=== PATIENT | male | born 1945 | race Caucasian/White ===

== ENCOUNTER 2018-01-29 13:42 | Emergency (ER) | payer MEDICARE, BC ==
--- NOTE | 2018-01-29 14:37 | UC ---
Shortness of Breath HPI - HPI Summary HPI Summary: 72 year old male with Alzheimer's presents with spouse reporting 4 days of progressively worsening shortness of breath. Associated with mild nasal congestion and non-productive cough. Denies fever, chills, ear pain, sore throat , chest pain, palpitations, edema, abdominal pain, nausea, vomiting, diarrhea, blood in stool, or melena. Patient has significant history of COPD, spontaneous pneumothorax x 3 (most recent May 23, 2017), cardiomyopathy, paroxysmal A- fib, V-tach, ICD, and AAA repair. - History of Current Complaint Chief Complaint: UCRespiratory Stated Complaint: SOB/SINUS COMPLAINT x3 DAYS Time Seen by Provider: 01/29/18 14:15 Hx Obtained From: Patient, Family/Family Medicine Resident Onset/Duration: Gradual Onset, Lasting Days - 4 Current Severity: Moderate Dyspnea At: Rest Alleviating Factors: Nothing Associated Signs & Symptoms: Positive: Cough (Nonproductive), Nasal Congestion. Negative: Cough (Bloody Sputum), Wheezing, Chest Pain w/Cough, Chest Pain Unrelated to Cough, Fever, Chills, Diaphoresis, Dizzy, Calf Pain/Swelling, Edema - Allergy/Home Medications Allergies/Adverse Reactions: Allergies Allergy/AdvReac Type Severity Reaction Status Date / Time amiodarone Allergy See Comment Verified 01/29/18 14:27 amoxapine Allergy See Comment Verified 01/29/18 14:27 diphenhydramine Allergy See Comment Verified 01/29/18 14:27 [From Benadryl] fluticasone Allergy See Comment Verified 01/29/18 14:27 [From Advair Diskus] olmesartan [From Benicar] Allergy See Comment Verified 01/29/18 14:27 Quinolones Allergy See Comment Verified 01/29/18 14:27 salmeterol Allergy See Comment Verified 01/29/18 14:27 [From Advair Diskus] statins. Allergy See Comment Uncoded 01/29/18 14:27 Home Medications: Home Medications Aspirin TAB* [Aspirin 325 MG TAB*] 325 mg PO DAILY 01/29/18 [History Confirmed 01/29/18] Cetirizine* [ZyrTEC 10 MG TAB*] 10 mg PO DAILY 01/29/18 [History Confirmed 01/29] Cholecalciferol (Vitamin D3) [Vitamin D3] 1,000 unit PO DAILY 01/29/18 [History Confirmed 01/29/18] Donepezil TAB* [Aricept 5 MG TAB*] 10 mg PO DAILY 01/29/18 [History Confirmed ] Furosemide TAB* [Lasix TAB*] 20 mg PO DAILY 01/29/18 [History Confirmed 01/29/18 ] Levalbuterol HFA INHALER* [Xopenex Hfa Inhaler*] 1 puff INH Q4H PRN 01/29/18 [ History Confirmed 01/29/18] Melatonin [Meladox] 3 mg PO BEDTIME 01/29/18 [History Confirmed 01/29/18] Metoprolol Tartrate [Lopressor] 150 mg PO BID 01/29/18 [History Confirmed ] Multivitamin [Multivitamins] 1 cap PO DAILY 01/29/18 [History Confirmed 01/29/18 ] [place]-3 Fatty Acids/Fish Oil [Fish Oil 1,000 mg Capsule] 1 each PO DAILY [History Confirmed 01/29/18] Potassium Chloride 10 meq PO DAILY 01/29/18 [History Confirmed 01/29/18] Sotalol TAB* [Betapace 80 MG TAB*] 120 mg PO BID 01/29/18 [History Confirmed 12/09] Tadalafil (Nf) [Cialis (NF)] 5 mg PO DAILY 01/29/18 [History Confirmed 01/29/18] Tamsulosin CAP* [Flomax CAP*] 0.4 mg PO BEDTIME 01/29/18 [History Confirmed 12/09] Vitamin E 400 unit PO DAILY 01/29/18 [History Confirmed 01/29/18] PMH/Surg Hx/FS Hx/Imm Hx - Additional Past Medical History Additional PMH: Environmental allergies Cardiovascular History: Cardiac Disease, Pacemaker/ICD - ICD, Atrial Fibrillation, Other Other Cardiovascular History: Ventricular tachycardia, cardiomyopathy Respiratory History: COPD, Other Other Respiratory History: Spontaneous pneumothorax x 3 Other GI/ History: BPH Neurological History: Dementia - Surgical History Surgical History: Yes - Family History Known Family History: Positive: Cardiac Disease, Hypertension - Social History Occupation: Retired Lives: With Family Alcohol Use: None Substance Use Type: None Smoking Status (MU): Former Smoker When Did the Patient Quit Smoking/Using Tobacco: 1988 Review of Systems Constitutional: Negative Skin: Negative Eyes: Negative ENT: Negative Respiratory: Shortness Of Breath, Cough Cardiovascular: Negative Gastrointestinal: Negative Genitourinary: Negative Is Patient Immunocompromised?: No All Other Systems Reviewed And Are Negative: Yes Physical Exam Triage Information Reviewed: Yes Appearance: No Pain Distress, Well-Nourished, Ill-Appearing - chronically Vital Signs: Initial Vital Signs Temp 98.1 F 01/29/18 14:08 Pulse 84 01/29/18 14:08 Resp 22 01/29/18 14:08 BP 139/55 01/29/18 14:08 Pulse Ox 96 01/29/18 14:08 Vital Signs Reviewed: Yes Eyes: Positive: Conjunctiva Clear. Negative: Discharge ENT: Positive: TMs normal, Uvula midline. Negative: Pharyngeal erythema, Nasal congestion, Nasal drainage, Tonsillar swelling, Tonsillar exudate, Sinus tenderness Neck: Positive: Supple, Nontender, No Lymphadenopathy Respiratory: Positive: Chest non-tender, Respiratory distress - Mild tachypnea, Crackles - Bibasilar fine crackles. Negative: Wheezing Cardiovascular: Positive: No Murmur, Pulses Normal, Brisk Capillary Refill, Other: - Irregularly irregular rhythm, no edema Abdomen Description: Positive: Nontender, No Organomegaly, Soft Neurological: Positive: Alert Skin Exam: Normal Diagnostics - EKG Cardiac Rate: NL - 91 Cardiac Rhythm: AFib: Normal - Few ventricular paced complexes Ectopy: None ST Segment: Non-Specific EKG Comparison: Other - No old EKG Shortness of Breath Dx - Course Course Of Treatment: 72 year old male with Alzheimer's presents with spouse reporting 4 days of progressively worsening SOB. He has significant history including COPD with 3 episodes of spontaneous pneumothorax, cardiomyopathy, paroxsysmal A-fib, V-Tach, ICD, and AAA repair. His exam revealed patient to be alert, mildly tachypnic, in no acute distress. He had some bibasilar crackles. Heart rhythm irregularly irregular. EKG showed A-fib with occasional paced ventricular beats. His pulse ox was 96% at rest however dropped to low 90's ambulating approximately 20 feet. Recommend patient be evaluated in ED. Transferred to [facility] via ambulance. - Differential Dx/Diagnosis Differential Diagnosis/HQI/PQRI: COPD Exacerbation, NM, Pneumothorax, Pulmonary Embolism Provider Diagnoses: Shortness of breath - Physician Notification/Consults Discussed Patient Care With: Shavonne Rodriguez - [facility] ED Time Discussed With Above Provider: 14:50 Instructed by Provider To: MD Will See In ED Discharge - Sign-Out/Discharge Documenting (check all that apply): Patient Departure All imaging exams completed and their final reports reviewed: No Studies - Discharge Plan Condition: Guarded Disposition: TRANS HIGHER LVL OF CARE FAC Patient Education Materials: Dyspnea (ED) Referrals: Prakash Moran MD [Primary Care Provider] - Additional Instructions: Go strait to [facility] via ambulance for further evaluation. - Billing Disposition and Condition Condition: GUARDED Disposition: Trans Higher Lvl of Care Fac
[2018-01-29 14:56] VITALS: BP 127/84
== END 2018-01-29 14:57 | disposition short-term general hospital (02) ==
LOC: UCCORT 13:42
DX: R06.02 Shortness of breath (principal); G30.9 Alzheimer's disease, unspecified; F02.80 Dementia in other diseases classified elsewhere, unspecified severity, without behavioral disturbance, psychotic disturbance, mood disturbance, and anxiety; Z88.8 Allergy status to other drugs, medicaments and biological substances; I48.91 Unspecified atrial fibrillation; Z95.0 Presence of cardiac pacemaker; I47.2 Ventricular tachycardia; I42.9 Cardiomyopathy, unspecified; J44.9 Chronic obstructive pulmonary disease, unspecified; N40.0 Benign prostatic hyperplasia without lower urinary tract symptoms; Z87.891 Personal history of nicotine dependence
CPT/HCPCS: 93005; 99203; G0463

== ENCOUNTER 2018-04-29 17:24 | Inpatient (IN) | payer MEDICARE, BC ==
--- NOTE | 2018-04-29 17:44 | ED ---
Altered Mental Status - HPI Summary HPI Summary: Patient is a 72 y/o M present to ED via ambulance with complaints of AMS, hypoxia, and vtach per EMS. Provider in room at 1722. 911 was called when patient became violent with his today, which has never happened before. Upon EMS arrival, patient was noted to be hypoxic. They also report vtach was observed with ST depression in V1, V2 and pt was administered amiodarone, despite allergy. FSBG was 143 per EMS. Hx of dementia. AICD present, did not fire. Family reported that patient has not been drinking fluids today, decreased appetite. Patient was given 150 mg amiodarone by EMS two minutes LEGAL TRANSCRIBER, despite allergy. BP was 90/40 per EMS. Patient is on Eliquis. In room, pulse was 100s-120s. He was placed on Bipap at 1732 which improved o2 to ~90%. Fever of 101.2 noted in room. Patient is a level 5 caveat, AMS. PMH: Cardiac ablation 07/2013, pacemaker on right 02/2013, Hx of cardiac arrest , Hx of thyroid toxicity 01/14/13, Hx of AAA repair 09/14/10, Hx of colorectal cancer 07/2010. PMHx of UTI, syncope, pneumothorax. He is on sotalol 120 mg BID, brovana 15 mcg/2mL, Donepezil 10 mg hs, Flomax 0.4 mg qd hs, Eliquis 5 mg BID, Xopenex inhaler [id number], digoxin 125 mg, ASA 325 mg qd 8AM, robitussin syrup/tab prn rare, centrum silver 1 qd, melatonin hs 3 mg, lasix 40 po qd prn 2lb/24hrwt+, cetirizine 10 mg qd, tylenol 325 2po prn pain. Allergies to amoxapine, all statins, amiodarone, quinalones including levaquin, cipro, benicar, bendryl, valium, advair diskus, spiriva inhaler. Home medications and allergies are noted. - History Of Current Complaint Chief Complaint: EDDysrhythmPalp Stated Complaint: CHEST PAIN Hx Obtained From: Family/Plasterer Tender, EMS Hx From Patient Unobtainable Due To: Altered Mental Status Onset/Duration: Still Present Timing: Constant Severity Initially: Severe Severity Currently: Severe Character: Agitation Aggravating Factor(s): Nothing Alleviating Factor(s): Nothing Associated Signs And Symptoms: Positive: Fever Related History: Other: - dementia - Allergies/Home Medications Allergies/Adverse Reactions: Allergies Allergy/AdvReac Type Severity Reaction Status Date / Time amiodarone Allergy See Comment Verified 04/29/18 18:08 amoxapine Allergy See Comment Verified 04/29/18 18:08 diazepam [From Valium] Allergy Altered Verified 04/29/18 18:08 Mental Status diphenhydramine Allergy See Comment Verified 04/29/18 18:08 [From Benadryl] fluticasone Allergy See Comment Verified 04/29/18 18:08 [From Advair Diskus] olmesartan [From Benicar] Allergy See Comment Verified 04/29/18 18:08 Quinolones Allergy See Comment Verified 04/29/18 18:08 salmeterol Allergy See Comment Verified 04/29/18 18:08 [From Advair Diskus] Rlnpaic-Osd-Mrz Reductase Allergy Muscle Ache Verified 04/29/18 18:26 Inhibitor Home Medications: Home Medications Brovana(NF) 15 mcg PO DAILY 04/29/18 [History Confirmed 04/29/18] Budesonide 0.5 mg PO DAILY 04/29/18 [History Confirmed 04/29/18] Digoxin 125 mcg PO DAILY 04/29/18 [History Confirmed 04/29/18] Divalproex Sodium 250 mg PO BID 04/29/18 [History Confirmed 04/29/18] Eliquis 5 mg PO BID 04/29/18 [History Confirmed 04/29/18] Robitussin* 5 ml PO DAILY PRN 04/29/18 [History Confirmed 04/29/18] Tylenol 650 mg PO DAILY PRN 04/29/18 [History Confirmed 04/29/18] PMH/Surg Hx/FS Hx/Imm Hx Previously Healthy: No Endocrine/Hematology History: Reports: Hx Thyroid Disease Cardiovascular History: Reports: Hx Aneurysm - AAA repaired , Hx Auto Implanted Cardiovert Defib, Hx Cardiac Arrest, Hx Congestive Heart Failure, Hx Pacemaker/ ICD Respiratory History: Reports: Hx Chronic Obstructive Pulmonary Disease (COPD), Other Respiratory Problems/Disorders - pneumothorax History: Reports: Other Problems/Disorders - UTI Neurological History: Reports: Hx Dementia - Cancer History Cancer Type, Location and Year: colon - Surgical History Surgery Procedure, Year, and Place: Cardiac ablation 07/2013, pacemaker on right 02/2013, AAA repair 09/14/10 Infectious Disease History: No Infectious Disease History: Denies: Traveled Outside the [place] in Last 30 Days - Family History Known Family History: Positive: Cardiac Disease, Hypertension - Social History Alcohol Use: None Substance Use Type: Reports: None Smoking Status (MU): Former Smoker Review of Systems - ROS Summary Review of Systems Summary: Patient is a level 5 caveat, AMS. Positive: Fever Positive: Other - POSITIVE - VTACH per EMS, probable Sinus tach upon review Positive: Other - POSITIVE - HYPOXIA Positive: Other - POSITIVE - decreased appetite Positive: no symptoms reported Skin: Negative Neurological: Other - POSITIVE - AMS, combative earlier Positive: Depressed - upon presentation, was combative earlier All Other Systems Reviewed And Are Negative: No - Comments Additional Review of Systems Comments: Patient is a level 5 caveat, AMS. Physical Exam - Summary Physical Exam Summary: Appearance: ill-appearing, well-nourished, moving all extremities on stretcher, agitated Skin: Warm, color reflects adequate perfusion, dry Head: Normal Head/Face inspection, atraumatic Eyes: Conjunctiva clear ENT: Normal inspection Neck: Supple, no nodes, no JVD Respiratory: moderate respiratory distress, decreased breath sounds throughout Cardio: irregularly irregulary, tachy, No murmur, pulses normal, brisk capillary refill Abdomen: Soft, nontender, nondistended Bowel sounds: Present Musculoskeletal: Strength Intact/ROM intact, no edema. Psychological: Normal Neuro: Opens eyes to stimuli, moves all extremities, facial symmetry is present , GCS 9 Triage Information Reviewed: Yes Vital Signs On Initial Exam: Initial Vitals Temp Pulse Resp BP Pulse Ox 101.2 F 113 22 149/118 77 04/29/18 17:29 04/29/18 17:29 04/29/18 17:29 04/29/18 17:29 04/29/18 17:29 Vital Signs Reviewed: Yes - Erin Coma Scale Best Eye Response: 2 - To Pain Best Motor Response: 5 - Purposeful Movement Best Verbal Response: 2 - Incomprehensible Words Coma Scale Total: 9 Diagnostics - Vital Signs Vital Signs Temp Pulse Resp BP Pulse Ox 04/29/18 17:29 101.2 F 113 22 149/118 77 - Laboratory Result Diagrams: 05/06/18 05:46 05/06/18 15:42 Diagnostic Studies Comment: Labs in this report are from 05/06/18, not time of pt 's presentation to ED Lab Statement: Any lab studies that have been ordered have been reviewed, and results considered in the medical decision making process. - Radiology CXR Radiology Interpretation Completed By: ED Physician Summary of Radiographic Findings: no acute disease, pending official report - EKG 1730 Cardiac Rate: Other Rate - AFIB WITH RATE OF 116 BPM EKG Rhythm: Atrial Fibrillation EKG Comparison: Other - ST sgement changes in inferolateral leads noted on comparsion to EKG from 01/29/18 Summary of EKG Findings: EKG showed afib with rate of 116 BPM, nl IVCT, nl QTc, downsloping STs and inverted Ts in inferolateral leads, ST sgement changes in inferolateral leads noted on comparsion to EKG from 01/29/18 Re-Evaluation - Re-Evaluation First Eval Re-Evaluation Time: 17:49 Change: Improved Comment: pulse 108, tolerating bipap, BP 149/118, o2 91 Second Eval Re-Evaluation Time: 18:09 Change: Unchanged Comment: Family have arrived and are present in the room. No Hx of AR reported per . Hx of V-tach. He has had multiple shocks but does not remember then as he syncopes before the shock. Hx of ablation, only atrial part. Patient has five wires in heart. ACID is on right not left. Dr. Humera Egan is current stage builder. Most recent hospitalization was [place]. Patient was in [place] for "questionable" PNA and CHF. Aftewards, he was in rehab 03/29 - 04/12/18 [facility] and been home since then. In the room, patient's eyes are closed. Per , patient has been leaning to the right and has hands contracted, last official well known was [place], 04/23/18. FMHx of cardiac disease denied , CA reported. He is on digoxin and depakote two capsules twice daily. Patient is a full code. Fifth Eval Re-Evaluation Time: 19:07 Change: Unchanged Comment: 1907 aware of BNP of 1254, will DC sepsis fluids. Third Eval Re-Evaluation Time: 19:00 Change: Unchanged Comment: [place] from lab states that patient is difficult to access due to agitation, blood cultures were not sent, antibiotics given before cultures. Fourth Eval Re-Evaluation Time: 19:02 Change: Worse Comment: Nurses additionally note increased agitation of patient, additional pain medications requested. Altered Mental Statu Course/Dx - Course Course Of Treatment: Patient is a 72 y/o M present to ED via ambulance with complaints of AMS, hypoxia, and vtach per EMS. Provider in room at 1722. 911 was called when patient became violent with his today, which has never happened before. Upon EMS arrival, patient was noted to be hypoxic. They also report vtach was observed with ST depression in V1, V2. FSBG was 143 per EMS. Hx of dementia. AICD present, did not fire. Family reported that patient has not been drinking fluids today, decreased appetite. Patient was given 150 mg amiodarone by EMS two minutes LEGAL TRANSCRIBER for Vtach, despite allergy. BP was 90/40 per EMS. Patient is on Eliquis. In room, pulse was 100s-120s. He was placed on Bipap at 1732 which improved o2 to ~90%. Fever of 101.2 noted in room. Patient is a level 5 caveat, AMS. On physical exam, patient is ill-appering, moving all extremities on stretcher, appears agitated. Respiratory: moderate respiratory distress, decreased breath sounds throughout. Neuro: Opens eyes to stimuli, moves all extremities, facial symmetry is present, GCS 9. Family had arrived and are present in the room. No Hx of AR reported per . Hx of V- tach. He has had multiple shocks but does not remember then as he syncopes before the shock. Hx of ablation, only atrial part. Patient has five wires in heart. ACID is on right not left. Dr. Humera Egan is current stage builder. Most recent hospitalization was [place]. Patient was in [place] for "questionable" PNA and CHF. Aftewards, he was in rehab 03/29 - 04/12/18 [facility] and been home since then. In the room, patient's eyes are closed. Per , patient has been leaning to the right and has hands contracted, last official well known was [place]. FMHx of cardiac disease denied, CA reported. He is on digoxin and depakote two capsules twice daily. Patient is a full code. EKG showed afib with rate of 116 BPM, nl IVCT, nl QTc, downsloping STs and inverted Ts in inferolateral leads, ST sgement changes in inferolateral leads noted on comparsion to EKG from 01/29/18. Labs showed WBC 12.1, Hgb 13.2, Hct 40, RDW 16, plt count 108, absolute neuts 11.2, absolute lymphs 0.3, INR 1.16, lactic acid 1.3, Na 145, total bilirubin 1.5, trop 0.06, CRP 26.73, BNP 1254, digoxin 1, valrpoic acid 44. UA showed trace ketones, ascorbic acid present. Influenza A, B was negative. During ED course, patient received vancomycin Hcl 1000 mg in sodium chloride 250 mls @ 166.667 mls/hr IVPD ED ONCE ONE, fluids, Poperacillin Sod/Tazobactam Sod 3.375 gm in Sodium Chloride 100 mls @ 200 mls/hr IVPB ED ONCE ONE, for presumed sepsis, respiratory source. Morphine 4 mg IV ED ONCE ONE given for pain and agitation, Lasix 40 mg IV ONCE ONE given after BNP elevated, and sepsis fluids initiated, Tylenol 650 mg [place] ED ONCE ONE for fever. 1907 aware of BNP of 1254, will DC sepsis fluids. CXR showed no acute disease. Due to movement of patient, Brain CT could not be done. Patient's case was discussed with Dr. Kwok at 1918, Dr. Kwok accepts the patient for admission. - Diagnoses Differential Diagnosis/HQI/PQRI: CVA, Hyperthermia, Hypoxia, Intracranial Bleed , Medication Reaction, Meningitis, Metabolic Disorder, Sepsis Provider Diagnoses: Altered mental status, Fever, CHF (congestive heart failure), V-tach, Acute hypoxemic respiratory failure, Atrial fibrillation with rapid ventricular response, Alzheimer disease - Provider Notifications Discussed Care Of Patient With: Waldo Kwok Time Discussed With Above Provider: 19:19 Instructed by Provider To: Other - Patient's case was discussed with Dr. Kwok at 1918, Dr. Kwok accepts the patient for admission. - Critical Care Time Critical Care Time: 30-74 min - 40 minutes Discharge - Sign-Out/Discharge Documenting (check all that apply): Patient Departure - admit All imaging exams completed and their final reports reviewed: Yes - Discharge Plan Condition: Good Disposition: ADMITTED TO [facility] - Billing Disposition and Condition Condition: GOOD Disposition: Admitted to [facility] - Attestation Statements Document Initiated by Sharon: Yes Documenting Scribe: PATRICK COOPER Provider For Whom Sharon is Documenting (Include Credential): NOBLE FARRELL MD Scribe Attestation: PATRICK Briceño , scribed for NOBLE FARRELL MD on 05/06/18 at 2237. Scribe Documentation Reviewed: Yes Provider Attestation: The documentation as recorded by the bobbyibPATRICK gates accurately reflects the service I personally performed and the decisions made by me, NOBLE FARRELL MD Status of Scribe Document: Viewed
--- OUTSIDE RECORDS SUMMARY | 2018-04-29 17:47 | XMS REPORT ---
:1945 External Reference #:[id number] [facility] Address [address], [address] [place] [address] Phone [phone] Care Team Providers Name Role Phone Vasyl Pacheco MD Care Team Information Engineering Librarian Unavailable Vasyl Pacheco MD Primary Care Physician Unavailable Payers Type Date Identification Numbers Payment Provider Subscriber Medicare Primary Effective: Policy Number: Medicare Baltazar Hinkle 2008 [id number] PayID: [id number] [address] [place] [address] [facility] Effective: 2010 Policy Number: Excellus Baltazar Hinkle [id number] PayID: [id number] [address] [address] [place] [address] Problems Date Description Provider Status Onset: 02/05/2018 Chronic congestive heart failure Vivienne Wagner MD, PHD Active Onset: 02/05/2018 H/O: pulmonary embolus Vivienne Wagner MD, PHD Active Onset: 02/05/2018 Chronic obstructive lung disease Vivienne Wagner MD, PHD Active Onset: 02/05/2018 Alzheimer's disease Vivienne Wagner MD, PHD Active Onset: 02/05/2018 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, PHD Active abdominal aorta Onset: 02/05/2018 Sick sinus syndrome Vivienne Wagner MD, PHD Active Onset: 02/05/2018 Implantation of internal cardiac Vivienne Wagner MD, PHD Active defibrillator Onset: 02/05/2018 Chronic atrial fibrillation Vivienne Wagner MD, PHD Active Onset: 02/05/2018 History of malignant neoplasm of Vivienne Wagner MD, PHD Active colon Onset: 02/05/2018 Benign prostatic hyperplasia Vivienne Wagner MD, PHD Active Family History Date Family Member(s) Problem(s) Comments First Brother Chronic Obstructive Pulmonary Disease (COPD) Social History Type Date Description Comments Marital Status Lives With Family Diet Patient is on a cardiac diet 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 [employer] ADL's/IADL's Independent with all ADL's Cigarette Use Former Cigarette Smoker 1 1/2 Packs Daily x33 ETOH Use Denies alcohol use Recreational Drug Use Denies Drug Use Smoking Patient is a former smoker Daily Caffeine Consumes on average 1 cup of regular coffee per day Exercise Type/Frequency Does not exercise Allergies, Adverse Reactions, Alerts Date Description Reaction Status Severity Comments 02/23/2018 Diazepam restless and combative active 02/23/2018 Amoxapine active 02/23/2018 Ciprofloxacin nausea, vomiting, active hypothermia 02/23/2018 Benadryl combative active 02/23/2018 Fluticasone active 02/23/2018 Levofloxacin VERY SICK active 02/23/2018 Olmesartan increases blood active pressure 02/23/2018 Salmeterol active 02/23/2018 Tiotropium active 02/23/2018 Quinoline Yellow active 02/23/2018 Statins myalgia active 02/23/2018 Amiodarone active hyperthyroid, cardiac arrest 02/23/2018 Valium active restless,combative Medications Medication Date Status Form Strength Qnty SIG Indications Ordering Provider Budesonide 03/19 Active Suspension 0.5mg/2ML 180ml take 1 vial J44.9 twice daily. MD Kenton rinse mouth after use. Brovana 03/19 Active Nebulizer 15mcg/2ML 360ml use 1 J44.9 nebulization MD Kenton twice daily. Eliquis Active Tablets 5mg 180ta 1 tab by Egan, bs mouth twice a MD Katie day Aspirin Active Tablets 325mg 1 by mouth Unknown every day Cetirizine HCL Active Tablets 10mg 90tab 1 by mouth Egan, s every day MD Katie Vitamin D-3 Active Capsules 1000Unit 1 by mouth Unknown every day Aricept Active Tablets 10mg 90tab 1 by mouth Jignesh, / s every day MD Katie Furosemide Active Tablets 20mg 2 by mouth Unknown every day prn for weight gain >3 lbs in 24-48 hours Xopenex HFA Active Aerosol 45mcg/Act inhale two Unknown puffs by mouth every 4 to 6 hours as needed for trouble breathing Melatonin Active Capsules 3mg one by mouth Unknown an hour prior to bedtime - if not effective in 1 week go to 2 capsules Metoprolol Active Tablets 100mg 1.5 tablets Unknown Tartrate take one tablet by mouth twice a day Sotalol HCL Active Tablets 120mg 60tab 1 tab by Jignesh (AF) / s mouth twice a MD Katie day Tamsulosin HCL Active Capsules 0.4mg 1 by mouth Unknown every day at bedtime Oxygen Active 2L/Mi at night and prn Digitek Active Tablets 125mcg 1 po daily Unknown Depakote Active Tablets DR 125mg 1 by mouth Unknown twice a day Tylenol Extra Active Tablets 500mg 2 tabs by Unknown Strength / mouth every 4 hours as needed for back pain Levalbuterol Active Aerosol 45mcg/Act 2 puffs every Unknown Tartrate 6 hours as needed for shortness of breath or coughing Potassium Active Tablets ER 10Meq 1 by mouth Unknown Chloride Rosa every day prn ER Symbicort 03/14 Hx Aerosol 160-4.5mc 10.20 inhale two J44.9 g/Act 0gm puffs by MD Kenton - mouth twice a Brovana Hx Nebulizer 15mcg/2ML use 1 nebulization - twice daily. 03/14 Budesonide Hx Suspension 0.5mg/2ML 180ml take 1 vial Kh twice daily. MD Kenton - rinse mouth 03/14 after use. Cefpodoxime Hx Tablets 200mg 1 by mouth Unknown Proxetil twice a day Centrum Silver Hx Tablets 1 by mouth Unknown /0000 every day Entresto Hx Tablets 24-26mg 180ta take one Egan bs tablet by MD Katie mouth twice a day Tadalafil Hx Tablets 5mg 1 by mouth at Unknown /0000 bedtime Vitamin E Hx Capsules 400Unit 1 by mouth Unknown every day Pulmicort Hx Suspension 0.5mg/2ML nebulizer two Unknown times daily Vital Signs Date Vital Result Comment 04/11/2018 BP Systolic Sitting Left Arm 110 mmHg BP Diastolic Sitting Left Arm 76 mmHg Heart Rate 81 /min Respiratory Rate 16 /min Height 66 inches 5'6" Weight 155.00 lb BMI (Body Mass Index) 25.0 kg/m2 BSA (Body Surface Area) 1.79 m2 [place] body weight in kilograms 64 O2 Saturation Level with Exercise 99 % 03/14/2018 BP Systolic Sitting Left Arm 104 mmHg BP Diastolic Sitting Left Arm 60 mmHg Heart Rate 69 /min Respiratory Rate 20 /min Height 66 inches 5'6" Weight 174.00 lb BMI (Body Mass Index) 28.1 kg/m2 BSA (Body Surface Area) 1.88 m2 [place] body weight in kilograms 64 O2 % BldC Oximetry 98 % Room air 02/23/2018 BP Systolic Sitting Left Arm 98 mmHg BP Diastolic Sitting Left Arm 60 mmHg Heart Rate 87 /min Respiratory Rate 18 /min Weight 171.00 lb O2 % BldC Oximetry 94 % Ora Results Test Date Test Result H/L Range Note Serum sodium 03/29/2018 Serum sodium 142 136-145 measurement measurement Serum or plasma urea 03/29/2018 Serum or plasma urea 16.0 nitrogen/creatinine nitrogen/creatinine mass rati mass ratio Serum or plasma urea 03/29/2018 Serum or plasma urea 16 7-18 nitrogen measurement nitrogen measurement (mass/vo (mass/volume) Serum or plasma 03/29/2018 Serum or plasma 2.0 1.8-2.4 magnesium measurement magnesium measurement (mass/volume (mass/volume) Serum or plasma 03/29/2018 Serum or plasma 85 74-106 glucose measurement glucose measurement (mass/volume) (mass/volume) Serum or plasma 03/29/2018 Serum or plasma 1.4 0.8-1.9 digoxin measurement digoxin measurement (mass/volume) (mass/volume) Serum or plasma 03/29/2018 Serum or plasma 1.0 0.6-1.3 creatinine creatinine measurement measurement (mass/volum (mass/volume) Serum or plasma 03/29/2018 Serum or plasma 8.7 8.5-10.1 calcium measurement calcium measurement (mass/volume) (mass/volume) Serum carbon dioxide 03/29/2018 Serum carbon dioxide 28 21-32 measurement measurement Potassium SerPl-sCnc 03/29/2018 Potassium SerPl-sCnc 3.7 3.5-5.1 Chloride SerPl-sCnc 03/29/2018 Chloride SerPl-sCnc 107 98-107 Anion Gap SerPl-sCnc 03/29/2018 Anion Gap SerPl-sCnc 7 Low 8-16 Unloinc 03/29/2018 Unloinc Sitting Up In Bed Determination of 03/29/2018 Determination of 21 21-100 inhaled oxygen inhaled oxygen concentration (vol concentration (volume fraction) Unloinc 03/29/2018 Unloinc 2 Unloinc N/C Unloinc Ambulating Heart rate by 03/29/2018 Heart rate by 80 oximetry oximetry Arterial blood 03/29/2018 Arterial blood 91 Low 93-98 oxygen saturation oxygen saturation measurement by pu measurement by pulse oximetry Blood monocytes 03/28/2018 Blood monocytes 0.55 0.0-0.8 automated count automated count (number/volume) (number/volume) Eosinophil/leuk NFr 03/28/2018 Eosinophil/leuk NFr 2.1 0.0-6.6 Bld Auto Bld Auto Globulin Ser 03/28/2018 Globulin Ser 4.1 1.9-4.3 Calc-mCnc Calc-mCnc Lymphocytes/leuk NFr 03/28/2018 Lymphocytes/leuk NFr 8.6 Low 20.0-42.0 Bld Auto Bld Auto Monocytes/leuk NFr 03/28/2018 Monocytes/leuk NFr 7.3 0.0-10.0 Bld Auto Bld Auto Neutrophils # Bld 03/28/2018 Neutrophils # Bld 6.14 1.8-7.0 Auto Auto Neutrophils/leuk NFr 03/28/2018 Neutrophils/leuk NFr 81.3 High 33.0-73.0 Bld Auto Bld Auto RDW RBC Auto 03/28/2018 RDW RBC Auto 47.6 36-51 RDW RBC Auto-Rto 03/28/2018 RDW RBC Auto-Rto 14.9 11.6-15.8 Serum or plasma C 03/28/2018 Serum or plasma C 57.6 High <3.0 reactive protein reactive protein measurement (ma measurement (mass/volume) Serum or plasma 03/28/2018 Serum or plasma 3.2 Low 3.4-5.0 albumin measurement albumin measurement (mass/volume) (mass/volume) Serum or plasma 03/28/2018 Serum or plasma 133 High 45-117 alkaline phosphatase alkaline phosphatase measurement ( measurement (enzymatic activity/volume) Serum or plasma 03/28/2018 Serum or plasma 23 15-37 aspartate aspartate aminotransferase aminotransferase measure measurement (enzymatic activity/volume) Serum or plasma 03/28/2018 Serum or plasma 7.3 6.4-8.2 protein measurement protein measurement (mass/volume) (mass/volume) Serum or plasma 03/28/2018 Serum or plasma 1.4 High 0.2-1.0 total bilirubin total bilirubin measurement (mass/ measurement (mass/volume) * Miscellaneous 03/28/2018 * Miscellaneous Test(s) added studies (set) studies (set) Alt SerPl-cCnc 03/28/2018 Alt SerPl-cCnc 14 12-78 Albumin/Glob SerPl 03/28/2018 Albumin/Glob SerPl 0.8 Automated blood 03/28/2018 Automated blood 0.05 0.0-0.1 basophil count basophil count (count/volume) (count/volume) Automated blood 03/28/2018 Automated blood 0.16 0.0-0.5 eosinophil count eosinophil count Automated blood 03/28/2018 Automated blood 46.2 38.0-48.0 hematocrit (volume hematocrit (volume fraction) fraction) Automated blood 03/28/2018 Automated blood 0.65 Low 1.0-4.0 lymphocyte count lymphocyte count (number/volume) (number/volume) Automated blood 03/28/2018 Automated blood 192 155-360 platelet count platelet count Automated blood 03/28/2018 Automated blood 11.4 High 6.6-10.6 platelet mean volume platelet mean volume measurement measurement Automated 03/28/2018 Automated 29.3 27.0-33.0 erythrocyte mean erythrocyte mean corpuscular corpuscular hemoglobin hemoglobin (mass per erythrocyte) Automated 03/28/2018 Automated 33.1 31.7-36.0 erythrocyte mean erythrocyte mean corpuscular corpuscular hemoglobin hemoglobin concentration measurement (mass/volume) Automated 03/28/2018 Automated 88.5 80.0-96.0 erythrocyte mean erythrocyte mean corpuscular volume corpuscular volume Basophils/leuk NFr 03/28/2018 Basophils/leuk NFr 0.7 0.0-1.1 Bld Auto Bld Auto Blood erythrocytes 03/28/2018 Blood erythrocytes 5.22 4.20-5.80 automated count automated count (number/volume) (number/volume) Blood hemoglobin 03/28/2018 Blood hemoglobin 15.3 12.8-17.0 measurement measurement (mass/volume) (mass/volume) Blood leukocytes 03/28/2018 Blood leukocytes 7.6 3.4-10.5 automated count automated count (number/volume) (number/volume) Laboratory test 03/27/2018 Troponin-I 0.030 ng/mL 1, 2 finding Serum or plasma 03/26/2018 Serum or plasma 1.8 0.4-1.9 lactate measurement lactate measurement (moles/volume) (moles/volume) Anaerobic blood 03/26/2018 Anaerobic blood No Growth culture culture Aerobic blood 03/26/2018 Aerobic blood No Growth culture culture pH Ur Strip.auto 03/26/2018 pH Ur Strip.auto 6.5 6.5-7.5 Urobilinogen Ur 03/26/2018 Urobilinogen Ur 1.0 0.2-1.0 Strip-aCnc Strip-aCnc Urine total 03/26/2018 Urine total Small High Negative bilirubin detection bilirubin detection by automated test by automated test strip Urine hemoglobin 03/26/2018 Urine hemoglobin Trace Negative detection by detection by automated test strip automated test strip Urine glucose 03/26/2018 Urine glucose Negative Negative measurement by measurement by automated test strip automated test strip (mass/volume) Urine appearance 03/26/2018 Urine appearance Clear Clear determination determination Specific gravity of 03/26/2018 Specific gravity of 1.010 1.010-1.030 Urine by Automated Urine by Automated test strip test strip Prot Ur 03/26/2018 Prot Ur Trace Negative Strip.auto-mCnc Strip.auto-mCnc Nitrite Ur Ql 03/26/2018 Nitrite Ur Ql Negative Negative Strip.auto Strip.auto Leukocyte esterase 03/26/2018 Leukocyte esterase Negative Negative Ur Ql Strip.auto Ur Ql Strip.auto Ketones Ur 03/26/2018 Ketones Ur Trace High Negative Strip.auto-mCnc Strip.auto-mCnc Color Ur 03/26/2018 Color Ur Yellow Yellow Activated partial 03/01/2018 Activated partial 39.2 High 23.4-35.0 thromboplastin time thromboplastin time (aPTT) in pl (aPTT) in platelet poor plasma by coagulation assay Platelet poor plasma 03/01/2018 Platelet poor plasma 1.3 High 0.9-1.1 international international normalized rati normalized ratio (Inr) by coagulation assay (relative time) Prothrombin time 03/01/2018 Prothrombin time 16.4 High 12.0-14.4 (PT) in platelet (PT) in platelet poor plasma poor plasma Serum or plasma 03/01/2018 Serum or plasma 5232.0 High <125 natriuretic peptide natriuretic peptide B prohormone N B prohormone N-terminal measurement (mass/volume) Anion Gap SerPl-sCnc 02/02/2018 Anion Gap SerPl-sCnc 8 8-16 Automated blood 02/02/2018 Automated blood 0.02 0.0-0.1 basophil count basophil count (count/volume) (count/volume) Serum sodium 02/02/2018 Serum sodium 145 136-145 measurement measurement Serum or plasma urea 02/02/2018 Serum or plasma urea 11.0 nitrogen/creatinine nitrogen/creatinine mass rati mass ratio Serum or plasma urea 02/02/2018 Serum or plasma urea 11 7-18 nitrogen measurement nitrogen measurement (mass/vo (mass/volume) Serum or plasma 02/02/2018 Serum or plasma 173 High 74-106 glucose measurement glucose measurement (mass/volume) (mass/volume) Serum or plasma 02/02/2018 Serum or plasma 1.0 0.6-1.3 creatinine creatinine measurement measurement (mass/volum (mass/volume) Serum or plasma 02/02/2018 Serum or plasma 8.9 8.5-10.1 calcium measurement calcium measurement (mass/volume) (mass/volume) Serum carbon dioxide 02/02/2018 Serum carbon dioxide 26 21-32 measurement measurement RDW RBC Auto-Rto 02/02/2018 RDW RBC Auto-Rto 14.2 11.6-15.8 RDW RBC Auto 02/02/2018 RDW RBC Auto 45.3 36-51 Potassium SerPl-sCnc 02/02/2018 Potassium SerPl-sCnc 3.9 3.5-5.1 Neutrophils/leuk NFr 02/02/2018 Neutrophils/leuk NFr 86.0 High 33.0-73.0 Bld Auto Bld Auto Neutrophils # Bld 02/02/2018 Neutrophils # Bld 8.67 High 1.8-7.0 Auto Auto Monocytes/leuk NFr 02/02/2018 Monocytes/leuk NFr 6.2 0.0-10.0 Bld Auto Bld Auto Automated blood 02/02/2018 Automated blood 0.09 0.0-0.5 eosinophil count eosinophil count Automated blood 02/02/2018 Automated blood 46.2 38.0-48.0 hematocrit (volume hematocrit (volume fraction) fraction) Automated blood 02/02/2018 Automated blood 0.68 Low 1.0-4.0 lymphocyte count lymphocyte count (number/volume) (number/volume) Automated blood 02/02/2018 Automated blood 241 155-360 platelet count platelet count Automated blood 02/02/2018 Automated blood 11.1 High 6.6-10.6 platelet mean volume platelet mean volume measurement measurement Automated 02/02/2018 Automated 29.7 27.0-33.0 erythrocyte mean erythrocyte mean corpuscular corpuscular hemoglobin hemoglobin (mass per erythrocyte) Automated 02/02/2018 Automated 33.1 31.7-36.0 erythrocyte mean erythrocyte mean corpuscular corpuscular hemoglobin hemoglobin concentration measurement (mass/volume) Automated 02/02/2018 Automated 89.5 80.0-96.0 erythrocyte mean erythrocyte mean corpuscular volume corpuscular volume Lymphocytes/leuk NFr 02/02/2018 Lymphocytes/leuk NFr 6.7 Low 20.0-42.0 Bld Auto Bld Auto Eosinophil/leuk NFr 02/02/2018 Eosinophil/leuk NFr 0.9 0.0-6.6 Bld Auto Bld Auto Chloride SerPl-sCnc 02/02/2018 Chloride SerPl-sCnc 111 High 98-107 Blood monocytes 02/02/2018 Blood monocytes 0.62 0.0-0.8 automated count automated count (number/volume) (number/volume) Basophils/leuk NFr 02/02/2018 Basophils/leuk NFr 0.2 0.0-1.1 Bld Auto Bld Auto Blood erythrocytes 02/02/2018 Blood erythrocytes 5.16 4.20-5.80 automated count automated count (number/volume) (number/volume) Blood hemoglobin 02/02/2018 Blood hemoglobin 15.3 12.8-17.0 measurement measurement (mass/volume) (mass/volume) Blood leukocytes 02/02/2018 Blood leukocytes 10.1 3.4-10.5 automated count automated count (number/volume) (number/volume) Arterial blood 02/01/2018 Arterial blood 91 Low 93-98 oxygen saturation oxygen saturation measurement by pu measurement by pulse oximetry Heart rate by 02/01/2018 Heart rate by 85 oximetry oximetry Serum or plasma 02/01/2018 Serum or plasma 2.1 1.8-2.4 magnesium magnesium measurement measurement (mass/volume (mass/volume) Unloinc 02/01/2018 Unloin Ambulating Unloin N/C Unloinc 2 Determination of 02/01/2018 Determination of 21 21-100 inhaled oxygen inhaled oxygen concentration (vol concentration (volume fraction) Unloin 02/01/2018 Unloin Sitting Up In Bed Activated partial 02/01/2018 Activated partial 34.2 23.4-35.0 thromboplastin time thromboplastin time (aPTT) in pl (aPTT) in platelet poor plasma by coagulation assay [facility]30[facility] Serum or plasma 01/30/2018 Serum or plasma 0.065 troponin i.cardiac troponin i.cardiac measurement (ma measurement (mass/volume) Platelet poor plasma 01/29/2018 Platelet poor plasma 1.0 0.9-1.1 international international normalized rati normalized ratio (Inr) by coagulation assay (relative time) Prothrombin time (PT) 01/29/2018 Prothrombin time (PT) 13.4 12.0-14.4 in platelet poor in platelet poor plasma plasma Serum or plasma C 01/29/2018 Serum or plasma C 47.8 High <3.0 reactive protein reactive protein measurement (ma measurement (mass/volume) Serum or plasma 01/29/2018 Serum or plasma 3.2 Low 3.4-5.0 albumin measurement albumin measurement (mass/volume) (mass/volume) Serum or plasma 01/29/2018 Serum or plasma 109 45-117 alkaline phosphatase alkaline phosphatase measurement ( measurement (enzymatic activity/volume) Serum or plasma 01/29/2018 Serum or plasma 20 15-37 aspartate aspartate aminotransferase aminotransferase measure measurement (enzymatic activity/volume) Serum or plasma 01/29/2018 Serum or plasma 0.8 0.4-1.9 lactate measurement lactate measurement (moles/volume) (moles/volume) Serum or plasma 01/29/2018 Serum or plasma 9553.0 High <125 natriuretic peptide B natriuretic peptide B prohormone N prohormone N-terminal measurement (mass/volume) Serum or plasma 01/29/2018 Serum or plasma 6.8 6.4-8.2 protein measurement protein measurement (mass/volume) (mass/volume) Serum or plasma total 01/29/2018 Serum or plasma total 1.3 High 0.2-1.0 bilirubin measurement bilirubin measurement (mass/ (mass/volume) TSH SerPl-aCnc 01/29/2018 TSH SerPl-aCnc 2.22 0.30-4.20 * Miscellaneous 01/29/2018 * Miscellaneous Test(s) added studies (set) studies (set) Legionella pneumophila 01/29/2018 Legionella pneumophila Negative Negative 1 Ag [Presence] in 1 Ag [Presence] in Urine by Urine by Immunoassay Color Ur 01/29/2018 Color Ur Yellow Yellow Ketones Ur 01/29/2018 Ketones Ur Negative Negative Strip.auto-mCnc Strip.auto-mCnc Leukocyte esterase Ur 01/29/2018 Leukocyte esterase Ur Negative Negative Ql Strip.auto Ql Strip.auto Nitrite Ur Ql 01/29/2018 Nitrite Ur Ql Negative Negative Strip.auto Strip.auto Prot Ur 01/29/2018 Prot Ur Negative Negative Strip.auto-mCnc Strip.auto-mCnc Urine appearance 01/29/2018 Urine appearance Clear Clear determination determination Urine glucose 01/29/2018 Urine glucose Negative Negative measurement by measurement by automated test strip automated test strip (mass/volume) Urine hemoglobin 01/29/2018 Urine hemoglobin Negative Negative detection by automated detection by automated test strip test strip Urine total bilirubin 01/29/2018 Urine total bilirubin Negative Negative detection by automated detection by automated test test strip Urobilinogen Ur 01/29/2018 Urobilinogen Ur 4.0 High 0.2-1.0 Strip-aCnc Strip-aCnc pH Ur Strip.auto 01/29/2018 pH Ur Strip.auto 6.0 Low 6.5-7.5 Aerobic blood culture 01/29/2018 Aerobic blood culture No Growth Anaerobic blood 01/29/2018 Anaerobic blood No Growth culture culture Alt SerPl-cCnc 01/29/2018 Alt SerPl-cCnc 12 12-78 Albumin/Glob SerPl 01/29/2018 Albumin/Glob SerPl 0.9 Globulin Ser Calc-mCnc 01/29/2018 Globulin Ser Calc-mCnc 3.6 1.9-4.3 1 CHF AFIB RVR RESPIRATORY FAILURE 2 0.0 - 0.045 ng/mL: Normal 0.046 - 0.5 ng/mL: Suggestive 0.6 - 1.5 ng/mL: Consistent Procedures Date CPT Code Description Status 04/11/2018 25551 EKG-Tracing And Report Completed 03/27/2018 48991 EKG Interpretation And Report Only Completed 03/26/2018 52599 Cardioversion/Defibrillation Dual Pacemaker Completed 02/23/2018 75866 EKG-Tracing And Report Completed 01/31/2018 79991 EKG Interpretation And Report Only Completed 01/30/2018 91138 Cardioversion/Defibrillation Dual Pacemaker Completed 01/30/2018 68451 Echocardiogram Complete Completed Encounters Type Date Location Provider CPT E/M Dx Office Visit 04/11/2018 10:15a [place] [address] I48.2 I47.2 Z95.810 I25.10 I25.5 I50.42 Office Visit 03/26/2018 3:10p [facility] [place] [address] R94.31 [place] I25.5 I48.2 I48.2 J44.9 Z95.810 I50.9 I47.2 Office Visit 03/14/2018 3:30p [place] [address] J44.9 J69.0 R09.02 I26.99 Office Visit 02/23/2018 1:20p [place] [address] I25.10 I25.5 I50.42 I48.2 Z95.810 I47.2 J44.9 Plan of Care Future Appointment(s):07/23/2018 9:15 am - Katie Egan MD at Cardiology Ybveyf3505/02/2018 9:00 am - Vasyl Pacheco MD at [facility]2018 2:30 pm - Kenton Patterson MD at [facility]/08/2019 11:25 am - Saúl Singh PA at Cardiology Wedcea0704/11/2018 - Katie Egan MDI48.2 Chronic atrial fibrillationComments:Rate controlled, on Eliquis for OAC. Will obtain last set o labs from I47.2 Ventricular tachycardiaComments:On Sotalol and Metoprolol. No recent ventricular dysrhythmias seenZ95.810 Presence of automatic (implantable) cardiac defibrillatorComments:Routine device checks per protocol.I25.10 [place] heart disease of [place] coronary artery w/o ang pctrsComments:Chronic stable CAD. No signs or symptoms of ischemia. On medical therapy.I25.5 Ischemic cardiomyopathyComments:EF 25%. Intolerant to Entresto/ ACEI and ARB. On BB/Digoxin/Lasix. S/p ICD for secondary prevention with h/o VF lossrhB31.42 Chronic combined systolic and diastolic hrt failComments:Stable. Well compensated. Now on steady dose of Lasix. Will obtain a copy of recent labsAllFollow up:3 months with ICD check
--- OUTSIDE RECORDS SUMMARY | 2018-04-29 17:48 | XMS REPORT ---
:1945 External Reference #:[id number] Author Organization [facility] Address [address], [address] [place] [address] Phone [phone] Care Team Providers Name Role Phone Vivienne Wagner MD, PHD Care Team Information Success Coach Unavailable Vivienne Wagner MD, PHD Primary Care Physician Unavailable Payers Type Date Identification Numbers Payment Provider Subscriber Medicare Primary Effective: Policy Number: Medicare Baltazar Hinkle 2008 [id number] PayID: [id number] [address] [place] [address] Medigap Part B Effective: 2010 Policy Number: Excell Baltazar Hinkle [id number] PayID: [id number] [address] [address] [place] [address] Problems Date Description Provider Status Onset: 02/05/2018 [...] Onset: 02/05/2018 Implantation of internal cardiac Vivienne Wagnre MD, PHD Active defibrillator Onset: 02/05/2018 Chronic [...] a cardiac diet 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 MD Kenton rinse mouth after use. Brovana 03/19/ Active Nebulizer 15mcg/2ML 360ml use 1 J44.9 2017 nebulization MD Kenton twice daily. Eliquis / Active Tablets 5mg 180ta 1 tab by Ale Egan bs mouth twice a MD Katie day Aspirin // Active Tablets 325mg 1 by mouth Unknown 0000 every day Cefpodoxime / Active Tablets 200mg 1 by mouth Unknown Proxetil 0000 twice a day Cetirizine / Active Tablets 10mg 90tab 1 by mouth Egan, HCL 0000 s every day MD Katie Vitamin D-3 / Active Capsules 1000Unit 1 by mouth Unknown 0000 every day Aricept / Active Tablets 10mg 90tab 1 by mouth Jignesh, 0000 s every day MD Katie Furosemide / Active Tablets 20mg 2 by mouth Unknown 0000 every day prn for weight gain >3 lbs in 24-48 hours Xopenex HFA / Active Aerosol 45mcg/Act inhale two Unknown 0000 puffs by mouth every 4 to 6 hours as needed for trouble breathing Melatonin / Active Capsules 3mg one by mouth Unknown 0000 an hour prior to bedtime - if not effective in 1 week go to 2 capsules Metoprolol / Active Tablets 100mg 1.5 tablets Unknown Tartrate 0000 take one tablet by mouth twice a day Centrum / Active Tablets 1 by mouth Unknown Silver 0000 every day Entresto / Active Tablets 24-26mg 180ta take one Jignesh 0000 bs tablet by MD Katie mouth twice a day Sotalol HCL / Active Tablets 120mg 60tab 1 tab by Jignesh, (AF) 0000 s mouth twice a MD Katie day Tadalafil / Active Tablets 5mg 1 by mouth at Unknown 0000 bedtime Tamsulosin / Active Capsules 0.4mg 1 by mouth Unknown HCL 0000 every day at bedtime Vitamin E / Active Capsules 400Unit 1 by mouth Unknown 0000 every day Oxygen / Active 2L/Mi at Unknown 0000 night and prn Symbicort 03/14/ Hx Aerosol 160-4.5mc 10.20 inhale two J44.9 2017 - g/Act 0gm puffs by MD Kenton 03/19/ mouth twice a 2018 day Brovana / Hx Nebulizer 15mcg/2ML use 1 Unknown 0000 - nebulization 03/14/ twice daily. 2018 Budesonide / Hx Suspension 0.5mg/2ML 180ml take 1 vial - twice daily. MD Kenton 03/14/ rinse mouth 2018 after use. Pulmicort / Hx Suspension 0.5mg/2ML nebulizer two Unknown 0000 times daily Vital Signs Date Vital Result Comment 03/14/2018 BP Systolic Sitting Left Arm 104 mmHg BP Diastolic Sitting Left Arm 60 mmHg Heart Rate 69 /min Respiratory Rate 20 /min Height 66 inches 5'6" Weight 174.00 lb BMI (Body Mass Index) 28.1 kg/m2 BSA (Body Surface Area) 1.88 m2 [place] body weight in kilograms 64 O2 % [...] magnesium measurement measurement (mass/volume (mass/volume) Unloinc 02/01/2018 Unloinc Ambulating Unloinc N/C Unloinc 2 Determination of 02/01/2018 Determination of 21 21-100 inhaled oxygen inhaled oxygen concentration (vol concentration (volume fraction) Unloinc 02/01/2018 Unloinc Sitting Up In Bed Activated partial 02/01/2018 Activated partial 34.2 23.4-35.0 thromboplastin time thromboplastin time (aPTT) in pl (aPTT) in platelet poor plasma by coagulation assay Unloinc 01/30/2018 Unloinc . Serum or plasma 01/30/2018 Serum or [...] Consistent Procedures Date CPT Code Description Status 03/27/2018 86554 EKG Interpretation And Report Only Completed 03/26/2018 03628 Cardioversion/Defibrillation Dual Pacemaker Completed 02/23/2018 96887 EKG-Tracing And Report Completed 01/31/2018 19355 EKG Interpretation And Report Only Completed 01/30/2018 19743 Cardioversion/Defibrillation Dual Pacemaker Completed 01/30/2018 02012 Echocardiogram Complete Completed Encounters Type Date Location Provider CPT E/M Dx Office Visit 03/26/2018 3:10p [facility] [place] [address] R94.31 [facility] I25.5 I48.2 I48.2 J44.9 Z95.810 I50.9 I47.2 Office Visit 03/14/2018 3:30p [place] [address] J44.9 J69.0 R09.02 I26.99 Office Visit 02/23/2018 1:20p [place] [address] I25.10 I25.5 I50.42 I48.2 Z95.810 I47.2 J44.9 Plan of Care Future Appointment(s):05/15/2018 2:30 pm - Kenton Patterson MD at Xuiqksbstef03/15 /2019 11:45 am - Katie Egan MD at Cardiology Oztvsn5705/01/2018 11:25 am - Saúl Singh PA at Cardiology Lrerqr8303/14/2018 - Kenton Patterson MDJ44.9 Chronic obstructive pulmonary disease, unspecifiedNew Medication:Symbicort 160- 4.5 mcg/ActNew Orders:PFT Without BronchodilatorFollow up:2 lmfonjW06.0 Pneumonitis due to inhalation of food and vomitReferral:[facility], PT/OT/CEMENTER/[place] Raysa,R09.02 HypoxemiaNew Orders:Overnight EbetofhzF33.99 Other pulmonary embolism without acute cor pulmonale
--- OUTSIDE RECORDS SUMMARY | 2018-04-29 17:48 | XMS REPORT ---
:1945 External Reference #:[id number] Author Organization [facility] Address [address], [address] [place] [address] Phone [phone] Care Team Providers Name Role Phone Vivienne Wagner MD, PHD Care Team Information Banking Paralegal Unavailable Vivienne Wagner MD, PHD Primary Care Physician Unavailable Payers Type Date Identification Numbers Payment Provider Subscriber Medicare Primary Effective: Policy Number: Medicare Baltazar Hinkle 2008 [id number] PayID: [id number] [address] [place] [address] Medigap Part B Effective: 2010 Policy Number: Excell Baltazar Hinkle [id number] PayID: [id number] [address] [address] [place] [address] Problems Date Description Provider Status Onset: 02/05/2018 [...] a cardiac diet 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 Independent with all ADL's Cigarette Use [...] kg/m2 BSA (Body Surface Area) 1.88 m2 [place] body weight in kilograms 64 O2 % [...] Procedures Date CPT Code Description Status 03/27/2018 27225 EKG Interpretation And Report Only Completed 03/26/2018 85789 Cardioversion/Defibrillation Dual Pacemaker Completed 02/23/2018 30335 EKG-Tracing And Report Completed 01/31/2018 64788 EKG Interpretation And Report Only Completed 01/30/2018 63204 Cardioversion/Defibrillation Dual Pacemaker Completed 01/30/2018 76795 Echocardiogram Complete Completed Encounters Type Date Location Provider CPT E/M Dx Office Visit 03/26/2018 3:10p [facility] [address] R94.31 [facility] I25.5 I48.2 I48.2 J44.9 Z95.810 I50.9 I47.2 Office Visit 03/14/2018 3:30p [place] [address] J44.9 J69.0 R09.02 I26.99 Office Visit 02/23/2018 1:20p [place] [address] I25.10 I25.5 I50.42 I48.2 Z95.810 I47.2 J44.9 Plan of Care Future Appointment(s):05/15/2018 2:30 pm - Kenton Patterson MD at Nphzlnobcfs35/15 /2019 11:45 am - Katie Egan MD at Cardiology Lvnfmz5705/01/2018 11:25 am - Saúl Singh PA at Cardiology Goepba7803/14/2018 - Kenton Patterson MDJ44.9 Chronic obstructive pulmonary disease, unspecifiedNew Medication:Symbicort 160- 4.5 mcg/ActNew Orders:PFT Without BronchodilatorFollow up:2 qgusloY21.0 Pneumonitis due to inhalation of food and vomitReferral:[facility], PT/OT/RESEARCH METHODOLOGIST/[place] Raysa,R09.02 HypoxemiaNew Orders:Overnight ZiaurqpiI77.99 Other pulmonary embolism without acute cor pulmonale
--- OUTSIDE RECORDS SUMMARY | 2018-04-29 17:48 | XMS REPORT ---
:1945 External Reference #:[id number] Author Organization [facility] Address [address] [place] [address] Phone [phone] Care Team Providers Name Role Phone Vivienne Wagner MD, PHD Care Team Information Quality Assurance Test Program Manager Unavailable Vivienne Wagner MD, PHD Primary Care Physician Unavailable Payers Type Date Identification Numbers Payment Provider Subscriber Medicare Primary Effective: Policy Number: Medicare Baltazar Hinkle 2008 [id number] PayID: [id number] [address] [place] [address] Medigap Part B Effective: 2010 Policy Number: Excell Baltazar Hinkle [id number] PayID: [id number] [address] [address] [place] [address] Problems Date Description Provider Status Onset: 02/05/2018 [...] a cardiac diet 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 Independent with all ADL's Cigarette Use [...] kg/m2 BSA (Body Surface Area) 1.88 m2 [place] body weight in kilograms 64 O2 % [...] Procedures Date CPT Code Description Status 03/27/2018 75026 EKG Interpretation And Report Only Completed 03/26/2018 78062 Cardioversion/Defibrillation Dual Pacemaker Completed 02/23/2018 06139 EKG-Tracing And Report Completed 01/31/2018 48940 EKG Interpretation And Report Only Completed 01/30/2018 98915 Cardioversion/Defibrillation Dual Pacemaker Completed 01/30/2018 02657 Echocardiogram Complete Completed Encounters Type Date Location Provider CPT E/M Dx Office Visit 03/26/2018 3:10p [facility] [place] [address] R94.31 [facility] I25.5 I48.2 I48.2 J44.9 Z95.810 I50.9 I47.2 Office Visit 03/14/2018 3:30p [place] [address] J44.9 J69.0 R09.02 I26.99 Office Visit 02/23/2018 1:20p [place] [address] I25.10 I25.5 I50.42 I48.2 Z95.810 I47.2 J44.9 Plan of Care Future Appointment(s):04/11/2018 10:15 am - Katie Egan MD at Cardiology Pqathc0905/15/2018 2:30 pm - Kenton Patterson MD at Efzyjhdfsqa56/15/2019 11:45 am - Katie Egan MD at Cardiology Ymsqdp8705/01/2018 11:25 am - Saúl Singh PA at Cardiology Rzrgck6203/14/2018 - Kenton Patterson MDJ44.9 Chronic obstructive pulmonary disease, unspecifiedNew Medication:Symbicort 160-4.5 mcg/ActNew Orders :PFT Without BronchodilatorFollow up:2 ivzgeoM09.0 Pneumonitis due to inhalation of food and vomitReferral:[facility], PT/OT/INVESTIGATOR VICE/[place] Raysa,R09.02 HypoxemiaNew Orders:Overnight DxqsihusD81.99 Other pulmonary embolism without acute cor pulmonale
--- OUTSIDE RECORDS SUMMARY | 2018-04-29 17:48 | XMS REPORT ---
:1945 External Reference #:[id number] Author Organization [facility] Address [address], [address] [place] [address] Phone [phone] Care Team Providers Name Role Phone Vivienne Wagner MD, PHD Care Team Information Automated Cutting Machine Operator Unavailable Vivienne Wagner MD, PHD Primary Care Physician Unavailable Payers Type Date Identification Numbers Payment Provider Subscriber Medicare Primary Effective: Policy Number: Medicare Baltazar Hinkle 2008 [id number] PayID: [id number] [address] [place] [address] Medigap Part B Effective: 2010 Policy Number: Excell Baltazar Hinkle [id number] PayID: [id number] [address] [address] [place] [address] Problems Date Description Provider Status Onset: 02/05/2018 [...] a cardiac diet 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 with all ADL's Cigarette Use [...] kg/m2 BSA (Body Surface Area) 1.88 m2 [place] body weight in kilograms 64 O2 % [...] Procedures Date CPT Code Description Status 03/27/2018 52098 EKG Interpretation And Report Only Completed 03/26/2018 88389 Cardioversion/Defibrillation Dual Pacemaker Completed 02/23/2018 88524 EKG-Tracing And Report Completed 01/31/2018 88451 EKG Interpretation And Report Only Completed 01/30/2018 90059 Cardioversion/Defibrillation Dual Pacemaker Completed 01/30/2018 83279 Echocardiogram Complete Completed Encounters Type Date Location Provider CPT E/M Dx Office Visit 03/26/2018 3:10p [facility] [place] [address] R94.31 [facility] I25.5 I48.2 I48.2 J44.9 Z95.810 I50.9 I47.2 Office Visit 03/14/2018 3:30p [place] [address] J44.9 J69.0 R09.02 I26.99 Office Visit 02/23/2018 1:20p [place] [address] I25.10 I25.5 I50.42 I48.2 Z95.810 I47.2 J44.9 Plan of Care Future Appointment(s):05/15/2018 2:30 pm - Kenton Patterson MD at Ramvydynxmv85/15 /2019 11:45 am - Katie Egan MD at Cardiology Ftceor4705/01/2018 11:25 am - Saúl Singh PA at Cardiology Lfedel6403/14/2018 - Kenton Patterson MDJ44.9 Chronic obstructive pulmonary disease, unspecifiedNew Medication:Symbicort 160- 4.5 mcg/ActNew Orders:PFT Without BronchodilatorFollow up:2 lsgskuB94.0 Pneumonitis due to inhalation of food and vomitReferral:[facility], PT/OT/POWDER NIPPER/[place] Raysa,R09.02 HypoxemiaNew Orders:Overnight EufmfqwlH32.99 Other pulmonary embolism without acute cor pulmonale
[2018-04-29] MEDS ORDERED: Piperacillin/Tazobac ADVAN(*) 3.375 GM in NS 0.9% 100 ML* 100 ML IVPB ONE (18:06)
[2018-04-29] MEDS ORDERED: NS 0.9% 1000 ML** 1,000 ML IV.FLUID IV ONE (18:06)
[2018-04-29 18:10] LABS: INR 1.16 (0.77-1.02)
[2018-04-29 18:11] LABS: Activated Partial Thrombo Time 28.5 seconds (26.0-36.3)
[2018-04-29 18:19] LABS: Albumin 4.3 g/dL (3.2-5.2); Albumin/Globulin Ratio 1.7 (1-3); BUN/Creatinine Ratio 12.6 (8-20); C Reactive Protein 26.73 mg/L (<8.01); Calcium 9.2 mg/dL (8.6-10.3); EGFR African American 85.4 (>60); EGFR Non-African American 70.6 (>60); Globulin 2.5 g/dL (2-4); Potassium 4.7 mmol/L (3.5-5.0); Total Bilirubin 1.5 mg/dL (0.2-1.0); Total Protein 6.8 g/dL (6.4-8.9)
[2018-04-29 18:32] LABS: ABS Basophils 0 10^3/ul (0-0.2); ABS Eosinophils 0 10^3/ul (0-0.6); ABS Lymphocytes 0.3 10^3/ul (1.0-4.8); ABS Monocytes 0.5 10^3/ul (0-0.8); ABS Neutrophils 11.2 10^3/ul (1.5-7.7); ABS Nucleated RBC 0 10^3/ul; Eosinophil % 0.1 %; Hematocrit 40 % (42-52); Hemoglobin 13.2 g/dl (14.0-18.0); Lymphocyte % 2.3 %; Mean Corpuscular HGB Conc 33 g/dl (31-36); Mean Corpuscular Hemoglobin 29 pg (27-31); Mean Corpuscular Volume 89 fL (80-94); Mean Platelet Volume 8.7 fL (7.4-10.4); Nucleated Red Blood Cells % 0; Platelet Count 108 10^3/ul (150-450); Red Blood Count 4.54 10^6/ul (4.00-5.40); Red Cell Distribution Width 16 % (10.5-15); White Blood Count 12.1 10^3/ul (3.5-10.8)
[2018-04-29 18:38] LABS: Troponin I 0.06 ng/mL (<0.04)
[2018-04-29] MEDS ORDERED: Vancomycin(*) 1,000 MG - ED ONCE IVPB ONE ×2 (19:00)
[2018-04-29] MEDS ORDERED: Vancomycin(*) 1,000 MG VIAL IVPB SCH (19:00)
[2018-04-29] MEDS ORDERED: Morphine VIAL* 4 MG/ML VIAL (1 ml vial) IV ONE (19:01)
[2018-04-29] MEDS ORDERED: Morphine VIAL* 4 MG/ML VIAL (1 ml vial) ONE ×2 (19:02→23:34)
[2018-04-29] MEDS ORDERED: Acetaminophen SUPP* 650 MG SUPP ONE (19:03)
[2018-04-29] MEDS ORDERED: Acetaminophen SUPP* 650 MG SUPP PR ONE (19:04)
[2018-04-29 19:41] LABS: Urine Appearance Cloudy; Urine Bilirubin Negative (Negative); Urine Blood Negative (Negative); Urine Color Amber; Urine Glucose Negative (Negative); Urine Ketones Trace (Negative); Urine Nitrite Negative (Negative); Urine Protein Negative (Negative); Urine Specific Gravity 1.025 (1.010-1.030); Urine Urobilinogen Negative (Negative)
[2018-04-29 19:59] LABS: Influenza A Molecular NEGATIVE (Negative); Influenza B Molecular NEGATIVE (Negative)
[2018-04-29] MEDS ORDERED: Furosemide IV* 10 MG/ML VIAL (40 MG) ONE (20:14)
[2018-04-29] MEDS ORDERED: Furosemide IV* 10 MG/ML VIAL (40 MG) IV ONE (20:19)
[2018-04-29] MEDS: Haloperidol INJ IV/IM* 5 MG/ML AMP IV SLOW PU PRN (22:05)
[2018-04-29] MEDS: Morphine VIAL* 4 MG/ML VIAL (1 ml vial) IV PRN (23:35)
--- NOTE | 2018-04-29 23:38 | ADMNOTE ---
Subjective Date of Service: 04/29/18 Interval History: HISTORY & PHYSICAL CC: confusion HPI: Mr Mcgrath is a 74 year old man w/ alzheimers disease who has become progressively agitated today while at home with his . He admitted to pain but could not localize the pain. In the past he has become combative when he has UTI, or pneumonia or CHF. He is behaving the same way today. Was in [facility] yesterday. Overnight 24h before admission was up and down all night , said he needed to urinate, then would go back to bed w/o urinating. Today at home he also appeared to be having increased dyspnea. is main historian, he cannot give history. EMS reported episode of VT while being transported to ED. He was treated w/ amiodarone (despite allergy.) Strips available from EMT show tachycardia with mildly widened QRS but no VT. Over the past few weeks he has become sensitive to even the lightest touch or stimulation. Patient has extensive cardiac history. Denies CAD, had negative cath in about 2014. Lived in [place] from 2006 to 2014, was in [place] [address], recently moved back to [place]. Sees Dr. Moran for PCP, Dr. Patterson for pulmonary, Dr. Humera Egan for cardiology in [place]. In ER patient treated w/ BiPAP and IV morphine, and his respiratory status became more stable, agitation resolved. Patient received 2250 ml saline infusion in ER for sepsis. After BNP noted to be elevated, received 40 mg IV lasix. 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 answered based on observations Constitutional Symptoms: Positive: Fever Negative: Weight Loss Pulmonary: Positive: Respiratory Distress, Shortness of Breath, COPD, Home Oxygen Cardiology: Negative: Chest Pain, Palpitations, Edema Gastroenterology: Negative: Vomiting, Difficulty Swallowing Genital - Urinary: Positive: Nocturia Negative: Dysuria Genitourinary - Male: Positive: Prostatism Endocrinology: Positive: Normal Hematologic/Lymphatic: Negative: Easy Brusing Neurology: Positive: Change in Memory Objective Active Medications: Acetaminophen (Tylenol Supp*) 650 mg MI Q4H PRN PRN Reason: FEVER/HEADACHE Apixaban (Eliquis*) 5 mg PO BID RODRIGO Aspirin (Aspirin Tab*) 325 mg PO DAILY RODRIGO Digoxin (Lanoxin Tab*) 0.125 mg PO DAILY RODRIGO Donepezil HCl (Aricept Tab*) 10 mg PO DAILY RODRIGO Haloperidol Lactate (Haldol Inj Iv/Im*) 2 mg IV SLOW PU Q6H PRN PRN Reason: AGITATION Last Admin: 04/29/18 22:05 Dose: 2 mg Vancomycin HCl 1,000 mg/ (Sodium Chloride) 250 mls @ 166.667 mls/hr IVPB Q12H RODRIGO; Protocol Piperacillin Sod/Tazobactam (Sod 3.375 gm/ Sodium Chloride) 100 mls @ 25 mls/ hr IVPB Q8H RODRIGO Sodium Chloride (Ns 0.9% 1000 Ml*) 1,000 mls @ 150 mls/hr IV PER RATE [facility] Metoprolol Tartrate (Lopressor Tab*) 150 mg PO BID RODRIGO Morphine Sulfate (Morphine Vial*) 3 mg IV Q3H PRN PRN Reason: PAIN - MODERATE Pharmacy Profile Note (Vancomycin Trough Check) 1 note FOLLOW UP ONCE ONE Stop: 05/01/18 05:31 Potassium Chloride (Klor Con Er Tab*) 10 meq PO DAILY RODRIGO Sotalol HCl (Betapace Tab*) 120 mg PO BID RODRIGO Tamsulosin HCl (Flomax Cap*) 0.4 mg PO BEDTIME [facility] Vital Signs - 8 hr 04/29/18 04/29/18 04/29/18 17:29 17:34 17:39 Temperature 38.4 C Pulse Rate 113 112 125 Respiratory 22 22 28 Rate Blood Pressure 149/118 149/118 (mmHg) O2 Sat by Pulse 77 82 81 Oximetry 04/29/18 04/29/18 04/29/18 17:54 18:00 18:03 Temperature Pulse Rate 104 89 86 Respiratory 35 27 24 Rate Blood Pressure 134/78 (mmHg) O2 Sat by Pulse 78 92 95 Oximetry 04/29/18 04/29/18 04/29/18 21:17 21:28 21:35 Temperature 38.6 C 38.6 C 38.6 C Pulse Rate 79 95 Respiratory 15 29 Rate Blood Pressure 132/72 154/100 (mmHg) O2 Sat by Pulse 100 97 Oximetry Oxygen Devices in Use Now: Simple Face Mask Appearance: on CPAP, not responding to voice or touch Eyes: - - eyes squeezed shut Ears/Nose/Mouth/Throat: Clear Oropharnyx Neck: Trachea Midline Respiratory: Symmetrical Chest Expansion and Respiratory Effort, Clear to Auscultation Cardiovascular: - - irregular Abdominal: NL Sounds; No Tenderness; No Distention, No Hepatosplenomegaly Lymphatic: No Cervical Adenopathy Neurological: - - responds to noxious stimuli, no lateralizing weakness or movement disorder Lines/Tubes/Other Access: Clean, Dry and Intact Peripheral IV Nutrition: Taking PO's Result Diagrams: 04/29/18 18:21 04/29/18 17:50 Additional Lab and Data: Laboratory Tests 04/29/18 04/29/18 04/29/18 17:42 17:50 17:50 ESR INR (Anticoag Therapy) 1.16 H APTT 28.5 ABG pH 7.47 H ABG pCO2 30 L ABG pO2 391 H ABG HCO3 24.2 Lactic Acid Calcium 9.2 Total Bilirubin 1.50 H Troponin I 0.06 H* C-Reactive Protein 26.73 H B-Natriuretic Peptide Total Protein 6.8 Urine Ketones Digoxin 1.0 Valproic Acid 44.0 L Influenza A (Rapid) Influenza B (Rapid) 04/29/18 04/29/18 04/29/18 18:21 19:18 19:31 ESR INR (Anticoag Therapy) APTT ABG pH ABG pCO2 ABG pO2 ABG HCO3 Lactic Acid 1.3 Calcium Total Bilirubin Troponin I C-Reactive Protein B-Natriuretic Peptide 1254 H Total Protein Urine Ketones Trace A Digoxin Valproic Acid Influenza A (Rapid) Influenza B (Rapid) 04/29/18 04/29/18 19:46 20:11 ESR 17 INR (Anticoag Therapy) APTT ABG pH ABG pCO2 ABG pO2 ABG HCO3 Lactic Acid Calcium Total Bilirubin Troponin I C-Reactive Protein B-Natriuretic Peptide Total Protein Urine Ketones Digoxin Valproic Acid Influenza A (Rapid) Negative Influenza B (Rapid) Negative Microbiology and Other Data: Microbiology 04/29/18 21:55 Nasal Screen MRSA (PCR) - Final Nasal Mrsa Not Detected 04/29/18 19:18 Influenza Types A,B Antigen - Final Nasal Specimen received for Influenza A/B Molecular testing Diagnostic Imaging: CXR: perihilar increase density, no infiltrates, no pneumothorax EKG Data: atrial fibrillation, rapid ventricular response, diffuse T-wave inversions, and <1mm diffuse ST depressons Assess/Plan/Problems-Billing Assessment: 72 year old man w/ dementia presenting with fever, hypoxic respiratory failure, combativeness. - Patient Problems (1) Sepsis Current Visit: Yes Status: Acute Priority: High Comment: Sepsis may be cause of agitation, tachycardia, pain. Will admit to ICU, monitor fluid status closely after initial 30 ml/kg infusion. Treated empirically with vanco and Zosyn. Will follow blood and urine cultures. (2) CHF (congestive heart failure) Current Visit: Yes Status: Acute Priority: Medium Code(s): I50.9 - HEART FAILURE, UNSPECIFIED SNOMED Code(s): 15095175 Comment: Patient has h/o CHF per history. I am not convinced that elevated BNP in his case is related to decompensation of CHF Will obtain echo in AM, monitor fluid status closely. Acute hypoxia may have been from flash pulm edema, but he is not in CHF at the time of evaluation (3) Acute hypoxemic respiratory failure Current Visit: Yes Status: Acute Priority: High Code(s): J96.01 - ACUTE RESPIRATORY FAILURE WITH HYPOXIA SNOMED Code(s): 270670346 Comment: Differential diagnosis includes CHF, PE, increased repiratory demand due to sepsis. Has responded well to BiPAP, will attempt to wean to O2 by face mask PE is possible, though already anticoagulated. If hypoxia returns, will have CTA chest. (4) Ventricular tachycardia (paroxysmal) Current Visit: Yes Status: Acute Priority: High Code(s): I47.2 - VENTRICULAR TACHYCARDIA SNOMED Code(s): 53577870 Comment: Unclear whether patient truly had VT in ambulance Will monitor on telemetry (5) Atrial fibrillation with rapid ventricular response Current Visit: Yes Status: Acute Priority: Medium Code(s): I48.91 - UNSPECIFIED ATRIAL FIBRILLATION SNOMED Code(s): 386920404800344 Comment: Will continue Eliquis for anticoagulation Will have rate control with continued oral metoprolol and sotalol May need diltiazem drip if HR >110. (6) DVT prophylaxis Current Visit: Yes Status: Acute Priority: Low Code(s): IRW5670 - SNOMED Code(s): 503774242 Comment: on eliquis Status and Disposition: ICU monitoring due to high risk of arrhythmia and decompensation of CHF, patient is full code per /HCP.
[2018-04-30] MEDS ORDERED: Diltiazem IV* 5 MG/ML 5 ML VIAL (for loading dose/IV Push) (25 MG) ONE (00:02)
[2018-04-30] MEDS: Piperacillin/Tazobac ADVAN(*) 3.375 GM in NS 0.9% 100 ML* 100 ML IVPB SCH ×3 (00:15→16:16)
[2018-04-30] MEDS: Acetaminophen SUPP* 650 MG SUPP PR PRN (01:04)
[2018-04-30] MEDS: Morphine VIAL* 4 MG/ML VIAL (1 ml vial) IV PRN ×2 (02:36→06:02)
[2018-04-30] MEDS ORDERED: LORazepam INJ* 2 MG/ML 1 ML VIAL ONE (02:58)
[2018-04-30] MEDS: LORazepam INJ* 2 MG/ML 1 ML VIAL IV PUSH PRN (03:22)
[2018-04-30] MEDS: NS 0.9% 1000 ML** 1,000 ML IV SCH ×2 (04:26→11:09)
[2018-04-30 04:30] LABS: Hematocrit 33 % (42-52); Hemoglobin 11.3 g/dl (14.0-18.0); Mean Corpuscular HGB Conc 34 g/dl (31-36); Mean Corpuscular Hemoglobin 30 pg (27-31); Mean Corpuscular Volume 88 fL (80-94); Red Cell Distribution Width 16 % (10.5-15); White Blood Count 10.8 10^3/ul (3.5-10.8)
[2018-04-30 04:50] LABS: ABS Basophils 0 10^3/ul (0-0.2); ABS Eosinophils 0 10^3/ul (0-0.6); ABS Lymphocytes 0.4 10^3/ul (1.0-4.8); ABS Monocytes 0.5 10^3/ul (0-0.8); ABS Neutrophils 9.9 10^3/ul (1.5-7.7); ABS Nucleated RBC 0 10^3/ul; Eosinophil % 0 %; Lymphocyte % 3.4 %; Mean Platelet Volume 8.6 fL (7.4-10.4); Nucleated Red Blood Cells % 0; Platelet Count 92 10^3/ul (150-450)
[2018-04-30 04:55] LABS: BUN/Creatinine Ratio 13.3 (8-20); CRP High Sensitivity 66.39 mg/L (<2.00); Calcium 7.7 mg/dL (8.6-10.3); EGFR African American 83.5 (>60); Potassium 3.5 mmol/L (3.5-5.0)
[2018-04-30 04:59] LABS: Troponin I 0.16 ng/mL (<0.04)
[2018-04-30] MEDS ORDERED: Vancomycin(*) 1,000 MG in NS 0.9% 250 ML* 250 ML IVPB SCH ×2 (06:00→18:00)
[2018-04-30] MEDS: Dexmedetomidine* 400 MCG in NS 0.9% 100 ML* 96 ML IVPB SCH ×6 (06:51→22:56)
[2018-04-30] MEDS ORDERED: Apixaban* 5 MG TAB PO SCH (09:00)
[2018-04-30] MEDS ORDERED: Sotalol TAB* 80 MG PO SCH (09:00)
[2018-04-30] MEDS ORDERED: Aspirin TAB* 325 MG PO SCH (09:00)
[2018-04-30] MEDS ORDERED: Potassium Chlor TAB* 10 MEQ TAB.ER PO SCH (09:00)
[2018-04-30] MEDS ORDERED: Donepezil TAB* 5 MG PO SCH (09:00)
[2018-04-30] MEDS ORDERED: Metoprolol Tartrate TAB* 100 MG TAB PO SCH (09:00)
[2018-04-30 09:19] LABS: Troponin I 0.14 ng/mL (<0.04)
[2018-04-30] MEDS: Digoxin TAB* 0.125 MG PO SCH (09:22)
--- NOTE | 2018-04-30 11:59 | PN ---
Date of Service: 04/30/18 - HD 2 Critical Care Services: 74 yo M with Alzheimers brought to ED on 04/29 for increasing agitation. Complaining of dyspnea and dysuria. On EMS evaluation there was a question of VT thus he was given a dose of Amiodarone. Re-review of strips in ED felt more likely to be sinus tachycardia. On evaluation in ED found to be febrile, tachycardic and tachypneic. Bolused 2L IVF for presumptive sepsis. Physical exam demostrated altered mental status , irregular heart rate. WBC mildly elevated at 12.1, CRP high at 26.73. Lactic acid within normal limits at 1.3. He was started on Vancomycin and Zosyn for broad spectrum coverage and admitted to the ICU for further care 04/30: Agitated in early AM, pulling at lines. Started on Precedex gtt and PRN Haldol. Blood cultures with gram positive x 2. Vital Signs: Temp Pulse Resp BP SpO2 FiO2 97.9 F 80 27 162/93 97 100 04/30/18 07:28 04/30/18 10:30 04/30/18 10:30 04/30/18 10:30 04/30/18 10:30 04/30 07:39 Physical Exam: Seen on rounds @ 0700AM Gen:restless, pulling at lines HEENT: face mask in place Lungs: nonlabored breathing Cardiac: RRR Abdomen: soft, nondistended Extremities: warm, dry, no edema, moving equally Neuro: confused, restless, not following commands. no localizing signs Fluid Balance (Past 24 Hours): I= O= Net Intake & Output 04/28/18 04/29/18 04/30/18 05/01/18 06:59 06:59 06:59 06:59 Intake Total 3523 Output Total 1375 50 Balance 2148 -50 Weight 160 lb 4.8 oz Intake: IV Fluids 3415 normal saline 825 Medicated IV 108 Zosyn 108 Output: Cristina 1375 50 ADLs: Meal Record Start: 04/29/18 21: 19 Freq: 09,13,18 Status: Active Protocol: Created 04/29/18 21:19 System (Rec: 04/29/18 21:19 System [id number]) Document 04/30/18 09:00 [id number] (Rec: 04/30/18 09:33 [id number] ICU-C16) Intake and Output Start: 04/29/18 17: 37 Freq: Status: Active Protocol: Created 04/29/18 17:37 System (Rec: 04/29/18 17:37 System [id number]) Document 04/29/18 21:17 [id number] (Rec: 04/29/18 21:18 [id number]) Intake and Output Start: 04/29/18 21: 19 Freq: Q1HR Status: Active Protocol: Created 04/29/18 21:19 System (Rec: 04/29/18 21:19 System [id number]) Document 04/30/18 01:00 [id number] (Rec: 04/30/18 01:14 [id number] ICU-C16) Document 04/30/18 02:00 [id number] (Rec: 04/30/18 02:02 [id number] ICU-C16) Document 04/30/18 03:00 [id number] (Rec: 04/30/18 03:17 [id number] ICU-C16) Document 04/30/18 04:00 [id number] (Rec: 04/30/18 04:30 [id number] ICU-C16) Document 04/30/18 05:00 [id number] (Rec: 04/30/18 05:42 [id number] ICU-C16) Document 04/30/18 07:39 [id number] (Rec: 04/30/18 07:45 [id number] ) Document 04/30/18 09:00 [id number] (Rec: 04/30/18 09:32 [id number] ICU-C16) Document 04/30/18 10:00 [id number] (Rec: 04/30/18 10:44 [id number] ICU-C16) Labs: Laboratory Results - last 24 hr 04/29/18 04/29/18 04/29/18 17:42 17:50 17:50 WBC RBC Hgb Hct MCV MCH MCHC RDW Plt Count MPV Neut % (Auto) Lymph % (Auto) Kimble % (Auto) Eos % (Auto) Baso % (Auto) Absolute Neuts (auto) Absolute Lymphs (auto) Absolute Monos (auto) Absolute Eos (auto) Absolute Basos (auto) Absolute Nucleated RBC Nucleated RBC % ESR INR (Anticoag Therapy) 1.16 H APTT 28.5 ABG pH 7.47 H ABG pCO2 30 L ABG pO2 391 H ABG HCO3 24.2 ABG O2 Saturation 100.0 H ABG Base Excess -0.9 Sodium 143 Potassium 4.7 Chloride 109 Carbon Dioxide 24 Anion Gap 10 BUN 13 Creatinine 1.03 Est GFR ( Amer) 85.4 Est GFR (Non-Af Amer) 70.6 BUN/Creatinine Ratio 12.6 Glucose 94 Lactic Acid Calcium 9.2 Total Bilirubin 1.50 H AST 26 ALT 10 Alkaline Phosphatase 84 Total Creatine Kinase 65 Troponin I 0.06 H* C-Reactive Protein 26.73 H C-React Prot High Sens B-Natriuretic Peptide Total Protein 6.8 Albumin 4.3 Globulin 2.5 Albumin/Globulin Ratio 1.7 Urine Color Urine Appearance Urine pH Ur Specific [place] Urine Protein Urine Ketones Urine Blood Urine Nitrate Urine Bilirubin Urine Urobilinogen Ur Leukocyte Esterase Urine Glucose Urine Ascorbic Acid Digoxin 1.0 Valproic Acid 44.0 L Influenza A (Rapid) Influenza B (Rapid) 04/29/18 04/29/18 04/29/18 18:21 18:21 19:18 WBC 12.1 H RBC 4.54 Hgb 13.2 L Hct 40 L MCV 89 MCH 29 MCHC 33 RDW 16 H Plt Count 108 L MPV 8.7 Neut % (Auto) 92.9 Lymph % (Auto) 2.3 Kimble % (Auto) 4.3 Eos % (Auto) 0.1 Baso % (Auto) 0.4 Absolute Neuts (auto) 11.2 H Absolute Lymphs (auto) 0.3 L Absolute Monos (auto) 0.5 Absolute Eos (auto) 0 Absolute Basos (auto) 0 Absolute Nucleated RBC 0 Nucleated RBC % 0 ESR Cancelled INR (Anticoag Therapy) APTT ABG pH ABG pCO2 ABG pO2 ABG HCO3 ABG O2 Saturation ABG Base Excess Sodium Potassium Chloride Carbon Dioxide Anion Gap BUN Creatinine Est GFR ( Amer) Est GFR (Non-Af Amer) BUN/Creatinine Ratio Glucose Lactic Acid 1.3 Calcium Total Bilirubin AST ALT Alkaline Phosphatase Total Creatine Kinase Troponin I C-Reactive Protein C-React Prot High Sens B-Natriuretic Peptide 1254 H Total Protein Albumin Globulin Albumin/Globulin Ratio Urine Color Urine Appearance Urine pH Ur Specific [place] Urine Protein Urine Ketones Urine Blood Urine Nitrate Urine Bilirubin Urine Urobilinogen Ur Leukocyte Esterase Urine Glucose Urine Ascorbic Acid Digoxin Valproic Acid Influenza A (Rapid) Influenza B (Rapid) 04/29/18 04/29/18 04/29/18 19:31 19:46 20:11 WBC RBC Hgb Hct MCV MCH MCHC RDW Plt Count MPV Neut % (Auto) Lymph % (Auto) Kimble % (Auto) Eos % (Auto) Baso % (Auto) Absolute Neuts (auto) Absolute Lymphs (auto) Absolute Monos (auto) Absolute Eos (auto) Absolute Basos (auto) Absolute Nucleated RBC Nucleated RBC % ESR INR (Anticoag Therapy) APTT ABG pH ABG pCO2 ABG pO2 ABG HCO3 ABG O2 Saturation ABG Base Excess Sodium Potassium Chloride Carbon Dioxide Anion Gap BUN Creatinine Est GFR ( Amer) Est GFR (Non-Af Amer) BUN/Creatinine Ratio Glucose Lactic Acid Calcium Total Bilirubin AST ALT Alkaline Phosphatase Total Creatine Kinase Troponin I 0.10 H* C-Reactive Protein C-React Prot High Sens B-Natriuretic Peptide Total Protein Albumin Globulin Albumin/Globulin Ratio Urine Color [place] Urine Appearance Cloudy Urine pH 5.0 Ur Specific [place] 1.025 Urine Protein Negative Urine Ketones Trace A Urine Blood Negative Urine Nitrate Negative Urine Bilirubin Negative Urine Urobilinogen Negative Ur Leukocyte Esterase Negative Urine Glucose Negative Urine Ascorbic Acid * A Digoxin Valproic Acid Influenza A (Rapid) Negative Influenza B (Rapid) Negative 04/29/18 04/29/18 04/29/18 20:11 22:00 22:00 WBC RBC Hgb Hct MCV MCH MCHC RDW Plt Count MPV Neut % (Auto) Lymph % (Auto) Kimble % (Auto) Eos % (Auto) Baso % (Auto) Absolute Neuts (auto) Absolute Lymphs (auto) Absolute Monos (auto) Absolute Eos (auto) Absolute Basos (auto) Absolute Nucleated RBC Nucleated RBC % ESR 17 INR (Anticoag Therapy) APTT ABG pH ABG pCO2 ABG pO2 ABG HCO3 ABG O2 Saturation ABG Base Excess Sodium Potassium Chloride Carbon Dioxide Anion Gap BUN Creatinine Est GFR ( Amer) Est GFR (Non-Af Amer) BUN/Creatinine Ratio Glucose Lactic Acid 1.4 Calcium Total Bilirubin AST ALT Alkaline Phosphatase Total Creatine Kinase Troponin I 0.10 H* C-Reactive Protein C-React Prot High Sens B-Natriuretic Peptide Total Protein Albumin Globulin Albumin/Globulin Ratio Urine Color Urine Appearance Urine pH Ur Specific [place] Urine Protein Urine Ketones Urine Blood Urine Nitrate Urine Bilirubin Urine Urobilinogen Ur Leukocyte Esterase Urine Glucose Urine Ascorbic Acid Digoxin Valproic Acid Influenza A (Rapid) Influenza B (Rapid) 04/30/18 04/30/18 04/30/18 01:13 04:18 04:18 WBC 10.8 RBC 3.80 L Hgb 11.3 L Hct 33 L MCV 88 MCH 30 MCHC 34 RDW 16 H Plt Count 92 L MPV 8.6 Neut % (Auto) 91.7 Lymph % (Auto) 3.4 Kimble % (Auto) 4.8 Eos % (Auto) 0 Baso % (Auto) 0.1 Absolute Neuts (auto) 9.9 H Absolute Lymphs (auto) 0.4 L Absolute Monos (auto) 0.5 Absolute Eos (auto) 0 Absolute Basos (auto) 0 Absolute Nucleated RBC 0 Nucleated RBC % 0 ESR INR (Anticoag Therapy) APTT ABG pH ABG pCO2 ABG pO2 ABG HCO3 ABG O2 Saturation ABG Base Excess Sodium 144 Potassium 3.5 Chloride 112 H Carbon Dioxide 26 Anion Gap 6 BUN 14 Creatinine 1.05 Est GFR ( Amer) 83.5 Est GFR (Non-Af Amer) 69.0 BUN/Creatinine Ratio 13.3 Glucose 101 H Lactic Acid Calcium 7.7 L Total Bilirubin AST ALT Alkaline Phosphatase Total Creatine Kinase Troponin I 0.11 H* 0.16 H* C-Reactive Protein C-React Prot High Sens 66.39 H B-Natriuretic Peptide Total Protein Albumin Globulin Albumin/Globulin Ratio Urine Color Urine Appearance Urine pH Ur Specific [place] Urine Protein Urine Ketones Urine Blood Urine Nitrate Urine Bilirubin Urine Urobilinogen Ur Leukocyte Esterase Urine Glucose Urine Ascorbic Acid Digoxin Valproic Acid Influenza A (Rapid) Influenza B (Rapid) 04/30/18 08:45 WBC RBC Hgb Hct MCV MCH MCHC RDW Plt Count MPV Neut % (Auto) Lymph % (Auto) Kimble % (Auto) Eos % (Auto) Baso % (Auto) Absolute Neuts (auto) Absolute Lymphs (auto) Absolute Monos (auto) Absolute Eos (auto) Absolute Basos (auto) Absolute Nucleated RBC Nucleated RBC % ESR INR (Anticoag Therapy) APTT ABG pH ABG pCO2 ABG pO2 ABG HCO3 ABG O2 Saturation ABG Base Excess Sodium Potassium Chloride Carbon Dioxide Anion Gap BUN Creatinine Est GFR ( Amer) Est GFR (Non-Af Amer) BUN/Creatinine Ratio Glucose Lactic Acid Calcium Total Bilirubin AST ALT Alkaline Phosphatase Total Creatine Kinase Troponin I 0.14 H* C-Reactive Protein C-React Prot High Sens B-Natriuretic Peptide Total Protein Albumin Globulin Albumin/Globulin Ratio Urine Color Urine Appearance Urine pH Ur Specific [place] Urine Protein Urine Ketones Urine Blood Urine Nitrate Urine Bilirubin Urine Urobilinogen Ur Leukocyte Esterase Urine Glucose Urine Ascorbic Acid Digoxin Valproic Acid Influenza A (Rapid) Influenza B (Rapid) Studies: CXR 04/29: NAD Nutrition: NPO until mental status clears enough to protect airway Impression: 72 yo M with Alzheimers dementia, thyroid disease, HCF, pacemaker and AICD, COPD admitted 04/29 with altered mental status and sepsis Plan: Cardiovascular: (1) Sinus tachycardia, resolving; (2) HTN; (3) Chronic CHF; (4 ) Afib with RVR; (5) NSTEMI, type 2; (6) AICD/pacer in situ; (7) hx of ablation 2013; (8) hx AAA repiar 2010 -- HR 77-125 (<100 since 2AM) -- SBP 111-190 -- Telemetry -- TTE ordered -- Cardiac markers Troponin 0.14 from 0.16 from 0.11, demand mediated. BNP 1254 -- PRN Hydralazine for goal SBP < 160 -- SQ Lovenox for recent history of PE -- ASA changed to GA -- Digoxin -- Lasix, home dose -- Metoprolol changed to IVP Home meds: Lasix, ASA, Metoprolol, sotalol, Eliquis, Digoxin Pulmonary: (1) COPD; (2) Acute hypoxemic respiratory failure, improving -- RR 17-38 -- Sats 87-100 on 4L NC -- CXR: NAD -- Duonebs as needed Home meds: Cetirizine, Levalbuterol, Robitussin Gastrointestinal: (1) Hyperbilirubinemia -- LFTs, on admission Tbili 1.50, follow trend ALK 84 AST 26 ALT 10 -- diet: NPO until mental status improved -- bowel regimen: None -- ulcer prophylaxis: Not indicated at this time Home meds: Budenisone Endocrine: (1) Chronic thyroid disease -- monitor BGs Home meds: None Renal: (1) Hypocalcemia -- UOP: 115 ml/hr -- I/O:[id number] in / 1375 out -- Cr 1.05 from 1.03 -- Lytes Na 144 K 3.5 Ca 7.7, follow trend Mag ordered for AM Phos ordered for AM -- IVF: NS @ 150 ml/hr -- Lasix, home dose Home meds: tamsulosin, Lasix, potassium chloride Infectious disease: (1) Sepsis; (2) Gram postitive bacteremia -- Tmax 102.8F -- WBC 10.8 from 12.1 -- CRP 66.39 -- Micro 04/30 MRSA screen negative Urine strep negative 04/29 Flu screen negative blood diplococci in 2/2 vials -- ABX Zosyn Home meds: None Neurologic: (1) Alzheimers disease; (2) Acute encephalopathy secondary to sepsis -- Tylenol as needed -- Precedex gtt for agitation -- PRN Haldol for agitation -- PRN Morphine for pain control -- Aricept, dc until enteral access available Home meds: Aricept, Melatonin, Tylenol, Divalproex Hematological: (1) Anemia; (2) Mild thrombocytopenia; (3) Recent history of PE -- Hgb 11.3 from 13.2, dilutional, follow trend -- Plt 92 from 108, follow trend -- Coags PT 28.5 INR 1.16 -- DVT prophylaxis: Eliquis; change to SQ Lovenox -- ASA Home meds: ASA Metabolic: No acute issues Home meds: None Other: Home meds: Vitamin E, MVI, Vitamin D3 Deep vein thrombosis prophylaxis: SQ Lovenox Dietary: not indicated at this time Condition: serious Prognosis: guarded Code status: full Disposition: continue ICU Care Cumulative time spent in the care of this patient (excluding any procedure time) : at least 40 minutes. Patient care included clinical interview (with patient and/or family), bedside exam of the patient, review of labs, x-rays, and other ancillary data, coordination of (respiratory, nursing care, review of patient's records, discussion regarding patients management with involved consultants, primary physician, pharmacists, and other healthcare personnel (dietary, case management , physical/occupational therapy etc.) Critical Care Time:
--- NOTE | 2018-04-30 12:19 | ECHO ---
Patient: CHRISTIANO PRITCHETT Rec#: [id number] : 1945 Date: 04/30/2018 Age: 72y Height: 177.8 cm / 70.0 in Weight: 74.39 kg / 164.0 lbs Sex: M BSA: 1.92 Room#: ICU2 Admit Date#: 04/29/2018 Type: Inpatient Referring: Waldo Kwok MD Reading: Donato Garcias MD Weatherization Technician: Nithya Rodriguez BRUCE CC: Prakash Moran MD Transthoracic Echocardiogram Indication: Cardiomyopathy BP: 98/87 HR: 80 Rhythm: Paced Findings History: Alzeheimer's.cardiac history,former smoker,s/p AICD insert,COPD,a-fib. Technical Comments: The study is technically limited due to the patient's history of COPD. Completed at 0926. The study was technically limited due to the patient's inability to lay in the left lateral decubitus position. Left Ventricle: The left ventricular chamber size is normal. Mild concentric left ventricular hypertrophy is observed. Mild global hypokinesis of the left ventricle is observed. The estimated ejection fraction is 40-45%. There is abnormal ventricular septal wall motion consistent with right ventricular pacemaker. The assessment of diastolic function is non-diagnostic. Left Atrium: The left atrium is moderately dilated. Right Ventricle: The right ventricular cavity size is normal. The septum has abnormal paradoxical motion consistent with RV pacemaker. A pacemaker wire is visualized in the right ventricle. Right Atrium: The right atrium is mildly dilated. A pacemaker wire is visualized in the right atrium. Aortic Valve: The aortic valve is trileaflet. There is no evidence of aortic regurgitation. There is no evidence of aortic stenosis. Mitral Valve: The mitral valve leaflets appear normal. There is moderate mitral regurgitation. There is no evidence of mitral stenosis. Tricuspid Valve: The tricuspid valve leaflets are normal. There is moderate tricuspid regurgitation. There is evidence of mild pulmonary hypertension. There is no tricuspid stenosis. Pulmonic Valve: The pulmonic valve appears normal. There is no evidence of pulmonic regurgitation. There is no pulmonic stenosis. Pericardium: The pericardium appears normal. A left pleural effusion is present. There is a moderate pleural effusion. Aorta: There is no dilatation of the ascending aorta. There is no dilatation of the aortic arch. There is mild dilatation of the aortic root. Pulmonary Artery: The main pulmonary artery appears normal. Venous: The venous system is not well visualized. Summary: There was not any prior study for comparison. Conclusions Mild concentric left ventricular hypertrophy is observed. Mild global hypokinesis of the left ventricle is observed. The estimated ejection fraction is 40-45%. There is abnormal ventricular septal wall motion consistent with right ventricular pacemaker. A pacemaker wire is visualized in the right ventricle. There is no evidence of aortic stenosis. There is moderate mitral regurgitation. There is moderate tricuspid regurgitation. There is evidence of mild pulmonary hypertension. The pericardium appears normal. A left pleural effusion is present. There is a moderate pleural effusion. Measurements Name Value Normal Range RVIDd (AP) 2D 2.6 cm (0.9 - 2.6) RVDdMajor (2D) 3.7 cm (2.2 - 4.4) RAd ISD 4CH 5.2 cm (3.4 - 4.9) RA (A4C)W 4.9 cm (2.9 - 4.6) IVSd (2D) 1.3 cm (0.6 - 1) LVPWd (2D) 1.1 cm (0.6 - 1) LVIDd (2D) 5.1 cm (3.6 - 5.4) LVIDs (2D) 4.1 cm - LV FS (2D) 18 % (25 - 45) Aortic Annulus 2.4 cm (1.4 - 2.6) Ao root diameter (2D) 3.6 cm (2.1 - 3.5) Ascending Ao 3.3 cm (2.1 - 3.4) Aortic arch 3.2 cm (1.8 - 3.4) Descending Ao 0.4 cm - LA dimension (AP) 2D 4.7 cm (2.3 - 3.8) LAd ISD 4CH 6.6 cm (2.9 - 5.3) LA ISD 4CH W 5.6 cm (2.5 - 4.5) Name Value Normal Range LA ESV SP 4CH (A/L) 159 ml - LA ESV SP 2CH (A/L) 95 ml - LA ESV BP (A/L) 123 ml - LA ESV BP (A/L) index 64.28 ml/m2 - LA ESV SP 4CH (MOD) 146 ml - LA ESV SP 2CH (MOD) 91 ml - Name Value Normal Range MV E-wave Vmax 0.7 m/sec - MV deceleration time 175 msec - LV septal e' Vmax 0.05 m/sec - LV lateral e' Vmax 0.08 m/sec - LV E:e' septal ratio 14 ratio - LV E:e' lateral ratio 8.75 ratio - Name Value Normal Range AV Vmax 1.2 m/sec - AV VTI 17.6 cm - AV peak gradient 5.26 mmHg - AV mean gradient 2.74 mmHg - LVOT Vmax 0.7 m/sec - LVOT VTI 10.1 cm - LVOT peak gradient 1.91 mmHg - LVOT mean gradient 0.82 mmHg - Name Value Normal Range MR Vmax 4.5 m/sec - MR VTI 127 cm - Name Value Normal Range TR Vmax 2.9 m/sec - TR peak gradient 33 mmHg - RAP 8 mmHg - RVSP 41 mmHg - Name Value Normal Range PV Vmax 0.6 m/sec - PV peak gradient 1.57 mmHg -
[2018-04-30] MEDS: hydrALAZINE IV* 20 MG/ML VIAL IV SLOW PU PRN ×2 (12:38→20:20)
[2018-04-30] MEDS ORDERED: Furosemide IV* 10 MG/ML 2 ML VIAL (20 MG) IV ONE (12:40)
[2018-04-30] MEDS ORDERED: Albuterol/Ipratropium NEB.SOL* Albuterol 2.5 MG/Ipratropium 0.5 MG 3 ML INH PRN (12:41)
[2018-04-30] MEDS: Metoprolol Tartrate IV* 1 MG/ML 5 ML VIAL IV SCH ×2 (13:07→19:07)
[2018-04-30] MEDS: Enoxaparin(*) 80 MG/0.8 ML SYR SUBCUT SCH (13:08)
[2018-04-30] MEDS ORDERED: Vancomycin per Pharmacy* NOTE FOLLOW UP PRN (14:19)
--- NOTE | 2018-04-30 17:49 | PN ---
Progress Note - Progress Note Date of Service: 04/30/18 - interval update Note: Discussed the case with Cardiology - given the minimal elevation in troponin and the findings on TTE, they do not feel it likely that there is an underlying cardiac event, and that more likely this is demand medated. Continue current care.
[2018-04-30] MEDS: cloNIDine 0.3 MG PATCH* 0.3 MG/24 HR 7 DAY PATCH TRANSDERM SCH (18:05)
[2018-04-30] MEDS ORDERED: NS 0.9% 1000 ML** 1,000 ML IV SCH (19:35)
[2018-04-30] MEDS ORDERED: Tamsulosin CAP* 0.4 MG PO SCH (21:00)
[2018-04-30] MEDS: Haloperidol INJ IV/IM* 5 MG/ML AMP IV SLOW PU PRN (22:23)
[2018-05-01] MEDS: Piperacillin/Tazobac ADVAN(*) 3.375 GM in NS 0.9% 100 ML* 100 ML IVPB SCH ×2 (00:05→07:38)
[2018-05-01] MEDS ORDERED: Furosemide IV* 10 MG/ML 2 ML VIAL (20 MG) IV ONE (00:20)
[2018-05-01] MEDS: Metoprolol Tartrate IV* 1 MG/ML 5 ML VIAL IV SCH ×4 (00:35→20:25)
[2018-05-01] MEDS: Enoxaparin(*) 80 MG/0.8 ML SYR SUBCUT SCH ×2 (00:37→14:38)
[2018-05-01] MEDS: Dexmedetomidine* 400 MCG in NS 0.9% 100 ML* 96 ML IVPB SCH ×7 (02:40→22:52)
[2018-05-01] MEDS: Morphine VIAL* 4 MG/ML VIAL (1 ml vial) IV PRN ×3 (03:30→16:05)
[2018-05-01] MEDS: hydrALAZINE IV* 20 MG/ML VIAL IV SLOW PU PRN ×2 (03:31→15:08)
[2018-05-01] MEDS: Haloperidol INJ IV/IM* 5 MG/ML AMP IV SLOW PU PRN (05:18)
[2018-05-01] MEDS ORDERED: Vancomycin Trough Check NOTE FOLLOW UP ONE ×2 (05:30)
[2018-05-01 06:35] LABS: Magnesium 1.7 mg/dL (1.9-2.7)
[2018-05-01] MEDS: LORazepam INJ* 2 MG/ML 1 ML VIAL IV PUSH PRN ×2 (06:41→19:43)
--- NOTE | 2018-05-01 08:48 | PN ---
Date of Service: 05/01/18 - HD 3 Critical Care Services: 74 yo M with Alzheimers brought to ED on 04/29 for increasing agitation. Complaining of dyspnea and dysuria. On EMS evaluation there was a question of VT thus he was given a dose of Amiodarone. Re-review of strips in ED felt more likely to be sinus tachycardia. On evaluation in ED found to be febrile, tachycardic and tachypneic. Bolused 2L IVF for presumptive sepsis. Physical exam demostrated altered mental status , irregular heart rate. WBC mildly elevated at 12.1, CRP high at 26.73. Lactic acid within normal limits at 1.3. He was started on Vancomycin and Zosyn for broad spectrum coverage and admitted to the ICU for further care 04/30: Agitated in early AM, pulling at lines. Started on Precedex gtt and PRN Haldol. Blood cultures with Enterococcus faecalis 05/01: Poor sleep overnight. Remains delirious. BPs remain elevated despite clonidine, labetalol and hydrazine; worsened during periods of agitation. Vital Signs: Temp Pulse Resp BP SpO2 FiO2 98.6 F 83 29 162/89 94 100 05/01/18 07:36 05/01/18 07:01 05/01/18 07:01 05/01/18 07:00 05/01/18 07:01 04/30 15:50 Physical Exam: Gen: sleeping soundly HEENT: Ventimask in place Lungs: CTAB Cardiac: RRR Abdomen: Soft, NTND Extremities: warm, dry, no edema Neuro: somnolent, but sedated on Precedex for agitation Fluid Balance (Past 24 Hours): I= O= Net Intake & Output 04/29/18 04/30/18 05/01/18 05/02/18 06:59 06:59 06:59 06:59 Intake Total 3523 3530 0 Output Total 1375 3770 55 Balance 2148 -240 -55 Weight 160 lb 4.8 oz 161 lb 12.8 oz Intake: IV Fluids 3415 2866 normal saline 825 2866 Medicated IV 108 664 Zosyn 108 213 precedex 451 Oral 0 0 Output: Urine 55 Cristina 1375 3770 Other: # Bowel Movements 0 ADLs: Meal Record Start: 04/29/18 21: 19 Freq: 09,13,18 Status: Active Protocol: Created 04/29/18 21:19 System (Rec: 04/29/18 21:19 System ICU-C25) Document 04/30/18 09:00 [id number] (Rec: 04/30/18 09:33 [id number] ICU-C16) Document 04/30/18 13:00 [id number] (Rec: 04/30/18 13:27 [id number] ICU-C16) Document 04/30/18 18:00 [id number] (Rec: 04/30/18 18:10 [id number] ICU-C16) Intake and Output Start: 04/29/18 17: 37 Freq: Status: Active Protocol: Created 04/29/18 17:37 System (Rec: 04/29/18 17:37 System EDRM-C14) Document 04/29/18 21:17 [id number] (Rec: 04/29/18 21:18 [id number] ED-C18) Intake and Output Start: 04/29/18 21: 19 Freq: Q1HR Status: Active Protocol: Created 04/29/18 21:19 System (Rec: 04/29/18 21:19 System ICU-C25) Document 04/30/18 01:00 [id number] (Rec: 04/30/18 01:14 [id number] ICU-C16) Document 04/30/18 02:00 [id number] (Rec: 04/30/18 02:02 SPZ1312 ICU-C16) Document 04/30/18 03:00 [id number] (Rec: 04/30/18 03:17 [id number] ICU-C16) Document 04/30/18 04:00 [id number] (Rec: 04/30/18 04:30 OBK9613 ICU-C16) Document 04/30/18 05:00 SPP5573 (Rec: 04/30/18 05:42 SZE3306 ICU-C16) Document 04/30/18 07:39 QOJ0541 (Rec: 04/30/18 07:45 ANB7405 ISDEMO-M03 ) Document 04/30/18 09:00 RQC1715 (Rec: 04/30/18 09:32 [id number] ICU-C16) Document 04/30/18 10:00 KUF5322 (Rec: 04/30/18 10:44 [id number] ICU-C16) Document 04/30/18 12:00 CXH9800 (Rec: 04/30/18 12:24 ANR8531 ICU-C16) Document 04/30/18 12:41 HME0994 (Rec: 04/30/18 12:41 JRI2914 ISDEMO-M03 ) Document 04/30/18 14:00 TZU8795 (Rec: 04/30/18 14:22 ULE7485 ICU-C16) Document 04/30/18 15:00 GVB4548 (Rec: 04/30/18 15:44 [id number] ICU-C16) Document 04/30/18 15:50 ZNA7299 (Rec: 04/30/18 15:59 LJQ7110 ICU-C16) Document 04/30/18 17:00 LBV3408 (Rec: 04/30/18 17:15 BCB5925 ICU-C16) Document 04/30/18 18:00 UMC0022 (Rec: 04/30/18 18:08 [id number] ICU-C16) Document 04/30/18 19:00 DML1618 (Rec: 04/30/18 19:32 [id number] ICU-C16) Document 04/30/18 20:00 JVX1374 (Rec: 04/30/18 20:34 SDQ6216 ICU-C16) Document 04/30/18 21:00 TPI0813 (Rec: 04/30/18 21:14 [id number] ICU-C16) Document 04/30/18 22:00 GRX9207 (Rec: 04/30/18 22:11 MSH1626 ICU-C16) Document 04/30/18 23:00 VJD2357 (Rec: 04/30/18 23:03 CLM5638 ICU-C16) Document 05/01/18 00:00 HDU9438 (Rec: 05/01/18 00:27 [id number] ICU-C16) Document 05/01/18 01:00 ZVQ6955 (Rec: 05/01/18 01:03 BKC1759 ICU-C16) Document 05/01/18 02:00 IHC6756 (Rec: 05/01/18 02:06 ZTR7391 ICU-C16) Document 05/01/18 03:00 TIC6188 (Rec: 05/01/18 03:02 LMU5715 ICU-C16) Document 05/01/18 04:00 BJV9527 (Rec: 05/01/18 04:37 TVW0268 ICU-C16) Document 05/01/18 05:00 HJL9855 (Rec: 05/01/18 05:08 MST0011 ICU-C16) Document 05/01/18 06:00 MLB5084 (Rec: 05/01/18 06:06 [id number] ICU-C16) Document 05/01/18 07:00 [id number] (Rec: 05/01/18 07:15 BZM1213 ICU-C16) Document 05/01/18 07:00 [id number] (Rec: 05/01/18 07:53 [id number] ICU-C16) Labs: Laboratory Results - last 24 hr 04/30/18 04/30/18 04:18 08:45 Hem Pathologist Commnt Magnesium 1.7 L Troponin I 0.14 H* Studies: CXR 04/29: NAD Nutrition: NPO until mental status improved enough to protect airway Impression: 72 yo M with Alzheimers dementia, thyroid disease, HCF, pacemaker and AICD, COPD admitted 04/29 with altered mental status and sepsis secondary to enterococcus bacteremia Plan: Cardiovascular: (1) Sinus tachycardia, resolving; (2) HTN; (3) Chronic CHF; (4 ) Afib with RVR; (5) NSTEMI, type 2; (6) AICD/pacer in situ; (7) hx of ablation 2013; (8) hx AAA repiar 2010 -- HR 69-123 -- SBP 116-191 -- Telemetry -- TTE ordered -- BNP 1254, repeat pending -- PRN Hydralazine for goal SBP < 160 -- SQ Lovenox for recent history of PE -- ASA -- Clonidine patch, Metoprolol, add enalapril -- Digoxin -- Lasix, home dose Home meds: Lasix, ASA, Metoprolol, sotalol, Eliquis, Digoxin Pulmonary: (1) COPD; (2) Acute hypoxemic respiratory failure, improving -- RR 7-37 -- Sats 94-98 on ventimask -- Duonebs as needed Home meds: Cetirizine, Levalbuterol, Robitussin Gastrointestinal: (1) Hyperbilirubinemia -- LFTs, repeat pending -- diet: NPO until mental status improved -- bowel regimen: None -- ulcer prophylaxis: Not indicated at this time Home meds: Budenisone Endocrine: (1) Chronic thyroid disease; (2) hyperglycemia -- monitor BGs -- start SSI if > 180 -- check TSH Home meds: None Renal: (1) Hypocalcemia -- UOP: 157 ml/hr -- I/O:3530/3770 -- BMP pending -- IVF: NS @ 40 ml/hr -- Lasix, home dose Home meds: tamsulosin, Lasix, potassium chloride Infectious disease: (1) Sepsis; (2) Enterococcus bacteremia -- Tmax 99.2F -- WBC pending -- Micro 05/01 Blood ordered 04/30 MRSA screen negative Urine strep negative 04/29 Flu screen negative blood Enterococcus faecalis Urinanalysis negative -- ABX Zosyn, narrow based on sensitivities Home meds: None Neurologic: (1) Alzheimers disease; (2) Acute encephalopathy secondary to sepsis -- Tylenol as needed -- Precedex gtt for agitation -- PRN Haldol and Ativan for agitation -- PRN Morphine for pain control -- Aricept, dc until enteral access available -- Nightly Geodon dose ordered for insomnia and delirium Home meds: Aricept, Melatonin, Tylenol, Divalproex Hematological: (1) Anemia; (2) Mild thrombocytopenia; (3) Recent history of PE -- CBC pending -- DVT prophylaxis: SQ Lovenox -- ASA Home meds: ASA, eliquis Metabolic: No acute issues Home meds: None Other: Home meds: Vitamin E, MVI, Vitamin D3 Deep vein thrombosis prophylaxis: SQ Lovenox Dietary: not indicated at this time Condition: serious Prognosis: guarded Code status: full Disposition: continue ICU Care Cumulative time spent in the care of this patient (excluding any procedure time) : at least 40 minutes. Patient care included clinical interview (with patient and/or family), bedside exam of the patient, review of labs, x-rays, and other ancillary data, coordination of (respiratory, nursing care, review of patient's records, discussion regarding patients management with involved consultants, primary physician, pharmacists, and other healthcare personnel (dietary, case management , physical/occupational therapy etc.) Critical Care Time: 40
[2018-05-01] MEDS ORDERED: NS 0.9% 1000 ML** 1,000 ML IV SCH (09:01)
[2018-05-01 10:01] LABS: Hematocrit 36 % (42-52); Hemoglobin 12.1 g/dl (14.0-18.0); Mean Corpuscular HGB Conc 34 g/dl (31-36); Mean Corpuscular Hemoglobin 30 pg (27-31); Mean Corpuscular Volume 88 fL (80-94); Mean Platelet Volume 8.6 fL (7.4-10.4); Platelet Count 86 10^3/ul (150-450); Red Blood Count 4.08 10^6/ul (4.00-5.40); Red Cell Distribution Width 16 % (10.5-15); White Blood Count 8.5 10^3/ul (3.5-10.8)
[2018-05-01 10:16] LABS: Albumin 3.1 g/dL (3.2-5.2); Albumin/Globulin Ratio 1.2 (1-3); BUN/Creatinine Ratio 17.4 (8-20); Calcium 7.7 mg/dL (8.6-10.3); EGFR African American 105.2 (>60); EGFR Non-African American 86.9 (>60); Globulin 2.5 g/dL (2-4); Indirect Bilirubin 1.8 mg/dL (0.3-1.0); Magnesium 1.7 mg/dL (1.9-2.7); Phosphorus 2.9 mg/dL (2.5-5.0); Potassium 3.4 mmol/L (3.5-5.0); Total Bilirubin 2.1 mg/dL (0.2-1.0); Total Protein 5.6 g/dL (6.4-8.9)
[2018-05-01] MEDS ORDERED: Haloperidol INJ IV/IM* 5 MG/ML AMP ONE (10:16)
[2018-05-01] MEDS: Enalaprilat IV* 1.25 MG/ML 1 ML VIAL (1.25 MG) IV SCH ×3 (10:17→22:29)
[2018-05-01] MEDS: Digoxin IV* 0.5 MG/2 ML AMP (0.25 MG/ML) IV SLOW PU SCH (10:17)
[2018-05-01] MEDS ORDERED: Magnesium Sulfate 1 GM IV* 1 GM/100 ML BAG IV ONE (10:44)
[2018-05-01] MEDS ORDERED: LORazepam INJ* 2 MG/ML 1 ML VIAL ONE (10:50)
[2018-05-01] MEDS ORDERED: LORazepam INJ* 2 MG/ML 1 ML VIAL IV PUSH ONE (10:50)
[2018-05-01] MEDS: Aspirin SUPP* 300 MG PR SCH (11:13)
[2018-05-01] MEDS ORDERED: Haloperidol INJ IV/IM* 5 MG/ML AMP IV SLOW PU ONE (11:16)
[2018-05-01] MEDS: Digoxin TAB* 0.125 MG PO SCH (12:37)
[2018-05-01] MEDS: KCL 20 MEQ/100 ML IVPREMIX* 20 MEQ/100 ML BAG IV SCH ×2 (13:29→16:39)
[2018-05-01] MEDS ORDERED: Furosemide IV* 10 MG/ML VIAL (40 MG) IV ONE ×2 (14:56→20:41)
[2018-05-01] MEDS ORDERED: Furosemide IV* 10 MG/ML VIAL (40 MG) ONE (15:03)
[2018-05-01] MEDS: Ampicillin ADVAN(*) 2 GM in NS 0.9% 100 ML* 100 ML IVPB SCH ×3 (15:37→22:29)
[2018-05-01] MEDS: KCL 10 MEQ/50 ML IVPREMIX* 10 MEQ/50 ML BAG IV SCH (16:44)
[2018-05-01] MEDS: Ziprasidone IM INJ* 20 MG/ML VIAL IM SCH (21:24)
[2018-05-02] MEDS: Morphine VIAL* 4 MG/ML VIAL (1 ml vial) IV PRN ×5 (00:01→23:19)
[2018-05-02] MEDS: Metoprolol Tartrate IV* 1 MG/ML 5 ML VIAL IV SCH ×5 (00:29→22:22)
[2018-05-02] MEDS: Enoxaparin(*) 80 MG/0.8 ML SYR SUBCUT SCH ×2 (00:29→13:26)
[2018-05-02] MEDS: Dexmedetomidine* 400 MCG in NS 0.9% 100 ML* 96 ML IVPB SCH ×6 (01:30→19:59)
[2018-05-02] MEDS: Ampicillin ADVAN(*) 2 GM in NS 0.9% 100 ML* 100 ML IVPB SCH ×6 (01:41→22:22)
[2018-05-02] MEDS: Enalaprilat IV* 1.25 MG/ML 1 ML VIAL (1.25 MG) IV SCH ×3 (03:38→16:36)
[2018-05-02 05:13] LABS: Hematocrit 38 % (42-52); Hemoglobin 12.7 g/dl (14.0-18.0); Mean Corpuscular HGB Conc 34 g/dl (31-36); Mean Corpuscular Hemoglobin 29 pg (27-31); Mean Corpuscular Volume 88 fL (80-94); Mean Platelet Volume 8.6 fL (7.4-10.4); Platelet Count 105 10^3/ul (150-450); Red Blood Count 4.33 10^6/ul (4.00-5.40); Red Cell Distribution Width 16 % (10.5-15); White Blood Count 7.7 10^3/ul (3.5-10.8)
[2018-05-02 05:30] LABS: BUN/Creatinine Ratio 16.2 (8-20); Calcium 7.9 mg/dL (8.6-10.3); EGFR African American 125.1 (>60); EGFR Non-African American 103.4 (>60); Globulin 2.9 g/dL (2-4); Indirect Bilirubin 1.4 mg/dL (0.3-1.0); Magnesium 1.8 mg/dL (1.9-2.7); Phosphorus 2.3 mg/dL (2.5-5.0); Potassium 3.2 mmol/L (3.5-5.0); Total Bilirubin 1.6 mg/dL (0.2-1.0); Total Protein 5.9 g/dL (6.4-8.9)
[2018-05-02] MEDS: hydrALAZINE IV* 20 MG/ML VIAL IV SLOW PU PRN (07:56)
--- NOTE | 2018-05-02 08:59 | PN ---
Date of Service: 05/02/18 - HD 4 Critical Care Services: 74 yo M with Alzheimers brought to ED on 04/29 for increasing agitation. Complaining of dyspnea and dysuria. On EMS evaluation there was a question of VT thus he was given a dose of Amiodarone. Re-review of strips in ED felt more likely to be sinus tachycardia. On evaluation in ED found to be febrile, tachycardic and tachypneic. Bolused 2L IVF for presumptive sepsis. Physical exam demostrated altered mental status , irregular heart rate. WBC mildly elevated at 12.1, CRP high at 26.73. Lactic acid within normal limits at 1.3. He was started on Vancomycin and Zosyn for broad spectrum coverage and admitted to the ICU for further care 04/30: Agitated in early AM, pulling at lines. Started on Precedex gtt and PRN Haldol. Blood cultures with Enterococcus faecalis 05/01: Poor sleep overnight. Remains delirious. BPs remain elevated despite clonidine, labetalol and hydrazine; worsened during periods of agitation. ID consulted for bacteremia. 05/02: Slept better overnight after Geodon. Vital Signs: Temp Pulse Resp BP SpO2 FiO2 98.8 F 73 29 177/91 94 100 05/02/18 07:55 05/02/18 07:31 05/02/18 07:56 05/02/18 07:31 05/02/18 07:31 04/30 15:50 Physical Exam: Gen: confused, agitated, restless in bed and trying to pull off mitts, pull out fine HEENT: ventimask in place Lungs: CTAB Cardiac: RRR Abdomen: soft NTND Extremities: moving equally, no edema Neuro: confused, agitated. not responding to verbal stimuli, purposeful and moving all four extremities Fluid Balance (Past 24 Hours): I= O= Net Intake & Output 04/30/18 05/01/18 05/02/18 05/03/18 06:59 06:59 06:59 06:59 Intake Total 3523 3530 1946 Output Total 1375 3770 3861 155 Balance 2148 -240 -1915 -155 Weight 160 lb 4.8 oz 161 lb 12.8 oz 157 lb 8 oz Intake: IV Fluids 3415 2866 652 normal saline 825 2866 652 IVPB 848 Ampicillin 528 Magnesium 100 Potassium 110 Zosyn 110 Medicated IV 108 664 446 Zosyn 108 213 precedex 451 446 Oral 0 0 Output: Urine 55 Fine 1375 3770 3806 155 Other: # Bowel Movements 0 ADLs: Meal Record Start: 04/29/18 21: 19 Freq: 09,13,18 Status: Active Protocol: Created 04/29/18 21:19 System (Rec: 04/29/18 21:19 System ICU-C25) Document 04/30/18 09:00 [id number] (Rec: 04/30/18 09:33 [id number] ICU-C16) Document 04/30/18 13:00 KFG0923 (Rec: 04/30/18 13:27 MUB3425 ICU-C16) Document 04/30/18 18:00 FQI5737 (Rec: 04/30/18 18:10 GCY2608 ICU-C16) Document 05/01/18 11:00 GBX0942 (Rec: 05/01/18 13:00 BUY8832 ICU-C16) Document 05/01/18 13:00 MBL3442 (Rec: 05/01/18 16:58 QWM2695 ICU-C16) Document 05/01/18 18:00 LKS6341 (Rec: 05/01/18 18:48 EZV2383 ICU-C16) Intake and Output Start: 04/29/18 17: 37 Freq: Status: Active Protocol: Created 04/29/18 17:37 System (Rec: 04/29/18 17:37 System EDRM-C14) Document 04/29/18 21:17 KLV8881 (Rec: 04/29/18 21:18 VSX5135 ED-C18) Intake and Output Start: 04/29/18 21: 19 Freq: Q1HR Status: Active Protocol: Created 04/29/18 21:19 System (Rec: 04/29/18 21:19 System ICU-C25) Document 04/30/18 01:00 YOE5441 (Rec: 04/30/18 01:14 XNH3920 ICU-C16) Document 04/30/18 02:00 PMJ2806 (Rec: 04/30/18 02:02 [id number] ICU-C16) Document 04/30/18 03:00 JCO0641 (Rec: 04/30/18 03:17 EGY8228 ICU-C16) Document 04/30/18 04:00 ISG4946 (Rec: 04/30/18 04:30 VJH7500 ICU-C16) Document 04/30/18 05:00 WKW6017 (Rec: 04/30/18 05:42 HVS0917 ICU-C16) Document 04/30/18 07:39 SVL5932 (Rec: 04/30/18 07:45 QIQ6838 ISDEMO-M03 ) Document 04/30/18 09:00 WPK2323 (Rec: 04/30/18 09:32 JAP0673 ICU-C16) Document 04/30/18 10:00 SQD8895 (Rec: 04/30/18 10:44 GMH3089 ICU-C16) Document 04/30/18 12:00 NMY3689 (Rec: 04/30/18 12:24 PTH1055 ICU-C16) Document 04/30/18 12:41 HAY6867 (Rec: 04/30/18 12:41 [id number] ISDEMO-M03 ) Document 04/30/18 14:00 CLY6370 (Rec: 04/30/18 14:22 OHM5062 ICU-C16) Document 04/30/18 15:00 QFT7435 (Rec: 04/30/18 15:44 KDS6561 ICU-C16) Document 04/30/18 15:50 BDU2580 (Rec: 04/30/18 15:59 KWH2939 ICU-C16) Document 04/30/18 17:00 DIY0686 (Rec: 04/30/18 17:15 MUP6292 ICU-C16) Document 04/30/18 18:00 SUB6820 (Rec: 04/30/18 18:08 HJK3847 ICU-C16) Document 04/30/18 19:00 VZB0111 (Rec: 04/30/18 19:32 NEM5704 ICU-C16) Document 04/30/18 20:00 KFL2141 (Rec: 04/30/18 20:34 ITV8264 ICU-C16) Document 04/30/18 21:00 IAB4387 (Rec: 04/30/18 21:14 CGJ2570 ICU-C16) Document 04/30/18 22:00 TAH1439 (Rec: 04/30/18 22:11 XSI4832 ICU-C16) Document 04/30/18 23:00 UYU1305 (Rec: 04/30/18 23:03 AHI8936 ICU-C16) Document 05/01/18 00:00 QRV3723 (Rec: 05/01/18 00:27 PFG1962 ICU-C16) Document 05/01/18 01:00 ERL3541 (Rec: 05/01/18 01:03 EMG4918 ICU-C16) Document 05/01/18 02:00 VHL1129 (Rec: 05/01/18 02:06 CGO0631 ICU-C16) Document 05/01/18 03:00 RIG9885 (Rec: 05/01/18 03:02 COM9376 ICU-C16) Document 05/01/18 04:00 JXE0129 (Rec: 05/01/18 04:37 AFA8556 ICU-C16) Document 05/01/18 05:00 ITZ6711 (Rec: 05/01/18 05:08 DCY0692 ICU-C16) Document 05/01/18 06:00 UBB0572 (Rec: 05/01/18 06:06 KRP4380 ICU-C16) Document 05/01/18 07:00 TYX9009 (Rec: 05/01/18 07:15 BPI1109 ICU-C16) Document 05/01/18 07:00 EFF8849 (Rec: 05/01/18 07:53 ZDA0066 ICU-C16) Document 05/01/18 10:21 ULS1572 (Rec: 05/01/18 10:21 GJL3525 ISDEMO-M03 ) Document 05/01/18 12:12 RYQ4430 (Rec: 05/01/18 12:12 UID0204 ISDEMO-M03 ) Document 05/01/18 14:29 BRO3128 (Rec: 05/01/18 14:29 DWZ5603 ICU-C16) Document 05/01/18 16:06 ODQ4301 (Rec: 05/01/18 16:06 AHL2061 ISDEMO-M03 ) Document 05/01/18 16:41 GZG2791 (Rec: 05/01/18 16:41 QDH6814 ISDEMO-M03 ) Document 05/01/18 17:21 GMY5688 (Rec: 05/01/18 17:21 KHM6450 ICU-C16) Document 05/01/18 18:36 PSM0710 (Rec: 05/01/18 18:36 ZCC9485 ISDEMO-M03 ) Document 05/01/18 19:00 OAC7415 (Rec: 05/01/18 19:02 VJK0370 ICU-C10) Document 05/01/18 20:00 UCD4865 (Rec: 05/01/18 20:09 WGJ9496 ICU-C16) Document 05/01/18 21:00 CTG1253 (Rec: 05/01/18 21:12 SCG6025 ICU-C16) Document 05/01/18 22:00 GAR4816 (Rec: 05/01/18 22:17 JCK0501 ICU-C16) Document 05/01/18 23:00 NOS6351 (Rec: 05/01/18 23:07 SXT4776 ICU-C16) Document 05/02/18 00:00 ZYU3956 (Rec: 05/02/18 00:07 HDB2653 ISDEMO-M03 ) Document 05/02/18 01:00 UJD7186 (Rec: 05/02/18 01:40 FWT7050 ICU-C16) Document 05/02/18 01:54 WUH1148 (Rec: 05/02/18 01:54 KBI0500 ICU-C16) Document 05/02/18 03:00 KMI7611 (Rec: 05/02/18 03:54 LYD3305 ICU-C16) Document 05/02/18 04:00 KYD1778 (Rec: 05/02/18 04:00 IVO3413 ICU-C16) Document 05/02/18 05:00 NPV1816 (Rec: 05/02/18 05:41 [id number] ICU-C16) Document 05/02/18 06:00 TPX9433 (Rec: 05/02/18 06:15 SVG1558 ICU-C16) Document 05/02/18 07:00 CQW8535 (Rec: 05/02/18 08:04 INO6519 ISDEMO-M03 ) Document 05/02/18 08:00 DZU2134 (Rec: 05/02/18 08:04 LFZ4276 ISDEMO-M03 ) Labs: Laboratory Results - last 24 hr 05/01/18 05/01/18 05/01/18 09:51 09:51 09:51 WBC 8.5 RBC 4.08 Hgb 12.1 L Hct 36 L MCV 88 MCH 30 MCHC 34 RDW 16 H Plt Count 86 L MPV 8.6 Sodium 143 Potassium 3.4 L Chloride 111 Carbon Dioxide 22 Anion Gap 10 BUN 15 Creatinine 0.86 Est GFR ( Amer) 105.2 Est GFR (Non-Af Amer) 86.9 BUN/Creatinine Ratio 17.4 Glucose 109 H Calcium 7.7 L Phosphorus 2.9 Magnesium 1.7 L Total Bilirubin 2.10 H Direct Bilirubin 0.30 H Indirect Bilirubin 1.8 H AST 24 ALT 9 Alkaline Phosphatase 65 B-Natriuretic Peptide > 1300 H Total Protein 5.6 L Albumin 3.1 L Globulin 2.5 Albumin/Globulin Ratio 1.2 TSH 05/01/18 05/02/18 05/02/18 09:51 05:00 05:00 WBC RBC Hgb Hct MCV MCH MCHC RDW Plt Count MPV Sodium 145 Potassium 3.2 L Chloride 108 Carbon Dioxide 26 Anion Gap 11 BUN 12 Creatinine 0.74 Est GFR ( Amer) 125.1 Est GFR (Non-Af Amer) 103.4 BUN/Creatinine Ratio 16.2 Glucose 96 Calcium 7.9 L Phosphorus 2.3 L Magnesium 1.8 L Total Bilirubin 1.60 H Direct Bilirubin 0.20 H Indirect Bilirubin 1.4 H AST 23 ALT 9 Alkaline Phosphatase 67 B-Natriuretic Peptide 1014 H Total Protein 5.9 L Albumin 3.0 L Globulin 2.9 Albumin/Globulin Ratio 1.0 TSH 3.74 05/02/18 05:00 WBC 7.7 RBC 4.33 Hgb 12.7 L Hct 38 L MCV 88 MCH 29 MCHC 34 RDW 16 H Plt Count 105 L MPV 8.6 Sodium Potassium Chloride Carbon Dioxide Anion Gap BUN Creatinine Est GFR ( Amer) Est GFR (Non-Af Amer) BUN/Creatinine Ratio Glucose Calcium Phosphorus Magnesium Total Bilirubin Direct Bilirubin Indirect Bilirubin AST ALT Alkaline Phosphatase B-Natriuretic Peptide Total Protein Albumin Globulin Albumin/Globulin Ratio TSH Studies: CXR 04/29: NAD Nutrition: NPO until mental status improved enough to protect airway Impression: 72 yo M with Alzheimers dementia, thyroid disease, HCF, pacemaker and AICD, COPD admitted 04/29 with altered mental status and sepsis secondary to enterococcus bacteremia Plan: Cardiovascular: (1) Sinus tachycardia, resolving; (2) HTN; (3) Acute on chronic systolic CHF; (4) Afib with RVR; (5) NSTEMI, type 2; (6) AICD/pacer in situ; (7) hx of ablation 2013; (8) hx AAA repiar 2010 -- HR 71-89 -- SBP 124-194, additional antiHTN agent added -- Telemetry -- TTE, 04/29: LVEF 40-45% unable to assess diastolic function -- BNP 1014 from > 1300 -- Lasix, increase dose for diuresis -- SQ Lovenox for recent history of PE -- ASA -- Clonidine patch, Metoprolol, enalapril, scheduled Hydralazine added -- PRN Hydralazine for goal SBP < 160 -- Digoxin Home meds: Lasix, ASA, Metoprolol, sotalol, Eliquis, Digoxin Pulmonary: (1) COPD; (2) Acute hypoxemic respiratory failure, improving; (3) Pulmonary edema, cardiac cause -- RR 19-35 -- Sats 90-95 on 5L NC -- Duonebs as needed -- CXR, 05/02: CHF -- Lasix for diuresis Home meds: Cetirizine, Levalbuterol, Robitussin Gastrointestinal: (1) Hyperbilirubinemia, improving -- LFTs Tbili 1.60 from 2.10 ALK 67 from 65 AST 23 ALT 9 -- US GB, 05/01: no acute pathology -- diet: NPO until mental status improved -- bowel regimen: None -- ulcer prophylaxis: Not indicated at this time Home meds: Budenisone Endocrine: (1) Chronic thyroid disease; (2) hyperglycemia -- monitor BGs -- start SSI if > 180 -- TSH within normal limits Home meds: None Renal: (1) Hypocalcemia; (2) Hypokalemia; (3) Hypomagnesemia; (4) Hypophosphatemia -- UOP: 161 ml/hr -- I/O:1946/3861 -- Cr 0.74 from 0.86 -- Lytes Na 145 from 143 K 3.2, replacement ordered Ca 7.9, replacement held as on Digoxin Mag 1.8, replacement ordered Phos 2.3, replacement ordered -- IVF: NS @ 40 ml/hr -- Lasix, dose increased for diuresis Home meds: tamsulosin, Lasix, potassium chloride Infectious disease: (1) Sepsis; (2) Enterococcus bacteremia -- Tmax 100.4F -- WBC 7.7 from 8.5 -- Micro 05/01 Blood ordered 04/30 MRSA screen negative Urine strep negative 04/29 Flu screen negative blood Enterococcus faecalis Urinanalysis negative -- ABX Ampicillin -- ID consulted, question of RANJAN raised. Pt currently unable to cooperate with exam, would require anesthesia vs intubation. I worry about being able to get him extubated. Will discuss further if this is truly needed at this point or if we can wait until delirium passes, as biggest implication would be duration of antibiotics Home meds: None Neurologic: (1) Alzheimers disease; (2) Acute encephalopathy secondary to sepsis -- Tylenol as needed -- Precedex gtt for agitation -- PRN Haldol and Ativan for agitation -- PRN Morphine for pain control -- Aricept, dc until enteral access available -- Nightly Geodon dose ordered for insomnia and delirium -- Responded well to Geodon last night; will schedule a smaller AM dose and see if we can wean off the Precedex, Haldol and Ativan Home meds: Aricept, Melatonin, Tylenol, Divalproex Hematological: (1) Anemia; (2) Mild thrombocytopenia; (3) Recent history of PE -- Hgb 12.7 from 12.7 -- Plt 105 from 86 -- DVT prophylaxis: SQ Lovenox -- ASA Home meds: ASA, eliquis Metabolic: No acute issues Home meds: None Other: Home meds: Vitamin E, MVI, Vitamin D3 Deep vein thrombosis prophylaxis: SQ Lovenox Dietary: not indicated at this time Condition: serious Prognosis: guarded Code status: full Disposition: continue ICU Care Cumulative time spent in the care of this patient (excluding any procedure time) : at least 40 minutes. Patient care included clinical interview (with patient and/or family), bedside exam of the patient, review of labs, x-rays, and other ancillary data, coordination of (respiratory, nursing care, review of patient's records, discussion regarding patients management with involved consultants, primary physician, pharmacists, and other healthcare personnel (dietary, case management , physical/occupational therapy etc.) Critical Care Time: 40
[2018-05-02] MEDS: LORazepam INJ* 2 MG/ML 1 ML VIAL IV PUSH PRN (09:02)
[2018-05-02] MEDS: Aspirin SUPP* 300 MG PR SCH (09:02)
[2018-05-02] MEDS: Digoxin IV* 0.5 MG/2 ML AMP (0.25 MG/ML) IV SLOW PU SCH (09:03)
[2018-05-02] MEDS: hydrALAZINE IV* 20 MG/ML VIAL IV SLOW PU SCH ×3 (09:29→21:20)
[2018-05-02] MEDS ORDERED: Magnesium Sulfate 1 GM IV* 1 GM/100 ML BAG IV ONE (09:30)
[2018-05-02] MEDS ORDERED: Sodium Phosphate INJ* 30 MMOLE in NS 0.9% 250 ML* 250 ML IVPB ONE (09:30)
[2018-05-02] MEDS: Furosemide IV* 10 MG/ML VIAL (40 MG) IV SCH (09:38)
[2018-05-02] MEDS: Ziprasidone IM INJ* 20 MG/ML VIAL IM SCH ×2 (09:42→21:28)
[2018-05-02] MEDS: KCL 20 MEQ/100 ML IVPREMIX* 20 MEQ/100 ML BAG IV SCH ×3 (10:59→16:39)
[2018-05-02] MEDS ORDERED: Furosemide IV* 10 MG/ML VIAL (40 MG) IV ONE (14:00)
--- NOTE | 2018-05-02 14:40 | PN ---
Progress Note - Progress Note Date of Service: 05/02/18 - Family communication Note: I spoke with the patient's via phone, updated her on events to date and patient's current status. We discussed the Enteroccocus bacteremia and that ID feels he will need 6 weeks of antibiotics given the concern for possible endocarditis. We discussed that he currently will not tolerate RANJAN without intubation and that I am hesitant given the likely difficulty of getting him off the vent after. She is comfortable proceeding with the antibiotics as empiric coverage at this time. She is looking to come up and visit him, but wants to wait another day or so to allow his mental status to hopefully improve.
--- NOTE | 2018-05-02 14:44 | CONS ---
CONSULTATION REPORT: DATE OF CONSULT: 05/02/18 REQUESTING PHYSICIAN: Dr. Goodwin. CONSULTING SERVICE: Infectious Disease. REASON FOR CONSULTATION: Enterococcal bacteremia. IMPRESSION: 1. Enterococcus faecalis in 4 out of 4 blood culture bottles drawn in the setting of fever and septic encephalopathy. He does have a pacemaker with differential diagnosis includes infective endocarditis and/or cardiac device infection. He has had gallbladder imaging, which was unremarkable. His urinalysis on admission showed no blood, leukocyte esterase or nitrites, so urinary source or active urinary tract infection seems a little bit less likely. Initial source could have been urinary tract including prostate and seeding of a valve or pacemaker lead. 2. Alzheimer disease. 3. Atrial fibrillation. 4. Ventricular tachycardia with ICD placement. 5. Chronic obstructive pulmonary disease, on supplemental home oxygen. 6. Aortic abdominal aneurysm repair. RECOMMENDATIONS: Continue ampicillin 2 g every 4 hours. The enterococcus isolate has aminoglycoside high-level synergy resistance, so ceftriaxone twice daily will be the second agent. If possible, he should have a transesophageal echocardiogram. His respiratory and mental status may not permit that without intubation. Usual treatment for device infection includes removal of the device , which I do not think he will be a candidate for given his baseline dementia and respiratory issues. An alternative course would be antibiotic management alone, 6 weeks of IV antibiotics followed by a few months of an oral attempt at suppression. Seemingly take that route, it may be reasonable to the avoid the RANJAN altogether if he cannot tolerate it without intubation. HISTORY OF PRESENT ILLNESS: This 72-year-old male with ICD pacemaker, admitted with change in mental status. He cannot provide the history, which was obtained instead from review of the medical record and discussion with Dr. Goodwin. He was brought in by his with whom he lives, had been in his usual state of health and then became anxious about needing to urinate, was unable to do so, and then had change in mental status, became more aggressive and agitated. When he got to the hospital, his white count was 12,000. He was febrile at 39 degrees Celsius. He was tachypneic and hypoxemic. He was started on vancomycin and Zosyn. Blood cultures were sent, came back 4 out of 4 Enterococcus faecalis. Influenza PCR was negative. A chest x-ray showed no acute findings. CT abdomen and pelvis was fairly unremarkable. Gallbladder ultrasound was normal. He was changed to ampicillin yesterday after Enterococcus susceptibility data came back. Followup blood cultures sent today are negative after 24 hours. PAST MEDICAL HISTORY: 1. Alzheimer disease. 2. Ventricular tachycardia status post ICD placement. 3. COPD, on supplemental oxygen at home. 4. History of colon cancer. 5. Pneumothorax x3. 6. Aortic abdominal aneurysm repair. MEDICATIONS: 1. Tylenol. 2. Ampicillin 2 g every 4 hours. 3. Aspirin suppository. 4. Clonidine. 5. Dexmedetomidine infusion. 6. Lasix. 7. Haldol. 8. Hydralazine. 9. Ativan. 10. Metoprolol. 11. Morphine as needed. 12. Ziprasidone. ALLERGIES: AMIODARONE, AMOXAPINE, DIAZEPAM, BENADRYL. FAMILY HISTORY: No recurrent infections. Father had diabetes, mother had coronary disease, both . SOCIAL HISTORY: He lives with his in [place]. No sick contacts. REVIEW OF SYSTEMS: Unobtainable given his mental status. PHYSICAL EXAM: Vital Signs: Temperature 37, heart rate 90, respiratory rate 28 , blood pressure 185/93, oxygen saturation 94% on 5 L by face mask. In general , he is sedated, withdraws to painful stimuli. HEENT: There is no conjunctival hemorrhage. Oropharynx: Without lesions. Neck: Supple without mass. Heart: Regular rate and rhythm without murmurs, rubs, or gallops. Lungs have coarse breath sounds bilaterally without wheeze or rales. Abdomen: Soft, nontender, nondistended. Bowel sounds present. Skin: There is no rash or splinter hemorrhages. Musculoskeletal: There is no spine tenderness to palpation or joint synovitis. LABORATORY DATA: White blood cell count 7, hemoglobin 12, MCV 88, platelets 105 up from 86. Creatinine is 0.7, bilirubin 1.6, ALT is 9. BNP 1000. Troponin 0.14. CRP 26. Influenza PCR negative. Please see impression and recommendations outlined above, which I have discussed with Dr. Goodwin. Thank you for asking me to see Mr. Hinkle in consultation. [id number]/[facility] #: [id number] JACIEL
[2018-05-02 19:56] LABS: BUN/Creatinine Ratio 17.3 (8-20); Calcium 8.1 mg/dL (8.6-10.3); EGFR African American 79.2 (>60); EGFR Non-African American 65.4 (>60); Potassium 3.9 mmol/L (3.5-5.0)
[2018-05-03] MEDS: Enalaprilat IV* 1.25 MG/ML 1 ML VIAL (1.25 MG) IV SCH ×5 (01:17→23:20)
[2018-05-03] MEDS: hydrALAZINE IV* 20 MG/ML VIAL IV SLOW PU SCH ×4 (01:44→21:26)
[2018-05-03] MEDS: Enoxaparin(*) 80 MG/0.8 ML SYR SUBCUT SCH ×2 (01:45→11:48)
[2018-05-03] MEDS: Dexmedetomidine* 400 MCG in NS 0.9% 100 ML* 96 ML IVPB SCH ×4 (01:45→19:46)
[2018-05-03] MEDS: hydrALAZINE IV* 20 MG/ML VIAL IV SLOW PU PRN (01:47)
[2018-05-03] MEDS: Ampicillin ADVAN(*) 2 GM in NS 0.9% 100 ML* 100 ML IVPB SCH ×6 (02:21→21:28)
[2018-05-03] MEDS: Morphine VIAL* 4 MG/ML VIAL (1 ml vial) IV PRN ×5 (02:26→21:25)
[2018-05-03] MEDS: Metoprolol Tartrate IV* 1 MG/ML 5 ML VIAL IV SCH ×4 (04:03→21:31)
[2018-05-03 05:32] LABS: Hematocrit 29 % (42-52); Hemoglobin 9.6 g/dl (14.0-18.0); Mean Corpuscular HGB Conc 33 g/dl (31-36); Mean Corpuscular Hemoglobin 29 pg (27-31); Mean Corpuscular Volume 89 fL (80-94); Mean Platelet Volume 8.9 fL (7.4-10.4); Platelet Count 90 10^3/ul (150-450); Red Cell Distribution Width 17 % (10.5-15)
[2018-05-03 05:46] LABS: Albumin/Globulin Ratio 1.3 (1-3); BUN/Creatinine Ratio 20.8 (8-20); Calcium 7.9 mg/dL (8.6-10.3); EGFR African American 92.6 (>60); EGFR Non-African American 76.6 (>60); Globulin 2.3 g/dL (2-4); Magnesium 1.8 mg/dL (1.9-2.7); Phosphorus 3.2 mg/dL (2.5-5.0); Potassium 3.2 mmol/L (3.5-5.0); Total Bilirubin 1.1 mg/dL (0.2-1.0); Total Protein 5.3 g/dL (6.4-8.9)
--- NOTE | 2018-05-03 07:59 | PN ---
Date of Service: 05/03/18 - HD 5 Critical Care Services: 74 yo M with Alzheimers brought to ED on 04/29 for increasing agitation. Complaining of dyspnea and dysuria. On EMS evaluation there was a question of VT thus he was given a dose of Amiodarone. Re-review of strips in ED felt more likely to be sinus tachycardia. On evaluation in ED found to be febrile, tachycardic and tachypneic. Bolused 2L IVF for presumptive sepsis. Physical exam demostrated altered mental status , irregular heart rate. WBC mildly elevated at 12.1, CRP high at 26.73. Lactic acid within normal limits at 1.3. He was started on Vancomycin and Zosyn for broad spectrum coverage and admitted to the ICU for further care 04/30: Agitated in early AM, pulling at lines. Started on Precedex gtt and PRN Haldol. Blood cultures with Enterococcus faecalis 05/01: Poor sleep overnight. Remains delirious. BPs remain elevated despite clonidine, labetalol and hydrazine; worsened during periods of agitation. ID consulted for bacteremia. 05/02: Slept better overnight after Geodon. Restless and agitated during the day but improvement over prior somnolence. 05/03: No overnight events Vital Signs: Temp Pulse Resp BP SpO2 FiO2 98.3 F 89 23 184/99 96 100 05/03/18 07:51 05/03/18 07:30 05/03/18 07:30 05/03/18 07:30 05/03/18 07:30 05/02 16:00 Physical Exam: Gen: resting comfortably at this time HEENT: ventimask in place Lungs: CTAB Cardiac: RRR Abdomen: soft, NTND Extremities: warm, dry, no edema Neuro: Eyes closed, purposeful but not following commands Fluid Balance (Past 24 Hours): I= O= Net Intake & Output 05/01/18 05/02/18 05/03/18 05/04/18 06:59 06:59 06:59 06:59 Intake Total 3530 1946 2021.3 Output Total 3770 3861 1391 Balance -240 -1915 630.3 Weight 161 lb 12.8 oz 157 lb 8 oz 159 lb 4.8 oz Intake: IV Fluids 2866 652 856.3 Ampicillin 611 Potassium 116 normal saline 2866 652 129.3 IVPB 848 725 Ampicillin 528 215 Magnesium 100 100 Potassium 110 186 Zosyn 110 sodium Phosphate 224 Medicated IV 664 446 440 Zosyn 213 precedex 451 446 440 Oral 0 0 Output: Urine 55 Cristina 3770 3806 1391 Other: Date of Last Bowel 05/02/2018 Movement # Bowel Movements 0 1 Estimated Stool Amount Medium ADLs: Meal Record Start: 04/29/18 21: 19 Freq: 09,13,18 Status: Active Protocol: Created 04/29/18 21:19 System (Rec: 04/29/18 21:19 System ICU-C25) Document 04/30/18 09:00 [id number] (Rec: 04/30/18 09:33 ILA8423 ICU-C16) Document 04/30/18 13:00 XCU7445 (Rec: 04/30/18 13:27 [id number] ICU-C16) Document 04/30/18 18:00 FIQ5727 (Rec: 04/30/18 18:10 VHU9401 ICU-C16) Document 05/01/18 11:00 KLY4126 (Rec: 05/01/18 13:00 ILP7690 ICU-C16) Document 05/01/18 13:00 XHN0737 (Rec: 05/01/18 16:58 SCK1913 ICU-C16) Document 05/01/18 18:00 FMG9066 (Rec: 05/01/18 18:48 TDV3307 ICU-C16) Document 05/02/18 13:00 MWQ1908 (Rec: 05/02/18 13:15 TGP3087 ICU-C16) Document 05/02/18 18:00 JYI6862 (Rec: 05/02/18 18:31 KSB9053 ICU-C16) Intake and Output Start: 04/29/18 17: 37 Freq: Status: Active Protocol: Created 04/29/18 17:37 System (Rec: 04/29/18 17:37 System EDRM-C14) Document 04/29/18 21:17 LMT8970 (Rec: 04/29/18 21:18 [id number] ED-C18) Intake and Output Start: 04/29/18 21: 19 Freq: Q1HR Status: Active Protocol: Created 04/29/18 21:19 System (Rec: 04/29/18 21:19 System ICU-C25) Document 04/30/18 01:00 UPI4834 (Rec: 04/30/18 01:14 YPU7057 ICU-C16) Document 04/30/18 02:00 DRP5805 (Rec: 04/30/18 02:02 NIB8916 ICU-C16) Document 04/30/18 03:00 XPD9088 (Rec: 04/30/18 03:17 RNT6666 ICU-C16) Document 04/30/18 04:00 DGX0424 (Rec: 04/30/18 04:30 RWC4998 ICU-C16) Document 04/30/18 05:00 GOJ1153 (Rec: 04/30/18 05:42 UZE9397 ICU-C16) Document 04/30/18 07:39 FUH3742 (Rec: 04/30/18 07:45 TLO9835 ISDEMO-M03 ) Document 04/30/18 09:00 OSR1886 (Rec: 04/30/18 09:32 NPP0530 ICU-C16) Document 04/30/18 10:00 SAS8718 (Rec: 04/30/18 10:44 MIP6929 ICU-C16) Document 04/30/18 12:00 KCM9848 (Rec: 04/30/18 12:24 LAL3886 ICU-C16) Document 04/30/18 12:41 ZJO1158 (Rec: 04/30/18 12:41 DRD8181 ISDEMO-M03 ) Document 04/30/18 14:00 JGC2807 (Rec: 04/30/18 14:22 DTG3225 ICU-C16) Document 04/30/18 15:00 FAM2215 (Rec: 04/30/18 15:44 PSN9587 ICU-C16) Document 04/30/18 15:50 EKE8668 (Rec: 04/30/18 15:59 ABG6706 ICU-C16) Document 04/30/18 17:00 UZX1203 (Rec: 04/30/18 17:15 ILI5108 ICU-C16) Document 04/30/18 18:00 WQY3355 (Rec: 04/30/18 18:08 RCQ4803 ICU-C16) Document 04/30/18 19:00 TYM7885 (Rec: 04/30/18 19:32 NRE2196 ICU-C16) Document 04/30/18 20:00 LQH7279 (Rec: 04/30/18 20:34 BYS7255 ICU-C16) Document 04/30/18 21:00 XZG2373 (Rec: 04/30/18 21:14 HLW7646 ICU-C16) Document 04/30/18 22:00 BQZ4754 (Rec: 04/30/18 22:11 CWQ5506 ICU-C16) Document 04/30/18 23:00 YAG6275 (Rec: 04/30/18 23:03 SLX1209 ICU-C16) Document 05/01/18 00:00 UTQ9838 (Rec: 05/01/18 00:27 PWD6541 ICU-C16) Document 05/01/18 01:00 GPT7642 (Rec: 05/01/18 01:03 BYO3479 ICU-C16) Document 05/01/18 02:00 FFU0946 (Rec: 05/01/18 02:06 CPA7183 ICU-C16) Document 05/01/18 03:00 NVK0001 (Rec: 05/01/18 03:02 LVC2876 ICU-C16) Document 05/01/18 04:00 MJS0332 (Rec: 05/01/18 04:37 GCV8655 ICU-C16) Document 05/01/18 05:00 JWZ5566 (Rec: 05/01/18 05:08 RJD3382 ICU-C16) Document 05/01/18 06:00 UXH2058 (Rec: 05/01/18 06:06 LBK7448 ICU-C16) Document 05/01/18 07:00 MYZ0011 (Rec: 05/01/18 07:15 BQC3793 ICU-C16) Document 05/01/18 07:00 CSC9192 (Rec: 05/01/18 07:53 IGZ0648 ICU-C16) Document 05/01/18 10:21 APK5154 (Rec: 05/01/18 10:21 SEJ0391 ISDEMO-M03 ) Document 05/01/18 12:12 OHL7413 (Rec: 05/01/18 12:12 CSD5846 ISDEMO-M03 ) Document 05/01/18 14:29 JPD1392 (Rec: 05/01/18 14:29 VNK6035 ICU-C16) Document 05/01/18 16:06 JUB7690 (Rec: 05/01/18 16:06 XJA6821 ISDEMO-M03 ) Document 05/01/18 16:41 PAV5986 (Rec: 05/01/18 16:41 ICV3988 ISDEMO-M03 ) Document 05/01/18 17:21 LLS6179 (Rec: 05/01/18 17:21 SGY3336 ICU-C16) Document 05/01/18 18:36 AWB6480 (Rec: 05/01/18 18:36 TLX9025 ISDEMO-M03 ) Document 05/01/18 19:00 QGH1012 (Rec: 05/01/18 19:02 ELC0096 ICU-C10) Document 05/01/18 20:00 CSL5093 (Rec: 05/01/18 20:09 ATR7147 ICU-C16) Document 05/01/18 21:00 DLM4926 (Rec: 05/01/18 21:12 UPM5766 ICU-C16) Document 05/01/18 22:00 XHD4980 (Rec: 05/01/18 22:17 DFJ7710 ICU-C16) Document 05/01/18 23:00 TWZ8781 (Rec: 05/01/18 23:07 OJC7874 ICU-C16) Document 05/02/18 00:00 VHB3642 (Rec: 05/02/18 00:07 RCW9722 ISDEMO-M03 ) Document 05/02/18 01:00 HCX4182 (Rec: 05/02/18 01:40 YQE1210 ICU-C16) Document 05/02/18 01:54 ALC7672 (Rec: 05/02/18 01:54 RNW8594 ICU-C16) Document 05/02/18 03:00 OSS7945 (Rec: 05/02/18 03:54 VGR5169 ICU-C16) Document 05/02/18 04:00 EIH0153 (Rec: 05/02/18 04:00 LZG4362 ICU-C16) Document 05/02/18 05:00 JRM3783 (Rec: 05/02/18 05:41 OOU1672 ICU-C16) Document 05/02/18 06:00 DZL1870 (Rec: 05/02/18 06:15 KUY3297 ICU-C16) Document 05/02/18 07:00 FXT2645 (Rec: 05/02/18 08:04 IPY0237 ISDEMO-M03 ) Document 05/02/18 08:00 VSV7702 (Rec: 05/02/18 08:04 NQP2194 ISDEMO-M03 ) Document 05/02/18 09:00 KFA5838 (Rec: 05/02/18 09:40 XES8570 ISDEMO-M03 ) Document 05/02/18 10:00 TXO9390 (Rec: 05/02/18 11:34 KAE7638 ISDEMO-M03 ) Document 05/02/18 10:00 QCU4619 (Rec: 05/02/18 13:11 XRZ1896 ICU-C16) Document 05/02/18 11:00 GZB1986 (Rec: 05/02/18 11:34 RAD4071 ISDEMO-M03 ) Document 05/02/18 12:00 ORP3453 (Rec: 05/02/18 13:15 MYH7149 ICU-C16) Document 05/02/18 13:00 ARD2571 (Rec: 05/02/18 13:14 BPH6253 ICU-C16) Document 05/02/18 14:00 KCK0350 (Rec: 05/02/18 15:24 VSJ6127 ISDEMO-M03 ) Document 05/02/18 15:00 ION5507 (Rec: 05/02/18 15:24 QOA8057 ISDEMO-M03 ) Document 05/02/18 17:00 IQT2622 (Rec: 05/02/18 17:01 WXJ5946 ISDEMO-M03 ) Document 05/02/18 18:00 PLQ2620 (Rec: 05/02/18 18:30 IXS9415 ICU-C16) Document 05/02/18 19:13 CJH9164 (Rec: 05/02/18 19:14 YYR4686 ISDEMO-M03 ) Document 05/02/18 19:23 LPX7023 (Rec: 05/02/18 19:58 RVO5008 ISDEMO-M03 ) Document 05/02/18 19:58 SBT8545 (Rec: 05/02/18 19:59 UVF0496 ISDEMO-M03 ) Document 05/02/18 22:00 ZGM3541 (Rec: 05/02/18 22:18 XSZ3613 ICU-C15) Document 05/02/18 23:00 WMV5822 (Rec: 05/03/18 01:22 AKZ3638 ICU-C15) Document 05/03/18 01:00 FQH2485 (Rec: 05/03/18 01:22 UAP6190 ICU-C15) Document 05/03/18 02:00 ONF2626 (Rec: 05/03/18 02:55 HXL0748 ICU-C15) Document 05/03/18 03:00 ROV5003 (Rec: 05/03/18 04:15 QYR1502 ICU-C15) Document 05/03/18 04:00 FOI8594 (Rec: 05/03/18 04:15 LQE4855 ICU-C15) Document 05/03/18 05:54 XWF9158 (Rec: 05/03/18 05:54 JLG5098 ISDEMO-M03 ) Labs: Laboratory Results - last 24 hr 05/02/18 05/03/18 05/03/18 19:19 05:17 05:17 WBC 5.0 RBC 3.30 L Hgb 9.6 L Hct 29 L MCV 89 MCH 29 MCHC 33 RDW 17 H Plt Count 90 L MPV 8.9 Sodium 148 H 149 H Potassium 3.9 3.2 L Chloride 112 H 114 H Carbon Dioxide 22 23 Anion Gap 14 H 12 H BUN 19 20 Creatinine 1.10 0.96 Est GFR ( Amer) 79.2 92.6 Est GFR (Non-Af Amer) 65.4 76.6 BUN/Creatinine Ratio 17.3 20.8 H Glucose 113 H 122 H Calcium 8.1 L 7.9 L Phosphorus 3.2 Magnesium 1.8 L Total Bilirubin 1.10 H AST 21 ALT 7 Alkaline Phosphatase 56 B-Natriuretic Peptide Total Protein 5.3 L Albumin 3.0 L Globulin 2.3 Albumin/Globulin Ratio 1.3 05/03/18 05:17 WBC RBC Hgb Hct MCV MCH MCHC RDW Plt Count MPV Sodium Potassium Chloride Carbon Dioxide Anion Gap BUN Creatinine Est GFR ( Amer) Est GFR (Non-Af Amer) BUN/Creatinine Ratio Glucose Calcium Phosphorus Magnesium Total Bilirubin AST ALT Alkaline Phosphatase B-Natriuretic Peptide 733 H Total Protein Albumin Globulin Albumin/Globulin Ratio Studies: 05/03 CXR: mild CHF, improved compared to prior 05/02 CXR: CHF 05/01 CXR: CHF 05/01 US GB: negative 05/01 CT abd/pelvis: small bilateral pleural effusions and atelectasis no intraabdominal acute pathology 04/29 TTE: LVEF 40-45%, mild global hypokinesis of LV. LVH. unable to assess diastolic funciton. 04/29 CXR: NAD Nutrition: NPO until mental status improved enough to protect airway. Attempted to place NG yesterday but not successful Impression: 72 yo M with Alzheimers dementia, thyroid disease, HCF, pacemaker and AICD, COPD admitted 04/29 with altered mental status and sepsis secondary to enterococcus bacteremia. Diuresing for CHF and pulmonary edema. Plan: Cardiovascular: (1) Sinus tachycardia, resolving; (2) HTN; (3) Acute on chronic systolic CHF; (4) Afib with RVR; (5) NSTEMI, type 2; (6) AICD/pacer in situ; (7) hx of ablation 2013; (8) hx AAA repiar 2010 -- HR 66-89 since midnight. -- SBP 86-184, BP spikes with episodes of agitation -- Telemetry -- TTE, 04/29: LVEF 40-45% unable to assess diastolic function -- BNP 733 from 1014 from > 1300 -- Lasix, increased dose for diuresis -- SQ Lovenox for recent history of PE -- ASA -- Clonidine patch, Metoprolol, enalapril, scheduled Hydralazine -- PRN Hydralazine for goal SBP < 160 -- Digoxin Home meds: Lasix, ASA, Metoprolol, sotalol, Eliquis, Digoxin Pulmonary: (1) COPD; (2) Acute hypoxemic respiratory failure, improving; (3) Pulmonary edema, cardiac cause -- RR 20-34 -- Sats 90-97 on 5L NC -- Duonebs as needed -- CXR, 05/03: improvement in pulmonary edema -- Lasix for diuresis Home meds: Cetirizine, Levalbuterol, Robitussin Gastrointestinal: (1) Hyperbilirubinemia, improving -- LFTs Tbili 1.10 from 1.60 ALK 56 AST 21 ALT 7 -- US GB, 05/01: no acute pathology -- diet: NPO until mental status improved -- bowel regimen: None -- ulcer prophylaxis: Not indicated at this time Home meds: Budenisone Endocrine: (1) Chronic thyroid disease; (2) hyperglycemia -- monitor BGs -- start SSI if > 180 -- TSH within normal limits Home meds: None Renal: (1) Hypocalcemia; (2) Hypokalemia; (3) Hypomagnesemia; (4) Hypophosphatemia, resolved -- UOP: 58 ml/hr -- I/O:2020/1390 -- Cr 0.96 from 1.10 -- Lytes Na 149 from 148 K 3.2, replacement ordered Ca 7.9, on digoxin, hold replacement Mag 1.8, replacement ordered Phos 3.2 -- IVF: NS @ 40 ml/hr -- Lasix, dose increased for diuresis Home meds: tamsulosin, Lasix, potassium chloride Infectious disease: (1) Sepsis; (2) Enterococcus bacteremia -- Tmax 98.6F -- WBC 5.0 form 7.7 -- Micro 05/02 Sputum In process 05/01 Blood No growth to date 04/30 MRSA screen negative Urine strep negative 04/29 Flu screen negative blood Enterococcus faecalis Urinanalysis negative -- ABX Ampicillin -- ID consulted, question of RANJAN raised. Pt currently unable to cooperate with exam, would require anesthesia vs intubation. I worry about being able to get him extubated. Will discuss further if this is truly needed at this point or if we can wait until delirium passes, as biggest implication would be duration of antibiotics Home meds: None Neurologic: (1) Alzheimers disease; (2) Acute encephalopathy secondary to sepsis -- Tylenol as needed -- Precedex gtt for agitation -- Scheduled Geodon for agitation/delirium -- PRN Haldol for agitation -- PRN Morphine for pain control -- Aricept, dc until enteral access available Home meds: Aricept, Melatonin, Tylenol, Divalproex Hematological: (1) Anemia; (2) Mild thrombocytopenia; (3) Recent history of PE -- Hgb 9.6 form 12.7, check repeat at noon. No signs of bleeding at this time -- Plt 90 from 105 -- DVT prophylaxis: SQ Lovenox -- ASA Home meds: ASA, eliquis Metabolic: No acute issues Home meds: None Other: Home meds: Vitamin E, MVI, Vitamin D3 Deep vein thrombosis prophylaxis: SQ Lovenox Dietary: not indicated at this time Condition: serious Prognosis: guarded Code status: full Disposition: continue ICU Care Cumulative time spent in the care of this patient (excluding any procedure time) : at least 30 minutes. Patient care included clinical interview (with patient and/or family), bedside exam of the patient, review of labs, x-rays, and other ancillary data, coordination of (respiratory, nursing care, review of patient's records, discussion regarding patients management with involved consultants, primary physician, pharmacists, and other healthcare personnel (dietary, case management , physical/occupational therapy etc.) Critical Care Time: 30
[2018-05-03] MEDS ORDERED: Magnesium Sulfate 1 GM IV* 1 GM/100 ML BAG IV ONE (08:18)
--- NOTE | 2018-05-03 08:32 | PN ---
Progress Note - Progress Note Date of Service: 05/03/18 - interval events Note: 0.45 NS added for developing hypernatremia
[2018-05-03] MEDS ORDERED: NS 0.45% 1000 ML BAG* 1,000 ML IV SCH (09:00)
[2018-05-03] MEDS: KCL 20 MEQ/100 ML IVPREMIX* 20 MEQ/100 ML BAG IV SCH ×3 (09:32→14:25)
[2018-05-03] MEDS: Furosemide IV* 10 MG/ML VIAL (40 MG) IV SCH (09:35)
[2018-05-03] MEDS: Digoxin IV* 0.5 MG/2 ML AMP (0.25 MG/ML) IV SLOW PU SCH (09:44)
[2018-05-03] MEDS: Ziprasidone IM INJ* 20 MG/ML VIAL IM SCH ×2 (10:04→21:56)
[2018-05-03] MEDS: Aspirin SUPP* 300 MG PR SCH (10:09)
[2018-05-03 12:10] LABS: Hematocrit 38 % (42-52); Hemoglobin 12.7 g/dl (14.0-18.0)
[2018-05-03 12:27] LABS: BUN/Creatinine Ratio 19.4 (8-20); Calcium 8.7 mg/dL (8.6-10.3); EGFR African American 90.5 (>60); EGFR Non-African American 74.8 (>60); Potassium 3.4 mmol/L (3.5-5.0)
[2018-05-03] MEDS ORDERED: Furosemide IV* 10 MG/ML VIAL (40 MG) IV ONE (14:00)
[2018-05-03] MEDS: NS 0.45% 1000 ML BAG* 1,000 ML IV SCH (15:46)
[2018-05-04] MEDS: Dexmedetomidine* 400 MCG in NS 0.9% 100 ML* 96 ML IVPB SCH ×5 (01:16→22:57)
[2018-05-04] MEDS: Enoxaparin(*) 80 MG/0.8 ML SYR SUBCUT SCH ×2 (01:51→12:48)
[2018-05-04] MEDS: Ampicillin ADVAN(*) 2 GM in NS 0.9% 100 ML* 100 ML IVPB SCH ×6 (01:51→21:31)
[2018-05-04] MEDS: hydrALAZINE IV* 20 MG/ML VIAL IV SLOW PU SCH ×4 (04:27→20:48)
[2018-05-04] MEDS: Metoprolol Tartrate IV* 1 MG/ML 5 ML VIAL IV SCH ×4 (04:35→20:44)
[2018-05-04] MEDS: NS 0.45% 1000 ML BAG* 1,000 ML IV SCH (04:41)
[2018-05-04] MEDS: Enalaprilat IV* 1.25 MG/ML 1 ML VIAL (1.25 MG) IV SCH ×4 (04:56→21:32)
[2018-05-04 05:14] LABS: Hematocrit 38 % (42-52); Hemoglobin 12.5 g/dl (14.0-18.0); Mean Corpuscular HGB Conc 33 g/dl (31-36); Mean Corpuscular Hemoglobin 29 pg (27-31); Mean Corpuscular Volume 87 fL (80-94); Mean Platelet Volume 8.3 fL (7.4-10.4); Platelet Count 126 10^3/ul (150-450); Red Blood Count 4.31 10^6/ul (4.00-5.40); Red Cell Distribution Width 16 % (10.5-15); White Blood Count 4.6 10^3/ul (3.5-10.8)
[2018-05-04 05:25] LABS: Albumin 3.1 g/dL (3.2-5.2); BUN/Creatinine Ratio 19.5 (8-20); Calcium 8.8 mg/dL (8.6-10.3); EGFR African American 103.8 (>60); EGFR Non-African American 85.8 (>60); Magnesium 1.9 mg/dL (1.9-2.7); Phosphorus 3.2 mg/dL (2.5-5.0); Potassium 3.4 mmol/L (3.5-5.0); Total Bilirubin 0.9 mg/dL (0.2-1.0); Total Protein 6.1 g/dL (6.4-8.9)
[2018-05-04] MEDS: Aspirin SUPP* 300 MG PR SCH (08:42)
[2018-05-04] MEDS: Digoxin IV* 0.5 MG/2 ML AMP (0.25 MG/ML) IV SLOW PU SCH (08:43)
[2018-05-04] MEDS: Furosemide IV* 10 MG/ML 2 ML VIAL (20 MG) IV SCH (08:44)
[2018-05-04] MEDS: Ziprasidone IM INJ* 20 MG/ML VIAL IM SCH ×2 (09:19→20:45)
--- NOTE | 2018-05-04 12:42 | PN ---
Date of Service: 05/04/18 Critical Care Services: 74 yo M with Alzheimers brought to ED on 04/29 for increasing agitation. Complaining of dyspnea and dysuria. On EMS evaluation there was a question of VT thus he was given a dose of Amiodarone. Re-review of strips in ED felt more likely to be sinus tachycardia. On evaluation in ED found to be febrile, tachycardic and tachypneic. Bolused 2L IVF for presumptive sepsis. Physical exam demostrated altered mental status , irregular heart rate. WBC mildly elevated at 12.1, CRP high at 26.73. Lactic acid within normal limits at 1.3. He was started on Vancomycin and Zosyn for broad spectrum coverage and admitted to the ICU for further care 04/30: Agitated in early AM, pulling at lines. Started on Precedex gtt and PRN Haldol. Blood cultures with Enterococcus faecalis 05/01: Poor sleep overnight. Remains delirious. BPs remain elevated despite clonidine, labetalol and hydrazine; worsened during periods of agitation. ID consulted for bacteremia. 05/02: Slept better overnight after Geodon. Restless and agitated during the day but improvement over prior somnolence. 05/03: Attempts to place NGT unsuccessful (keeps entering the trachea) 05/04: Less agitated but still somnolent on Precedex. Vital Signs: Temp Pulse Resp BP SpO2 FiO2 98.1 F 76 21 130/77 96 100 05/04/18 08:00 05/04/18 11:30 05/04/18 11:45 05/04/18 11:30 05/04/18 11:30 05/04 11:45 Physical Exam: Gen: resting comfortably HEENT: venti mask in place Lungs: CTAB Cardiac: RRR Abdomen: soft, NTND Extremities: warm, dry, minimal edema Neuro: alternating between sedated and agitated. Fluid Balance (Past 24 Hours): I= O= Net Intake & Output 05/02/18 05/03/18 05/04/18 05/05/18 06:59 06:59 06:59 06:59 Intake Total 1946 2021.3 2313 0 Output Total 3861 1391 3969 785 Balance -1915 630.3 -1656 -785 Weight 157 lb 8 oz 159 lb 4.8 oz 150 lb Intake: IV Fluids 652 856.3 1220 Ampicillin 611 Potassium 116 83 normal saline 652 129.3 1137 IVPB 848 725 640 Ampicillin 528 215 100 Magnesium 100 100 Potassium 110 186 Zosyn 110 normal saline 540 sodium Phosphate 224 Medicated IV 446 440 426 precedex 446 440 426 Oral 0 0 Cristina Irrigate Amount 27 0 Output: Urine 55 Cristina 3806 1391 3969 785 Other: Date of Last Bowel 05/02/2018 05/02/2018 Movement # Bowel Movements 1 0 Estimated Stool Amount Medium Medium ADLs: Meal Record Start: 04/29/18 21: 19 Freq: 09,13,18 Status: Active Protocol: Created 04/29/18 21:19 System (Rec: 04/29/18 21:19 System ICU-C25) Document 04/30/18 09:00 IYS2381 (Rec: 04/30/18 09:33 [id number] ICU-C16) Document 04/30/18 13:00 ARL7218 (Rec: 04/30/18 13:27 ZLK2077 ICU-C16) Document 04/30/18 18:00 XKP2697 (Rec: 04/30/18 18:10 NUN2369 ICU-C16) Document 05/01/18 11:00 HGC7402 (Rec: 05/01/18 13:00 FJT7912 ICU-C16) Document 05/01/18 13:00 HML3017 (Rec: 05/01/18 16:58 VMK8847 ICU-C16) Document 05/01/18 18:00 WVB8302 (Rec: 05/01/18 18:48 EZY7936 ICU-C16) Document 05/02/18 13:00 RTV5888 (Rec: 05/02/18 13:15 IWB8380 ICU-C16) Document 05/02/18 18:00 WBO2735 (Rec: 05/02/18 18:31 TLX1560 ICU-C16) Document 05/03/18 09:00 JMI4969 (Rec: 05/03/18 10:26 VRI8375 ICU-L03) Document 05/03/18 12:08 HPJ0963 (Rec: 05/03/18 12:08 IEV0297 [facility] ) Document 05/03/18 17:04 LSR5235 (Rec: 05/03/18 17:04 KFL2004 ICU-C15) Document 05/04/18 09:00 YRV1092 (Rec: 05/04/18 10:19 YDR2340 ICU-C16) Intake and Output Start: 04/29/18 17: 37 Freq: Status: Active Protocol: Created 04/29/18 17:37 System (Rec: 04/29/18 17:37 System EDRM-C14) Document 04/29/18 21:17 VCA0614 (Rec: 04/29/18 21:18 SKT3192 ED-C18) Intake and Output Start: 04/29/18 21: 19 Freq: Q1HR Status: Active Protocol: Created 04/29/18 21:19 System (Rec: 04/29/18 21:19 System ICU-C25) Document 04/30/18 01:00 YWI6521 (Rec: 04/30/18 01:14 QKW7381 ICU-C16) Document 04/30/18 02:00 PLC4789 (Rec: 04/30/18 02:02 UQM9606 ICU-C16) Document 04/30/18 03:00 PJW2162 (Rec: 04/30/18 03:17 MKP8336 ICU-C16) Document 04/30/18 04:00 FYE4488 (Rec: 04/30/18 04:30 DFL2754 ICU-C16) Document 04/30/18 05:00 ODU6840 (Rec: 04/30/18 05:42 IRF8908 ICU-C16) Document 04/30/18 07:39 SSR1568 (Rec: 04/30/18 07:45 UWI6110 ISDEMO-M03 ) Document 04/30/18 09:00 VBG9382 (Rec: 04/30/18 09:32 NOS0501 ICU-C16) Document 04/30/18 10:00 AAJ1193 (Rec: 04/30/18 10:44 PBI2394 ICU-C16) Document 04/30/18 12:00 JOS1599 (Rec: 04/30/18 12:24 NTL4445 ICU-C16) Document 04/30/18 12:41 GUR3838 (Rec: 04/30/18 12:41 KAF0808 ISDEMO-M03 ) Document 04/30/18 14:00 MZJ9729 (Rec: 04/30/18 14:22 HAT8165 ICU-C16) Document 04/30/18 15:00 ATA3570 (Rec: 04/30/18 15:44 LNY5551 ICU-C16) Document 04/30/18 15:50 FZF4706 (Rec: 04/30/18 15:59 AQX3793 ICU-C16) Document 04/30/18 17:00 SMS8976 (Rec: 04/30/18 17:15 RHT4240 ICU-C16) Document 04/30/18 18:00 CVW8439 (Rec: 04/30/18 18:08 QOQ7458 ICU-C16) Document 04/30/18 19:00 LOM4022 (Rec: 04/30/18 19:32 CRD9594 ICU-C16) Document 04/30/18 20:00 MLD4096 (Rec: 04/30/18 20:34 GVP9903 ICU-C16) Document 04/30/18 21:00 SUC8660 (Rec: 04/30/18 21:14 KKU9306 ICU-C16) Document 04/30/18 22:00 WFH7314 (Rec: 04/30/18 22:11 KIM4906 ICU-C16) Document 04/30/18 23:00 PGV9049 (Rec: 04/30/18 23:03 INY8316 ICU-C16) Document 05/01/18 00:00 HRY9559 (Rec: 05/01/18 00:27 CGC5578 ICU-C16) Document 05/01/18 01:00 ATB8872 (Rec: 05/01/18 01:03 SJN2920 ICU-C16) Document 05/01/18 02:00 AGJ1210 (Rec: 05/01/18 02:06 DEL9879 ICU-C16) Document 05/01/18 03:00 APP0119 (Rec: 05/01/18 03:02 UPS1017 ICU-C16) Document 05/01/18 04:00 TWZ0882 (Rec: 05/01/18 04:37 EZX7693 ICU-C16) Document 05/01/18 05:00 ABJ5256 (Rec: 05/01/18 05:08 IPX0653 ICU-C16) Document 05/01/18 06:00 WZQ8021 (Rec: 05/01/18 06:06 BAQ9587 ICU-C16) Document 05/01/18 07:00 CWM7596 (Rec: 05/01/18 07:15 CBT5062 ICU-C16) Document 05/01/18 07:00 EGK3794 (Rec: 05/01/18 07:53 APS7319 ICU-C16) Document 05/01/18 10:21 FOH6122 (Rec: 05/01/18 10:21 DLX5229 ISDEMO-M03 ) Document 05/01/18 12:12 KWC4114 (Rec: 05/01/18 12:12 EEK5423 ISDEMO-M03 ) Document 05/01/18 14:29 JTF9459 (Rec: 05/01/18 14:29 WJV1301 ICU-C16) Document 05/01/18 16:06 YGG5967 (Rec: 05/01/18 16:06 CFB8879 ISDEMO-M03 ) Document 05/01/18 16:41 AJL8466 (Rec: 05/01/18 16:41 TOP0378 ISDEMO-M03 ) Document 05/01/18 17:21 ZUI0492 (Rec: 05/01/18 17:21 VDO4590 ICU-C16) Document 05/01/18 18:36 YNM5317 (Rec: 05/01/18 18:36 BQK9935 ISDEMO-M03 ) Document 05/01/18 19:00 NPE4027 (Rec: 05/01/18 19:02 TUC3099 ICU-C10) Document 05/01/18 20:00 IRA0167 (Rec: 05/01/18 20:09 YUE2994 ICU-C16) Document 05/01/18 21:00 MBB6397 (Rec: 05/01/18 21:12 DUN3936 ICU-C16) Document 05/01/18 22:00 AXF4822 (Rec: 05/01/18 22:17 FHP3688 ICU-C16) Document 05/01/18 23:00 XIM2775 (Rec: 05/01/18 23:07 ZQN7307 ICU-C16) Document 05/02/18 00:00 QRI6044 (Rec: 05/02/18 00:07 TIP2610 ISDEMO-M03 ) Document 05/02/18 01:00 DZQ5475 (Rec: 05/02/18 01:40 QDG3955 ICU-C16) Document 05/02/18 01:54 PCM0112 (Rec: 05/02/18 01:54 TYU5791 ICU-C16) Document 05/02/18 03:00 JFJ6924 (Rec: 05/02/18 03:54 NKS3892 ICU-C16) Document 05/02/18 04:00 ENH3439 (Rec: 05/02/18 04:00 EHR2819 ICU-C16) Document 05/02/18 05:00 TBI3887 (Rec: 05/02/18 05:41 NOU2261 ICU-C16) Document 05/02/18 06:00 XZX9418 (Rec: 05/02/18 06:15 ZBJ6187 ICU-C16) Document 05/02/18 07:00 CVT7401 (Rec: 05/02/18 08:04 KWM4787 ISDEMO-M03 ) Document 05/02/18 08:00 OZA2336 (Rec: 05/02/18 08:04 DCE7332 ISDEMO-M03 ) Document 05/02/18 09:00 JEI4954 (Rec: 05/02/18 09:40 BXF6284 ISDEMO-M03 ) Document 05/02/18 10:00 UGO0595 (Rec: 05/02/18 11:34 HIH1811 ISDEMO-M03 ) Document 05/02/18 10:00 XQM5070 (Rec: 05/02/18 13:11 VBW8081 ICU-C16) Document 05/02/18 11:00 LIT4950 (Rec: 05/02/18 11:34 LSM8703 ISDEMO-M03 ) Document 05/02/18 12:00 LII7732 (Rec: 05/02/18 13:15 GGR6531 ICU-C16) Document 05/02/18 13:00 JPK8077 (Rec: 05/02/18 13:14 JXB4978 ICU-C16) Document 05/02/18 14:00 ZBO1516 (Rec: 05/02/18 15:24 OJX6749 ISDEMO-M03 ) Document 05/02/18 15:00 LUY6837 (Rec: 05/02/18 15:24 QBX4018 ISDEMO-M03 ) Document 05/02/18 17:00 NRI9836 (Rec: 05/02/18 17:01 JEV3784 ISDEMO-M03 ) Document 05/02/18 18:00 CQM8161 (Rec: 05/02/18 18:30 XIR7355 ICU-C16) Document 05/02/18 19:13 PFE9012 (Rec: 05/02/18 19:14 SOU1096 ISDEMO-M03 ) Document 05/02/18 19:23 UIH7466 (Rec: 05/02/18 19:58 JMW6269 ISDEMO-M03 ) Document 05/02/18 19:58 RLH8376 (Rec: 05/02/18 19:59 PVG4078 ISDEMO-M03 ) Document 05/02/18 22:00 BWC6989 (Rec: 05/02/18 22:18 CEP2735 ICU-C15) Document 05/02/18 23:00 HNJ9712 (Rec: 05/03/18 01:22 GJO3546 ICU-C15) Document 05/03/18 01:00 KWT3338 (Rec: 05/03/18 01:22 ZQF1104 ICU-C15) Document 05/03/18 02:00 ZWH6196 (Rec: 05/03/18 02:55 FJY6663 ICU-C15) Document 05/03/18 03:00 IWJ8650 (Rec: 05/03/18 04:15 QHQ4934 ICU-C15) Document 05/03/18 04:00 ZSN7529 (Rec: 05/03/18 04:15 EWK0818 ICU-C15) Document 05/03/18 05:54 VEL9775 (Rec: 05/03/18 05:54 MQP2211 ISDEMO-M03 ) Document 05/03/18 07:00 ZVW1781 (Rec: 05/03/18 09:07 IKV1884 ICU-C15) Document 05/03/18 08:00 JIR7369 (Rec: 05/03/18 09:07 OZB9171 ICU-C15) Document 05/03/18 09:00 MCR8126 (Rec: 05/03/18 09:07 LXR2999 ICU-C15) Document 05/03/18 09:58 RVJ8624 (Rec: 05/03/18 09:58 PAF1569 ISDEMO-M03 ) Document 05/03/18 10:22 MCX0573 (Rec: 05/03/18 10:22 AJX8909 ICU-C15) Document 05/03/18 11:35 RPJ3464 (Rec: 05/03/18 11:35 MPD3432 ICU-L03) Document 05/03/18 12:00 VOH4854 (Rec: 05/03/18 12:03 CHF6135 ISDEMO-M03 ) Document 05/03/18 13:00 BDE1185 (Rec: 05/03/18 13:01 ZPG4292 ISDEMO-M03 ) Document 05/03/18 14:38 WLL6026 (Rec: 05/03/18 14:38 IAQ8840 ISDEMO-M03 ) Document 05/03/18 15:00 HBJ0620 (Rec: 05/03/18 15:20 NHI0581 ISDEMO-M03 ) Document 05/03/18 16:40 EWY9500 (Rec: 05/03/18 16:40 IFO4257 ISDEMO-M03 ) Document 05/03/18 17:05 GPW8691 (Rec: 05/03/18 17:05 CJW3004 ICU-C15) Document 05/03/18 18:00 AQQ7945 (Rec: 05/03/18 18:19 PLT1466 ISDEMO-M03 ) Document 05/03/18 19:00 PED3511 (Rec: 05/03/18 21:05 ERH5411 ICU-C10) Document 05/03/18 20:00 CWS4950 (Rec: 05/03/18 21:05 MSL9867 ICU-C10) Document 05/03/18 21:00 EYS9466 (Rec: 05/03/18 21:06 QOO2681 ICU-C10) Document 05/03/18 22:00 DFS7183 (Rec: 05/03/18 23:20 CEQ0427 ISDEMO-M03 ) Document 05/03/18 23:00 ROW9889 (Rec: 05/03/18 23:20 WXK7184 ISDEMO-M03 ) Document 05/04/18 00:00 POX4152 (Rec: 05/04/18 01:17 JZQ6654 ISDEMO-M03 ) Document 05/04/18 01:00 PHC5677 (Rec: 05/04/18 01:17 CSV3849 ISDEMO-M03 ) Document 05/04/18 02:00 PNM0732 (Rec: 05/04/18 04:43 HKQ8515 ISDEMO-M03 ) Document 05/04/18 03:00 YNS3440 (Rec: 05/04/18 04:44 BCV3750 ISDEMO-M03 ) Document 05/04/18 04:00 ZUD4170 (Rec: 05/04/18 05:45 ZSS6387 ICU-C10) Document 05/04/18 05:00 ZKF6420 (Rec: 05/04/18 05:45 FPJ7944 ICU-C10) Document 05/04/18 06:00 BVJ4390 (Rec: 05/04/18 06:28 ORQ9318 ICU-C10) Document 05/04/18 07:35 KNK5330 (Rec: 05/04/18 07:44 KTA9360 ICU-C16) Document 05/04/18 09:00 UHX2473 (Rec: 05/04/18 10:19 WZX2433 ICU-C16) Document 05/04/18 10:00 XFK4476 (Rec: 05/04/18 10:27 UZP5109 ICU-C16) Document 05/04/18 11:00 QHR4722 (Rec: 05/04/18 11:28 PKI0290 ICU-C16) Document 05/04/18 11:45 NVK8152 (Rec: 05/04/18 11:50 CIE6271 ICU-C16) Labs: Laboratory Results - last 24 hr 05/03/18 05/04/18 05/04/18 11:59 04:53 04:53 WBC 4.6 RBC 4.31 Hgb 12.5 L Hct 38 L MCV 87 MCH 29 MCHC 33 RDW 16 H Plt Count 126 L MPV 8.3 Sodium 150 H 150 H Potassium 3.4 L 3.4 L Chloride 112 H 110 Carbon Dioxide 27 29 Anion Gap 11 11 BUN 19 17 Creatinine 0.98 0.87 Est GFR ( Amer) 90.5 103.8 Est GFR (Non-Af Amer) 74.8 85.8 BUN/Creatinine Ratio 19.4 19.5 Glucose 153 H 125 H Calcium 8.7 8.8 Phosphorus 3.2 Magnesium 1.9 Total Bilirubin 0.90 AST 24 ALT 8 Alkaline Phosphatase 66 B-Natriuretic Peptide Total Protein 6.1 L Albumin 3.1 L Globulin 3.0 Albumin/Globulin Ratio 1.0 05/04/18 05:02 WBC RBC Hgb Hct MCV MCH MCHC RDW Plt Count MPV Sodium Potassium Chloride Carbon Dioxide Anion Gap BUN Creatinine Est GFR ( Amer) Est GFR (Non-Af Amer) BUN/Creatinine Ratio Glucose Calcium Phosphorus Magnesium Total Bilirubin AST ALT Alkaline Phosphatase B-Natriuretic Peptide > 1300 H Total Protein Albumin Globulin Albumin/Globulin Ratio Studies: 05/03 CXR: mild CHF, improved compared to prior 05/02 CXR: CHF 05/01 CXR: CHF 05/01 US GB: negative 05/01 CT abd/pelvis: small bilateral pleural effusions and atelectasis no intraabdominal acute pathology 04/29 TTE: LVEF 40-45%, mild global hypokinesis of LV. LVH. unable to assess diastolic funciton. 04/29 CXR: NAD Nutrition: Unable to place NGT for TF If mental status not improved by tomorrow will start TPN Impression: 72 yo M with Alzheimers dementia, thyroid disease, HCF, pacemaker and AICD, COPD admitted 04/29 with altered mental status and sepsis secondary to enterococcus bacteremia. Diuresing for CHF and pulmonary edema. Remains delirious and agitated, requiring Precedex and geodon Plan: Cardiovascular: (1) Sinus tachycardia, resolving; (2) HTN; (3) Acute on chronic systolic CHF; (4) Afib with RVR; (5) NSTEMI, type 2; (6) AICD/pacer in situ; (7) hx of ablation 2013; (8) hx AAA repiar 2010 -- HR 77-90 -- SBP 114-153 -- Telemetry -- TTE, 04/29: LVEF 40-45% unable to assess diastolic function -- BNP > 1300 from 733 from 1014 from > 1300. We had had to restart IVF to allow for free water administration to correct rising Na. Despite this his O2 requirement is down to 2L. -- Lasix, dose decreased secondary to rising Na level -- SQ Lovenox for recent history of PE -- ASA -- Clonidine patch, Metoprolol, enalapril, scheduled Hydralazine -- PRN Hydralazine for goal SBP < 160 -- Digoxin Home meds: Lasix, ASA, Metoprolol, sotalol, Eliquis, Digoxin Pulmonary: (1) COPD; (2) Acute hypoxemic respiratory failure, improving; (3) Pulmonary edema, cardiac cause -- RR 12-29 -- Sats 92-95 on 2L NC -- Duonebs as needed -- CXR, 05/03: improvement in pulmonary edema -- Lasix for diuresis Home meds: Cetirizine, Levalbuterol, Robitussin Gastrointestinal: (1) Hyperbilirubinemia, improving -- LFTs Tbili 1.10 from 1.60 ALK 56 AST 21 ALT 7 -- US GB, 05/01: no acute pathology -- diet: NPO until mental status improved -- bowel regimen: None -- ulcer prophylaxis: Not indicated at this time Home meds: Budenisone Endocrine: (1) Chronic thyroid disease; (2) hyperglycemia -- monitor BGs -- start SSI if > 180 -- TSH within normal limits Home meds: None Renal: (1) Hypocalcemia; (2) Hypokalemia, resolved; (3) Hypomagnesemia, resolved; (4) Hypophosphatemia, resolved; (5) Hypernatremia -- UOP: 165 ml/hr -- I/O:2313/3969 -- Cr 0.87 from 0.96 -- Lytes Na 150 from 149, started on 12 NS yesterday, switch to D5W K 3.4, replacement ordered Ca 8.8 Mag 1.9 Phos 3.2 -- IVF: NS @ 40 ml/hr -- Lasix, dose increased for diuresis Home meds: tamsulosin, Lasix, potassium chloride Infectious disease: (1) Sepsis; (2) Enterococcus bacteremia -- Tmax 98.7F -- WBC 4.6 from 5.0 -- Micro 05/02 Sputum Pseudomonas, Klebsiella, Yeast - Klebsiella resistant to Ampicillin, but his clinical course is not convincing for pneumonia. CXR more consistent with CHF 05/01 Blood No growth to date 04/30 MRSA screen negative Urine strep negative 04/29 Flu screen negative blood Enterococcus faecalis Urinanalysis negative -- ABX Ampicillin -- ID consulted Home meds: None Neurologic: (1) Alzheimers disease; (2) Acute encephalopathy secondary to sepsis -- Tylenol as needed -- Precedex gtt for agitation -- Scheduled Geodon for agitation/delirium -- PRN Haldol for agitation -- PRN Morphine for pain control -- Aricept, dc until enteral access available Home meds: Aricept, Melatonin, Tylenol, Divalproex Hematological: (1) Anemia; (2) Mild thrombocytopenia; (3) Recent history of PE -- Hgb 12.5 from 12.7 -- Plt 126 from 105 -- DVT prophylaxis: SQ Lovenox -- ASA Home meds: ASA, eliquis Metabolic: No acute issues Home meds: None Other: Home meds: Vitamin E, MVI, Vitamin D3 Deep vein thrombosis prophylaxis: SQ Lovenox Dietary: not indicated at this time Condition: serious Prognosis: guarded Code status: full Disposition: continue ICU Care Cumulative time spent in the care of this patient (excluding any procedure time) : at least 30 minutes. Patient care included clinical interview (with patient and/or family), bedside exam of the patient, review of labs, x-rays, and other ancillary data, coordination of (respiratory, nursing care, review of patient's records, discussion regarding patients management with involved consultants, primary physician, pharmacists, and other healthcare personnel (dietary, case management , physical/occupational therapy etc.) Critical Care Time: 30
[2018-05-04] MEDS: KCL 20 MEQ/100 ML IVPREMIX* 20 MEQ/100 ML BAG IV SCH ×2 (12:49→15:07)
[2018-05-04] MEDS ORDERED: D5W 20 MEQ KCL 1000 ML BAG* 1,000 ML IV SCH (13:00)
[2018-05-04] MEDS ORDERED: Ziprasidone IM INJ* 20 MG/ML VIAL IM PRN (13:59)
--- NOTE | 2018-05-04 14:51 | PN ---
Progress Note - Progress Note Date of Service: 05/04/18 SOAP: Subjective: CC: bacteremia HPI: 72 year old man with dementia admitted with septic encephalopathy. He cannot provide history or ROS. No fever or diarrhea per RN. Objective: Vital Signs Temp 36.7 C 05/04/18 08:00 Pulse 80 05/04/18 13:30 Resp 18 05/04/18 13:57 BP 136/69 05/04/18 13:30 Pulse Ox 95 05/04/18 13:30 Intake & Output 05/03/18 05/04/18 05/04/18 18:59 06:59 18:59 Intake Total 400 1913 854 Output Total 3159 810 1260 Balance -2759 1103 -406 Weight 150 lb Intake: IV Fluids 143 1077 715 1/2 ns with meds 715 Potassium 83 normal saline 60 1077 IVPB 100 540 Ampicillin 100 normal saline 540 Medicated IV 130 296 139 precedex 130 296 139 Oral 0 Cristina Irrigate Amount 27 0 Output: Cristina 3159 810 1260 Other: Date of Last Bowel 05/02/2018 Movement # Bowel Movements 0 Estimated Stool Amount Medium Gen:awake, sedated, not in distress HEENT: no thrush Heart:RRR no murmur Lungs:scattered rhonchi no wheeze Abd:+BS NTND soft Skin: no rash MSK: no spine tenderness Laboratory Results - last 24 hr 05/04/18 05/04/18 05/04/18 04:53 04:53 05:02 WBC 4.6 RBC 4.31 Hgb 12.5 L Hct 38 L MCV 87 MCH 29 MCHC 33 RDW 16 H Plt Count 126 L MPV 8.3 Sodium 150 H Potassium 3.4 L Chloride 110 Carbon Dioxide 29 Anion Gap 11 BUN 17 Creatinine 0.87 Est GFR ( Amer) 103.8 Est GFR (Non-Af Amer) 85.8 BUN/Creatinine Ratio 19.5 Glucose 125 H Calcium 8.8 Phosphorus 3.2 Magnesium 1.9 Total Bilirubin 0.90 AST 24 ALT 8 Alkaline Phosphatase 66 B-Natriuretic Peptide > 1300 H Total Protein 6.1 L Albumin 3.1 L Globulin 3.0 Albumin/Globulin Ratio 1.0 Microbiology 05/01/18 09:51 Aerobic Blood Culture - Preliminary Blood Venous No Growth Day 3 Anaerobic Blood Culture - Preliminary No Growth Day 3 05/02/18 11:09 Gram Stain - Final Sputum Expectorated Sputum Culture - Final Pseudomonas Aeruginosa Klebsiella Oxytoca YEAST Assessment: 1. sepsis and encephalopathy, present on admission 2. Enterococcal bacteremia and cardiac device infection 3. dementia 4. Pseudomonas and Klebsiella in sputum culture without evidence of pneumonia, agree likely colonization Plan: 1. continue ampicillin 2 gm IV Q4hrs, will add ceftriaxone 1 gm Q12hrs; suspect he will not tolerate RANJAN, can plan on antibiotics without diagnostic testing. Discussed with Dr Goodwin
[2018-05-04] MEDS ORDERED: Haloperidol INJ IV/IM* 5 MG/ML AMP IV SLOW PU ONE (15:38)
[2018-05-04] MEDS: cefTRIAXone(*) 1 GM in NS 0.9% 50 ML* 50 ML IVPB SCH (17:33)
[2018-05-04] MEDS: Morphine VIAL* 4 MG/ML VIAL (1 ml vial) IV PRN (21:31)
[2018-05-05] MEDS: Morphine VIAL* 4 MG/ML VIAL (1 ml vial) IV PRN ×2 (01:04→10:18)
[2018-05-05] MEDS: Dexmedetomidine* 400 MCG in NS 0.9% 100 ML* 96 ML IVPB SCH ×3 (01:51→13:35)
[2018-05-05] MEDS: Ampicillin ADVAN(*) 2 GM in NS 0.9% 100 ML* 100 ML IVPB SCH ×6 (01:54→21:43)
[2018-05-05] MEDS: Enoxaparin(*) 80 MG/0.8 ML SYR SUBCUT SCH ×2 (01:54→13:37)
[2018-05-05] MEDS: hydrALAZINE IV* 20 MG/ML VIAL IV SLOW PU SCH ×4 (01:59→21:44)
[2018-05-05] MEDS: Metoprolol Tartrate IV* 1 MG/ML 5 ML VIAL IV SCH ×4 (04:01→22:15)
[2018-05-05] MEDS: Enalaprilat IV* 1.25 MG/ML 1 ML VIAL (1.25 MG) IV SCH (04:50)
[2018-05-05] MEDS: cefTRIAXone(*) 1 GM in NS 0.9% 50 ML* 50 ML IVPB SCH ×2 (04:50→16:39)
[2018-05-05 05:24] LABS: Hematocrit 36 % (42-52); Hemoglobin 12.1 g/dl (14.0-18.0); Mean Corpuscular HGB Conc 34 g/dl (31-36); Mean Corpuscular Hemoglobin 29 pg (27-31); Mean Corpuscular Volume 87 fL (80-94); Platelet Count 131 10^3/ul (150-450); Red Blood Count 4.14 10^6/ul (4.00-5.40); Red Cell Distribution Width 16 % (10.5-15)
[2018-05-05 05:38] LABS: Albumin 2.9 g/dL (3.2-5.2); BUN/Creatinine Ratio 20.5 (8-20); Calcium 8.7 mg/dL (8.6-10.3); EGFR African American 117.7 (>60); EGFR Non-African American 97.3 (>60); Magnesium 1.8 mg/dL (1.9-2.7); Phosphorus 3.2 mg/dL (2.5-5.0); Potassium 3.5 mmol/L (3.5-5.0); Total Bilirubin 0.7 mg/dL (0.2-1.0); Total Protein 5.9 g/dL (6.4-8.9)
[2018-05-05] MEDS ORDERED: Magnesium Sulfate 1 GM IV* 1 GM/100 ML BAG IV ONE ×2 (07:46→08:30)
[2018-05-05] MEDS ORDERED: KCL 20 MEQ/100 ML IVPREMIX* 20 MEQ/100 ML BAG ONE ×2 (09:12→12:04)
[2018-05-05] MEDS: Ziprasidone IM INJ* 20 MG/ML VIAL IM SCH ×2 (09:20→21:43)
[2018-05-05] MEDS: Digoxin IV* 0.5 MG/2 ML AMP (0.25 MG/ML) IV SLOW PU SCH (09:24)
[2018-05-05] MEDS: Furosemide IV* 10 MG/ML 2 ML VIAL (20 MG) IV SCH (09:41)
[2018-05-05] MEDS: Aspirin SUPP* 300 MG PR SCH (09:51)
--- NOTE | 2018-05-05 12:47 | PN ---
Date of Service: 05/05/18 - 7 Critical Care Services: 74 yo M with Alzheimers brought to ED on 04/29 for increasing agitation. Complaining of dyspnea and dysuria. On EMS evaluation there was a question of VT thus he was given a dose of Amiodarone. Re-review of strips in ED felt more likely to be sinus tachycardia. On evaluation in ED found to be febrile, tachycardic and tachypneic. Bolused 2L IVF for presumptive sepsis. Physical exam demostrated altered mental status , irregular heart rate. WBC mildly elevated at 12.1, CRP high at 26.73. Lactic acid within normal limits at 1.3. He was started on Vancomycin and Zosyn for broad spectrum coverage and admitted to the ICU for further care 04/30: Agitated in early AM, pulling at lines. Started on Precedex gtt and PRN Haldol. Blood cultures with Enterococcus faecalis 05/01: Poor sleep overnight. Remains delirious. BPs remain elevated despite clonidine, labetalol and hydrazine; worsened during periods of agitation. ID consulted for bacteremia. 05/02: Slept better overnight after Geodon. Restless and agitated during the day but improvement over prior somnolence. 05/03: Attempts to place NGT unsuccessful (keeps entering the trachea) 05/04: Less agitated but still somnolent on Precedex. Speaking some words now. PICC placed for attending pathologist antibiotics and anticipation of starting TPN. 05/05:Overnight able to state name Vital Signs: Temp Pulse Resp BP SpO2 FiO2 97.2 F 82 20 107/88 98 100 05/05/18 04:00 05/05/18 07:00 05/05/18 07:00 05/05/18 06:31 05/05/18 07:00 05/04 15:44 Physical Exam: Gen:resting in bed HEENT: venti mask in place Lungs: CTAB Cardiac: RRR Abdomen: soft NTND Extremities: Warm, dry, no edema Neuro: opens eyes to voice. mumbling answers to questions, though mostly just "yes". Able to state name and birthday. Big improvement in mental status as compared to yesterday Fluid Balance (Past 24 Hours): I= O= Net Intake & Output 01/10/19 01/11/19 01/12/19 01/13/19 06:59 06:59 06:59 06:59 Intake Total 2021.3 2313 2366 Output Total 1391 3969 1825 Balance 630.3 -1656 541 Weight 159 lb 4.8 oz 150 lb 153 lb 14.4 oz Intake: IV Fluids 856.3 1220 1807 ABX 580 Ampicillin 611 100 D5 20K 1127 Potassium 116 83 normal saline 129.3 1137 IVPB 725 640 160 ABX 160 Ampicillin 215 100 Magnesium 100 Potassium 186 normal saline 540 sodium Phosphate 224 Medicated IV 440 426 399 precedex 440 426 399 Oral 0 Cristina Irrigate Amount 27 0 Output: Urine 30 Cristina 1391 3969 1795 Other: Date of Last Bowel 05/02/2018 05/02/2018 Movement # Bowel Movements 1 0 Estimated Stool Amount Medium Medium ADLs: Meal Record Start: 04/29/18 21: 19 Freq: 09,13,18 Status: Active Protocol: Created 04/29/18 21:19 System (Rec: 04/29/18 21:19 System ICU-C25) Document 04/30/18 09:00 [id number] (Rec: 04/30/18 09:33 YPQ9465 ICU-C16) Document 04/30/18 13:00 YVM0879 (Rec: 04/30/18 13:27 ZTY3100 ICU-C16) Document 04/30/18 18:00 TEB3740 (Rec: 04/30/18 18:10 BWY0695 ICU-C16) Document 05/01/18 11:00 CCU0625 (Rec: 05/01/18 13:00 HMY2452 ICU-C16) Document 05/01/18 13:00 XJV3423 (Rec: 05/01/18 16:58 ZFL2444 ICU-C16) Document 05/01/18 18:00 GFF2087 (Rec: 05/01/18 18:48 JHQ0780 ICU-C16) Document 05/02/18 13:00 LUC6203 (Rec: 05/02/18 13:15 MJR2918 ICU-C16) Document 05/02/18 18:00 NOX7240 (Rec: 05/02/18 18:31 ARU2980 ICU-C16) Document 05/03/18 09:00 RMH2723 (Rec: 05/03/18 10:26 RFV3682 ICU-L03) Document 05/03/18 12:08 PEX6462 (Rec: 05/03/18 12:08 WNO9201 ISDEMO-M03 ) Document 05/03/18 17:04 QKN1926 (Rec: 05/03/18 17:04 YXV4034 ICU-C15) Document 05/04/18 09:00 XZA7972 (Rec: 05/04/18 10:19 XTG1325 ICU-C16) Document 05/04/18 13:00 DZC4136 (Rec: 05/04/18 13:20 GLQ4060 ICU-C16) Document 05/04/18 17:48 EPB2160 (Rec: 05/04/18 17:49 NRQ3261 ICU-C16) Intake and Output Start: 04/29/18 17: 37 Freq: Status: Active Protocol: Created 04/29/18 17:37 System (Rec: 04/29/18 17:37 System EDRM-C14) Document 04/29/18 21:17 XHT5268 (Rec: 04/29/18 21:18 FBN7876 ED-C18) Intake and Output Start: 04/29/18 21: 19 Freq: Q1HR Status: Active Protocol: Created 04/29/18 21:19 System (Rec: 04/29/18 21:19 System ICU-C25) Document 04/30/18 01:00 CIR0745 (Rec: 04/30/18 01:14 ALF7293 ICU-C16) Document 04/30/18 02:00 YLI0233 (Rec: 04/30/18 02:02 XPW7316 ICU-C16) Document 04/30/18 03:00 XKQ4364 (Rec: 04/30/18 03:17 EOD7861 ICU-C16) Document 04/30/18 04:00 MHA9020 (Rec: 04/30/18 04:30 DVC9312 ICU-C16) Document 04/30/18 05:00 ZBV0701 (Rec: 04/30/18 05:42 BIZ5947 ICU-C16) Document 04/30/18 07:39 KGD4445 (Rec: 04/30/18 07:45 PCI0280 ISDEMO-M03 ) Document 04/30/18 09:00 SJH5976 (Rec: 04/30/18 09:32 HUZ3783 ICU-C16) Document 04/30/18 10:00 JZV3834 (Rec: 04/30/18 10:44 FXA0089 ICU-C16) Document 04/30/18 12:00 DAJ5634 (Rec: 04/30/18 12:24 EEY4587 ICU-C16) Document 04/30/18 12:41 DTT3266 (Rec: 04/30/18 12:41 CPH7734 ISDEMO-M03 ) Document 04/30/18 14:00 DMQ6644 (Rec: 04/30/18 14:22 DMA6144 ICU-C16) Document 04/30/18 15:00 OAK5788 (Rec: 04/30/18 15:44 MTM1485 ICU-C16) Document 04/30/18 15:50 DDI9043 (Rec: 04/30/18 15:59 SRG2398 ICU-C16) Document 04/30/18 17:00 ISW3264 (Rec: 04/30/18 17:15 GME9337 ICU-C16) Document 04/30/18 18:00 LLU1422 (Rec: 04/30/18 18:08 HXC4407 ICU-C16) Document 04/30/18 19:00 WRX4253 (Rec: 04/30/18 19:32 NXL1525 ICU-C16) Document 04/30/18 20:00 YUY3346 (Rec: 04/30/18 20:34 HBO0684 ICU-C16) Document 04/30/18 21:00 LTX6431 (Rec: 04/30/18 21:14 CPO8788 ICU-C16) Document 04/30/18 22:00 VIE3497 (Rec: 04/30/18 22:11 VFN8819 ICU-C16) Document 04/30/18 23:00 ZZM5158 (Rec: 04/30/18 23:03 UOC9972 ICU-C16) Document 05/01/18 00:00 PTI4859 (Rec: 05/01/18 00:27 UPI1055 ICU-C16) Document 05/01/18 01:00 ZKX0158 (Rec: 05/01/18 01:03 LPC5146 ICU-C16) Document 05/01/18 02:00 UAZ9269 (Rec: 05/01/18 02:06 URK0440 ICU-C16) Document 05/01/18 03:00 CZZ9399 (Rec: 05/01/18 03:02 UXN0950 ICU-C16) Document 05/01/18 04:00 TJG7572 (Rec: 05/01/18 04:37 SLO6396 ICU-C16) Document 05/01/18 05:00 YBH3246 (Rec: 05/01/18 05:08 EOJ7637 ICU-C16) Document 05/01/18 06:00 RPQ1615 (Rec: 05/01/18 06:06 YUZ4235 ICU-C16) Document 05/01/18 07:00 XTD4804 (Rec: 05/01/18 07:15 KBA2486 ICU-C16) Document 05/01/18 07:00 UEG5897 (Rec: 05/01/18 07:53 UIP9552 ICU-C16) Document 05/01/18 10:21 QTN6951 (Rec: 05/01/18 10:21 CLN1566 ISDEMO-M03 ) Document 05/01/18 12:12 LDM6365 (Rec: 05/01/18 12:12 OXB2580 ISDEMO-M03 ) Document 05/01/18 14:29 HKD0687 (Rec: 05/01/18 14:29 NRE3326 ICU-C16) Document 05/01/18 16:06 ZSL7594 (Rec: 05/01/18 16:06 BHL2767 ISDEMO-M03 ) Document 05/01/18 16:41 ZYW6595 (Rec: 05/01/18 16:41 BEG2428 ISDEMO-M03 ) Document 05/01/18 17:21 YYD8109 (Rec: 05/01/18 17:21 AXV7353 ICU-C16) Document 05/01/18 18:36 MXD6180 (Rec: 05/01/18 18:36 KAC9587 ISDEMO-M03 ) Document 05/01/18 19:00 LTY2239 (Rec: 05/01/18 19:02 TYU2404 ICU-C10) Document 05/01/18 20:00 LLU6588 (Rec: 05/01/18 20:09 UDK7676 ICU-C16) Document 05/01/18 21:00 QVT6062 (Rec: 05/01/18 21:12 RZE1577 ICU-C16) Document 05/01/18 22:00 LKE8155 (Rec: 05/01/18 22:17 FWU7200 ICU-C16) Document 05/01/18 23:00 TCK9230 (Rec: 05/01/18 23:07 QHH9709 ICU-C16) Document 05/02/18 00:00 DTS2821 (Rec: 05/02/18 00:07 WMD8996 ISDEMO-M03 ) Document 05/02/18 01:00 BNU0748 (Rec: 05/02/18 01:40 XXT0349 ICU-C16) Document 05/02/18 01:54 KBS6603 (Rec: 05/02/18 01:54 KMR9234 ICU-C16) Document 05/02/18 03:00 XAW0078 (Rec: 05/02/18 03:54 AHM4675 ICU-C16) Document 05/02/18 04:00 USG2497 (Rec: 05/02/18 04:00 BZB1933 ICU-C16) Document 05/02/18 05:00 YPH3027 (Rec: 05/02/18 05:41 VKY5716 ICU-C16) Document 05/02/18 06:00 WWD1805 (Rec: 05/02/18 06:15 XRV7640 ICU-C16) Document 05/02/18 07:00 XTX4160 (Rec: 05/02/18 08:04 POK9416 ISDEMO-M03 ) Document 05/02/18 08:00 XSD4676 (Rec: 05/02/18 08:04 GFA0824 ISDEMO-M03 ) Document 05/02/18 09:00 QQV0381 (Rec: 05/02/18 09:40 HSE1234 ISDEMO-M03 ) Document 05/02/18 10:00 PWS6108 (Rec: 05/02/18 11:34 NHX8574 ISDEMO-M03 ) Document 05/02/18 10:00 DSS6709 (Rec: 05/02/18 13:11 HGS5484 ICU-C16) Document 05/02/18 11:00 THM9067 (Rec: 05/02/18 11:34 IVK8640 ISDEMO-M03 ) Document 05/02/18 12:00 KMF4682 (Rec: 05/02/18 13:15 RMC4754 ICU-C16) Document 05/02/18 13:00 UNX2918 (Rec: 05/02/18 13:14 ZCK8128 ICU-C16) Document 05/02/18 14:00 HGS5924 (Rec: 05/02/18 15:24 HOK7050 ISDEMO-M03 ) Document 05/02/18 15:00 XHV6769 (Rec: 05/02/18 15:24 WVP3816 ISDEMO-M03 ) Document 05/02/18 17:00 OUD1791 (Rec: 05/02/18 17:01 XJL7081 ISDEMO-M03 ) Document 05/02/18 18:00 NYF1117 (Rec: 05/02/18 18:30 WML7443 ICU-C16) Document 05/02/18 19:13 HAN1761 (Rec: 05/02/18 19:14 SIE2391 ISDEMO-M03 ) Document 05/02/18 19:23 SSQ2648 (Rec: 05/02/18 19:58 GRE7649 ISDEMO-M03 ) Document 05/02/18 19:58 GFE8015 (Rec: 05/02/18 19:59 CPS5836 ISDEMO-M03 ) Document 05/02/18 22:00 BMI4387 (Rec: 05/02/18 22:18 TQD9927 ICU-C15) Document 05/02/18 23:00 YKO9033 (Rec: 05/03/18 01:22 FTE2801 ICU-C15) Document 05/03/18 01:00 GBO2836 (Rec: 05/03/18 01:22 DCF9502 ICU-C15) Document 05/03/18 02:00 WEF2828 (Rec: 05/03/18 02:55 NEZ0172 ICU-C15) Document 05/03/18 03:00 UGK0547 (Rec: 05/03/18 04:15 DUV3578 ICU-C15) Document 05/03/18 04:00 QUG1262 (Rec: 05/03/18 04:15 SND4727 ICU-C15) Document 05/03/18 05:54 UCV7247 (Rec: 05/03/18 05:54 AZO7486 ISDEMO-M03 ) Document 05/03/18 07:00 VJI2724 (Rec: 05/03/18 09:07 JPM3865 ICU-C15) Document 05/03/18 08:00 MUJ7517 (Rec: 05/03/18 09:07 JNA9798 ICU-C15) Document 05/03/18 09:00 SUQ2599 (Rec: 05/03/18 09:07 XCM6140 ICU-C15) Document 05/03/18 09:58 WGQ7243 (Rec: 05/03/18 09:58 DBP2303 ISDEMO-M03 ) Document 05/03/18 10:22 LXD8491 (Rec: 05/03/18 10:22 CLP2720 ICU-C15) Document 05/03/18 11:35 YFW3789 (Rec: 05/03/18 11:35 CNS2590 ICU-L03) Document 05/03/18 12:00 OIM0573 (Rec: 05/03/18 12:03 VZF4614 ISDEMO-M03 ) Document 05/03/18 13:00 GWT1796 (Rec: 05/03/18 13:01 HCR0059 ISDEMO-M03 ) Document 05/03/18 14:38 ACG5617 (Rec: 05/03/18 14:38 TZN6857 ISDEMO-M03 ) Document 05/03/18 15:00 RXJ9286 (Rec: 05/03/18 15:20 LDN2145 ISDEMO-M03 ) Document 05/03/18 16:40 PVT1353 (Rec: 05/03/18 16:40 BJS8304 ISDEMO-M03 ) Document 05/03/18 17:05 LGF1201 (Rec: 05/03/18 17:05 LOK7433 ICU-C15) Document 05/03/18 18:00 BTY5849 (Rec: 05/03/18 18:19 TGC6573 ISDEMO-M03 ) Document 05/03/18 19:00 ZNH3027 (Rec: 05/03/18 21:05 MWE1396 ICU-C10) Document 05/03/18 20:00 MJF2564 (Rec: 05/03/18 21:05 DDU6229 ICU-C10) Document 05/03/18 21:00 ALJ7282 (Rec: 05/03/18 21:06 MSR8439 ICU-C10) Document 05/03/18 22:00 ZVX5739 (Rec: 05/03/18 23:20 VSE2505 ISDEMO-M03 ) Document 05/03/18 23:00 DBE4574 (Rec: 05/03/18 23:20 UOR2423 ISDEMO-M03 ) Document 05/04/18 00:00 BYI3834 (Rec: 05/04/18 01:17 HSD2783 ISDEMO-M03 ) Document 05/04/18 01:00 ZSX2481 (Rec: 05/04/18 01:17 ZVW0637 ISDEMO-M03 ) Document 05/04/18 02:00 IIU0542 (Rec: 05/04/18 04:43 RGW2719 ISDEMO-M03 ) Document 05/04/18 03:00 HQK2069 (Rec: 05/04/18 04:44 BAF9258 ISDEMO-M03 ) Document 05/04/18 04:00 WWU8568 (Rec: 05/04/18 05:45 TQA2262 ICU-C10) Document 05/04/18 05:00 MWA0705 (Rec: 05/04/18 05:45 TCC0454 ICU-C10) Document 05/04/18 06:00 QHH8451 (Rec: 05/04/18 06:28 LAM8650 ICU-C10) Document 05/04/18 07:35 RVC3326 (Rec: 05/04/18 07:44 YCQ8462 ICU-C16) Document 05/04/18 09:00 EBN0646 (Rec: 05/04/18 10:19 RGA1888 ICU-C16) Document 05/04/18 10:00 JHR4971 (Rec: 05/04/18 10:27 FID1660 ICU-C16) Document 05/04/18 11:00 DTL6761 (Rec: 05/04/18 11:28 LHF0570 ICU-C16) Document 05/04/18 11:45 FPD5310 (Rec: 05/04/18 11:50 KNR7863 ICU-C16) Document 05/04/18 13:00 ZSM2928 (Rec: 05/04/18 13:20 QNU7761 ICU-C16) Document 05/04/18 13:54 EKB5726 (Rec: 05/04/18 13:54 LKX1965 ICU-C16) Document 05/04/18 15:00 BYU6843 (Rec: 05/04/18 15:44 TIL5015 ICU-C16) Document 05/04/18 15:44 BKM6467 (Rec: 05/04/18 15:53 RZY2891 ICU-C16) Document 05/04/18 17:00 ATJ2306 (Rec: 05/04/18 17:48 DML1796 ICU-C16) Document 05/04/18 17:48 CVJ2434 (Rec: 05/04/18 17:49 HTW2827 ICU-C16) Document 05/04/18 19:00 VQO7994 (Rec: 05/04/18 20:22 WZB5939 ICU-L03) Document 05/04/18 20:00 RTD1405 (Rec: 05/04/18 20:22 HIS8796 ICU-L03) Document 05/04/18 23:00 QUX6404 (Rec: 05/04/18 23:06 BFV0266 ISDEMO-M03 ) Document 05/05/18 00:00 VRI1555 (Rec: 05/05/18 00:28 DRS9580 ISDEMO-M03 ) Document 05/05/18 01:00 WJR7658 (Rec: 05/05/18 01:19 YKK5848 ICU-L03) Document 05/05/18 02:00 PPS0608 (Rec: 05/05/18 03:23 HVQ2270 ICU-L03) Document 05/05/18 03:00 FEE4644 (Rec: 05/05/18 03:23 IPR7619 ICU-L03) Document 05/05/18 04:00 TXR9295 (Rec: 05/05/18 04:15 BQT5614 ISDEMO-M03 ) Document 05/05/18 05:00 NXT5193 (Rec: 05/05/18 05:13 XJA1294 ISDEMO-M03 ) Document 05/05/18 06:00 HAG5587 (Rec: 05/05/18 07:00 EDH2607 ICU-L03) Labs: Laboratory Results - last 24 hr 05/05/18 05/05/18 05/05/18 05:00 05:00 05:00 WBC 5.0 RBC 4.14 Hgb 12.1 L Hct 36 L MCV 87 MCH 29 MCHC 34 RDW 16 H Plt Count 131 L MPV 8.0 Sodium 149 H Potassium 3.5 Chloride 112 H Carbon Dioxide 30 Anion Gap 7 BUN 16 Creatinine 0.78 Est GFR ( Amer) 117.7 Est GFR (Non-Af Amer) 97.3 BUN/Creatinine Ratio 20.5 H Glucose 117 H Calcium 8.7 Phosphorus 3.2 Magnesium 1.8 L Total Bilirubin 0.70 AST 21 ALT 8 Alkaline Phosphatase 67 B-Natriuretic Peptide 1227 H Total Protein 5.9 L Albumin 2.9 L Globulin 3.0 Albumin/Globulin Ratio 1.0 Studies: 05/03 CXR: mild CHF, improved compared to prior 05/02 CXR: CHF 05/01 CXR: CHF 05/01 US GB: negative 05/01 CT abd/pelvis: small bilateral pleural effusions and atelectasis no intraabdominal acute pathology 04/29 TTE: LVEF 40-45%, mild global hypokinesis of LV. LVH. unable to assess diastolic funciton. 04/29 CXR: NAD Nutrition: starting TPN today. Mental status still not clear enough to permit oral intake. Impression: 72 yo M with Alzheimers dementia, thyroid disease, HCF, pacemaker and AICD, COPD admitted 04/29 with altered mental status and sepsis secondary to enterococcus bacteremia. Diuresing for CHF and pulmonary edema. Slowly improving mental status. Attempting to wean Precedex. Plan: Cardiovascular: (1) Sinus tachycardia, resolved (2) HTN; (3) Acute on chronic systolic CHF, resolving; (4) Afib with RVR, resolved; (5) NSTEMI, type 2; (6) AICD/pacer in situ; (7) hx of ablation 2013; (8) hx AAA repiar 2010 -- HR 75-96 -- SBP 107-143 -- Telemetry -- TTE, 04/29: LVEF 40-45% unable to assess diastolic function -- BNP 1227 from > 1300, follow trend. Pulmonary edema seems mostly resolved, so will not omar these values -- Lasix, dose decreased to home dose -- SQ Lovenox for recent history of PE -- ASA -- Clonidine patch, Metoprolol, enalapril, scheduled Hydralazine -- PRN Hydralazine for goal SBP < 160 -- Digoxin Home meds: Lasix, ASA, Metoprolol, sotalol, Eliquis, Digoxin Pulmonary: (1) COPD; (2) Acute hypoxemic respiratory failure, improving; (3) Pulmonary edema, cardiac cause, improving -- RR 14-23 -- Sats 92-99 on 2L NC -- Duonebs as needed -- CXR, 05/04: NAD -- Lasix for diuresis Home meds: Cetirizine, Levalbuterol, Robitussin Gastrointestinal: (1) Hyperbilirubinemia, resolved -- LFTs within normal limits -- US GB, 05/01: no acute pathology -- diet: NPO until mental status improved. start TPN as now NPO day 7 -- bowel regimen: None -- ulcer prophylaxis: Not indicated at this time Home meds: Budenisone Endocrine: (1) Chronic thyroid disease; (2) hyperglycemia, improving -- monitor BGs -- start SSI if > 180 -- TSH within normal limits Home meds: None Renal: (1) Hypocalcemia, resolved; (2) Hypokalemia (3) Hypomagnesemia (4) Hypophosphatemia, resolved; (5) Hypernatremia -- UOP: 76 ml/hr -- I/O:2366/1825 -- Cr 0.87 from 0.96 -- Lytes Na 149 from 150, continue D5W K 3.5, replacement ordered Ca 8.7 Mag 1.8, replacement ordered Phos 3.2 -- IVF: D5W @ 50 ml/hr -- Lasix, home dose Home meds: tamsulosin, Lasix, potassium chloride Infectious disease: (1) Sepsis, resolving; (2) Enterococcus bacteremia -- Tmax 99.3F -- WBC 5.0 from 4.6 -- Micro 05/02 Sputum Pseudomonas, Klebsiella, Yeast - colonization 05/01 Blood No growth to date 04/30 MRSA screen negative Urine strep negative 04/29 Flu screen negative blood Enterococcus faecalis Urinanalysis negative -- ABX, anticipate 6 weeks IV course Ampicillin Rocephin -- ID following Home meds: None Neurologic: (1) Alzheimers disease; (2) Acute encephalopathy secondary to sepsis, improving -- Tylenol as needed -- Precedex gtt for agitation, attempting to wean off -- Scheduled Geodon for agitation/delirium -- PRN Haldol for agitation -- PRN Morphine for pain control Home meds: Aricept, Melatonin, Tylenol, Divalproex Hematological: (1) Anemia; (2) Mild thrombocytopenia, resolved; (3) Recent history of PE -- Hgb 12.1 from 12. -- Plt 131 from 126 -- DVT prophylaxis: SQ Lovenox (therapeutic dose) -- ASA Home meds: ASA, eliquis Metabolic: No acute issues Home meds: None Other: Home meds: Vitamin E, MVI, Vitamin D3 Deep vein thrombosis prophylaxis: SQ Lovenox Dietary: not indicated at this time Condition: serious Prognosis: guarded Code status: full Disposition: continue ICU Care Cumulative time spent in the care of this patient (excluding any procedure time) : at least 30 minutes. Patient care included clinical interview (with patient and/or family), bedside exam of the patient, review of labs, x-rays, and other ancillary data, coordination of (respiratory, nursing care, review of patient's records, discussion regarding patients management with involved consultants, primary physician, pharmacists, and other healthcare personnel (dietary, case management , physical/occupational therapy etc.) Critical Care Time: 30
[2018-05-05] MEDS: Enalaprilat IV* 1.25 MG/ML 2 ML VIAL (2.5 MG) IV SCH ×2 (13:42→21:44)
[2018-05-05] MEDS: KCL 20 MEQ/100 ML IVPREMIX* 20 MEQ/100 ML BAG IV SCH (15:08)
[2018-05-05] MEDS ORDERED: TPN* 24 HR with Dextrose 50% Water* 500 ML, Amino Acid Infusion 10%* 850 ML, Sterile Wa... CENTR SCH ×16 (17:00)
[2018-05-05] MEDS: TPN* 24 HR with Dextrose 50% Water* 500 ML, Amino Acid Infusion 10%* 850 ML, Sterile Wa... CENTR SCH ×12 (17:27)
[2018-05-05] MEDS: D5W 20 MEQ KCL 1000 ML BAG* 1,000 ML IV SCH (17:37)
[2018-05-06] MEDS: Dexmedetomidine* 400 MCG in NS 0.9% 100 ML* 96 ML IVPB SCH ×4 (01:17→20:03)
[2018-05-06] MEDS: Morphine VIAL* 4 MG/ML VIAL (1 ml vial) IV PRN ×3 (01:25→23:24)
[2018-05-06] MEDS: Enoxaparin(*) 80 MG/0.8 ML SYR SUBCUT SCH ×2 (01:25→14:20)
[2018-05-06] MEDS: Enalaprilat IV* 1.25 MG/ML 2 ML VIAL (2.5 MG) IV SCH ×4 (02:31→19:53)
[2018-05-06] MEDS: Ampicillin ADVAN(*) 2 GM in NS 0.9% 100 ML* 100 ML IVPB SCH ×6 (02:31→21:27)
[2018-05-06] MEDS: Metoprolol Tartrate IV* 1 MG/ML 5 ML VIAL IV SCH ×4 (03:32→21:30)
[2018-05-06] MEDS: hydrALAZINE IV* 20 MG/ML VIAL IV SLOW PU SCH ×4 (04:19→21:36)
[2018-05-06] MEDS: cefTRIAXone(*) 1 GM in NS 0.9% 50 ML* 50 ML IVPB SCH ×2 (05:33→17:32)
[2018-05-06 05:56] LABS: Hematocrit 36 % (42-52); Mean Corpuscular HGB Conc 34 g/dl (31-36); Mean Corpuscular Hemoglobin 29 pg (27-31); Mean Corpuscular Volume 87 fL (80-94); Platelet Count 146 10^3/ul (150-450); Red Blood Count 4.11 10^6/ul (4.00-5.40); Red Cell Distribution Width 16 % (10.5-15); White Blood Count 5.9 10^3/ul (3.5-10.8)
[2018-05-06 06:16] LABS: Albumin 3.1 g/dL (3.2-5.2); Albumin/Globulin Ratio 1.3 (1-3); Calcium 8.8 mg/dL (8.6-10.3); EGFR African American 123.2 (>60); EGFR Non-African American 101.8 (>60); Globulin 2.4 g/dL (2-4); Magnesium 1.9 mg/dL (1.9-2.7); Phosphorus 2.3 mg/dL (2.5-5.0); Potassium 3.3 mmol/L (3.5-5.0); Total Bilirubin 0.6 mg/dL (0.2-1.0); Total Protein 5.5 g/dL (6.4-8.9)
--- NOTE | 2018-05-06 07:34 | PN ---
Date of Service: 05/06/18 - HD 8 Critical Care Services: 74 yo M with Alzheimers brought to ED on 04/29 for increasing agitation. Complaining of dyspnea and dysuria. On EMS evaluation there was a question of VT thus he was given a dose of Amiodarone. Re-review of strips in ED felt more likely to be sinus tachycardia. On evaluation in ED found to be febrile, tachycardic and tachypneic. Bolused 2L IVF for presumptive sepsis. Physical exam demostrated altered mental status , irregular heart rate. WBC mildly elevated at 12.1, CRP high at 26.73. Lactic acid within normal limits at 1.3. He was started on Vancomycin and Zosyn for broad spectrum coverage and admitted to the ICU for further care 04/30: Agitated in early AM, pulling at lines. Started on Precedex gtt and PRN Haldol. Blood cultures with Enterococcus faecalis 05/01: Poor sleep overnight. Remains delirious. BPs remain elevated despite clonidine, labetalol and hydrazine; worsened during periods of agitation. ID consulted for bacteremia. 05/02: Slept better overnight after Geodon. Restless and agitated during the day but improvement over prior somnolence. 05/03: Attempts to place NGT unsuccessful (keeps entering the trachea) 05/04: Less agitated but still somnolent on Precedex. Speaking some words now. PICC placed for intermediate accountant antibiotics and anticipation of starting TPN. 05/05: Fluctuating mental status throughout day but beginning to speak in sentences. 05/06: No overnight events Vital Signs: Temp Pulse Resp BP SpO2 FiO2 99.1 F 85 21 133/89 96 30 05/06/18 04:00 05/06/18 06:30 05/06/18 06:30 05/06/18 06:30 05/06/18 06:30 05/06 01:01 Physical Exam: Gen: awake. resting comfortably. frequent cough HEENT: ventimask in place Lungs: CTAB Cardiac: RRR Abdomen: soft, NTND Extremities: warm ,dry Neuro: confused, speaking in sentences today. Fluid Balance (Past 24 Hours): I= O= Net Intake & Output 05/04/18 05/05/18 05/06/18 05/07/18 06:59 06:59 06:59 06:59 Intake Total 2313 2366 3168.8 Output Total 3969 5305 4459 Balance -1656 541 789.8 Weight 150 lb 153 lb 14.4 oz 152 lb 5.431 oz Intake: IV Fluids 1220 1807 1994.8 ABX 580 686.8 Ampicillin 100 D5 20K 1127 1087 Magnesium 100 Potassium 83 normal saline 1137 121 IVPB 640 160 282 ABX 160 282 Ampicillin 100 normal saline 540 Medicated IV 426 399 167 precedex 426 399 167 TPN/PPN 725 Oral 0 0 Cristina Irrigate Amount 27 0 0 Output: Urine 30 Cristina 3969 1240 1508 Other: Date of Last Bowel 05/02/2018 05/02/2018 Movement # Bowel Movements 0 Estimated Stool Amount Medium ADLs: Meal Record Start: 04/29/18 21: 19 Freq: 09,13,18 Status: Active Protocol: Created 04/29/18 21:19 System (Rec: 04/29/18 21:19 System ICU-C25) Document 04/30/18 09:00 [id number] (Rec: 04/30/18 09:33 QRU4242 ICU-C16) Document 04/30/18 13:00 UQA4146 (Rec: 04/30/18 13:27 CRV8072 ICU-C16) Document 04/30/18 18:00 KFX4103 (Rec: 04/30/18 18:10 YLH6027 ICU-C16) Document 05/01/18 11:00 QEK3178 (Rec: 05/01/18 13:00 TOK8221 ICU-C16) Document 05/01/18 13:00 TPL2360 (Rec: 05/01/18 16:58 NKH5211 ICU-C16) Document 05/01/18 18:00 NXK5205 (Rec: 05/01/18 18:48 FJM7259 ICU-C16) Document 05/02/18 13:00 FZU7267 (Rec: 05/02/18 13:15 ZLK6177 ICU-C16) Document 05/02/18 18:00 FQT5947 (Rec: 05/02/18 18:31 JXM7243 ICU-C16) Document 05/03/18 09:00 DHZ9140 (Rec: 05/03/18 10:26 YWC7908 ICU-L03) Document 05/03/18 12:08 PXL1082 (Rec: 05/03/18 12:08 IXW6461 ISDEMO-M03 ) Document 05/03/18 17:04 PVP6008 (Rec: 05/03/18 17:04 OXQ3567 ICU-C15) Document 05/04/18 09:00 VLB0920 (Rec: 05/04/18 10:19 UIM8167 ICU-C16) Document 05/04/18 13:00 LJA0127 (Rec: 05/04/18 13:20 RJJ2480 ICU-C16) Document 05/04/18 17:48 WSM4369 (Rec: 05/04/18 17:49 KQU5570 ICU-C16) Document 05/05/18 09:00 EED5035 (Rec: 05/05/18 10:15 BGF9379 ICU-C10) Document 05/05/18 13:00 GVJ2584 (Rec: 05/05/18 13:10 QHJ1238 ICU-C16) Document 05/05/18 18:00 YVJ9644 (Rec: 05/05/18 18:26 KRK3802 ICU-C10) Intake and Output Start: 04/29/18 17: 37 Freq: Status: Active Protocol: Created 04/29/18 17:37 System (Rec: 04/29/18 17:37 System EDRM-C14) Document 04/29/18 21:17 MOT6164 (Rec: 04/29/18 21:18 GFE2496 ED-C18) Intake and Output Start: 04/29/18 21: 19 Freq: Q1HR Status: Active Protocol: Created 04/29/18 21:19 System (Rec: 04/29/18 21:19 System ICU-C25) Document 04/30/18 01:00 XZY9224 (Rec: 04/30/18 01:14 QUK1761 ICU-C16) Document 04/30/18 02:00 KJH3366 (Rec: 04/30/18 02:02 JHT6780 ICU-C16) Document 04/30/18 03:00 VRW9170 (Rec: 04/30/18 03:17 HON7958 ICU-C16) Document 04/30/18 04:00 SYL4669 (Rec: 04/30/18 04:30 EDU4208 ICU-C16) Document 04/30/18 05:00 FWF1092 (Rec: 04/30/18 05:42 UQC3489 ICU-C16) Document 04/30/18 07:39 SHR1922 (Rec: 04/30/18 07:45 TGP6186 ISDEMO-M03 ) Document 04/30/18 09:00 VJZ1465 (Rec: 04/30/18 09:32 XEL3114 ICU-C16) Document 04/30/18 10:00 HQK9848 (Rec: 04/30/18 10:44 GMK7331 ICU-C16) Document 04/30/18 12:00 UJW5111 (Rec: 04/30/18 12:24 JSM1441 ICU-C16) Document 04/30/18 12:41 LTB7164 (Rec: 04/30/18 12:41 IBC6624 ISDEMO-M03 ) Document 04/30/18 14:00 NNM1479 (Rec: 04/30/18 14:22 RAO2611 ICU-C16) Document 04/30/18 15:00 RVE8169 (Rec: 04/30/18 15:44 XCP1561 ICU-C16) Document 04/30/18 15:50 MCO6847 (Rec: 04/30/18 15:59 FMZ6181 ICU-C16) Document 04/30/18 17:00 BAS2227 (Rec: 04/30/18 17:15 IAW1091 ICU-C16) Document 04/30/18 18:00 KNG1686 (Rec: 04/30/18 18:08 BMK8307 ICU-C16) Document 04/30/18 19:00 USL0347 (Rec: 04/30/18 19:32 FNB3237 ICU-C16) Document 04/30/18 20:00 UWF4849 (Rec: 04/30/18 20:34 PWE7412 ICU-C16) Document 04/30/18 21:00 THW4575 (Rec: 04/30/18 21:14 TZG5275 ICU-C16) Document 04/30/18 22:00 SJT1939 (Rec: 04/30/18 22:11 ZHP5503 ICU-C16) Document 04/30/18 23:00 PZM6686 (Rec: 04/30/18 23:03 TQG8676 ICU-C16) Document 05/01/18 00:00 NPS4131 (Rec: 05/01/18 00:27 WMW2328 ICU-C16) Document 05/01/18 01:00 YYL0754 (Rec: 05/01/18 01:03 XYF2142 ICU-C16) Document 05/01/18 02:00 BEG6045 (Rec: 05/01/18 02:06 YAT2072 ICU-C16) Document 05/01/18 03:00 JEL7816 (Rec: 05/01/18 03:02 AUI6601 ICU-C16) Document 05/01/18 04:00 ISP3788 (Rec: 05/01/18 04:37 XQS8061 ICU-C16) Document 05/01/18 05:00 WQA4030 (Rec: 05/01/18 05:08 LMB3541 ICU-C16) Document 05/01/18 06:00 JGJ1028 (Rec: 05/01/18 06:06 ZFK9315 ICU-C16) Document 05/01/18 07:00 PQE0776 (Rec: 05/01/18 07:15 GKG1204 ICU-C16) Document 05/01/18 07:00 ICQ7402 (Rec: 05/01/18 07:53 SJA0030 ICU-C16) Document 05/01/18 10:21 EZT1441 (Rec: 05/01/18 10:21 PAD2800 ISDEMO-M03 ) Document 05/01/18 12:12 YDE7959 (Rec: 05/01/18 12:12 QWN4628 ISDEMO-M03 ) Document 05/01/18 14:29 VJM1352 (Rec: 05/01/18 14:29 ARL4833 ICU-C16) Document 05/01/18 16:06 XQC7371 (Rec: 05/01/18 16:06 AMN9372 ISDEMO-M03 ) Document 05/01/18 16:41 JUX6290 (Rec: 05/01/18 16:41 VHR0126 ISDEMO-M03 ) Document 05/01/18 17:21 FHH1477 (Rec: 05/01/18 17:21 VLM5680 ICU-C16) Document 05/01/18 18:36 PSN3338 (Rec: 05/01/18 18:36 OTV3195 ISDEMO-M03 ) Document 05/01/18 19:00 XJX3517 (Rec: 05/01/18 19:02 XSN4609 ICU-C10) Document 05/01/18 20:00 FBA6557 (Rec: 05/01/18 20:09 VSH5062 ICU-C16) Document 05/01/18 21:00 MZU3000 (Rec: 05/01/18 21:12 PDP8550 ICU-C16) Document 05/01/18 22:00 LFY1180 (Rec: 05/01/18 22:17 KOE2536 ICU-C16) Document 05/01/18 23:00 RGO8068 (Rec: 05/01/18 23:07 WYS3229 ICU-C16) Document 05/02/18 00:00 MRR3345 (Rec: 05/02/18 00:07 ABU6886 ISDEMO-M03 ) Document 05/02/18 01:00 LVH2174 (Rec: 05/02/18 01:40 UBE7218 ICU-C16) Document 05/02/18 01:54 GBM1594 (Rec: 05/02/18 01:54 CUD9565 ICU-C16) Document 05/02/18 03:00 MQR2349 (Rec: 05/02/18 03:54 WDU3741 ICU-C16) Document 05/02/18 04:00 DRJ6771 (Rec: 05/02/18 04:00 NIW1306 ICU-C16) Document 05/02/18 05:00 IUZ4513 (Rec: 05/02/18 05:41 GQB3774 ICU-C16) Document 05/02/18 06:00 LCI8286 (Rec: 05/02/18 06:15 EZO2868 ICU-C16) Document 05/02/18 07:00 YFJ1492 (Rec: 05/02/18 08:04 QVI3100 ISDEMO-M03 ) Document 05/02/18 08:00 RWG4457 (Rec: 05/02/18 08:04 NUU8446 ISDEMO-M03 ) Document 05/02/18 09:00 FUL1052 (Rec: 05/02/18 09:40 GYE6436 ISDEMO-M03 ) Document 05/02/18 10:00 BBW5184 (Rec: 05/02/18 11:34 BFV6844 ISDEMO-M03 ) Document 05/02/18 10:00 MMO9918 (Rec: 05/02/18 13:11 IWG5171 ICU-C16) Document 05/02/18 11:00 PYS6643 (Rec: 05/02/18 11:34 XOA9223 ISDEMO-M03 ) Document 05/02/18 12:00 YXD6045 (Rec: 05/02/18 13:15 DXS3248 ICU-C16) Document 05/02/18 13:00 XWF5980 (Rec: 05/02/18 13:14 QQE2983 ICU-C16) Document 05/02/18 14:00 MGW9135 (Rec: 05/02/18 15:24 EEW2494 ISDEMO-M03 ) Document 05/02/18 15:00 AFH7074 (Rec: 05/02/18 15:24 TCI4746 ISDEMO-M03 ) Document 05/02/18 17:00 FNC6630 (Rec: 05/02/18 17:01 QMJ9030 ISDEMO-M03 ) Document 05/02/18 18:00 ZIA8099 (Rec: 05/02/18 18:30 GQA9905 ICU-C16) Document 05/02/18 19:13 IZO0682 (Rec: 05/02/18 19:14 CBF3864 ISDEMO-M03 ) Document 05/02/18 19:23 INW1287 (Rec: 05/02/18 19:58 YSW8662 ISDEMO-M03 ) Document 05/02/18 19:58 CZT6952 (Rec: 05/02/18 19:59 ZIX9582 ISDEMO-M03 ) Document 05/02/18 22:00 AAI6052 (Rec: 05/02/18 22:18 JZD9285 ICU-C15) Document 05/02/18 23:00 RQO8092 (Rec: 05/03/18 01:22 CVB4075 ICU-C15) Document 05/03/18 01:00 TLF9430 (Rec: 05/03/18 01:22 ARV9062 ICU-C15) Document 05/03/18 02:00 CNX2989 (Rec: 05/03/18 02:55 FDI0907 ICU-C15) Document 05/03/18 03:00 WAD7249 (Rec: 05/03/18 04:15 ONZ0105 ICU-C15) Document 05/03/18 04:00 QXT2123 (Rec: 05/03/18 04:15 BUA5530 ICU-C15) Document 05/03/18 05:54 VND4639 (Rec: 05/03/18 05:54 NGL0741 ISDEMO-M03 ) Document 05/03/18 07:00 XML9534 (Rec: 05/03/18 09:07 BSG3384 ICU-C15) Document 05/03/18 08:00 EJD1792 (Rec: 05/03/18 09:07 ROU8359 ICU-C15) Document 05/03/18 09:00 EXH3238 (Rec: 05/03/18 09:07 PMZ2568 ICU-C15) Document 05/03/18 09:58 DAH3747 (Rec: 05/03/18 09:58 MMN2370 ISDEMO-M03 ) Document 05/03/18 10:22 BVY4995 (Rec: 05/03/18 10:22 WHK2844 ICU-C15) Document 05/03/18 11:35 VFR3453 (Rec: 05/03/18 11:35 ZXK6922 ICU-L03) Document 05/03/18 12:00 BQW4228 (Rec: 05/03/18 12:03 BCG0780 ISDEMO-M03 ) Document 05/03/18 13:00 JQM5946 (Rec: 05/03/18 13:01 STY6496 ISDEMO-M03 ) Document 05/03/18 14:38 NYP0265 (Rec: 05/03/18 14:38 LLX7751 ISDEMO-M03 ) Document 05/03/18 15:00 WHJ7751 (Rec: 05/03/18 15:20 VNQ7972 ISDEMO-M03 ) Document 05/03/18 16:40 JZD7186 (Rec: 05/03/18 16:40 MDG0722 ISDEMO-M03 ) Document 05/03/18 17:05 LZE0522 (Rec: 05/03/18 17:05 CZC7574 ICU-C15) Document 05/03/18 18:00 DSS1694 (Rec: 05/03/18 18:19 FUC5385 ISDEMO-M03 ) Document 05/03/18 19:00 ZQM2332 (Rec: 05/03/18 21:05 ZBB3074 ICU-C10) Document 05/03/18 20:00 XBH2435 (Rec: 05/03/18 21:05 HYW4193 ICU-C10) Document 05/03/18 21:00 CYK8371 (Rec: 05/03/18 21:06 QOY9829 ICU-C10) Document 05/03/18 22:00 OJV4716 (Rec: 05/03/18 23:20 DDO3184 ISDEMO-M03 ) Document 05/03/18 23:00 GKF7593 (Rec: 05/03/18 23:20 JHI7646 ISDEMO-M03 ) Document 05/04/18 00:00 IBW7690 (Rec: 05/04/18 01:17 SLG9539 ISDEMO-M03 ) Document 05/04/18 01:00 SAJ4373 (Rec: 05/04/18 01:17 OPA8204 ISDEMO-M03 ) Document 05/04/18 02:00 VCG8518 (Rec: 05/04/18 04:43 IXN5489 ISDEMO-M03 ) Document 05/04/18 03:00 DJH3379 (Rec: 05/04/18 04:44 OXE4285 ISDEMO-M03 ) Document 05/04/18 04:00 EQT2282 (Rec: 05/04/18 05:45 BGV4474 ICU-C10) Document 05/04/18 05:00 ZQO3941 (Rec: 05/04/18 05:45 JIH6614 ICU-C10) Document 05/04/18 06:00 DZE0070 (Rec: 05/04/18 06:28 WOX0075 ICU-C10) Document 05/04/18 07:35 PQP9675 (Rec: 05/04/18 07:44 RAV4897 ICU-C16) Document 05/04/18 09:00 ZUN1730 (Rec: 05/04/18 10:19 SDX3247 ICU-C16) Document 05/04/18 10:00 NCQ1674 (Rec: 05/04/18 10:27 PGG0648 ICU-C16) Document 05/04/18 11:00 OVF2959 (Rec: 05/04/18 11:28 SEF8877 ICU-C16) Document 05/04/18 11:45 CJI0388 (Rec: 05/04/18 11:50 BUQ1019 ICU-C16) Document 05/04/18 13:00 DOH9986 (Rec: 05/04/18 13:20 EQY4927 ICU-C16) Document 05/04/18 13:54 SGI7811 (Rec: 05/04/18 13:54 UHS8442 ICU-C16) Document 05/04/18 15:00 AVA4776 (Rec: 05/04/18 15:44 JTV9111 ICU-C16) Document 05/04/18 15:44 TAZ0493 (Rec: 05/04/18 15:53 IWX1837 ICU-C16) Document 05/04/18 17:00 RTD2613 (Rec: 05/04/18 17:48 BFE2430 ICU-C16) Document 05/04/18 17:48 QHN8490 (Rec: 05/04/18 17:49 WWD3431 ICU-C16) Document 05/04/18 19:00 HGO6307 (Rec: 05/04/18 20:22 WQC7583 ICU-L03) Document 05/04/18 20:00 XGN9086 (Rec: 05/04/18 20:22 DRB4453 ICU-L03) Document 05/04/18 23:00 NUD9245 (Rec: 05/04/18 23:06 DMX2121 ISDEMO-M03 ) Document 05/05/18 00:00 MOY9800 (Rec: 05/05/18 00:28 GTL9401 ISDEMO-M03 ) Document 05/05/18 01:00 FHZ9799 (Rec: 05/05/18 01:19 BUU2878 ICU-L03) Document 05/05/18 02:00 WZD2434 (Rec: 05/05/18 03:23 FTR4529 ICU-L03) Document 05/05/18 03:00 APW4725 (Rec: 05/05/18 03:23 ABE0912 ICU-L03) Document 05/05/18 04:00 BJY5557 (Rec: 05/05/18 04:15 POT8441 ISDEMO-M03 ) Document 05/05/18 05:00 TOC6293 (Rec: 05/05/18 05:13 ISE1278 ISDEMO-M03 ) Document 05/05/18 06:00 ZRQ7388 (Rec: 05/05/18 07:00 CXB0408 ICU-L03) Document 05/05/18 07:00 LZM8735 (Rec: 05/05/18 07:54 KTV7747 ICU-C10) Document 05/05/18 07:55 NXL0191 (Rec: 05/05/18 07:56 NCL7049 ICU-C10) Document 05/05/18 10:14 LIC5199 (Rec: 05/05/18 10:14 ILK4500 ICU-C10) Document 05/05/18 10:59 IMK4972 (Rec: 05/05/18 10:59 TVM5094 ICU-C10) Document 05/05/18 11:18 WRL7684 (Rec: 05/05/18 11:18 ANV9084 ISDEMO-M03 ) Document 05/05/18 12:00 SCY8358 (Rec: 05/05/18 12:08 CFT8952 ICU-C10) Document 05/05/18 13:00 FLJ9827 (Rec: 05/05/18 13:18 IDG4549 ICU-C10) Document 05/05/18 13:49 PPZ7660 (Rec: 05/05/18 13:49 SPB2314 ISDEMO-M03 ) Document 05/05/18 15:00 XDD4327 (Rec: 05/05/18 15:14 MDE8373 ISDEMO-M03 ) Document 05/05/18 16:00 RND7531 (Rec: 05/05/18 16:04 SVF9530 ICU-C10) Document 05/05/18 16:59 OLJ2363 (Rec: 05/05/18 16:59 MGA4991 ICU-C10) Document 05/05/18 18:00 XNH6937 (Rec: 05/05/18 18:27 FBH3472 ICU-C10) Document 05/05/18 19:00 KPE1557 (Rec: 05/05/18 20:45 SRS4145 ICU-C16) Document 05/05/18 20:00 PPI9729 (Rec: 05/05/18 20:45 EPZ8115 ICU-C16) Document 05/05/18 21:00 IDS6980 (Rec: 05/05/18 22:43 JLZ6138 ICU-C16) Document 05/05/18 22:00 XPZ1595 (Rec: 05/05/18 22:43 YDG4213 ICU-C16) Document 05/05/18 23:00 YNO8477 (Rec: 05/05/18 23:18 DZG1006 ICU-C16) Document 05/06/18 00:00 QHU9154 (Rec: 05/06/18 02:14 RDB9863 ICU-C16) Document 05/06/18 01:00 OXN8329 (Rec: 05/06/18 02:15 KXI7918 ICU-C16) Document 05/06/18 02:00 UVK7603 (Rec: 05/06/18 02:15 LPW2357 ICU-C16) Document 05/06/18 03:00 LJH9067 (Rec: 05/06/18 03:57 WEU7312 ICU-C16) Document 05/06/18 03:57 AVR6205 (Rec: 05/06/18 04:17 EOP7562 ICU-C16) Document 05/06/18 05:00 OEG2618 (Rec: 05/06/18 05:51 RVS9786 ICU-M31) Document 05/06/18 06:00 MOL6896 (Rec: 05/06/18 06:33 MIU9883 ICU-C16) Labs: Laboratory Results - last 24 hr 05/05/18 05/06/18 05/06/18 23:49 05:46 05:46 WBC 5.9 RBC 4.11 Hgb 12.0 L Hct 36 L MCV 87 MCH 29 MCHC 34 RDW 16 H Plt Count 146 L MPV 8.0 Sodium Potassium Chloride Carbon Dioxide Anion Gap BUN Creatinine Est GFR ( Amer) Est GFR (Non-Af Amer) BUN/Creatinine Ratio Glucose POC Glucose (mg/dL) 127 H Calcium Phosphorus Magnesium Total Bilirubin AST ALT Alkaline Phosphatase B-Natriuretic Peptide > 1300 H Total Protein Albumin Globulin Albumin/Globulin Ratio Triglycerides 05/06/18 05:46 WBC RBC Hgb Hct MCV MCH MCHC RDW Plt Count MPV Sodium 146 H Potassium 3.3 L Chloride 113 H Carbon Dioxide 28 Anion Gap 5 BUN 15 Creatinine 0.75 Est GFR ( Amer) 123.2 Est GFR (Non-Af Amer) 101.8 BUN/Creatinine Ratio 20.0 Glucose 142 H POC Glucose (mg/dL) Calcium 8.8 Phosphorus 2.3 L Magnesium 1.9 Total Bilirubin 0.60 AST 21 ALT 8 Alkaline Phosphatase 68 B-Natriuretic Peptide Total Protein 5.5 L Albumin 3.1 L Globulin 2.4 Albumin/Globulin Ratio 1.3 Triglycerides 151 Studies: 05/03 CXR: mild CHF, improved compared to prior 05/02 CXR: CHF 05/01 CXR: CHF 05/01 US GB: negative 05/01 CT abd/pelvis: small bilateral pleural effusions and atelectasis no intraabdominal acute pathology 04/29 TTE: LVEF 40-45%, mild global hypokinesis of LV. LVH. unable to assess diastolic funciton. 04/29 CXR: NAD Nutrition: TPN started on 05/05 NPO secondary to inability to protect airway secondary to delirium Impression: 72 yo M with Alzheimers dementia, thyroid disease, HCF, pacemaker and AICD, COPD admitted 04/29 with altered mental status and sepsis secondary to enterococcus bacteremia. Diuresing for CHF and pulmonary edema. Slowly improving mental status. Attempting to wean Precedex. Plan: Cardiovascular: (1) Sinus tachycardia, resolved (2) HTN; (3) Acute on chronic systolic CHF, resolving; (4) Afib with RVR, resolved; (5) NSTEMI, type 2; (6) AICD/pacer in situ; (7) hx of ablation 2013; (8) hx AAA repiar 2010 -- HR 78-92 -- SBP 108-153 -- Telemetry -- TTE, 04/29: LVEF 40-45% unable to assess diastolic function -- BNP > 1300 from 1227 from > 1300. Pulmonary edema seems mostly resolved, so will not omar these values -- SQ Lovenox for recent history of PE -- ASA -- Clonidine patch, Metoprolol, enalapril, scheduled Hydralazine -- PRN Hydralazine for goal SBP < 160 -- Digoxin -- Lasix, home dose Home meds: Lasix, ASA, Metoprolol, sotalol, Eliquis, Digoxin Pulmonary: (1) COPD; (2) Acute hypoxemic respiratory failure, resolved; (3) Pulmonary edema, cardiac cause, resolved -- RR 7-28 -- Sats 93-100 on 3L NC -- Duonebs as needed -- CXR, 05/04: NAD Home meds: Cetirizine, Levalbuterol, Robitussin Gastrointestinal: (1) Hyperbilirubinemia, resolved -- LFTs within normal limits -- US GB, 05/01: no acute pathology -- diet: TPN started 05/05. swallow eval once mental status permits -- bowel regimen: None -- ulcer prophylaxis: Not indicated at this time Home meds: Budenisone Endocrine: (1) Chronic thyroid disease; (2) hyperglycemia, improving -- monitor BGs -- start SSI if > 180 -- TSH within normal limits Home meds: None Renal: (1) Hypocalcemia, resolved; (2) Hypokalemia (3) Hypomagnesemia, resolved ; (4) Hypophosphatemia; (5) Hypernatremia, improving -- UOP: 100 ml/hr -- I/O:3168/2379 -- Cr 0.87 from 0.96 -- Lytes Na 146 from 149, continue D5W for an additional 24 hrs K 3.3, replacement ordered Ca 8.8 Mag 1.9 Phos 2.3, replacement ordered -- repeat BMP ordered for 1500 -- IVF: D5W @ 50 ml/hr -- Lasix, home dose Home meds: tamsulosin, Lasix, potassium chloride Infectious disease: (1) Sepsis, resolving; (2) Enterococcus bacteremia -- Tmax 99.6F -- WBC 5.9 from 5.0 -- Micro 05/02 Sputum Pseudomonas, Klebsiella, Yeast - colonization 05/01 Blood No growth to date 04/30 MRSA screen negative Urine strep negative 04/29 Flu screen negative blood Enterococcus faecalis Urinanalysis negative -- ABX, anticipate 6 weeks IV course Ampicillin Rocephin -- ID following Home meds: None Neurologic: (1) Alzheimers disease; (2) Acute encephalopathy secondary to sepsis, improving -- Tylenol as needed -- Precedex gtt for agitation, attempting to wean off -- Scheduled Geodon for agitation/delirium -- PRN Haldol for agitation -- PRN Morphine for pain control -- PT when mental status allows Home meds: Aricept, Melatonin, Tylenol, Divalproex Hematological: (1) Anemia; (2) Mild thrombocytopenia, resolved; (3) Recent history of PE -- Hgb 12.0 from 12.1 -- Plt 146 from 131 -- DVT prophylaxis: SQ Lovenox (therapeutic dose) -- ASA Home meds: ASA, eliquis Metabolic: No acute issues Home meds: None Other: Home meds: Vitamin E, MVI, Vitamin D3 Deep vein thrombosis prophylaxis: SQ Lovenox Dietary: not indicated at this time Condition: serious Prognosis: guarded Code status: full Disposition: continue ICU Care Cumulative time spent in the care of this patient (excluding any procedure time) : at least 30 minutes. Patient care included clinical interview (with patient and/or family), bedside exam of the patient, review of labs, x-rays, and other ancillary data, coordination of (respiratory, nursing care, review of patient's records, discussion regarding patients management with involved consultants, primary physician, pharmacists, and other healthcare personnel (dietary, case management , physical/occupational therapy etc.) Critical Care Time: 30
[2018-05-06] MEDS ORDERED: Sodium Phosphate INJ* 30 MMOLE in NS 0.9% 250 ML* 250 ML IVPB ONE (08:00)
[2018-05-06] MEDS: KCL 20 MEQ/100 ML IVPREMIX* 20 MEQ/100 ML BAG IV SCH ×3 (08:07→13:32)
[2018-05-06] MEDS: Furosemide IV* 10 MG/ML 2 ML VIAL (20 MG) IV SCH (08:07)
[2018-05-06] MEDS: Digoxin IV* 0.5 MG/2 ML AMP (0.25 MG/ML) IV SLOW PU SCH (08:08)
[2018-05-06] MEDS: Aspirin SUPP* 300 MG PR SCH (08:09)
[2018-05-06] MEDS: Ziprasidone IM INJ* 20 MG/ML VIAL IM SCH ×2 (08:09→20:25)
[2018-05-06] MEDS ORDERED: Ziprasidone IM INJ* 20 MG/ML VIAL IM ONE (09:00)
[2018-05-06] MEDS: D5W 20 MEQ KCL 1000 ML BAG* 1,000 ML IV SCH (13:31)
[2018-05-06 16:07] LABS: BUN/Creatinine Ratio 21.4 (8-20); Calcium 7.8 mg/dL (8.6-10.3); EGFR African American 133.4 (>60); EGFR Non-African American 110.2 (>60); Potassium 3.5 mmol/L (3.5-5.0)
[2018-05-06 18:00] LABS: Calcium 8.7 mg/dL (8.6-10.3); EGFR African American 125.1 (>60); EGFR Non-African American 103.4 (>60); Potassium 3.7 mmol/L (3.5-5.0)
[2018-05-06] MEDS: TPN* 24 HR with Dextrose 50% Water* 500 ML, Amino Acid Infusion 10%* 850 ML, Sterile Wa... CENTR SCH ×12 (18:07)
[2018-05-06 18:19] LABS: Troponin I 0.05 ng/mL (<0.04)
[2018-05-07] MEDS: Scopolamine 1.5 mg* PATCH TRANSDERM SCH (00:38)
[2018-05-07] MEDS: Ampicillin ADVAN(*) 2 GM in NS 0.9% 100 ML* 100 ML IVPB SCH ×6 (01:27→21:42)
[2018-05-07] MEDS: Enalaprilat IV* 1.25 MG/ML 2 ML VIAL (2.5 MG) IV SCH ×4 (01:27→19:46)
[2018-05-07] MEDS: Dexmedetomidine* 400 MCG in NS 0.9% 100 ML* 96 ML IVPB SCH ×2 (01:34→08:32)
[2018-05-07] MEDS: Enoxaparin(*) 80 MG/0.8 ML SYR SUBCUT SCH ×2 (01:40→12:31)
[2018-05-07 01:48] LABS: BUN/Creatinine Ratio 25.8 (8-20); Calcium 8.7 mg/dL (8.6-10.3); EGFR African American 142.8 (>60); Potassium 3.6 mmol/L (3.5-5.0)
--- NOTE | 2018-05-07 02:30 | PN ---
Hospitalist Progress Note Date of Service: 05/07/18 I was called about secretions and Mr. Mcgrath' inability to clear them. We tried scopalopine patch earlier with no improvement. His RN has been suctioning with little improvement. I came to see Mr. Hinkle and he is awake, in no distress, tachypneic, and responsive to voice. His lungs have referred rattling sounds from the upper airway but no rhonchi or wheezes. He is a poor candidate for bipap, so the next step would be intubation. I called his and spoke with her about this. She would want him to be intubated. I explained that not improving and not being able to come off the vent is a possibility, but she would still want to try. No need for urgent mechanical ventilation at this time. Will check a portable cxr and continue to monitor.
[2018-05-07] MEDS: Metoprolol Tartrate IV* 1 MG/ML 5 ML VIAL IV SCH ×4 (03:09→21:43)
[2018-05-07] MEDS: hydrALAZINE IV* 20 MG/ML VIAL IV SLOW PU SCH ×2 (03:10→08:44)
[2018-05-07] MEDS: Morphine VIAL* 4 MG/ML VIAL (1 ml vial) IV PRN (04:36)
[2018-05-07] MEDS: cefTRIAXone(*) 1 GM in NS 0.9% 50 ML* 50 ML IVPB SCH ×2 (04:37→16:44)
[2018-05-07 04:47] LABS: Hematocrit 36 % (42-52); Hemoglobin 12.2 g/dl (14.0-18.0); Mean Corpuscular HGB Conc 34 g/dl (31-36); Mean Corpuscular Hemoglobin 29 pg (27-31); Mean Corpuscular Volume 87 fL (80-94); Mean Platelet Volume 8.6 fL (7.4-10.4); Platelet Count 170 10^3/ul (150-450); Red Cell Distribution Width 16 % (10.5-15); White Blood Count 7.8 10^3/ul (3.5-10.8)
[2018-05-07 04:57] LABS: BUN/Creatinine Ratio 21.5 (8-20); Calcium 8.9 mg/dL (8.6-10.3); EGFR Non-African American 95.9 (>60); Globulin 2.9 g/dL (2-4); Magnesium 1.8 mg/dL (1.9-2.7); Phosphorus 3.4 mg/dL (2.5-5.0); Potassium 3.6 mmol/L (3.5-5.0); Total Bilirubin 0.6 mg/dL (0.2-1.0); Total Protein 5.9 g/dL (6.4-8.9)
[2018-05-07 05:00] LABS: Troponin I 0.07 ng/mL (<0.04)
[2018-05-07] MEDS: Enalaprilat IV* 1.25 MG/ML 1 ML VIAL (1.25 MG) IV SCH (07:24)
[2018-05-07] MEDS: Digoxin IV* 0.5 MG/2 ML AMP (0.25 MG/ML) IV SLOW PU SCH (08:34)
[2018-05-07] MEDS: Furosemide IV* 10 MG/ML 2 ML VIAL (20 MG) IV SCH (08:37)
[2018-05-07] MEDS: Ziprasidone IM INJ* 20 MG/ML VIAL IM SCH (08:44)
[2018-05-07] MEDS: Aspirin SUPP* 300 MG PR SCH (09:08)
[2018-05-07] MEDS ORDERED: Digoxin IV* 0.5 MG/2 ML AMP (0.25 MG/ML) IV SLOW PU ONE ×2 (09:57→18:00)
--- NOTE | 2018-05-07 10:04 | PN ---
Date of Service: 05/07/18 - Critical Care Services: 74 yo M with Alzheimers brought to ED on 04/29 for increasing agitation. Complaining of dyspnea and dysuria. On EMS evaluation there was a question of VT thus he was given a dose of Amiodarone. Re-review of strips in ED felt more likely to be sinus tachycardia. On evaluation in ED found to be febrile, tachycardic and tachypneic. Bolused 2L IVF for presumptive sepsis. Physical exam demostrated altered mental status , irregular heart rate. WBC mildly elevated at 12.1, CRP high at 26.73. Lactic acid within normal limits at 1.3. He was started on Vancomycin and Zosyn for broad spectrum coverage and admitted to the ICU for further care 04/30: Agitated in early AM, pulling at lines. Started on Precedex gtt and PRN Haldol. Blood cultures with Enterococcus faecalis 05/01: Poor sleep overnight. Remains delirious. BPs remain elevated despite clonidine, labetalol and hydrazine; worsened during periods of agitation. ID consulted for bacteremia. 05/02: Slept better overnight after Geodon. Restless and agitated during the day but improvement over prior somnolence. 05/03: Attempts to place NGT unsuccessful (keeps entering the trachea) 05/04: Less agitated but still somnolent on Precedex. Speaking some words now. PICC placed for long term care pharmacist antibiotics and anticipation of starting TPN. 05/05: Fluctuating mental status throughout day but beginning to speak in sentences. 05/06: Developed self limited runs of junctional tachycardia. Trops negative. 05/07: started on Scopalamine patch overnight for secretions. Vital Signs: Temp Pulse Resp BP SpO2 FiO2 98.7 F 97 22 125/76 99 30 05/07/18 07:47 05/07/18 06:01 05/07/18 06:01 05/07/18 06:00 05/07/18 06:01 05/06 01:01 Physical Exam: Gen: sleeping comfortably HEENT: NC in place Lungs: CTAB Cardiac: RRR Abdomen: soft, NTND Extremities: warm, dry, no edema Neuro: sleeping currently. fluctuating mental status, but beginning to converse Fluid Balance (Past 24 Hours): I= O= Net Intake & Output 05/05/18 05/06/18 05/07/1815/19 06:59 06:59 06:59 06:59 Intake Total 2366 3168.8 4539.1 Output Total 1825 2379 2365 170 Balance 541 789.8 2174.1 -170 Weight 153 lb 14.4 oz 152 lb 5.431 oz 157 lb 4.8 oz Intake: IV Fluids 1807 1994.8 894 Ampicillin 100 D5 20K 1127 1087 756 Magnesium 100 Rocephin 580 686.8 normal saline 121 138 IVPB 199 914 1740 Ampicillin 798 D5 20K 432 Potassium 316 Rocephin 160 282 60 normal saline 109 sodium Phosphate 192 Medicated IV 399 167 47.1 precedex 399 167 47.1 TPN/PPN 725 1691 Oral 0 0 0 Cristina Irrigate Amount 0 0 0 Output: Urine 30 Cristina 1795 2371 2365 170 Other: Date of Last Bowel 05/02/2018 05/02/2018 05/02/2018 Movement # Bowel Movements 0 Estimated Stool Amount Medium ADLs: Meal Record Start: 04/29/18 21: 19 Freq: 09,13,18 Status: Active Protocol: Created 04/29/18 21:19 System (Rec: 04/29/18 21:19 System ICU-C25) Document 04/30/18 09:00 YBQ8989 (Rec: 04/30/18 09:33 VHS4507 ICU-C16) Document 04/30/18 13:00 IXG7663 (Rec: 04/30/18 13:27 VAV4204 ICU-C16) Document 04/30/18 18:00 DUV9336 (Rec: 04/30/18 18:10 JXP4476 ICU-C16) Document 05/01/18 11:00 JJA8122 (Rec: 05/01/18 13:00 EGB8228 ICU-C16) Document 05/01/18 13:00 MLD5510 (Rec: 05/01/18 16:58 GRZ0474 ICU-C16) Document 05/01/18 18:00 KGE0208 (Rec: 05/01/18 18:48 WOV4985 ICU-C16) Document 05/02/18 13:00 QDK2775 (Rec: 05/02/18 13:15 OSA4359 ICU-C16) Document 05/02/18 18:00 YUG3090 (Rec: 05/02/18 18:31 LIN4762 ICU-C16) Document 05/03/18 09:00 BXD7942 (Rec: 05/03/18 10:26 SMZ2171 ICU-L03) Document 05/03/18 12:08 GPY2634 (Rec: 05/03/18 12:08 GUJ5172 ISDEMO-M03 ) Document 05/03/18 17:04 SJG1901 (Rec: 05/03/18 17:04 VTR2073 ICU-C15) Document 05/04/18 09:00 USW4353 (Rec: 05/04/18 10:19 BHE8614 ICU-C16) Document 05/04/18 13:00 TLF2250 (Rec: 05/04/18 13:20 ZYU1358 ICU-C16) Document 05/04/18 17:48 UBA7726 (Rec: 05/04/18 17:49 JUP3431 ICU-C16) Document 05/05/18 09:00 CEO7769 (Rec: 05/05/18 10:15 FTX0084 ICU-C10) Document 05/05/18 13:00 ABP7195 (Rec: 05/05/18 13:10 JKI6733 ICU-C16) Document 05/05/18 18:00 NDM3609 (Rec: 05/05/18 18:26 CVJ8822 ICU-C10) Intake and Output Start: 04/29/18 17: 37 Freq: Status: Active Protocol: Created 04/29/18 17:37 System (Rec: 04/29/18 17:37 System EDRM-C14) Document 04/29/18 21:17 WWH3014 (Rec: 04/29/18 21:18 GJB6223 ED-C18) Intake and Output Start: 04/29/18 21: 19 Freq: Q1HR Status: Active Protocol: Created 04/29/18 21:19 System (Rec: 04/29/18 21:19 System ICU-C25) Document 04/30/18 01:00 BGX9523 (Rec: 04/30/18 01:14 PWX0139 ICU-C16) Document 04/30/18 02:00 FJS1430 (Rec: 04/30/18 02:02 UAT7497 ICU-C16) Document 04/30/18 03:00 YZJ2988 (Rec: 04/30/18 03:17 NZJ5144 ICU-C16) Document 04/30/18 04:00 FIF3642 (Rec: 04/30/18 04:30 FQV7587 ICU-C16) Document 04/30/18 05:00 JCF6437 (Rec: 04/30/18 05:42 HOY5313 ICU-C16) Document 04/30/18 07:39 YKV7792 (Rec: 04/30/18 07:45 RYN2794 ISDEMO-M03 ) Document 04/30/18 09:00 HAL4704 (Rec: 04/30/18 09:32 QUC1319 ICU-C16) Document 04/30/18 10:00 GLL4061 (Rec: 04/30/18 10:44 KWY5049 ICU-C16) Document 04/30/18 12:00 AYJ7881 (Rec: 04/30/18 12:24 HKT7292 ICU-C16) Document 04/30/18 12:41 YQE2761 (Rec: 04/30/18 12:41 XXM5584 ISDEMO-M03 ) Document 04/30/18 14:00 WIY7973 (Rec: 04/30/18 14:22 ZTM4058 ICU-C16) Document 04/30/18 15:00 OJO6640 (Rec: 04/30/18 15:44 DQE8918 ICU-C16) Document 04/30/18 15:50 ZDP0978 (Rec: 04/30/18 15:59 IBX1053 ICU-C16) Document 04/30/18 17:00 MEN3876 (Rec: 04/30/18 17:15 NWX4065 ICU-C16) Document 04/30/18 18:00 JBQ4662 (Rec: 04/30/18 18:08 WJL2477 ICU-C16) Document 04/30/18 19:00 XNF3193 (Rec: 04/30/18 19:32 WCK7237 ICU-C16) Document 04/30/18 20:00 EYA7160 (Rec: 04/30/18 20:34 JLY4083 ICU-C16) Document 04/30/18 21:00 GHM7694 (Rec: 04/30/18 21:14 VWK1709 ICU-C16) Document 04/30/18 22:00 XZL3006 (Rec: 04/30/18 22:11 XGG5289 ICU-C16) Document 04/30/18 23:00 HCT3451 (Rec: 04/30/18 23:03 LYA3722 ICU-C16) Document 05/01/18 00:00 KKZ8270 (Rec: 05/01/18 00:27 ZWI9424 ICU-C16) Document 05/01/18 01:00 NXQ3785 (Rec: 05/01/18 01:03 HIX7630 ICU-C16) Document 05/01/18 02:00 HYU5374 (Rec: 05/01/18 02:06 JDR1175 ICU-C16) Document 05/01/18 03:00 HSO8505 (Rec: 05/01/18 03:02 FLK8801 ICU-C16) Document 05/01/18 04:00 VPC0667 (Rec: 05/01/18 04:37 ZPZ3754 ICU-C16) Document 05/01/18 05:00 BMB6858 (Rec: 05/01/18 05:08 BVG8844 ICU-C16) Document 05/01/18 06:00 OWC2347 (Rec: 05/01/18 06:06 XRO4518 ICU-C16) Document 05/01/18 07:00 JER0905 (Rec: 05/01/18 07:15 DOM5926 ICU-C16) Document 05/01/18 07:00 VOE2519 (Rec: 05/01/18 07:53 WFH4859 ICU-C16) Document 05/01/18 10:21 VGN0352 (Rec: 05/01/18 10:21 RMP3066 ISDEMO-M03 ) Document 05/01/18 12:12 VFA9283 (Rec: 05/01/18 12:12 ESB3747 ISDEMO-M03 ) Document 05/01/18 14:29 JMK0071 (Rec: 05/01/18 14:29 PUR4346 ICU-C16) Document 05/01/18 16:06 GPO3745 (Rec: 05/01/18 16:06 YPT6710 ISDEMO-M03 ) Document 05/01/18 16:41 ALL6013 (Rec: 05/01/18 16:41 DFE5087 ISDEMO-M03 ) Document 05/01/18 17:21 UCY5851 (Rec: 05/01/18 17:21 OJU4413 ICU-C16) Document 05/01/18 18:36 XTF4832 (Rec: 05/01/18 18:36 ZWK8927 ISDEMO-M03 ) Document 05/01/18 19:00 IHV3000 (Rec: 05/01/18 19:02 RRB7546 ICU-C10) Document 05/01/18 20:00 FAI5268 (Rec: 05/01/18 20:09 NXE8272 ICU-C16) Document 05/01/18 21:00 KUK2826 (Rec: 05/01/18 21:12 LDK4117 ICU-C16) Document 05/01/18 22:00 UOI6756 (Rec: 05/01/18 22:17 SSL6514 ICU-C16) Document 05/01/18 23:00 NJV5062 (Rec: 05/01/18 23:07 BZZ3991 ICU-C16) Document 05/02/18 00:00 CUP4688 (Rec: 05/02/18 00:07 KSD7984 ISDEMO-M03 ) Document 05/02/18 01:00 IHJ8460 (Rec: 05/02/18 01:40 YSV5257 ICU-C16) Document 05/02/18 01:54 CFY6167 (Rec: 05/02/18 01:54 VFO6607 ICU-C16) Document 05/02/18 03:00 XPM5859 (Rec: 05/02/18 03:54 FEE4762 ICU-C16) Document 05/02/18 04:00 WTT3310 (Rec: 05/02/18 04:00 VQW0605 ICU-C16) Document 05/02/18 05:00 SBP0201 (Rec: 05/02/18 05:41 MTU7934 ICU-C16) Document 05/02/18 06:00 WOO1392 (Rec: 05/02/18 06:15 FSC1128 ICU-C16) Document 05/02/18 07:00 PRZ7773 (Rec: 05/02/18 08:04 JJT2513 ISDEMO-M03 ) Document 05/02/18 08:00 XFU6330 (Rec: 05/02/18 08:04 PSP8615 ISDEMO-M03 ) Document 05/02/18 09:00 TDR5737 (Rec: 05/02/18 09:40 SAG5157 ISDEMO-M03 ) Document 05/02/18 10:00 SCC5401 (Rec: 05/02/18 11:34 EOF5834 ISDEMO-M03 ) Document 05/02/18 10:00 AJJ4245 (Rec: 05/02/18 13:11 ITT6281 ICU-C16) Document 05/02/18 11:00 NKY5269 (Rec: 05/02/18 11:34 TCE5968 ISDEMO-M03 ) Document 05/02/18 12:00 BRL0101 (Rec: 05/02/18 13:15 GCW7039 ICU-C16) Document 05/02/18 13:00 BCX1976 (Rec: 05/02/18 13:14 KJT6975 ICU-C16) Document 05/02/18 14:00 LCG5623 (Rec: 05/02/18 15:24 DVA1932 ISDEMO-M03 ) Document 05/02/18 15:00 YLE7819 (Rec: 05/02/18 15:24 GXQ2612 ISDEMO-M03 ) Document 05/02/18 17:00 LKR4748 (Rec: 05/02/18 17:01 YYC7445 ISDEMO-M03 ) Document 05/02/18 18:00 JQY5915 (Rec: 05/02/18 18:30 NNN9426 ICU-C16) Document 05/02/18 19:13 IRX3676 (Rec: 05/02/18 19:14 UEX7189 ISDEMO-M03 ) Document 05/02/18 19:23 HOI9678 (Rec: 05/02/18 19:58 IWT9797 ISDEMO-M03 ) Document 05/02/18 19:58 UOA5616 (Rec: 05/02/18 19:59 ZUU6567 ISDEMO-M03 ) Document 05/02/18 22:00 TFJ2544 (Rec: 05/02/18 22:18 PZN9695 ICU-C15) Document 05/02/18 23:00 CHE9822 (Rec: 05/03/18 01:22 TSP1461 ICU-C15) Document 05/03/18 01:00 QNI7660 (Rec: 05/03/18 01:22 MSQ0134 ICU-C15) Document 05/03/18 02:00 PWL2577 (Rec: 05/03/18 02:55 DVW9272 ICU-C15) Document 05/03/18 03:00 QSF3562 (Rec: 05/03/18 04:15 KUO5827 ICU-C15) Document 05/03/18 04:00 QIL5166 (Rec: 05/03/18 04:15 EHE7961 ICU-C15) Document 05/03/18 05:54 KRL8240 (Rec: 05/03/18 05:54 FGI5835 ISDEMO-M03 ) Document 05/03/18 07:00 LQT6063 (Rec: 05/03/18 09:07 PXC1889 ICU-C15) Document 05/03/18 08:00 UVQ6097 (Rec: 05/03/18 09:07 CJL3833 ICU-C15) Document 05/03/18 09:00 LYD6938 (Rec: 05/03/18 09:07 GWO3884 ICU-C15) Document 05/03/18 09:58 BRK6560 (Rec: 05/03/18 09:58 OEG5723 ISDEMO-M03 ) Document 05/03/18 10:22 PZQ2881 (Rec: 05/03/18 10:22 LHD8917 ICU-C15) Document 05/03/18 11:35 PNJ9215 (Rec: 05/03/18 11:35 IRX4691 ICU-L03) Document 05/03/18 12:00 JYN2832 (Rec: 05/03/18 12:03 WYJ9985 ISDEMO-M03 ) Document 05/03/18 13:00 GOS9377 (Rec: 05/03/18 13:01 QJU8766 ISDEMO-M03 ) Document 05/03/18 14:38 VBX9565 (Rec: 05/03/18 14:38 NCA4978 ISDEMO-M03 ) Document 05/03/18 15:00 HKH8156 (Rec: 05/03/18 15:20 FKH6879 ISDEMO-M03 ) Document 05/03/18 16:40 SSX2921 (Rec: 05/03/18 16:40 FYD1556 ISDEMO-M03 ) Document 05/03/18 17:05 TOM8154 (Rec: 05/03/18 17:05 CUH3080 ICU-C15) Document 05/03/18 18:00 FFI4799 (Rec: 05/03/18 18:19 QIW9405 ISDEMO-M03 ) Document 05/03/18 19:00 NRE9669 (Rec: 05/03/18 21:05 BJE0464 ICU-C10) Document 05/03/18 20:00 BFG0851 (Rec: 05/03/18 21:05 EUY4441 ICU-C10) Document 05/03/18 21:00 AWM0231 (Rec: 05/03/18 21:06 XLZ8324 ICU-C10) Document 05/03/18 22:00 ZKK4840 (Rec: 05/03/18 23:20 RSI5946 ISDEMO-M03 ) Document 05/03/18 23:00 DWB0598 (Rec: 05/03/18 23:20 YOL1149 ISDEMO-M03 ) Document 05/04/18 00:00 LOQ0870 (Rec: 05/04/18 01:17 ESV4062 ISDEMO-M03 ) Document 05/04/18 01:00 QRW9258 (Rec: 05/04/18 01:17 MXS6786 ISDEMO-M03 ) Document 05/04/18 02:00 BVI4769 (Rec: 05/04/18 04:43 BHA8359 ISDEMO-M03 ) Document 05/04/18 03:00 NCU6260 (Rec: 05/04/18 04:44 KVH0895 ISDEMO-M03 ) Document 05/04/18 04:00 AYY4359 (Rec: 05/04/18 05:45 VTR5620 ICU-C10) Document 05/04/18 05:00 AWF1680 (Rec: 05/04/18 05:45 CUQ2499 ICU-C10) Document 05/04/18 06:00 QAV2422 (Rec: 05/04/18 06:28 JPN1533 ICU-C10) Document 05/04/18 07:35 DRQ2911 (Rec: 05/04/18 07:44 LKS3100 ICU-C16) Document 05/04/18 09:00 HYO1314 (Rec: 05/04/18 10:19 AUK0092 ICU-C16) Document 05/04/18 10:00 EDN6386 (Rec: 05/04/18 10:27 OHY7224 ICU-C16) Document 05/04/18 11:00 AHH7824 (Rec: 05/04/18 11:28 PDN9752 ICU-C16) Document 05/04/18 11:45 FGD9331 (Rec: 05/04/18 11:50 GYZ3199 ICU-C16) Document 05/04/18 13:00 VPT1385 (Rec: 05/04/18 13:20 SFE0856 ICU-C16) Document 05/04/18 13:54 ZQS5859 (Rec: 05/04/18 13:54 JZG8301 ICU-C16) Document 05/04/18 15:00 FSV5269 (Rec: 05/04/18 15:44 WCT1423 ICU-C16) Document 05/04/18 15:44 BYA3049 (Rec: 05/04/18 15:53 VGS4595 ICU-C16) Document 05/04/18 17:00 PIA1859 (Rec: 05/04/18 17:48 HDV2899 ICU-C16) Document 05/04/18 17:48 BSS0927 (Rec: 05/04/18 17:49 BNU5294 ICU-C16) Document 05/04/18 19:00 YVD5330 (Rec: 05/04/18 20:22 ENZ1159 ICU-L03) Document 05/04/18 20:00 NYL4833 (Rec: 05/04/18 20:22 VZO1115 ICU-L03) Document 05/04/18 23:00 TTN0305 (Rec: 05/04/18 23:06 QCI3760 ISDEMO-M03 ) Document 05/05/18 00:00 XID3601 (Rec: 05/05/18 00:28 NCY2557 ISDEMO-M03 ) Document 05/05/18 01:00 LRN8149 (Rec: 05/05/18 01:19 YEH8859 ICU-L03) Document 05/05/18 02:00 ORA5039 (Rec: 05/05/18 03:23 BML2799 ICU-L03) Document 05/05/18 03:00 DNG2582 (Rec: 05/05/18 03:23 DNO6900 ICU-L03) Document 05/05/18 04:00 CHO2283 (Rec: 05/05/18 04:15 MPZ8773 ISDEMO-M03 ) Document 05/05/18 05:00 BAB1215 (Rec: 05/05/18 05:13 QDJ6712 ISDEMO-M03 ) Document 05/05/18 06:00 RQE4457 (Rec: 05/05/18 07:00 XHF7777 ICU-L03) Document 05/05/18 07:00 XJY1266 (Rec: 05/05/18 07:54 VHP2258 ICU-C10) Document 05/05/18 07:55 ZAV1154 (Rec: 05/05/18 07:56 BQB8543 ICU-C10) Document 05/05/18 10:14 VMI9098 (Rec: 05/05/18 10:14 YUF9346 ICU-C10) Document 05/05/18 10:59 GWO6561 (Rec: 05/05/18 10:59 UJY1046 ICU-C10) Document 05/05/18 11:18 CLA4198 (Rec: 05/05/18 11:18 AFZ1774 ISDEMO-M03 ) Document 05/05/18 12:00 JTS3411 (Rec: 05/05/18 12:08 UPX2695 ICU-C10) Document 05/05/18 13:00 CZU2010 (Rec: 05/05/18 13:18 DLG9285 ICU-C10) Document 05/05/18 13:49 CZS8455 (Rec: 05/05/18 13:49 ENW9131 ISDEMO-M03 ) Document 05/05/18 15:00 AYX1113 (Rec: 05/05/18 15:14 IJX7889 ISDEMO-M03 ) Document 05/05/18 16:00 ZCV2314 (Rec: 05/05/18 16:04 OFC1821 ICU-C10) Document 05/05/18 16:59 HDI1046 (Rec: 05/05/18 16:59 YPG6111 ICU-C10) Document 05/05/18 18:00 IVQ3121 (Rec: 05/05/18 18:27 RTI2421 ICU-C10) Document 05/05/18 19:00 YPT1644 (Rec: 05/05/18 20:45 EZY6871 ICU-C16) Document 05/05/18 20:00 KPC4481 (Rec: 05/05/18 20:45 OBO2920 ICU-C16) Document 05/05/18 21:00 OGR5116 (Rec: 05/05/18 22:43 CAO2732 ICU-C16) Document 05/05/18 22:00 WNT3476 (Rec: 05/05/18 22:43 QKK2890 ICU-C16) Document 05/05/18 23:00 RFK6636 (Rec: 05/05/18 23:18 LHE6879 ICU-C16) Document 05/06/18 00:00 NTK7078 (Rec: 05/06/18 02:14 XPI0316 ICU-C16) Document 05/06/18 01:00 ISI0617 (Rec: 05/06/18 02:15 IHR1042 ICU-C16) Document 05/06/18 02:00 WGV2616 (Rec: 05/06/18 02:15 YQE2062 ICU-C16) Document 05/06/18 03:00 PTI1528 (Rec: 05/06/18 03:57 VQT5033 ICU-C16) Document 05/06/18 03:57 RLT8692 (Rec: 05/06/18 04:17 HEW5412 ICU-C16) Document 05/06/18 05:00 PLP9142 (Rec: 05/06/18 05:51 ZIZ6369 ICU-M31) Document 05/06/18 06:00 JJH1659 (Rec: 05/06/18 06:33 LJV3124 ICU-C16) Document 05/06/18 07:00 FVQ0560 (Rec: 05/06/18 09:07 MCZ7524 ISDEMO-M03 ) Document 05/06/18 08:00 SQP3547 (Rec: 05/06/18 09:07 CSO3618 ISDEMO-M03 ) Document 05/06/18 09:00 ZRA1718 (Rec: 05/06/18 09:07 ELC4388 ISDEMO-M03 ) Document 05/06/18 10:00 EYR4487 (Rec: 05/06/18 10:02 IJV4135 ISDEMO-M03 ) Document 05/06/18 11:00 ZMC8775 (Rec: 05/06/18 11:19 VEC7876 ISDEMO-M03 ) Document 05/06/18 12:00 VGJ6156 (Rec: 05/06/18 12:03 DAH1822 ISDEMO-M03 ) Document 05/06/18 13:00 SCG5495 (Rec: 05/06/18 13:53 RMK4586 ISDEMO-M03 ) Document 05/06/18 14:00 WNC2524 (Rec: 05/06/18 14:33 PTW9034 ISDEMO-M03 ) Document 05/06/18 15:00 KKF4941 (Rec: 05/06/18 15:02 PUH5697 ISDEMO-M03 ) Document 05/06/18 16:00 VME9107 (Rec: 05/06/18 16:11 SYE3141 ISDEMO-M03 ) Document 05/06/18 17:00 OFP9902 (Rec: 05/06/18 18:13 DAE6418 ISDEMO-M03 ) Document 05/06/18 18:00 OJI9754 (Rec: 05/06/18 18:13 PSS0948 ISDEMO-M03 ) Document 05/06/18 19:00 TPJ9419 (Rec: 05/06/18 19:19 EBY2413 ICU-C16) Document 05/06/18 20:00 MUN9559 (Rec: 05/06/18 20:06 OCW2753 ICU-C16) Document 05/06/18 21:00 CFD8484 (Rec: 05/06/18 21:16 JFL7261 ICU-C16) Document 05/06/18 22:00 HON8960 (Rec: 05/06/18 22:11 GQY5018 ICU-C16) Document 05/06/18 23:00 IFJ6203 (Rec: 05/06/18 23:06 ROK3306 ICU-C16) Document 05/07/18 00:00 TPQ6130 (Rec: 05/07/18 01:00 SXB0688 ICU-C16) Document 05/07/18 01:00 VAQ9035 (Rec: 05/07/18 01:05 RDI6711 ICU-C16) Document 05/07/18 02:00 ZYO2560 (Rec: 05/07/18 02:13 LQO5302 ICU-C16) Document 05/07/18 03:00 CSM5917 (Rec: 05/07/18 03:18 RYI2421 ICU-C16) Document 05/07/18 04:00 MFW8395 (Rec: 05/07/18 04:17 BHD3134 ICU-C16) Document 05/07/18 05:00 AYO5888 (Rec: 05/07/18 05:16 GTW4264 ICU-C16) Document 05/07/18 05:58 LJJ3827 (Rec: 05/07/18 05:59 NHT2060 ICU-C16) Document 05/07/18 07:00 LMO0365 (Rec: 05/07/18 09:08 VUZ6854 ISDEMO-M03 ) Document 05/07/18 08:00 NPR1663 (Rec: 05/07/18 09:08 RDS1500 ISDEMO-M03 ) Document 05/07/18 09:00 OEH9447 (Rec: 05/07/18 09:09 IOO2847 ISDEMO-M03 ) Labs: Laboratory Results - last 24 hr 05/06/18 05/06/18 05/06/18 09:43 11:54 15:31 WBC RBC Hgb Hct MCV MCH MCHC RDW Plt Count MPV Sodium 146 H Potassium 3.7 Chloride 113 H Carbon Dioxide 27 Anion Gap 6 BUN 17 Creatinine 0.74 Est GFR ( Amer) 125.1 Est GFR (Non-Af Amer) 103.4 BUN/Creatinine Ratio 23.0 H Glucose 144 H POC Glucose (mg/dL) 169 H 204 H Calcium 8.7 Phosphorus Magnesium Total Bilirubin AST ALT Alkaline Phosphatase Troponin I 0.05 H* Total Protein Albumin Globulin Albumin/Globulin Ratio 05/06/18 05/06/18 05/06/18 15:42 15:58 19:37 WBC RBC Hgb Hct MCV MCH MCHC RDW Plt Count MPV Sodium 161 H* D Potassium 3.5 Chloride 109 Carbon Dioxide 21 L Anion Gap 31 H BUN 15 Creatinine 0.70 Est GFR ( Amer) 133.4 Est GFR (Non-Af Amer) 110.2 BUN/Creatinine Ratio 21.4 H Glucose 180 H POC Glucose (mg/dL) 189 H 167 H Calcium 7.8 L Phosphorus Magnesium Total Bilirubin AST ALT Alkaline Phosphatase Troponin I Total Protein Albumin Globulin Albumin/Globulin Ratio 05/07/18 05/07/18 05/07/18 00:50 00:50 04:28 WBC RBC Hgb Hct MCV MCH MCHC RDW Plt Count MPV Sodium 146 H D Potassium 3.6 Chloride 114 H Carbon Dioxide 26 Anion Gap 6 BUN 17 Creatinine 0.66 L Est GFR ( Amer) 142.8 Est GFR (Non-Af Amer) 118.0 BUN/Creatinine Ratio 25.8 H Glucose 161 H POC Glucose (mg/dL) 155 H 115 H Calcium 8.7 Phosphorus Magnesium Total Bilirubin AST ALT Alkaline Phosphatase Troponin I Total Protein Albumin Globulin Albumin/Globulin Ratio 05/07/18 05/07/18 04:30 04:30 WBC 7.8 RBC 4.20 Hgb 12.2 L Hct 36 L MCV 87 MCH 29 MCHC 34 RDW 16 H Plt Count 170 MPV 8.6 Sodium 145 Potassium 3.6 Chloride 113 H Carbon Dioxide 26 Anion Gap 6 BUN 17 Creatinine 0.79 Est GFR ( Amer) 116.0 Est GFR (Non-Af Amer) 95.9 BUN/Creatinine Ratio 21.5 H Glucose 123 H POC Glucose (mg/dL) Calcium 8.9 Phosphorus 3.4 Magnesium 1.8 L Total Bilirubin 0.60 AST 29 ALT 11 Alkaline Phosphatase 76 Troponin I 0.07 H* Total Protein 5.9 L Albumin 3.0 L Globulin 2.9 Albumin/Globulin Ratio 1.0 Studies: 05/03 CXR: mild CHF, improved compared to prior 05/02 CXR: CHF 05/01 CXR: CHF 05/01 US GB: negative 05/01 CT abd/pelvis: small bilateral pleural effusions and atelectasis no intraabdominal acute pathology 04/29 TTE: LVEF 40-45%, mild global hypokinesis of LV. LVH. unable to assess diastolic funciton. 04/29 CXR: NAD Nutrition: TPN started on 05/05 NPO secondary to inability to protect airway secondary to delirium Impression: 72 yo M with Alzheimers dementia, thyroid disease, HCF, pacemaker and AICD, COPD admitted 04/29 with altered mental status and sepsis secondary to enterococcus bacteremia. Diuresing for CHF and pulmonary edema. Slowly improving mental status. Attempting to wean Precedex. Plan: Cardiovascular: (1) Sinus tachycardia, resolved (2) HTN; (3) Acute on chronic systolic CHF, resolving; (4) Afib with RVR, resolved; (5) NSTEMI, type 2; (6) AICD/pacer in situ; (7) hx of ablation 2013; (8) hx AAA repiar 2010 -- HR 76-130 -- SBP 119-177 -- Telemetry -- TTE, 04/29: LVEF 40-45% unable to assess diastolic function -- Troponin 0.07 from 0.05 -- SQ Lovenox for recent history of PE -- ASA -- Clonidine patch, Metoprolol, enalapril -- PRN Hydralazine for goal SBP < 160 -- Digoxin, reload with Digoxin as having breakthrough junctional tachycardias -- Lasix, home dose Home meds: Lasix, ASA, Metoprolol, sotalol, Eliquis, Digoxin Pulmonary: (1) COPD; (2) Acute hypoxemic respiratory failure, resolved; (3) Pulmonary edema, cardiac cause, resolved -- RR 7-27 -- Sats 91-100 on 2L NC -- Duonebs as needed -- CXR, 05/07: NAD -- Scopolamine patch to assist with secretion management Home meds: Cetirizine, Levalbuterol, Robitussin Gastrointestinal: (1) Hyperbilirubinemia, resolved -- LFTs within normal limits -- US GB, 05/01: no acute pathology -- diet: TPN started 05/05. swallow eval once mental status permits -- bowel regimen: None -- ulcer prophylaxis: Not indicated at this time Home meds: Budenisone Endocrine: (1) Chronic thyroid disease; (2) hyperglycemia, improving -- monitor BGs -- start SSI if > 180 -- TSH within normal limits Home meds: None Renal: (1) Hypocalcemia, resolved; (2) Hypokalemia, resolved (3) Hypomagnesemia ; (4) Hypophosphatemia, resolved; (5) Hypernatremia, improving -- UOP: 100 ml/hr -- I/O:[id number] -- Cr 0.87 from 0.96 -- Lytes Na 145 from 146, follow trend Cl 113 from 114, follow trend K 3.6 Ca 8.8 Mag 1.8 Phos 3.4 -- repeat BMP ordered for 1500 -- IVF: D5W @ 50 ml/hr -- Lasix, home dose Home meds: tamsulosin, Lasix, potassium chloride Infectious disease: (1) Sepsis, resolving; (2) Enterococcus bacteremia -- Tmax 99.7F -- WBC 7.8 from 5.9 -- Micro 05/02 Sputum Pseudomonas, Klebsiella, Yeast - colonization 05/01 Blood No growth to date 04/30 MRSA screen negative Urine strep negative 04/29 Flu screen negative blood Enterococcus faecalis Urinanalysis negative -- ABX, anticipate 6 weeks IV course Ampicillin Rocephin -- ID following Home meds: None Neurologic: (1) Alzheimers disease; (2) Acute encephalopathy secondary to sepsis, improving -- Tylenol as needed -- Precedex gtt for agitation, attempting to wean off -- Scheduled Geodon for agitation/delirium -- PRN Haldol for agitation -- PRN Morphine for pain control -- PT when mental status allows Home meds: Aricept, Melatonin, Tylenol, Divalproex Hematological: (1) Anemia; (2) Mild thrombocytopenia, resolved; (3) Recent history of PE -- US BLE, 05/07: negative for DVT -- Hgb 12.2 from 12.0 -- Plt 170 from 146 -- DVT prophylaxis: SQ Lovenox (therapeutic dose) -- ASA Home meds: ASA, eliquis Metabolic: (1) Hyperchloremic metabolic acidosis, resolving -- continue hydration Home meds: None Other: Home meds: Vitamin E, MVI, Vitamin D3 Deep vein thrombosis prophylaxis: SQ Lovenox Dietary: not indicated at this time Condition: serious Prognosis: guarded Code status: full Disposition: continue ICU Care Cumulative time spent in the care of this patient (excluding any procedure time) : at least 30 minutes. Patient care included clinical interview (with patient and/or family), bedside exam of the patient, review of labs, x-rays, and other ancillary data, coordination of (respiratory, nursing care, review of patient's records, discussion regarding patients management with involved consultants, primary physician, pharmacists, and other healthcare personnel (dietary, case management , physical/occupational therapy etc.) Critical Care Time: 30
[2018-05-07] MEDS ORDERED: Magnesium Sulfate 1 GM IV* 1 GM/100 ML BAG IV ONE ×2 (10:30→18:45)
[2018-05-07] MEDS ORDERED: Diltiazem IV* 5 MG/ML 5 ML VIAL (for loading dose/IV Push) (25 MG) IV SLOW PU ONE (11:29)
[2018-05-07] MEDS: TPN* 24 HR with Dextrose 50% Water* 500 ML, Amino Acid Infusion 10%* 850 ML, Sterile Wa... CENTR SCH ×12 (16:44)
[2018-05-07] MEDS: cloNIDine 0.3 MG PATCH* 0.3 MG/24 HR 7 DAY PATCH TRANSDERM SCH (19:43)
[2018-05-07 19:58] LABS: BUN/Creatinine Ratio 22.5 (8-20); Calcium 8.9 mg/dL (8.6-10.3); EGFR African American 114.3 (>60); EGFR Non-African American 94.5 (>60); Potassium 3.6 mmol/L (3.5-5.0)
[2018-05-07] MEDS ORDERED: IVPREMIX IV ONE (22:00)
[2018-05-07] MEDS ORDERED: KCL IV ONE (22:00)
[2018-05-07] MEDS: KCL 20 MEQ/100 ML IVPREMIX* 20 MEQ/100 ML BAG IV SCH ×2 (22:05→23:47)
[2018-05-08] MEDS ORDERED: Magnesium Sulfate 2 GM IV* 2 GM/50 ML BAG IVPB ONE (00:43)
[2018-05-08] MEDS: Enalaprilat IV* 1.25 MG/ML 2 ML VIAL (2.5 MG) IV SCH ×4 (01:27→20:26)
[2018-05-08] MEDS: Enoxaparin(*) 80 MG/0.8 ML SYR SUBCUT SCH ×2 (01:28→13:36)
[2018-05-08] MEDS: Ampicillin ADVAN(*) 2 GM in NS 0.9% 100 ML* 100 ML IVPB SCH ×6 (01:28→22:00)
[2018-05-08] MEDS: Metoprolol Tartrate IV* 1 MG/ML 5 ML VIAL IV SCH ×5 (03:03→22:00)
[2018-05-08] MEDS: cefTRIAXone(*) 1 GM in NS 0.9% 50 ML* 50 ML IVPB SCH ×2 (04:42→16:47)
[2018-05-08] MEDS: Furosemide IV* 10 MG/ML 2 ML VIAL (20 MG) IV SCH (09:40)
[2018-05-08] MEDS: Aspirin SUPP* 300 MG PR SCH (09:40)
[2018-05-08] MEDS: Digoxin IV* 0.5 MG/2 ML AMP (0.25 MG/ML) IV SLOW PU SCH (09:40)
--- NOTE | 2018-05-08 09:54 | PN ---
Date of Service: 05/08/18 Critical Care Services: 74 yo M with Alzheimer's dementia brought to ED on 04/29 for increasing agitation with complains of dyspnea and dysuria. On EMS evaluation there was a question of VT thus he was given a dose of Amiodarone. Re-review of strips in ED felt more likely to be sinus tachycardia. On evaluation in ED found to be febrile, tachycardic and tachypneic. Bolused 2L IVF for presumptive sepsis. Physical exam demostrated altered mental status , irregular heart rate. WBC mildly elevated at 12.1, CRP high at 26.73. Lactic acid within normal limits at 1.3. He was started on Vancomycin and Zosyn for broad spectrum coverage and admitted to the ICU for further care 04/30: Agitated in early AM, pulling at lines. Started on Precedex gtt and PRN Haldol. Blood cultures with Enterococcus faecalis 05/01: Poor sleep overnight. Remains delirious. BPs remain elevated despite clonidine, labetalol and hydrazine; worsened during periods of agitation. ID consulted for bacteremia. 05/02: Slept better overnight after Geodon. Restless and agitated during the day but improvement over prior somnolence. 05/03: Attempts to place NGT unsuccessful (keeps entering the trachea) 05/04: Less agitated but still somnolent on Precedex. Speaking some words now. 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 05/05: Fluctuating mental status throughout day but beginning to speak in sentences. 05/06: Developed self limited runs of junctional tachycardia. Trops negative. 05/07: started on Scopalamine patch overnight for secretions. 05/08: overnight noted to have torsades de pointes with HR and subsequently the ICD fired. Family meeting held today with (Marilyn), grand-daughter, and great grand son with Dr. Aranda(Palliative) and myself. Patient was made DNR/ DNI Vital Signs: Vital Signs Temp 99.2 F 05/08/18 07:34 Pulse 86 05/08/18 08:01 Resp 24 05/08/18 08:01 BP 156/87 05/08/18 08:01 Pulse Ox 96 05/08/18 08:01 Intake & Output 05/07/18 05/08/18 05/08/18 18:59 06:59 18:59 Intake Total 555 2807 Output Total 2430 615 Balance -1875 2192 Weight 156 lb 3.2 oz Intake: IV Fluids 292 323 D5 20K 221 Magnesium 134 Potassium 189 Rocephin 71 IVPB 263 632 Ampicillin 100 424 Magnesium 108 Rocephin 55 208 TPN/PPN 1852 Oral 0 Output: Cristina 2430 615 Physical Exam: Gen: Not in acute distress. HEENT: NCAT. Nasal orifice patent. Neck midline. No LA Lungs: Air entry bilaterally Cardiac: S1 S2, RRR Abdomen: soft, NTND, + BS Extremities: warm, dry, no edema Neuro: No focal neuro deficits. Does not follow commands Fluid Balance (Past 24 Hours): I= O= Net Intake & Output 05/06/18 05/07/18 05/08/18 05/09/18 06:59 06:59 06:59 06:59 Intake Total 3168.8 4539.1 3362 Output Total 2379 2365 3045 Balance 789.8 2174.1 317 Weight 152 lb 5.431 oz 157 lb 4.8 oz 156 lb 3.2 oz Intake: IV Fluids 1994.8 894 615 D5 20K 1087 756 221 Magnesium 100 134 Potassium 189 Rocephin 686.8 71 normal saline 121 138 IVPB 282 1907 895 Ampicillin 798 524 D5 20K 432 Magnesium 108 Potassium 316 Rocephin 282 60 263 normal saline 109 sodium Phosphate 192 Medicated IV 167 47.1 precedex 167 47.1 TPN/PPN 725 1691 1852 Oral 0 0 0 Cristina Irrigate Amount 0 0 Output: Cristina 2379 2365 3045 Other: Date of Last Bowel 05/02/2018 05/02/2018 Movement ADLs: Meal Record Start: 04/29/18 21: 19 Freq: ,,18 Status: Active Protocol: Created 04/29/18 21:19 System (Rec: 04/29/18 21:19 System ICU-C25) Document 04/30/18 09:00 DGB0640 (Rec: 04/30/18 09:33 GZP2967 ICU-C16) Document 04/30/18 13:00 BKW0004 (Rec: 04/30/18 13:27 BPZ6140 ICU-C16) Document 04/30/18 18:00 GNI7256 (Rec: 04/30/18 18:10 AJC4185 ICU-C16) Document 05/01/18 11:00 WUU5135 (Rec: 05/01/18 13:00 DPW4862 ICU-C16) Document 05/01/18 13:00 OMH4871 (Rec: 05/01/18 16:58 BTF2346 ICU-C16) Document 05/01/18 18:00 OJM5100 (Rec: 05/01/18 18:48 SRX4150 ICU-C16) Document 05/02/18 13:00 XAB5029 (Rec: 05/02/18 13:15 SNW5520 ICU-C16) Document 05/02/18 18:00 HEH2405 (Rec: 05/02/18 18:31 JQF6886 ICU-C16) Document 05/03/18 09:00 GEP4722 (Rec: 05/03/18 10:26 ACN7855 ICU-L03) Document 05/03/18 12:08 XZQ0800 (Rec: 05/03/18 12:08 UKP4605 ISDEMO-M03 ) Document 05/03/18 17:04 DSJ9064 (Rec: 05/03/18 17:04 KVK9438 ICU-C15) Document 05/04/18 09:00 BZK3354 (Rec: 05/04/18 10:19 DYO3453 ICU-C16) Document 05/04/18 13:00 KEY0177 (Rec: 05/04/18 13:20 TSF5496 ICU-C16) Document 05/04/18 17:48 HXL3984 (Rec: 05/04/18 17:49 MLN2417 ICU-C16) Document 05/05/18 09:00 EZZ6006 (Rec: 05/05/18 10:15 MHF4369 ICU-C10) Document 05/05/18 13:00 LAF1636 (Rec: 05/05/18 13:10 HPY4658 ICU-C16) Document 05/05/18 18:00 DWH4023 (Rec: 05/05/18 18:26 PVN9494 ICU-C10) Document 05/07/18 09:00 RVB2548 (Rec: 05/07/18 10:44 EHT4834 ICU-C16) Document 05/07/18 13:00 FCE0574 (Rec: 05/07/18 15:46 WCK3210 ICU-C16) Intake and Output Start: 04/29/18 17: 37 Freq: Status: Active Protocol: Created 04/29/18 17:37 System (Rec: 04/29/18 17:37 System EDRM-C14) Document 04/29/18 21:17 HRE0325 (Rec: 04/29/18 21:18 ZQT0596 ED-C18) Intake and Output Start: 04/29/18 21: 19 Freq: Q1HR Status: Active Protocol: Created 04/29/18 21:19 System (Rec: 04/29/18 21:19 System ICU-C25) Document 04/30/18 01:00 PPU0169 (Rec: 04/30/18 01:14 MCU4717 ICU-C16) Document 04/30/18 02:00 MOD7203 (Rec: 04/30/18 02:02 BEY3471 ICU-C16) Document 04/30/18 03:00 ICB9255 (Rec: 04/30/18 03:17 XCL6656 ICU-C16) Document 04/30/18 04:00 YCC2150 (Rec: 04/30/18 04:30 BHS6795 ICU-C16) Document 04/30/18 05:00 CNT4212 (Rec: 04/30/18 05:42 YVB9743 ICU-C16) Document 04/30/18 07:39 QTI9490 (Rec: 04/30/18 07:45 RQU9868 ISDEMO-M03 ) Document 04/30/18 09:00 SMP5246 (Rec: 04/30/18 09:32 BVO1319 ICU-C16) Document 04/30/18 10:00 ZPS6542 (Rec: 04/30/18 10:44 APN9973 ICU-C16) Document 04/30/18 12:00 LZM1306 (Rec: 04/30/18 12:24 RCB1895 ICU-C16) Document 04/30/18 12:41 MVS0921 (Rec: 04/30/18 12:41 HKY1418 ISDEMO-M03 ) Document 04/30/18 14:00 OCB7024 (Rec: 04/30/18 14:22 URW9543 ICU-C16) Document 04/30/18 15:00 OYZ7868 (Rec: 04/30/18 15:44 CVF0250 ICU-C16) Document 04/30/18 15:50 HVJ7080 (Rec: 04/30/18 15:59 DMK1566 ICU-C16) Document 04/30/18 17:00 PVP7471 (Rec: 04/30/18 17:15 RGW0147 ICU-C16) Document 04/30/18 18:00 WCP4186 (Rec: 04/30/18 18:08 NMI8345 ICU-C16) Document 04/30/18 19:00 XVW1318 (Rec: 04/30/18 19:32 LAV6897 ICU-C16) Document 04/30/18 20:00 DBB8644 (Rec: 04/30/18 20:34 IKJ0292 ICU-C16) Document 04/30/18 21:00 FOS0578 (Rec: 04/30/18 21:14 OPD5453 ICU-C16) Document 04/30/18 22:00 FCF8273 (Rec: 04/30/18 22:11 JBK0374 ICU-C16) Document 04/30/18 23:00 SQN2236 (Rec: 04/30/18 23:03 MXN6540 ICU-C16) Document 05/01/18 00:00 TZW7783 (Rec: 05/01/18 00:27 TOV2017 ICU-C16) Document 05/01/18 01:00 ZPP2219 (Rec: 05/01/18 01:03 OWC2292 ICU-C16) Document 05/01/18 02:00 CNS1615 (Rec: 05/01/18 02:06 URU1456 ICU-C16) Document 05/01/18 03:00 UUJ9547 (Rec: 05/01/18 03:02 XGO0792 ICU-C16) Document 05/01/18 04:00 QKS1480 (Rec: 05/01/18 04:37 ZMF9011 ICU-C16) Document 05/01/18 05:00 PFG0924 (Rec: 05/01/18 05:08 BPZ2970 ICU-C16) Document 05/01/18 06:00 LUM6163 (Rec: 05/01/18 06:06 TVT0760 ICU-C16) Document 05/01/18 07:00 MBW8291 (Rec: 05/01/18 07:15 WTE7041 ICU-C16) Document 05/01/18 07:00 TSZ9562 (Rec: 05/01/18 07:53 DFG5549 ICU-C16) Document 05/01/18 10:21 DRD4751 (Rec: 05/01/18 10:21 QVQ0694 ISDEMO-M03 ) Document 05/01/18 12:12 XDA7443 (Rec: 05/01/18 12:12 BAA5823 ISDEMO-M03 ) Document 05/01/18 14:29 PRK9661 (Rec: 05/01/18 14:29 XPZ7082 ICU-C16) Document 05/01/18 16:06 MUD6468 (Rec: 05/01/18 16:06 JID9204 ISDEMO-M03 ) Document 05/01/18 16:41 IEV9790 (Rec: 05/01/18 16:41 EOT3427 ISDEMO-M03 ) Document 05/01/18 17:21 SBX0822 (Rec: 05/01/18 17:21 UXT5079 ICU-C16) Document 05/01/18 18:36 FLV9169 (Rec: 05/01/18 18:36 QDF5888 ISDEMO-M03 ) Document 05/01/18 19:00 EPJ5313 (Rec: 05/01/18 19:02 KOJ3369 ICU-C10) Document 05/01/18 20:00 TSO9788 (Rec: 05/01/18 20:09 ZZV1429 ICU-C16) Document 05/01/18 21:00 YDW4928 (Rec: 05/01/18 21:12 CEA6630 ICU-C16) Document 05/01/18 22:00 VNQ2760 (Rec: 05/01/18 22:17 KVQ1406 ICU-C16) Document 05/01/18 23:00 LCN1262 (Rec: 05/01/18 23:07 UKE3927 ICU-C16) Document 05/02/18 00:00 JPZ1747 (Rec: 05/02/18 00:07 QHE4891 ISDEMO-M03 ) Document 05/02/18 01:00 EEL7280 (Rec: 05/02/18 01:40 QOG1379 ICU-C16) Document 05/02/18 01:54 QCP1137 (Rec: 05/02/18 01:54 WDT2367 ICU-C16) Document 05/02/18 03:00 NUL9106 (Rec: 05/02/18 03:54 OGP6160 ICU-C16) Document 05/02/18 04:00 LVY6381 (Rec: 05/02/18 04:00 CZJ1174 ICU-C16) Document 05/02/18 05:00 QGX5336 (Rec: 05/02/18 05:41 GDO1995 ICU-C16) Document 05/02/18 06:00 MFZ0314 (Rec: 05/02/18 06:15 TXT5465 ICU-C16) Document 05/02/18 07:00 ICF0258 (Rec: 05/02/18 08:04 CQX5451 ISDEMO-M03 ) Document 05/02/18 08:00 BXS6943 (Rec: 05/02/18 08:04 HXQ2607 ISDEMO-M03 ) Document 05/02/18 09:00 JUC5956 (Rec: 05/02/18 09:40 UEX7198 ISDEMO-M03 ) Document 05/02/18 10:00 TIW1800 (Rec: 05/02/18 11:34 DBN5040 ISDEMO-M03 ) Document 05/02/18 10:00 FID2495 (Rec: 05/02/18 13:11 WWH6027 ICU-C16) Document 05/02/18 11:00 NBN5331 (Rec: 05/02/18 11:34 OEB0348 ISDEMO-M03 ) Document 05/02/18 12:00 FZP0142 (Rec: 05/02/18 13:15 UHX1071 ICU-C16) Document 05/02/18 13:00 DKQ4016 (Rec: 05/02/18 13:14 VQB9422 ICU-C16) Document 05/02/18 14:00 DHV3111 (Rec: 05/02/18 15:24 KHU9747 ISDEMO-M03 ) Document 05/02/18 15:00 MVA2067 (Rec: 05/02/18 15:24 FUB3992 ISDEMO-M03 ) Document 05/02/18 17:00 HZL9127 (Rec: 05/02/18 17:01 RQG0352 ISDEMO-M03 ) Document 05/02/18 18:00 EEZ2852 (Rec: 05/02/18 18:30 AXB4195 ICU-C16) Document 05/02/18 19:13 MGT1565 (Rec: 05/02/18 19:14 DAI3086 ISDEMO-M03 ) Document 05/02/18 19:23 IEQ8508 (Rec: 05/02/18 19:58 OZI3240 ISDEMO-M03 ) Document 05/02/18 19:58 HSU5286 (Rec: 05/02/18 19:59 LIQ9339 ISDEMO-M03 ) Document 05/02/18 22:00 FSM7972 (Rec: 05/02/18 22:18 RQO3755 ICU-C15) Document 05/02/18 23:00 HHN9674 (Rec: 05/03/18 01:22 IPE4490 ICU-C15) Document 05/03/18 01:00 YDL7250 (Rec: 05/03/18 01:22 GSU8705 ICU-C15) Document 05/03/18 02:00 XWI2398 (Rec: 05/03/18 02:55 QEA5895 ICU-C15) Document 05/03/18 03:00 RRJ1105 (Rec: 05/03/18 04:15 FVH7500 ICU-C15) Document 05/03/18 04:00 SZB7657 (Rec: 05/03/18 04:15 EMD5965 ICU-C15) Document 05/03/18 05:54 CMO8036 (Rec: 05/03/18 05:54 KHV0849 ISDEMO-M03 ) Document 05/03/18 07:00 QLB9172 (Rec: 05/03/18 09:07 YLX6961 ICU-C15) Document 05/03/18 08:00 RNS2246 (Rec: 05/03/18 09:07 LFW8309 ICU-C15) Document 05/03/18 09:00 YYA4384 (Rec: 05/03/18 09:07 TGF8484 ICU-C15) Document 05/03/18 09:58 YBD0272 (Rec: 05/03/18 09:58 XVM4277 ISDEMO-M03 ) Document 05/03/18 10:22 APX0960 (Rec: 05/03/18 10:22 WNG3690 ICU-C15) Document 05/03/18 11:35 JXX3174 (Rec: 05/03/18 11:35 DNK0339 ICU-L03) Document 05/03/18 12:00 BQH9702 (Rec: 05/03/18 12:03 FEI2882 ISDEMO-M03 ) Document 05/03/18 13:00 XRA3717 (Rec: 05/03/18 13:01 YXX6383 ISDEMO-M03 ) Document 05/03/18 14:38 KKR9064 (Rec: 05/03/18 14:38 PSF9648 ISDEMO-M03 ) Document 05/03/18 15:00 BQQ9587 (Rec: 05/03/18 15:20 NBJ2516 ISDEMO-M03 ) Document 05/03/18 16:40 VZM9931 (Rec: 05/03/18 16:40 GQU4952 ISDEMO-M03 ) Document 05/03/18 17:05 LKE9070 (Rec: 05/03/18 17:05 FPN0186 ICU-C15) Document 05/03/18 18:00 QAD1170 (Rec: 05/03/18 18:19 UCV3517 ISDEMO-M03 ) Document 05/03/18 19:00 WEJ5129 (Rec: 05/03/18 21:05 AQX8774 ICU-C10) Document 05/03/18 20:00 LKA8346 (Rec: 05/03/18 21:05 LBO7488 ICU-C10) Document 05/03/18 21:00 VIB5944 (Rec: 05/03/18 21:06 HTU4570 ICU-C10) Document 05/03/18 22:00 NFZ6280 (Rec: 05/03/18 23:20 ZJV9967 ISDEMO-M03 ) Document 05/03/18 23:00 VTQ4445 (Rec: 05/03/18 23:20 EIX3746 ISDEMO-M03 ) Document 05/04/18 00:00 OYJ4486 (Rec: 05/04/18 01:17 JZA1111 ISDEMO-M03 ) Document 05/04/18 01:00 BGI7383 (Rec: 05/04/18 01:17 DMA8520 ISDEMO-M03 ) Document 05/04/18 02:00 NBY8314 (Rec: 05/04/18 04:43 CYB8197 ISDEMO-M03 ) Document 05/04/18 03:00 QJN0088 (Rec: 05/04/18 04:44 LEF6794 ISDEMO-M03 ) Document 05/04/18 04:00 CRA1792 (Rec: 05/04/18 05:45 BPT9253 ICU-C10) Document 05/04/18 05:00 JGZ8508 (Rec: 05/04/18 05:45 FFF6028 ICU-C10) Document 05/04/18 06:00 RZU0741 (Rec: 05/04/18 06:28 JAD9515 ICU-C10) Document 05/04/18 07:35 AJK1796 (Rec: 05/04/18 07:44 PDY0198 ICU-C16) Document 05/04/18 09:00 LUA3705 (Rec: 05/04/18 10:19 NTR4698 ICU-C16) Document 05/04/18 10:00 GEY7582 (Rec: 05/04/18 10:27 ENU1763 ICU-C16) Document 05/04/18 11:00 ANY5183 (Rec: 05/04/18 11:28 YYS9112 ICU-C16) Document 05/04/18 11:45 ATU5175 (Rec: 05/04/18 11:50 UOR4294 ICU-C16) Document 05/04/18 13:00 ACY4040 (Rec: 05/04/18 13:20 VGP1768 ICU-C16) Document 05/04/18 13:54 GJP1620 (Rec: 05/04/18 13:54 INK1200 ICU-C16) Document 05/04/18 15:00 FRG8102 (Rec: 05/04/18 15:44 FHD6248 ICU-C16) Document 05/04/18 15:44 CBQ4332 (Rec: 05/04/18 15:53 JGB7382 ICU-C16) Document 05/04/18 17:00 PZB2439 (Rec: 05/04/18 17:48 SDV4333 ICU-C16) Document 05/04/18 17:48 MVY9995 (Rec: 05/04/18 17:49 HXZ6305 ICU-C16) Document 05/04/18 19:00 TED3126 (Rec: 05/04/18 20:22 EHP6017 ICU-L03) Document 05/04/18 20:00 VPU6784 (Rec: 05/04/18 20:22 TTI8003 ICU-L03) Document 05/04/18 23:00 AGP1110 (Rec: 05/04/18 23:06 LRA9229 ISDEMO-M03 ) Document 05/05/18 00:00 PTJ4363 (Rec: 05/05/18 00:28 FNC4592 ISDEMO-M03 ) Document 05/05/18 01:00 SPR0004 (Rec: 05/05/18 01:19 LRP8037 ICU-L03) Document 05/05/18 02:00 ZNH9176 (Rec: 05/05/18 03:23 IOA1085 ICU-L03) Document 05/05/18 03:00 YPW8854 (Rec: 05/05/18 03:23 XBF2570 ICU-L03) Document 05/05/18 04:00 JJI3466 (Rec: 05/05/18 04:15 USA3424 ISDEMO-M03 ) Document 05/05/18 05:00 QTW0843 (Rec: 05/05/18 05:13 HFJ6396 ISDEMO-M03 ) Document 05/05/18 06:00 GVC7875 (Rec: 05/05/18 07:00 ECQ2109 ICU-L03) Document 05/05/18 07:00 TQZ1653 (Rec: 05/05/18 07:54 YOB1906 ICU-C10) Document 05/05/18 07:55 ESM7725 (Rec: 05/05/18 07:56 ISI6951 ICU-C10) Document 05/05/18 10:14 CIF9096 (Rec: 05/05/18 10:14 UOD8852 ICU-C10) Document 05/05/18 10:59 YCE7663 (Rec: 05/05/18 10:59 WPX5526 ICU-C10) Document 05/05/18 11:18 LHO5336 (Rec: 05/05/18 11:18 TRT2039 ISDEMO-M03 ) Document 05/05/18 12:00 ZXW9084 (Rec: 05/05/18 12:08 FWE4135 ICU-C10) Document 05/05/18 13:00 YJP6274 (Rec: 05/05/18 13:18 PUR7939 ICU-C10) Document 05/05/18 13:49 HZM5056 (Rec: 05/05/18 13:49 MJY7377 ISDEMO-M03 ) Document 05/05/18 15:00 EOG8307 (Rec: 05/05/18 15:14 AHB2562 ISDEMO-M03 ) Document 05/05/18 16:00 ZCO8324 (Rec: 05/05/18 16:04 OUZ0536 ICU-C10) Document 05/05/18 16:59 WGK8328 (Rec: 05/05/18 16:59 XZG1135 ICU-C10) Document 05/05/18 18:00 LOH2046 (Rec: 05/05/18 18:27 XSD0755 ICU-C10) Document 05/05/18 19:00 HGA0623 (Rec: 05/05/18 20:45 RLD6987 ICU-C16) Document 05/05/18 20:00 JLL6854 (Rec: 05/05/18 20:45 XYA6145 ICU-C16) Document 05/05/18 21:00 SFY6453 (Rec: 05/05/18 22:43 BIM9309 ICU-C16) Document 05/05/18 22:00 POZ1798 (Rec: 05/05/18 22:43 HZJ2683 ICU-C16) Document 05/05/18 23:00 LIQ3565 (Rec: 05/05/18 23:18 OJB7549 ICU-C16) Document 05/06/18 00:00 QYU7190 (Rec: 05/06/18 02:14 TGH7824 ICU-C16) Document 05/06/18 01:00 DYE0190 (Rec: 05/06/18 02:15 AYN6999 ICU-C16) Document 05/06/18 02:00 UHN2443 (Rec: 05/06/18 02:15 PCV9485 ICU-C16) Document 05/06/18 03:00 YQP1824 (Rec: 05/06/18 03:57 CAA6822 ICU-C16) Document 05/06/18 03:57 ENL7612 (Rec: 05/06/18 04:17 MKC9202 ICU-C16) Document 05/06/18 05:00 MHW2639 (Rec: 05/06/18 05:51 HGX7139 ICU-M31) Document 05/06/18 06:00 KHB7564 (Rec: 05/06/18 06:33 JFJ6264 ICU-C16) Document 05/06/18 07:00 HAU4717 (Rec: 05/06/18 09:07 XEY6980 ISDEMO-M03 ) Document 05/06/18 08:00 KTA4909 (Rec: 05/06/18 09:07 ONQ4564 ISDEMO-M03 ) Document 05/06/18 09:00 TFA3258 (Rec: 05/06/18 09:07 ZBR5952 ISDEMO-M03 ) Document 05/06/18 10:00 JAZ3035 (Rec: 05/06/18 10:02 GGY3204 ISDEMO-M03 ) Document 05/06/18 11:00 WJA3486 (Rec: 05/06/18 11:19 GQQ0824 ISDEMO-M03 ) Document 05/06/18 12:00 KTS2910 (Rec: 05/06/18 12:03 LVD9328 ISDEMO-M03 ) Document 05/06/18 13:00 OSF3054 (Rec: 05/06/18 13:53 QID3216 ISDEMO-M03 ) Document 05/06/18 14:00 HPS4062 (Rec: 05/06/18 14:33 MCV4047 ISDEMO-M03 ) Document 05/06/18 15:00 GLO5746 (Rec: 05/06/18 15:02 OMC7928 ISDEMO-M03 ) Document 05/06/18 16:00 GEP0794 (Rec: 05/06/18 16:11 KLO3062 ISDEMO-M03 ) Document 05/06/18 17:00 YTV8822 (Rec: 05/06/18 18:13 LBL0099 ISDEMO-M03 ) Document 05/06/18 18:00 FGK2201 (Rec: 05/06/18 18:13 CHM9330 ISDEMO-M03 ) Document 05/06/18 19:00 TBL8928 (Rec: 05/06/18 19:19 NRT8314 ICU-C16) Document 05/06/18 20:00 JYP9591 (Rec: 05/06/18 20:06 GLE7984 ICU-C16) Document 05/06/18 21:00 NIC7268 (Rec: 05/06/18 21:16 MZK2907 ICU-C16) Document 05/06/18 22:00 JBG9617 (Rec: 05/06/18 22:11 EFY9472 ICU-C16) Document 05/06/18 23:00 FJA5806 (Rec: 05/06/18 23:06 HXR0774 ICU-C16) Document 05/07/18 00:00 RTB2621 (Rec: 05/07/18 01:00 PZW3890 ICU-C16) Document 05/07/18 01:00 VZJ3610 (Rec: 05/07/18 01:05 JXN0005 ICU-C16) Document 05/07/18 02:00 OPL4250 (Rec: 05/07/18 02:13 VKI6415 ICU-C16) Document 05/07/18 03:00 BCA6240 (Rec: 05/07/18 03:18 DCH4043 ICU-C16) Document 05/07/18 04:00 YBV6133 (Rec: 05/07/18 04:17 YWO2565 ICU-C16) Document 05/07/18 05:00 TGQ6335 (Rec: 05/07/18 05:16 EGG1240 ICU-C16) Document 05/07/18 05:58 IWC0079 (Rec: 05/07/18 05:59 IXU7917 ICU-C16) Document 05/07/18 07:00 TRQ7526 (Rec: 05/07/18 09:08 RRZ4442 ISDEMO-M03 ) Document 05/07/18 08:00 IWE4760 (Rec: 05/07/18 09:08 KXQ7222 ISDEMO-M03 ) Document 05/07/18 09:00 DZV5271 (Rec: 05/07/18 09:09 QHD5296 ISDEMO-M03 ) Document 05/07/18 09:49 CCC5119 (Rec: 05/07/18 09:49 DMQ6980 ICU-C16) Document 05/07/18 10:20 UFS6518 (Rec: 05/07/18 10:20 ELM3511 ISDEMO-M03 ) Document 05/07/18 11:00 LFC2936 (Rec: 05/07/18 11:04 FTS9061 ISDEMO-M03 ) Document 05/07/18 12:30 UNP0140 (Rec: 05/07/18 12:31 NVN8652 ISDEMO-M03 ) Document 05/07/18 13:34 PVE1427 (Rec: 05/07/18 13:34 CGB7465 ICU-C16) Document 05/07/18 15:16 EAG2032 (Rec: 05/07/18 15:16 UHM1746 ISDEMO-M03 ) Document 05/07/18 16:00 PNW2007 (Rec: 05/07/18 16:37 YLP8079 ICU-C16) Document 05/07/18 17:00 YCB0259 (Rec: 05/07/18 17:52 FVW8828 ICU-C16) Document 05/07/18 18:00 ZLD2400 (Rec: 05/07/18 18:19 SET1862 ICU-C10) Document 05/07/18 18:52 YTP7604 (Rec: 05/07/18 18:52 OBK9240 ICU-C16) Document 05/07/18 19:59 FQV7743 (Rec: 05/07/18 20:00 WPR3141 ICU-C16) Document 05/07/18 21:00 MZI5572 (Rec: 05/07/18 21:18 ZHL3130 ICU-C16) Document 05/07/18 22:00 RRD7886 (Rec: 05/07/18 22:24 IOI8081 ICU-C16) Document 05/07/18 23:00 FKF8637 (Rec: 05/07/18 23:33 RWL1839 ICU-C16) Document 05/08/18 00:00 IQN1798 (Rec: 05/08/18 00:24 LGC2122 ICU-C16) Document 05/08/18 01:00 ORR7494 (Rec: 05/08/18 02:06 XKY7294 ICU-C16) Document 05/08/18 02:00 ZUG5989 (Rec: 05/08/18 02:06 IFD1452 ICU-C16) Document 05/08/18 03:00 OUF3679 (Rec: 05/08/18 03:07 OIF2922 ICU-C16) Document 05/08/18 04:00 [id number] (Rec: 05/08/18 04:12 [id number] ICU-C16) Document 05/08/18 05:00 [id number] (Rec: 05/08/18 05:17 [id number] ICU-C16) Document 05/08/18 06:00 [id number] (Rec: 05/08/18 06:12 [id number] ICU-C16) Labs: Laboratory Results - last 24 hr 05/07/18 05/07/18 05/07/18 10:19 12:38 18:05 Sodium Potassium Chloride Carbon Dioxide Anion Gap BUN Creatinine Est GFR ( Amer) Est GFR (Non-Af Amer) BUN/Creatinine Ratio Glucose POC Glucose (mg/dL) 161 H 148 H Calcium Phosphorus Magnesium Digoxin 1.1 05/07/18 05/07/18 05/08/18 18:05 19:53 00:13 Sodium 144 Potassium 3.6 Chloride 111 Carbon Dioxide 27 Anion Gap 6 BUN 18 Creatinine 0.80 Est GFR ( Amer) 114.3 Est GFR (Non-Af Amer) 94.5 BUN/Creatinine Ratio 22.5 H Glucose 128 H POC Glucose (mg/dL) 200 H 135 H Calcium 8.9 Phosphorus 3.0 Magnesium 2.0 Digoxin 05/08/18 05/08/18 04:06 08:30 Sodium Potassium Chloride Carbon Dioxide Anion Gap BUN Creatinine Est GFR ( Amer) Est GFR (Non-Af Amer) BUN/Creatinine Ratio Glucose POC Glucose (mg/dL) 144 H 165 H Calcium Phosphorus Magnesium Digoxin WBC 04/29/18 04/30/18 05/01/18 18:21 04:18 09:51 WBC 12.1 10^3/ul H 10^3/ul 10.8 10^3/ul 10^3/ul 8.5 10^3/ul 10^3/ul (3.5-10.8) (3.5-10.8) (3.5-10.8) 05/02/18 05/03/18 05/04/18 05:00 05:17 04:53 WBC 7.7 10^3/ul 10^3/ul 5.0 10^3/ul 10^3/ul 4.6 10^3/ul 10^3/ul (3.5-10.8) (3.5-10.8) (3.5-10.8) 05/05/18 05/06/18 05/07/18 05:00 05:46 04:30 WBC 5.0 10^3/ul 10^3/ul 5.9 10^3/ul 10^3/ul 7.8 10^3/ul 10^3/ul (3.5-10.8) (3.5-10.8) (3.5-10.8) Studies: 05/07 CXR: ICD/PPM. No acute cardiopulmonary disease noted 05/03 CXR: mild CHF, improved compared to prior 05/02 CXR: CHF 05/01 CXR: CHF 05/01 US GB: negative 05/01 CT abd/pelvis: small bilateral pleural effusions and atelectasis no intraabdominal acute pathology 04/29 TTE: LVEF 40-45%, mild global hypokinesis of LV. LVH. unable to assess diastolic funciton. 04/29 CXR: NAD Nutrition: TPN started on 05/05 NPO secondary to inability to protect airway secondary to delirium Impression: 72 yo M with Alzheimers dementia, thyroid disease, HCF, pacemaker and AICD, COPD admitted 04/29 with altered mental status and sepsis secondary to enterococcus bacteremia. Diuresing for CHF and pulmonary edema. Slowly improving mental status. Attempting to wean Precedex. 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 --likely VF/VT due to polypharmacy. Avoid QTC prolonging meds. Discontinued haldol and geodon -- TTE, 04/29: LVEF 40-45% unable to assess diastolic function -- Troponin 0.07 from 0.05 -- SQ Lovenox for recent history of PE -- ASA -- Clonidine patch, Metoprolol, enalapril -- PRN Hydralazine for goal SBP < 160 -- Digoxin, reload with Digoxin as having breakthrough junctional tachycardias -- Lasix, home dose Home meds: Lasix, ASA, Metoprolol, sotalol, Eliquis, Digoxin Pulmonary: (1) COPD; (2) Acute hypoxemic respiratory failure, resolved; (3) Pulmonary edema, cardiac cause, resolved -- Duonebs as needed -- CXR, 05/07: NAD -- Scopolamine patch to assist with secretion management Home meds: Cetirizine, Levalbuterol, Robitussin Gastrointestinal: (1) Hyperbilirubinemia, resolved -- LFTs within normal limits -- US GB, 05/01: no acute pathology -- diet: TPN started 05/05. - Swallow eval pending 05/08 -- bowel regimen: None -- ulcer prophylaxis: Not indicated at this time Home meds: Budenisone Endocrine: (1) Chronic thyroid disease; (2) hyperglycemia, improving -- monitor BGs -- SSI -- TSH within normal limits Home meds: None Renal: (1) Hypocalcemia, resolved; (2) Hypokalemia, resolved (3) Hypomagnesemia; (4) Hypophosphatemia, resolved; (5) Hypernatremia, improving - daily lytes -target K+ 4, Mg 2.5 -increased K+ 80meq in TPN -- Lasix Home meds: tamsulosin, Lasix, potassium chloride Infectious disease: (1) Sepsis, resolving; (2) Enterococcus bacteremia -- Micro 05/02 Sputum Pseudomonas, Klebsiella, Yeast - colonization 05/01 Blood No growth to date 04/30 MRSA screen negative Urine strep negative 04/29 Flu screen negative blood Enterococcus faecalis Urinanalysis negative -- ABX, anticipate 6 weeks IV course Ampicillin Rocephin -- ID following Home meds: None Neurologic: (1) Alzheimers disease; (2) Acute encephalopathy secondary to sepsis, improving -- Tylenol as needed -- off precedex -- discontinued Geodon and haldol due to concerns with QTc prolongation 05/07 -- consult neurology for evaluation of other possible causes of encephalopathy. Consult called in 05/08 (Dr. Rowland) -- PRN Morphine for pain control -- aspiration precautions -- delirium precautions -- [facility] + -- prn ativan for agitation Home meds: Aricept, Melatonin, Tylenol, Divalproex Hematological: (1) Anemia- stable H/H; (2) Mild thrombocytopenia, resolved; (3) Recent history of PE -- US BLE, 05/07: negative for DVT -- Hgb 12.2 from 12.0 -- Plt 170 from 146 -- DVT prophylaxis: SQ Lovenox (therapeutic dose) -- ASA Home meds: ASA, eliquis Other: Home meds: Vitamin E, MVI, Vitamin D3 Deep vein thrombosis prophylaxis: SQ Lovenox Dietary: not indicated at this time Prognosis: grave Code status: DNR/DNI Disposition: continue ICU Care Cumulative time spent in the care of this patient (excluding any procedure time) : at least 35 minutes. Family meeting held today with (Marilyn), grand-daughter, and great grand son with Dr. Aranda(Palliative) and myself. Time spent: 65 mins.
[2018-05-08 12:20] LABS: BUN/Creatinine Ratio 26.2 (8-20); Calcium 8.9 mg/dL (8.6-10.3); EGFR African American 108.1 (>60); EGFR Non-African American 89.3 (>60); Potassium 3.8 mmol/L (3.5-5.0)
--- NOTE | 2018-05-08 15:28 | PN ---
Progress Note - Progress Note Date of Service: 05/08/18 SOAP: Subjective: CC: bacteremia HPI: 72 year old man with dementia admitted with septic encephalopathy and bacteremia. He cannot provide history or ROS. Objective: Vital Signs Temp 37.1 C 05/08/18 15:03 Pulse 72 05/08/18 15:00 Resp 20 05/08/18 15:00 BP 138/102 05/08/18 15:00 Pulse Ox 96 05/08/18 15:00 Intake & Output 05/07/18 05/08/18 05/08/18 18:59 06:59 18:59 Intake Total 555 2807 595 Output Total 2430 615 1135 Balance -1875 2192 -540 Weight 156 lb 3.2 oz Intake: IV Fluids 292 323 20 D5 20K 221 Magnesium 134 Potassium 189 Rocephin 71 normal saline 20 IVPB 263 632 50 Ampicillin 100 424 50 Magnesium 108 Rocephin 55 208 TPN/PPN 1852 525 Oral 0 Output: Cristina 2430 [id number] Gen:awake, not in distress Neuro: does not regard or follow commands HEENT: no thrush Heart:RRR no murmur Lungs:scattered rhonchi no wheeze Abd:+BS NTND soft Skin: no rash Laboratory Results - last 24 hr 05/07/18 05/07/18 05/07/18 18:05 18:05 19:53 Sodium 144 Potassium 3.6 Chloride 111 Carbon Dioxide 27 Anion Gap 6 BUN 18 Creatinine 0.80 Est GFR ( Amer) 114.3 Est GFR (Non-Af Amer) 94.5 BUN/Creatinine Ratio 22.5 H Glucose 128 H POC Glucose (mg/dL) 200 H Calcium 8.9 Phosphorus 3.0 Magnesium 2.0 Digoxin 1.1 05/08/18 05/08/18 05/08/18 00:13 04:06 08:30 Sodium Potassium Chloride Carbon Dioxide Anion Gap BUN Creatinine Est GFR ( Amer) Est GFR (Non-Af Amer) BUN/Creatinine Ratio Glucose POC Glucose (mg/dL) 135 H 144 H 165 H Calcium Phosphorus Magnesium Digoxin 05/08/18 05/08/18 11:35 12:31 Sodium 144 Potassium 3.8 Chloride 111 Carbon Dioxide 26 Anion Gap 7 BUN 22 Creatinine 0.84 Est GFR ( Amer) 108.1 Est GFR (Non-Af Amer) 89.3 BUN/Creatinine Ratio 26.2 H Glucose 121 H POC Glucose (mg/dL) 135 H Calcium 8.9 Phosphorus Magnesium Digoxin Assessment: 1. sepsis and encephalopathy, present on admission, resolving 2. Enterococcal bacteremia and cardiac device infection 3. dementia Plan: 1. continue ampicillin 2 gm IV Q4hrs, ceftriaxone 1 gm Q12hrs; day suspect he will not tolerate RANJAN, can plan on emperic treatment without definitive diagnostic testing.
[2018-05-08] MEDS: TPN* 24 HR with Dextrose 50% Water* 500 ML, Amino Acid Infusion 10%* 850 ML, Sterile Wa... CENTR SCH ×12 (16:47)
--- NOTE | 2018-05-08 17:55 | CONSULT ---
Palliative / Hospice Consult Ordering Provider: Bibi Moran - Subjective Code Status: DNR Advance Directives Location: in [place] MOLST Part A Completed: Yes - with family MOLST Part E Completed:: Yes - with family only do not intubate - History or Present Illness History or Present Illness: 72 yo male presented to ER with agitation and urinary frequency. Diagnosed with enterococcus urosepsis responding to ampicillin. Pt lived in [place] from 6217-2156 where he was diagnosed with alzheimer dementia and had an NAHED placed. He also lived in [place] from 1532-[address]45. He moved to [place] in Dec 2017 to be closer to family. As soon as he got here he had a PE, pneumonia and CHF was hospitalized at [place]. Than again 02/08 he was hospitalized for recurrent pneumonia and went to rehab for a little while. His past medical history includes CHF, CAD afib and VT for which his ICD was place, HTN, thyroid disease, COPD, anemia, ho/ colon cancer, has had pneumothorax x3, aortic abd aneurysm repaired and survived CPR. 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 His EF 40-45%, & show ventricular hyperthropy and hypokinesis , doppler negative, Us gallbaladder neg, and ct abd showed stent. Other labs egfr 89.3, BNP 1254, tprot 5.9 and alb 3. Pt was admitted as a full code. Pt is not awake to answer questions. All history is from family and medical records. Pt has been agitated/delirium and is on meds for it. He just recently became slightly more responsive. He is not eating and is using TPN and had a PICC line inserted. Lab Values: Abnormal Lab Results 05/07/18 05/07/18 05/07/18 18:05 18:05 19:53 Sodium 144 Potassium 3.6 Chloride 111 Carbon Dioxide 27 Anion Gap 6 BUN 18 Creatinine 0.80 Est GFR ( Amer) 114.3 Est GFR (Non-Af Amer) 94.5 BUN/Creatinine Ratio 22.5 H Glucose 128 H POC Glucose (mg/dL) 200 H Calcium 8.9 Phosphorus 3.0 Magnesium 2.0 Digoxin 1.1 05/08/18 05/08/18 05/08/18 00:13 04:06 08:30 Sodium Potassium Chloride Carbon Dioxide Anion Gap BUN Creatinine Est GFR ( Amer) Est GFR (Non-Af Amer) BUN/Creatinine Ratio Glucose POC Glucose (mg/dL) 135 H 144 H 165 H Calcium Phosphorus Magnesium Digoxin 05/08/18 05/08/18 11:35 12:31 Sodium 144 Potassium 3.8 Chloride 111 Carbon Dioxide 26 Anion Gap 7 BUN 22 Creatinine 0.84 Est GFR ( Amer) 108.1 Est GFR (Non-Af Amer) 89.3 BUN/Creatinine Ratio 26.2 H Glucose 121 H POC Glucose (mg/dL) 135 H Calcium 8.9 Phosphorus Magnesium Digoxin Laboratory Last Values WBC 7.8 10^3/ul (3.5-10.8) 05/07/18 04:30 RBC 4.20 10^6/ul (4.00-5.40) 05/07/18 04:30 Hgb 12.2 g/dl (14.0-18.0) L 05/07/18 04:30 Hct 36 % (42-52) L 05/07/18 04:30 MCV 87 fL (80-94) 05/07/18 04:30 MCH 29 pg (27-31) 05/07/18 04:30 MCHC 34 g/dl (31-36) 05/07/18 04:30 RDW 16 % (10.5-15) H 05/07/18 04:30 Plt Count 170 10^3/ul (150-450) 05/07/18 04:30 MPV 8.6 fL (7.4-10.4) 05/07/18 04:30 Neut % (Auto) 91.7 % 04/30/18 04:18 Lymph % (Auto) 3.4 % 04/30/18 04:18 Posey % (Auto) 4.8 % 04/30/18 04:18 Eos % (Auto) 0 % 04/30/18 04:18 Baso % (Auto) 0.1 % 04/30/18 04:18 Absolute Neuts (auto) 9.9 10^3/ul (1.5-7.7) H 04/30/18 04:18 Absolute Lymphs (auto) 0.4 10^3/ul (1.0-4.8) L 04/30/18 04:18 Absolute Monos (auto) 0.5 10^3/ul (0-0.8) 04/30/18 04:18 Absolute Eos (auto) 0 10^3/ul (0-0.6) 04/30/18 04:18 Absolute Basos (auto) 0 10^3/ul (0-0.2) 04/30/18 04:18 Absolute Nucleated RBC 0 10^3/ul 04/30/18 04:18 Nucleated RBC % 0 04/30/18 04:18 ESR 17 mm/Hr (0-40) 04/29/18 20:11 Hem Pathologist Commnt 04/30/18 04:18 INR (Anticoag Therapy) 1.16 (0.77-1.02) H 04/29/18 17:50 APTT 28.5 seconds (26.0-36.3) 04/29/18 17:50 ABG pH 7.47 (7.35-7.45) H 04/29/18 17:42 ABG pCO2 30 mmHg (35-45) L 04/29/18 17:42 ABG pO2 391 mmHg (80-100) H 04/29/18 17:42 ABG HCO3 24.2 mmol/L (19-31) 04/29/18 17:42 ABG O2 Saturation 100.0 % (94.0-98.0) H 04/29/18 17:42 ABG Base Excess -0.9 mmol/L (-2.0-2.0) 04/29/18 17:42 Sodium 144 mmol/L (135-145) 05/08/18 11:35 Potassium 3.8 mmol/L (3.5-5.0) 05/08/18 11:35 Chloride 111 mmol/L (101-111) 05/08/18 11:35 Carbon Dioxide 26 mmol/L (22-32) 05/08/18 11:35 Anion Gap 7 mmol/L (2-11) 05/08/18 11:35 BUN 22 mg/dL (6-24) 05/08/18 11:35 Creatinine 0.84 mg/dL (0.67-1.17) 05/08/18 11:35 Est GFR ( Amer) 108.1 (>60) 05/08/18 11:35 Est GFR (Non-Af Amer) 89.3 (>60) 05/08/18 11:35 BUN/Creatinine Ratio 26.2 (8-20) H 05/08/18 11:35 Glucose 121 mg/dL (70-100) H 05/08/18 11:35 POC Glucose (mg/dL) 135 mg/dL (70-100) H 05/08/18 12:31 Lactic Acid 1.4 mmol/L (0.5-2.0) 04/29/18 22:00 Calcium 8.9 mg/dL (8.6-10.3) 05/08/18 11:35 Phosphorus 3.0 mg/dL (2.5-5.0) 05/07/18 18:05 Magnesium 2.0 mg/dL (1.9-2.7) 05/07/18 18:05 Total Bilirubin 0.60 mg/dL (0.2-1.0) 05/07/18 04:30 Direct Bilirubin 0.20 mg/dL (0.03-0.18) H 05/02/18 05:00 Indirect Bilirubin 1.4 mg/dL (0.3-1.0) H 05/02/18 05:00 AST 29 U/L (13-39) 05/07/18 04:30 ALT 11 U/L (7-52) 05/07/18 04:30 Alkaline Phosphatase 76 U/L (34-104) 05/07/18 04:30 Total Creatine Kinase 65 U/L (10-223) 04/29/18 17:50 Troponin I 0.07 ng/mL (<0.04) H* 05/07/18 04:30 C-Reactive Protein 26.73 mg/L (<8.01) H 04/29/18 17:50 C-React Prot High Sens 66.39 mg/L (<2.00) H 04/30/18 04:18 B-Natriuretic Peptide > 1300 pg/mL (<=100) H 05/06/18 05:46 Total Protein 5.9 g/dL (6.4-8.9) L 05/07/18 04:30 Albumin 3.0 g/dL (3.2-5.2) L 05/07/18 04:30 Globulin 2.9 g/dL (2-4) 05/07/18 04:30 Albumin/Globulin Ratio 1.0 (1-3) 05/07/18 04:30 Triglycerides 151 mg/dL 05/06/18 05:46 TSH 3.74 mcIU/mL (0.34-5.60) 05/01/18 09:51 Urine Color [place] 04/29/18 19:31 Urine Appearance Cloudy 04/29/18 19:31 Urine pH 5.0 (5-9) 04/29/18 19:31 Ur Specific [place] 1.025 (1.010-1.030) 04/29/18 19:31 Urine Protein Negative (Negative) 04/29/18 19:31 Urine Ketones Trace (Negative) A 04/29/18 19:31 Urine Blood Negative (Negative) 04/29/18 19:31 Urine Nitrate Negative (Negative) 04/29/18 19:31 Urine Bilirubin Negative (Negative) 04/29/18 19:31 Urine Urobilinogen Negative (Negative) 04/29/18 19:31 Ur Leukocyte Esterase Negative (Negative) 04/29/18 19:31 Urine Glucose Negative (Negative) 04/29/18 19:31 Urine Ascorbic Acid * (Negative) A 04/29/18 19:31 Digoxin 1.1 ng/ml (0.8-2.0) 05/07/18 18:05 Valproic Acid 44.0 mcg/mL (50-100) L 04/29/18 17:50 Influenza A (Rapid) Negative (Negative) 04/29/18 19:46 Influenza B (Rapid) Negative (Negative) 04/29/18 19:46 - Objective Active Medications: Acetaminophen (Tylenol Supp*) 650 mg IN Q4H PRN PRN Reason: FEVER/HEADACHE Last Admin: 04/30/18 01:04 Dose: 650 mg Albuterol/Ipratropium (Duoneb (Albuterol 2.5 Mg/Ipratropium 0.5 Mg)) 1 neb INH Q6H PRN PRN Reason: SOB/WHEEZING Aspirin (Asa Supp*) 300 mg IN DAILY [facility] Last Admin: 05/08/18 09:40 Dose: 300 mg Clonidine HCl (Lfmddbfu-Dsu-4 0.3 Mg Patch*) 0.3 mg TRANSDERM Q7D [facility] Last Admin: 05/07/18 19:43 Dose: 0.3 mg Digoxin (Digoxin Iv*) 0.125 mg IV SLOW PU DAILY [facility] Last Admin: 05/08/18 09:40 Dose: 0.125 mg Enalaprilat (Vasotec Iv*) 0.625 mg IV 0130,0730,1330,1930 [facility] Last Admin: 05/08/18 13:56 Dose: 0.625 mg Enoxaparin Sodium (Lovenox(*)) 70 mg SUBCUT Q12H [facility] Last Admin: 05/08/18 13:36 Dose: 70 mg Furosemide (Lasix Iv*) 20 mg IV DAILY [facility] Last Admin: 05/08/18 09:40 Dose: 20 mg Heparin Sodium (Porcine) (Heparin Flush Picc/Ml/Cvc(*)) 1 - 3 ml FLUSH 0600, 1800 [facility]; Protocol Last Admin: 05/08/18 17:41 Dose: Not Given Hydralazine HCl (Apresoline Iv*) 10 mg IV SLOW PU Q6H PRN PRN Reason: SYSTOLIC BP GREATER THAN: Last Admin: 05/03/18 01:47 Dose: 10 mg Ampicillin Sodium 2 gm/ Sodium (Chloride) 100 mls @ 200 mls/hr IVPB Q4H [facility] Last Admin: 05/08/18 17:40 Dose: 200 mls/hr Ceftriaxone Sodium 1 gm/ (Sodium Chloride) 50 mls @ 200 mls/hr IVPB Q12H [facility] Last Admin: 05/08/18 16:47 Dose: 200 mls/hr Dextrose 500 ml/ Amino Acids 850 ml/ Sterile Water 150 ml/Fat Emulsion Intravenous 250 ml/ Sodium Chloride 100 meq/Potassium Chloride 80 meq/Potassium Phosphate 15 mmole/Calcium Gluconate 15 meq/Magnesium Sulfate 10 meq/ Multivitamins 10 ml/ Trace Metals 1 ml/ Nutrition ( Parenteral) 1,865.721 mls @ 77.738 mls/hr CENTR 1700 [facility]; Protocol Last Admin: 05/08/18 16:47 Dose: 77.738 mls/hr Lorazepam (Ativan Inj*) 1 mg IV PUSH BEDTIME PRN PRN Reason: AGITATION Metoprolol Tartrate (Lopressor Iv*) 10 mg IV Q6H [facility] Last Admin: 05/08/18 15:22 Dose: 10 mg Morphine Sulfate (Morphine Vial*) 3 mg IV Q3H PRN PRN Reason: PAIN - MODERATE Last Admin: 05/07/18 04:36 Dose: 3 mg Pharmacy Profile Note (Scopolamine Patch Remove*) 1 note PATCH OFF .AFTER 72 HOURS [facility] Scopolamine (Transderm-Scop 1.5 Mg Patch*) 1 patch TRANSDERM Q72H [facility] Last Admin: 05/07/18 00:38 Dose: 1 patch Vital Signs: Vital Signs: Temp Pulse Resp BP Pulse Ox 98 F 87 25 128/86 96 05/08/18 15:33 05/08/18 17:01 05/08/18 17:01 05/08/18 17:01 05/08/18 17:01 Patient Weight: Weight 70.851 kg Intake and Output: Intake & Output 05/06/18 05/07/18 05/08/18 05/09/18 06:59 06:59 06:59 06:59 Intake Total 3168.8 4539.1 3362 595 Output Total 2379 2365 3045 1230 Balance 789.8 2174.1 317 -635 Weight 69.1 kg 71.35 kg 70.851 kg Intake: IV Fluids 1994.8 894 615 20 D5 20K 1087 756 221 Magnesium 100 134 Potassium 189 Rocephin 686.8 71 normal saline 121 138 20 IVPB 282 1907 895 50 Ampicillin 798 524 50 D5 20K 432 Magnesium 108 Potassium 316 Rocephin 282 60 263 normal saline 109 sodium Phosphate 192 Medicated IV 167 47.1 precedex 167 47.1 TPN/PPN 725 1691 1852 525 Oral 0 0 0 Cristina Irrigate Amount 0 0 Output: Cristina 2379 2365 3045 1230 Other: Date of Last Bowel 05/02/2018 05/02/2018 Movement ADLs: Meal Record Start: 04/29/18 21: 19 Freq: 09,13,18 Status: Active Protocol: Created 04/29/18 21:19 System (Rec: 04/29/18 21:19 System ICU-C25) Document 04/30/18 09:00 IIV2107 (Rec: 04/30/18 09:33 EEI7367 ICU-C16) Document 04/30/18 13:00 MCW5123 (Rec: 04/30/18 13:27 MAD5683 ICU-C16) Document 04/30/18 18:00 HEM1481 (Rec: 04/30/18 18:10 TVF6432 ICU-C16) Document 05/01/18 11:00 BMV8077 (Rec: 05/01/18 13:00 OFZ9994 ICU-C16) Document 05/01/18 13:00 LIM2044 (Rec: 05/01/18 16:58 HYU4840 ICU-C16) Document 05/01/18 18:00 KZZ4371 (Rec: 05/01/18 18:48 EIT4474 ICU-C16) Document 05/02/18 13:00 TAU7031 (Rec: 05/02/18 13:15 ZNH7362 ICU-C16) Document 05/02/18 18:00 CKI0551 (Rec: 05/02/18 18:31 AXK1718 ICU-C16) Document 05/03/18 09:00 UYM0482 (Rec: 05/03/18 10:26 AJI4410 ICU-L03) Document 05/03/18 12:08 TRV9428 (Rec: 05/03/18 12:08 CVA2963 ISDEMO-M03 ) Document 05/03/18 17:04 CUF8800 (Rec: 05/03/18 17:04 UJP6218 ICU-C15) Document 05/04/18 09:00 AUH8270 (Rec: 05/04/18 10:19 SPC9344 ICU-C16) Document 05/04/18 13:00 FMZ7995 (Rec: 05/04/18 13:20 LWH6819 ICU-C16) Document 05/04/18 17:48 NIF5790 (Rec: 05/04/18 17:49 EFS4395 ICU-C16) Document 05/05/18 09:00 FND1311 (Rec: 05/05/18 10:15 DNM0292 ICU-C10) Document 05/05/18 13:00 KPM9349 (Rec: 05/05/18 13:10 IDN5201 ICU-C16) Document 05/05/18 18:00 WKM2999 (Rec: 05/05/18 18:26 NGJ3531 ICU-C10) Document 05/07/18 09:00 MHO5224 (Rec: 05/07/18 10:44 QLN2719 ICU-C16) Document 05/07/18 13:00 LMU9402 (Rec: 05/07/18 15:46 CKQ2418 ICU-C16) Document 05/08/18 09:00 EQC2845 (Rec: 05/08/18 10:41 YBC6995 ICU-C15) Document 05/08/18 13:00 SZA1389 (Rec: 05/08/18 13:07 ZWB3095 ICU-C15) Intake and Output Start: 04/29/18 17: 37 Freq: Status: Active Protocol: Created 04/29/18 17:37 System (Rec: 04/29/18 17:37 System EDRM-C14) Document 04/29/18 21:17 ZPF0778 (Rec: 04/29/18 21:18 XHW8050 ED-C18) Intake and Output Start: 04/29/18 21: 19 Freq: Q1HR Status: Active Protocol: Created 04/29/18 21:19 System (Rec: 04/29/18 21:19 System ICU-C25) Document 04/30/18 01:00 SSK9129 (Rec: 04/30/18 01:14 AVT7359 ICU-C16) Document 04/30/18 02:00 VIU6187 (Rec: 04/30/18 02:02 XFD6033 ICU-C16) Document 04/30/18 03:00 LRB3256 (Rec: 04/30/18 03:17 VMW8884 ICU-C16) Document 04/30/18 04:00 ORL0158 (Rec: 04/30/18 04:30 EZN9017 ICU-C16) Document 04/30/18 05:00 OPK5430 (Rec: 04/30/18 05:42 KJO1343 ICU-C16) Document 04/30/18 07:39 MVE4588 (Rec: 04/30/18 07:45 WEB7041 ISDEMO-M03 ) Document 04/30/18 09:00 NCW3007 (Rec: 04/30/18 09:32 KKH0368 ICU-C16) Document 04/30/18 10:00 WSL1000 (Rec: 04/30/18 10:44 FUF6164 ICU-C16) Document 04/30/18 12:00 IDS9500 (Rec: 04/30/18 12:24 EWD9102 ICU-C16) Document 04/30/18 12:41 IST8310 (Rec: 04/30/18 12:41 QUM3500 ISDEMO-M03 ) Document 04/30/18 14:00 EUS5835 (Rec: 04/30/18 14:22 UHU6655 ICU-C16) Document 04/30/18 15:00 FZU0826 (Rec: 04/30/18 15:44 EDP0563 ICU-C16) Document 04/30/18 15:50 EYO8519 (Rec: 04/30/18 15:59 FDQ5983 ICU-C16) Document 04/30/18 17:00 GRQ5135 (Rec: 04/30/18 17:15 BXI8531 ICU-C16) Document 04/30/18 18:00 QFM2881 (Rec: 04/30/18 18:08 BDV0976 ICU-C16) Document 04/30/18 19:00 VKR1633 (Rec: 04/30/18 19:32 XCN3529 ICU-C16) Document 04/30/18 20:00 TQN3756 (Rec: 04/30/18 20:34 MEB5269 ICU-C16) Document 04/30/18 21:00 FTI5347 (Rec: 04/30/18 21:14 QIV7248 ICU-C16) Document 04/30/18 22:00 PDM2192 (Rec: 04/30/18 22:11 INF6843 ICU-C16) Document 04/30/18 23:00 MLO2218 (Rec: 04/30/18 23:03 IMN7919 ICU-C16) Document 05/01/18 00:00 XHY0054 (Rec: 05/01/18 00:27 DLE4941 ICU-C16) Document 05/01/18 01:00 NUP5027 (Rec: 05/01/18 01:03 HJT5122 ICU-C16) Document 05/01/18 02:00 GUO8084 (Rec: 05/01/18 02:06 JTX7958 ICU-C16) Document 05/01/18 03:00 QZC2255 (Rec: 05/01/18 03:02 AUW2241 ICU-C16) Document 05/01/18 04:00 YAM0834 (Rec: 05/01/18 04:37 JPV6184 ICU-C16) Document 05/01/18 05:00 GDT9598 (Rec: 05/01/18 05:08 SKF7218 ICU-C16) Document 05/01/18 06:00 IRJ4130 (Rec: 05/01/18 06:06 WBG7864 ICU-C16) Document 05/01/18 07:00 ACF7553 (Rec: 05/01/18 07:15 XSX1391 ICU-C16) Document 05/01/18 07:00 UDN2256 (Rec: 05/01/18 07:53 RTT0298 ICU-C16) Document 05/01/18 10:21 WBU7709 (Rec: 05/01/18 10:21 CKN9118 ISDEMO-M03 ) Document 05/01/18 12:12 NHZ5391 (Rec: 05/01/18 12:12 VCG8107 ISDEMO-M03 ) Document 05/01/18 14:29 IWU4851 (Rec: 05/01/18 14:29 PPB4930 ICU-C16) Document 05/01/18 16:06 TQM4864 (Rec: 05/01/18 16:06 EXN6501 ISDEMO-M03 ) Document 05/01/18 16:41 ECJ6242 (Rec: 05/01/18 16:41 DGT9213 ISDEMO-M03 ) Document 05/01/18 17:21 PZU8048 (Rec: 05/01/18 17:21 MEK9734 ICU-C16) Document 05/01/18 18:36 UZR7752 (Rec: 05/01/18 18:36 YLW7590 ISDEMO-M03 ) Document 05/01/18 19:00 LCY5343 (Rec: 05/01/18 19:02 GVV9214 ICU-C10) Document 05/01/18 20:00 ABQ5144 (Rec: 05/01/18 20:09 WJC6599 ICU-C16) Document 05/01/18 21:00 ASM0939 (Rec: 05/01/18 21:12 NYC9877 ICU-C16) Document 05/01/18 22:00 UZH2648 (Rec: 05/01/18 22:17 RZZ9813 ICU-C16) Document 05/01/18 23:00 JDY8609 (Rec: 05/01/18 23:07 JIU4155 ICU-C16) Document 05/02/18 00:00 NFD3188 (Rec: 05/02/18 00:07 WTK7130 ISDEMO-M03 ) Document 05/02/18 01:00 DQU2134 (Rec: 05/02/18 01:40 HAU1597 ICU-C16) Document 05/02/18 01:54 KTW1581 (Rec: 05/02/18 01:54 XBE2177 ICU-C16) Document 05/02/18 03:00 SOT9872 (Rec: 05/02/18 03:54 FXZ3943 ICU-C16) Document 05/02/18 04:00 TFC6902 (Rec: 05/02/18 04:00 YLD2842 ICU-C16) Document 05/02/18 05:00 JFP9736 (Rec: 05/02/18 05:41 EFS5999 ICU-C16) Document 05/02/18 06:00 VDJ2250 (Rec: 05/02/18 06:15 PNP5008 ICU-C16) Document 05/02/18 07:00 EOU2409 (Rec: 05/02/18 08:04 PDM4980 ISDEMO-M03 ) Document 05/02/18 08:00 LXL8569 (Rec: 05/02/18 08:04 PCF5912 ISDEMO-M03 ) Document 05/02/18 09:00 RXQ7689 (Rec: 05/02/18 09:40 QNO8668 ISDEMO-M03 ) Document 05/02/18 10:00 UTN0227 (Rec: 05/02/18 11:34 HTM8726 ISDEMO-M03 ) Document 05/02/18 10:00 JAG5618 (Rec: 05/02/18 13:11 WIO9175 ICU-C16) Document 05/02/18 11:00 HYR4926 (Rec: 05/02/18 11:34 DUS9545 ISDEMO-M03 ) Document 05/02/18 12:00 NWZ3421 (Rec: 05/02/18 13:15 MUZ5479 ICU-C16) Document 05/02/18 13:00 ONA6864 (Rec: 05/02/18 13:14 LEZ8767 ICU-C16) Document 05/02/18 14:00 ZKJ3685 (Rec: 05/02/18 15:24 XIR3193 ISDEMO-M03 ) Document 05/02/18 15:00 DSP7240 (Rec: 05/02/18 15:24 ZWS9210 ISDEMO-M03 ) Document 05/02/18 17:00 FBQ2710 (Rec: 05/02/18 17:01 NMQ8571 ISDEMO-M03 ) Document 05/02/18 18:00 DWX2964 (Rec: 05/02/18 18:30 ENT5651 ICU-C16) Document 05/02/18 19:13 SOT0360 (Rec: 05/02/18 19:14 JBT1708 ISDEMO-M03 ) Document 05/02/18 19:23 LNC8413 (Rec: 05/02/18 19:58 BKV5657 ISDEMO-M03 ) Document 05/02/18 19:58 TJX0110 (Rec: 05/02/18 19:59 HYR2648 ISDEMO-M03 ) Document 05/02/18 22:00 UWQ9314 (Rec: 05/02/18 22:18 DKA7883 ICU-C15) Document 05/02/18 23:00 NTT4110 (Rec: 05/03/18 01:22 GVR4543 ICU-C15) Document 05/03/18 01:00 LVI8568 (Rec: 05/03/18 01:22 WYT9489 ICU-C15) Document 05/03/18 02:00 ELZ6393 (Rec: 05/03/18 02:55 HWK8086 ICU-C15) Document 05/03/18 03:00 TNH4902 (Rec: 05/03/18 04:15 SVX5505 ICU-C15) Document 05/03/18 04:00 JQR7804 (Rec: 05/03/18 04:15 UZB3116 ICU-C15) Document 05/03/18 05:54 PAM1864 (Rec: 05/03/18 05:54 HIN3488 ISDEMO-M03 ) Document 05/03/18 07:00 QAS5137 (Rec: 05/03/18 09:07 CCX3430 ICU-C15) Document 05/03/18 08:00 VJN1585 (Rec: 05/03/18 09:07 RED4920 ICU-C15) Document 05/03/18 09:00 BNC7391 (Rec: 05/03/18 09:07 LSJ0489 ICU-C15) Document 05/03/18 09:58 OVL1120 (Rec: 05/03/18 09:58 IFE8877 ISDEMO-M03 ) Document 05/03/18 10:22 OZU6974 (Rec: 05/03/18 10:22 FVG7137 ICU-C15) Document 05/03/18 11:35 FZV1211 (Rec: 05/03/18 11:35 VGB6142 ICU-L03) Document 05/03/18 12:00 WEH1061 (Rec: 05/03/18 12:03 FCU0215 ISDEMO-M03 ) Document 05/03/18 13:00 QPF9167 (Rec: 05/03/18 13:01 ZSC7664 ISDEMO-M03 ) Document 05/03/18 14:38 WRW6537 (Rec: 05/03/18 14:38 MZT5577 ISDEMO-M03 ) Document 05/03/18 15:00 FPZ6577 (Rec: 05/03/18 15:20 EIW9086 ISDEMO-M03 ) Document 05/03/18 16:40 SEB8989 (Rec: 05/03/18 16:40 WJS7177 ISDEMO-M03 ) Document 05/03/18 17:05 LTL2336 (Rec: 05/03/18 17:05 ZUO4668 ICU-C15) Document 05/03/18 18:00 JYG8659 (Rec: 05/03/18 18:19 FEP7335 ISDEMO-M03 ) Document 05/03/18 19:00 XLP5148 (Rec: 05/03/18 21:05 LTA8173 ICU-C10) Document 05/03/18 20:00 WIG6797 (Rec: 05/03/18 21:05 PYM1209 ICU-C10) Document 05/03/18 21:00 TWE6423 (Rec: 05/03/18 21:06 NZA8699 ICU-C10) Document 05/03/18 22:00 MZI9429 (Rec: 05/03/18 23:20 OKS7210 ISDEMO-M03 ) Document 05/03/18 23:00 VJS4018 (Rec: 05/03/18 23:20 EGF0679 ISDEMO-M03 ) Document 05/04/18 00:00 BVU5448 (Rec: 05/04/18 01:17 NCJ4209 ISDEMO-M03 ) Document 05/04/18 01:00 GNY8345 (Rec: 05/04/18 01:17 VDB2420 ISDEMO-M03 ) Document 05/04/18 02:00 UJE0662 (Rec: 05/04/18 04:43 MXC4452 ISDEMO-M03 ) Document 05/04/18 03:00 YIN8226 (Rec: 05/04/18 04:44 NDL2464 ISDEMO-M03 ) Document 05/04/18 04:00 LQA8789 (Rec: 05/04/18 05:45 SBH8086 ICU-C10) Document 05/04/18 05:00 KYN8943 (Rec: 05/04/18 05:45 RXO1917 ICU-C10) Document 05/04/18 06:00 KZD2757 (Rec: 05/04/18 06:28 JYH7917 ICU-C10) Document 05/04/18 07:35 WJE8414 (Rec: 05/04/18 07:44 CWC6614 ICU-C16) Document 05/04/18 09:00 QGL0437 (Rec: 05/04/18 10:19 FFI9861 ICU-C16) Document 05/04/18 10:00 DYB5810 (Rec: 05/04/18 10:27 APH6608 ICU-C16) Document 05/04/18 11:00 JMC8221 (Rec: 05/04/18 11:28 TQV7505 ICU-C16) Document 05/04/18 11:45 XWJ9723 (Rec: 05/04/18 11:50 GYP4664 ICU-C16) Document 05/04/18 13:00 ICT7319 (Rec: 05/04/18 13:20 LOU7443 ICU-C16) Document 05/04/18 13:54 WPC6721 (Rec: 05/04/18 13:54 YOA7178 ICU-C16) Document 05/04/18 15:00 RCD7648 (Rec: 05/04/18 15:44 TAB1831 ICU-C16) Document 05/04/18 15:44 WNU9224 (Rec: 05/04/18 15:53 ZWE9625 ICU-C16) Document 05/04/18 17:00 TMU6231 (Rec: 05/04/18 17:48 ZRH1082 ICU-C16) Document 05/04/18 17:48 SGI2933 (Rec: 05/04/18 17:49 JMK7866 ICU-C16) Document 05/04/18 19:00 TZM9632 (Rec: 05/04/18 20:22 KTH6274 ICU-L03) Document 05/04/18 20:00 RIT3220 (Rec: 05/04/18 20:22 YNI9343 ICU-L03) Document 05/04/18 23:00 KKW5191 (Rec: 05/04/18 23:06 DGK3726 ISDEMO-M03 ) Document 05/05/18 00:00 WPR0824 (Rec: 05/05/18 00:28 GRY1261 ISDEMO-M03 ) Document 05/05/18 01:00 ZNH6484 (Rec: 05/05/18 01:19 OEL2683 ICU-L03) Document 05/05/18 02:00 UPS9237 (Rec: 05/05/18 03:23 PIJ9901 ICU-L03) Document 05/05/18 03:00 HJK6208 (Rec: 05/05/18 03:23 DVG9979 ICU-L03) Document 05/05/18 04:00 GCQ0073 (Rec: 05/05/18 04:15 UZV9952 ISDEMO-M03 ) Document 05/05/18 05:00 YWR7267 (Rec: 05/05/18 05:13 MUV1505 ISDEMO-M03 ) Document 05/05/18 06:00 KPB7325 (Rec: 05/05/18 07:00 DUN8951 ICU-L03) Document 05/05/18 07:00 OFU2228 (Rec: 05/05/18 07:54 XNG8383 ICU-C10) Document 05/05/18 07:55 DDK7892 (Rec: 05/05/18 07:56 CTC5977 ICU-C10) Document 05/05/18 10:14 FFK1972 (Rec: 05/05/18 10:14 HVP8348 ICU-C10) Document 05/05/18 10:59 WOX1456 (Rec: 05/05/18 10:59 NXU2036 ICU-C10) Document 05/05/18 11:18 LQZ6487 (Rec: 05/05/18 11:18 QTY7953 ISDEMO-M03 ) Document 05/05/18 12:00 OKA6870 (Rec: 05/05/18 12:08 FPC0855 ICU-C10) Document 05/05/18 13:00 JMH1138 (Rec: 05/05/18 13:18 PCF4350 ICU-C10) Document 05/05/18 13:49 TJY9511 (Rec: 05/05/18 13:49 SNI2715 ISDEMO-M03 ) Document 05/05/18 15:00 DFL8146 (Rec: 05/05/18 15:14 VBQ7323 ISDEMO-M03 ) Document 05/05/18 16:00 KHZ2686 (Rec: 05/05/18 16:04 GOE6233 ICU-C10) Document 05/05/18 16:59 ING7961 (Rec: 05/05/18 16:59 QQP7853 ICU-C10) Document 05/05/18 18:00 QIJ5233 (Rec: 05/05/18 18:27 IZJ5856 ICU-C10) Document 05/05/18 19:00 HVB7863 (Rec: 05/05/18 20:45 RYJ6952 ICU-C16) Document 05/05/18 20:00 HIN5181 (Rec: 05/05/18 20:45 ZNP3638 ICU-C16) Document 05/05/18 21:00 DCJ2886 (Rec: 05/05/18 22:43 KDM6791 ICU-C16) Document 05/05/18 22:00 ZTX7665 (Rec: 05/05/18 22:43 HJT3071 ICU-C16) Document 05/05/18 23:00 WQF2990 (Rec: 05/05/18 23:18 FBX3701 ICU-C16) Document 05/06/18 00:00 SJO0929 (Rec: 05/06/18 02:14 IMT6959 ICU-C16) Document 05/06/18 01:00 GNC5340 (Rec: 05/06/18 02:15 JVV8984 ICU-C16) Document 05/06/18 02:00 SAO9928 (Rec: 05/06/18 02:15 GRW7780 ICU-C16) Document 05/06/18 03:00 QXI7591 (Rec: 05/06/18 03:57 AXG2832 ICU-C16) Document 05/06/18 03:57 GON1988 (Rec: 05/06/18 04:17 HJT5375 ICU-C16) Document 05/06/18 05:00 PNH8143 (Rec: 05/06/18 05:51 OCZ3335 ICU-M31) Document 05/06/18 06:00 SLR0862 (Rec: 05/06/18 06:33 UAZ6196 ICU-C16) Document 05/06/18 07:00 SFJ0869 (Rec: 05/06/18 09:07 QYV1379 ISDEMO-M03 ) Document 05/06/18 08:00 GEV6162 (Rec: 05/06/18 09:07 LRU2590 ISDEMO-M03 ) Document 05/06/18 09:00 QWD1184 (Rec: 05/06/18 09:07 KSA3544 ISDEMO-M03 ) Document 05/06/18 10:00 PUZ4043 (Rec: 05/06/18 10:02 FVW1564 ISDEMO-M03 ) Document 05/06/18 11:00 RGY5920 (Rec: 05/06/18 11:19 XPL4420 ISDEMO-M03 ) Document 05/06/18 12:00 MJR0650 (Rec: 05/06/18 12:03 LQX3630 ISDEMO-M03 ) Document 05/06/18 13:00 UMI3599 (Rec: 05/06/18 13:53 EUW7361 ISDEMO-M03 ) Document 05/06/18 14:00 DFF5908 (Rec: 05/06/18 14:33 SCT2556 ISDEMO-M03 ) Document 05/06/18 15:00 CBX8392 (Rec: 05/06/18 15:02 NKQ7846 ISDEMO-M03 ) Document 05/06/18 16:00 OOP2623 (Rec: 05/06/18 16:11 OYX9550 ISDEMO-M03 ) Document 05/06/18 17:00 CNR7481 (Rec: 05/06/18 18:13 DOX7129 ISDEMO-M03 ) Document 05/06/18 18:00 GQX7058 (Rec: 05/06/18 18:13 ICH6451 ISDEMO-M03 ) Document 05/06/18 19:00 UDW1458 (Rec: 05/06/18 19:19 YER1310 ICU-C16) Document 05/06/18 20:00 WMO5241 (Rec: 05/06/18 20:06 RDZ5702 ICU-C16) Document 05/06/18 21:00 LJF3789 (Rec: 05/06/18 21:16 RPE2790 ICU-C16) Document 05/06/18 22:00 WTR1385 (Rec: 05/06/18 22:11 XOA7162 ICU-C16) Document 05/06/18 23:00 UWD6801 (Rec: 05/06/18 23:06 BBV1291 ICU-C16) Document 05/07/18 00:00 IMK8356 (Rec: 05/07/18 01:00 NXE4191 ICU-C16) Document 05/07/18 01:00 XUY0805 (Rec: 05/07/18 01:05 INE8543 ICU-C16) Document 05/07/18 02:00 PAV8649 (Rec: 05/07/18 02:13 KAZ5854 ICU-C16) Document 05/07/18 03:00 UCA6473 (Rec: 05/07/18 03:18 BBL4947 ICU-C16) Document 05/07/18 04:00 TWT9078 (Rec: 05/07/18 04:17 YOC8846 ICU-C16) Document 05/07/18 05:00 XNF0432 (Rec: 05/07/18 05:16 VOU4740 ICU-C16) Document 05/07/18 05:58 OQZ5335 (Rec: 05/07/18 05:59 PLB2911 ICU-C16) Document 05/07/18 07:00 VZK8399 (Rec: 05/07/18 09:08 ENI3084 ISDEMO-M03 ) Document 05/07/18 08:00 KUF5907 (Rec: 05/07/18 09:08 ULP6600 ISDEMO-M03 ) Document 05/07/18 09:00 TAZ4136 (Rec: 05/07/18 09:09 OZQ0336 ISDEMO-M03 ) Document 05/07/18 09:49 FCQ9202 (Rec: 05/07/18 09:49 UDF8555 ICU-C16) Document 05/07/18 10:20 XVJ8704 (Rec: 05/07/18 10:20 ZVX7847 ISDEMO-M03 ) Document 05/07/18 11:00 VZN3497 (Rec: 05/07/18 11:04 XZQ6590 ISDEMO-M03 ) Document 05/07/18 12:30 INX0021 (Rec: 05/07/18 12:31 FFO9868 ISDEMO-M03 ) Document 05/07/18 13:34 PFQ6733 (Rec: 05/07/18 13:34 JWR8237 ICU-C16) Document 05/07/18 15:16 DUC1123 (Rec: 05/07/18 15:16 XAI0037 ISDEMO-M03 ) Document 05/07/18 16:00 [id number] (Rec: 05/07/18 16:37 [id number] ICU-C16) Document 05/07/18 17:00 [id number] (Rec: 05/07/18 17:52 [id number] ICU-C16) Document 05/07/18 18:00 [id number] (Rec: 05/07/18 18:19 [id number] ICU-C10) Document 05/07/18 18:52 [id number] (Rec: 05/07/18 18:52 [id number] ICU-C16) Document 05/07/18 19:59 [id number] (Rec: 05/07/18 20:00 [id number] ICU-C16) Document 05/07/18 21:00 [id number] (Rec: 05/07/18 21:18 [id number] ICU-C16) Document 05/07/18 22:00 [id number] (Rec: 05/07/18 22:24 [id number] ICU-C16) Document 05/07/18 23:00 [id number] (Rec: 05/07/18 23:33 [id number] ICU-C16) Document 05/08/18 00:00 [id number] (Rec: 05/08/18 00:24 [id number] ICU-C16) Document 05/08/18 01:00 [id number] (Rec: 05/08/18 02:06 [id number] ICU-C16) Document 05/08/18 02:00 [id number] (Rec: 05/08/18 02:06 [id number] ICU-C16) Document 05/08/18 03:00 [id number] (Rec: 05/08/18 03:07 [id number] ICU-C16) Document 05/08/18 04:00 [id number] (Rec: 05/08/18 04:12 [id number] ICU-C16) Document 05/08/18 05:00 [id number] (Rec: 05/08/18 05:17 [id number] ICU-C16) Document 05/08/18 06:00 [id number] (Rec: 05/08/18 06:12 [id number] ICU-C16) Document 05/08/18 11:00 [id number] (Rec: 05/08/18 11:43 [id number] ICU-C15) Document 05/08/18 12:00 [id number] (Rec: 05/08/18 12:41 [id number] ICU-C15) Document 05/08/18 13:00 [id number] (Rec: 05/08/18 13:06 [id number] ICU-C15) Document 05/08/18 13:59 [id number] (Rec: 05/08/18 13:59 [id number] ISDEMO-M03 ) Document 05/08/18 15:00 [id number] (Rec: 05/08/18 15:24 [id number] ISDEMO-M03 ) Document 05/08/18 16:00 [id number] (Rec: 05/08/18 16:04 [id number] ISDEMO-M03 ) Document 05/08/18 17:00 [id number] (Rec: 05/08/18 17:15 [id number] ICU-C15) Head: Normal Eyes: - - eyes squeezed shut Ears/Nose/Mouth/Throat: Clear Oropharnyx Neck: Trachea Midline Cardiovascular: - - irregular Abdominal: NL Sounds; No Tenderness; No Distention, No Hepatosplenomegaly Neurological: - - responds to noxious stimuli, no lateralizing weakness or movement disorder - Assessment Assessment: 72 yo male with urosepsis and dementia in ICU with multiple medical issues - Plan Consult Plan (MU): Palliative Plan: Family meeting with , granddaughter, great grandson, ICU physician and myself. 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 They have noticed an increase in combative behavior and granddaughter doesn't want him to stay at home because he is too much to care for. She is planning on SNF. has mixed feelings. After a long discussion on how he is doing family decided to change the code status to DNR/DNI but they were unable to make any further decisions. MOLST was discussed and limited part was signed. Granddaughter did mention hospice but felt they were not there yet. They want to see how he does over the next few days. They are aware he may be transferred to the floor. They are aware of his condition. Also will have neurology or psyche consult in regard to delirium and combative behavior to help with management. - Time On Unit Date of Evaluation: 05/08/18 Hospice Consult Time in: 04:00 Hospice Consult Time Out: 05:30 Hospice Consult Time Total: 90 > 50% of Time Spend In Counseling or Coordinating Care: Yes
--- NOTE | 2018-05-08 18:11 | PN ---
Subjective Date of Service: 05/08/18 - Consultation Length of Stay: 9 Days Neurology is following for the evaluation of AMS Interval History: CONSULTATION: Source: Chart Review and Discussion with ICU nurse and Axle Bearing Polisher Mr. Hinkle is a 74 year old with a history of Alzheimer's dementia, A.fib with VT , AICD in place, COPD on O2, colon cancer, PE, AAA repair who was initially admitted on April 29, 2018 for increased agitation and some shortness of air and dysuria. He has had a difficult and complicated hospital course with subsequent diagnosis of bacteremia with enterococcus faecalis. Infectious disease is following the patient and he is on parenteral antibiotics. Ceftriaxone and Ampicillin. He has been treated intermittently with antipsychotics for agitation but has not received any in the last day. His last dose of MS was yesterday. There was initially some concern for V-tach but subsequent evaluation revealed likely sinus tachycardia. He has a long history of coronary artery disease. No reported history of stroke. Over the last 4-5 days, the patient has stabilized medically but his mental status continues to wax and wane. He was started yesterday on Scopalamine patch for secretions. His ICD did fire over night for abnormal rhythm. He has a PICC line for his antibiotics and TPN. I have been asked to see the patient for evaluation of his delirium. I am unclear at this point what his baseline neurocognitive status was prior to the current hospitalization. 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, quit smoking 1988, former alcohol abuse, no drugs Past Medical History: Findings Objective Active Medications: Acetaminophen (Tylenol Supp*) 650 mg SC Q4H PRN PRN Reason: FEVER/HEADACHE Last Admin: 04/30/18 01:04 Dose: 650 mg Albuterol/Ipratropium (Duoneb (Albuterol 2.5 Mg/Ipratropium 0.5 Mg)) 1 neb INH Q6H PRN PRN Reason: SOB/WHEEZING Aspirin (Asa Supp*) 300 mg SC DAILY [facility] Last Admin: 05/08/18 09:40 Dose: 300 mg Clonidine HCl (Mqnfzosd-Zyc-5 0.3 Mg Patch*) 0.3 mg TRANSDERM Q7D [facility] Last Admin: 05/07/18 19:43 Dose: 0.3 mg Digoxin (Digoxin Iv*) 0.125 mg IV SLOW PU DAILY [facility] Last Admin: 05/08/18 09:40 Dose: 0.125 mg Enalaprilat (Vasotec Iv*) 0.625 mg IV 0130,0730,1330,1930 [facility] Last Admin: 05/08/18 13:56 Dose: 0.625 mg Enoxaparin Sodium (Lovenox(*)) 70 mg SUBCUT Q12H [facility] Last Admin: 05/08/18 13:36 Dose: 70 mg Furosemide (Lasix Iv*) 20 mg IV DAILY [facility] Last Admin: 05/08/18 09:40 Dose: 20 mg Heparin Sodium (Porcine) (Heparin Flush Picc/Ml/Cvc(*)) 1 - 3 ml FLUSH 0600, 1800 [facility]; Protocol Last Admin: 05/08/18 17:41 Dose: Not Given Hydralazine HCl (Apresoline Iv*) 10 mg IV SLOW PU Q6H PRN PRN Reason: SYSTOLIC BP GREATER THAN: Last Admin: 05/03/18 01:47 Dose: 10 mg Ampicillin Sodium 2 gm/ Sodium (Chloride) 100 mls @ 200 mls/hr IVPB Q4H [facility] Last Admin: 05/08/18 17:40 Dose: 200 mls/hr Ceftriaxone Sodium 1 gm/ (Sodium Chloride) 50 mls @ 200 mls/hr IVPB Q12H [facility] Last Admin: 05/08/18 16:47 Dose: 200 mls/hr Dextrose 500 ml/ Amino Acids 850 ml/ Sterile Water 150 ml/Fat Emulsion Intravenous 250 ml/ Sodium Chloride 100 meq/Potassium Chloride 80 meq/Potassium Phosphate 15 mmole/Calcium Gluconate 15 meq/Magnesium Sulfate 10 meq/ Multivitamins 10 ml/ Trace Metals 1 ml/ Nutrition ( Parenteral) 1,865.721 mls @ 77.738 mls/hr CENTR 1700 [facility]; Protocol Last Admin: 05/08/18 16:47 Dose: 77.738 mls/hr Lorazepam (Ativan Inj*) 1 mg IV PUSH BEDTIME PRN PRN Reason: AGITATION Metoprolol Tartrate (Lopressor Iv*) 10 mg IV Q6H [facility] Last Admin: 05/08/18 15:22 Dose: 10 mg Morphine Sulfate (Morphine Vial*) 3 mg IV Q3H PRN PRN Reason: PAIN - MODERATE Last Admin: 05/07/18 04:36 Dose: 3 mg Pharmacy Profile Note (Scopolamine Patch Remove*) 1 note PATCH OFF .AFTER 72 HOURS [facility] Scopolamine (Transderm-Scop 1.5 Mg Patch*) 1 patch TRANSDERM Q72H [facility] Last Admin: 05/07/18 00:38 Dose: 1 patch Vital Signs 05/07/18 05/07/18 05/07/18 18:25 18:30 18:52 Temperature Pulse Rate 82 80 Respiratory 27 21 Rate Blood Pressure 146/80 (mmHg) O2 Sat by Pulse 95 Oximetry 05/07/18 05/07/18 05/07/18 19:00 19:31 19:55 Temperature 99.5 F Pulse Rate 81 74 Respiratory 27 23 Rate Blood Pressure 148/87 161/74 (mmHg) O2 Sat by Pulse 94 96 Oximetry 05/07/18 05/07/18 05/07/18 20:00 20:01 20:31 Temperature Pulse Rate 111 83 100 Respiratory 26 29 33 Rate Blood Pressure 144/75 133/119 (mmHg) O2 Sat by Pulse 97 96 96 Oximetry 05/07/18 05/07/18 05/07/18 21:00 21:01 21:30 Temperature Pulse Rate 97 109 92 Respiratory 19 22 20 Rate Blood Pressure 139/107 164/89 (mmHg) O2 Sat by Pulse 98 94 93 Oximetry 05/07/18 05/07/18 05/07/18 22:00 22:12 22:31 Temperature Pulse Rate 81 92 88 Respiratory 22 28 23 Rate Blood Pressure 156/140 136/81 (mmHg) O2 Sat by Pulse 94 93 94 Oximetry 05/07/18 05/07/18 05/07/18 23:00 23:01 23:31 Temperature Pulse Rate 80 79 81 Respiratory 18 20 25 Rate Blood Pressure 142/77 108/88 (mmHg) O2 Sat by Pulse 94 94 95 Oximetry 05/07/18 05/08/18 05/08/18 23:32 00:00 00:01 Temperature 99.4 F Pulse Rate 80 88 89 Respiratory 19 24 29 Rate Blood Pressure 158/101 (mmHg) O2 Sat by Pulse 94 93 92 Oximetry 05/08/18 05/08/18 05/08/18 00:30 01:00 01:01 Temperature Pulse Rate 83 82 81 Respiratory 23 25 26 Rate Blood Pressure 153/85 154/74 (mmHg) O2 Sat by Pulse 96 94 95 Oximetry 05/08/18 05/08/18 05/08/18 01:49 02:00 02:01 Temperature Pulse Rate 98 101 94 Respiratory 27 24 20 Rate Blood Pressure 160/88 153/111 (mmHg) O2 Sat by Pulse 94 92 95 Oximetry 05/08/18 05/08/18 05/08/18 02:31 03:00 03:01 Temperature Pulse Rate 85 83 88 Respiratory 21 20 18 Rate Blood Pressure 134/80 137/83 (mmHg) O2 Sat by Pulse 92 94 95 Oximetry 05/08/18 05/08/18 05/08/18 03:31 03:33 04:00 Temperature 99.1 F Pulse Rate 81 81 Respiratory 20 25 Rate Blood Pressure 138/85 147/90 (mmHg) O2 Sat by Pulse 95 93 Oximetry 05/08/18 05/08/18 05/08/18 04:30 05:00 05:01 Temperature Pulse Rate 85 89 89 Respiratory 29 26 29 Rate Blood Pressure 148/83 145/95 (mmHg) O2 Sat by Pulse 95 93 93 Oximetry 05/08/18 05/08/18 05/08/18 05:30 06:00 06:01 Temperature Pulse Rate 91 84 89 Respiratory 21 25 26 Rate Blood Pressure 146/94 151/78 (mmHg) O2 Sat by Pulse 95 94 93 Oximetry 05/08/18 05/08/18 05/08/18 06:30 07:00 07:01 Temperature Pulse Rate 87 82 99 Respiratory 23 24 24 Rate Blood Pressure 145/92 154/78 (mmHg) O2 Sat by Pulse 95 93 92 Oximetry 05/08/18 05/08/18 05/08/18 07:31 07:34 07:59 Temperature 99.2 F Pulse Rate 87 Respiratory 27 25 Rate Blood Pressure 142/93 (mmHg) O2 Sat by Pulse 96 Oximetry 05/08/18 05/08/18 05/08/18 08:00 08:01 08:31 Temperature Pulse Rate 85 86 92 Respiratory 23 24 22 Rate Blood Pressure 156/87 138/103 (mmHg) O2 Sat by Pulse 95 96 96 Oximetry 05/08/18 05/08/18 05/08/18 09:00 09:01 09:30 Temperature Pulse Rate 82 86 85 Respiratory 20 23 23 Rate Blood Pressure 130/80 152/83 (mmHg) O2 Sat by Pulse 95 92 96 Oximetry 05/08/18 05/08/18 05/08/18 09:40 10:00 10:01 Temperature Pulse Rate 84 85 91 Respiratory 18 24 Rate Blood Pressure 138/86 (mmHg) O2 Sat by Pulse 97 94 Oximetry 05/08/18 05/08/18 05/08/18 10:31 11:00 11:01 Temperature Pulse Rate 97 88 85 Respiratory 25 23 24 Rate Blood Pressure 147/89 143/84 (mmHg) O2 Sat by Pulse 95 95 94 Oximetry 05/08/18 05/08/18 05/08/18 11:32 12:00 12:26 Temperature 100 F Pulse Rate 99 116 Respiratory 19 19 Rate Blood Pressure 148/93 (mmHg) O2 Sat by Pulse 94 95 Oximetry 05/08/18 05/08/18 05/08/18 13:00 13:01 13:31 Temperature Pulse Rate 85 80 87 Respiratory 23 16 22 Rate Blood Pressure 141/80 130/86 (mmHg) O2 Sat by Pulse 95 95 94 Oximetry 05/08/18 05/08/18 05/08/18 14:00 14:02 14:30 Temperature Pulse Rate 94 76 87 Respiratory 22 14 24 Rate Blood Pressure 152/74 150/82 (mmHg) O2 Sat by Pulse 95 96 95 Oximetry 05/08/18 05/08/18 05/08/18 15:00 15:03 15:32 Temperature 98.7 F Pulse Rate 72 79 Respiratory 20 27 Rate Blood Pressure 138/102 162/78 (mmHg) O2 Sat by Pulse 96 94 Oximetry 05/08/18 05/08/18 05/08/18 15:33 16:00 16:01 Temperature 98 F Pulse Rate 107 85 Respiratory 30 32 Rate Blood Pressure 156/82 (mmHg) O2 Sat by Pulse 93 95 Oximetry 05/08/18 05/08/18 05/08/18 16:32 17:00 17:01 Temperature Pulse Rate 105 80 87 Respiratory 28 30 25 Rate Blood Pressure 140/87 128/86 (mmHg) O2 Sat by Pulse 95 95 96 Oximetry Intake and Output Last 24 Hours 05/06/18 05/07/18 05/08/18 05/09/18 06:59 06:59 06:59 06:59 Intake Total 3168.8 4539.1 3362 595 Output Total 2379 2365 3045 1230 Balance 789.8 2174.1 317 -635 Weight 152 lb 5.431 oz 157 lb 4.8 oz 156 lb 3.2 oz Intake: IV Fluids 1994.8 894 615 20 D5 20K 1087 756 221 Magnesium 100 134 Potassium 189 Rocephin 686.8 71 normal saline 121 138 20 IVPB 282 1907 895 50 Ampicillin 798 524 50 D5 20K 432 Magnesium 108 Potassium 316 Rocephin 282 60 263 normal saline 109 sodium Phosphate 192 Medicated IV 167 47.1 precedex 167 47.1 TPN/PPN 725 1691 1852 525 Oral 0 0 0 Cristina Irrigate Amount 0 0 Output: Cristina 2379 2365 3045 1230 Other: Date of Last Bowel 05/02/2018 05/02/2018 Movement Oxygen Devices in Use Now: None Neurology Exam: General: Awake, Alert, Hand protectors in place, he has been agitated at times. He is not cooperative, at times, turning away from me to avoid exam HEENT: Normocephalic/atraumatic, sclera anicteric Neck: Supple, no bruits Chest: Clear to auscultation bilaterally Cardiovascular: Irreg irreg, no appreciable murmurs Abdomen: Soft Extremities: No cyanosis or clubbing. Neurological Findings: Speech: produces few words, at times unintelligible. Does not follow commands or answer questions appropriately. Will respond to his name Cranial Nerve: PEERL, moving eyes in all quadrants, blinks to threat, no nystagmus, face symmetric bilaterally, hearing grossly intact, He would not open his mouth during my exam Motor: He is restrained but moving all extremities, at times, quite forcefully. Sensation: w/d to pain X 4 Deep Tendon Reflex: W/D Babinski, would not comply with exam No appreciable tremor Result Diagrams: 05/07/18 04:30 05/08/18 11:35 Additional Lab and Data: Laboratory Tests 04/29/18 04/29/18 04/29/18 17:42 17:50 17:50 ESR INR (Anticoag Therapy) 1.16 H APTT 28.5 ABG pH 7.47 H ABG pCO2 30 L ABG pO2 391 H ABG HCO3 24.2 Lactic Acid Calcium 9.2 Total Bilirubin 1.50 H Troponin I 0.06 H* C-Reactive Protein 26.73 H B-Natriuretic Peptide Total Protein 6.8 Urine Ketones Digoxin 1.0 Valproic Acid 44.0 L Influenza A (Rapid) Influenza B (Rapid) 04/29/18 04/29/18 04/29/18 18:21 19:18 19:31 ESR INR (Anticoag Therapy) APTT ABG pH ABG pCO2 ABG pO2 ABG HCO3 Lactic Acid 1.3 Calcium Total Bilirubin Troponin I C-Reactive Protein B-Natriuretic Peptide 1254 H Total Protein Urine Ketones Trace A Digoxin Valproic Acid Influenza A (Rapid) Influenza B (Rapid) 04/29/18 04/29/18 19:46 20:11 ESR 17 INR (Anticoag Therapy) APTT ABG pH ABG pCO2 ABG pO2 ABG HCO3 Lactic Acid Calcium Total Bilirubin Troponin I C-Reactive Protein B-Natriuretic Peptide Total Protein Urine Ketones Digoxin Valproic Acid Influenza A (Rapid) Negative Influenza B (Rapid) Negative Microbiology and Other Data: Microbiology 04/29/18 21:55 Nasal Screen MRSA (PCR) - Final Nasal Mrsa Not Detected 04/29/18 19:18 Influenza Types A,B Antigen - Final Nasal Specimen received for Influenza A/B Molecular testing Diagnostic Imaging: CXR: perihilar increase density, no infiltrates, no pneumothorax EKG Data: atrial fibrillation, rapid ventricular response, diffuse T-wave inversions, and <1mm diffuse ST depressons Assessment/Plan Assessment: Mr. Hinkle is a 72 year old gentleman with a history of Alzheimer's dementia, A.fib with VT, AICD in place, COPD on O2, colon cancer, PE, AAA repair admitted for worsening agitation and confusion, bacteremia now on antibiotics with a prolonged ICU stay and persistent AMS. AMS: His history and presentation is most consistent with an acute delirium on top of underlying Alzheimer's dementia. He has a number of reasons for delirium including infection, prolonged hospitalization, medications, active restraints, sundowning --Infection: ID is following, on IV antibiotics, Rocephin can lower seizure threshold although my suspicion for seizures is low. Will check EEG. My suspicion for a COMPUTER FORWARDING SYSTEM MARKUP CLERK infection is low at this point. LP is low yield for now but if he spikes fevers or his mental status declines, I would consider LP --Medications: Ativan, MS, Scopolamine, Clonidine can all contribute to his AMS. The the extent possible, attempt to minimize these medications. Use atypical antipsychotics sparingly as needed. --History of CAD: He has a number of stroke risk factors. An acute or subacute stroke could contribute to AMS in an elderly man with dementia. CT Head --Restraints: Minimize restraints as much as possible. In summary, in the current setting, with an active delirium and ongoing acute medical issues, any attempt at long-term prognosis regarding his cognitive function is difficult at best. Resolution of his ongoing medical issues, stepping down his level of care to help maintain a regular sleep wake cycle and normalize his environment, weaning of all medicines that can contribute to delirium, removing restraints as soon as possible will all help to improve his delirium so that a better picture of his cognitive status can be obtained. Typically, this is done in an outpatient setting, once the patient has recuperated and a baseline has been established in order to give the patient the best advantage with regards to memory testing. With that said, it is common for patients with dementia to suffer significant and permanent cognitive decline after an acute illness with a prolonged hospitalization such as this, although more formal memory testing will need to be done to assess the amount of cognitive decline. I recommend checking a Head CT and EEG to rule out any underlying acute stroke and/or underlying seizure activity. Assuming those show no acute issue, I will sign off with the expectation that once the patient' s delirium has improved and a baseline has been reached, we can then plan for further cognitive testing. Do not hesitate to contact neurology with any new or worsening issues or change in his status. Thank you for the opportunity to participate in his care.
[2018-05-08] MEDS: LORazepam INJ* 2 MG/ML 1 ML VIAL IV PUSH PRN (20:28)
[2018-05-09] MEDS: Enoxaparin(*) 80 MG/0.8 ML SYR SUBCUT SCH ×2 (01:01→12:44)
[2018-05-09] MEDS: Enalaprilat IV* 1.25 MG/ML 2 ML VIAL (2.5 MG) IV SCH ×4 (01:02→20:08)
[2018-05-09] MEDS: Ampicillin ADVAN(*) 2 GM in NS 0.9% 100 ML* 100 ML IVPB SCH ×6 (01:02→20:11)
[2018-05-09] MEDS: Metoprolol Tartrate IV* 1 MG/ML 5 ML VIAL IV SCH ×4 (04:35→21:58)
[2018-05-09] MEDS: cefTRIAXone(*) 1 GM in NS 0.9% 50 ML* 50 ML IVPB SCH ×2 (04:39→16:19)
[2018-05-09 08:25] LABS: BUN/Creatinine Ratio 27.5 (8-20); Calcium 8.6 mg/dL (8.6-10.3); EGFR African American 114.3 (>60); EGFR Non-African American 94.5 (>60); Phosphorus 3.2 mg/dL (2.5-5.0); Potassium 3.9 mmol/L (3.5-5.0)
[2018-05-09] MEDS: Furosemide IV* 10 MG/ML 2 ML VIAL (20 MG) IV SCH (08:44)
[2018-05-09] MEDS: Digoxin IV* 0.5 MG/2 ML AMP (0.25 MG/ML) IV SLOW PU SCH (08:45)
[2018-05-09 08:58] LABS: Folate 13.56 ng/mL (>3.99)
[2018-05-09] MEDS: Aspirin SUPP* 300 MG PR SCH (09:17)
--- NOTE | 2018-05-09 15:58 | PN ---
Subjective Date of Service: 05/09/18 Interval History: Patient seen today by me as first encounter. He was transferred out of ICU yesterday. Patient was admitted on 04/29/17 for SOB and dysuria, found to be septic and his BC did grow enteroccous bacteremia presumed to be from his AICD pocket. Being treated empirically with IV abx for 42 days. He developed severe delirium and altered mental status currently on TPN for nutritional support. He is Unable to take po by mouth. Speech pathology did not recommend to advance diet. 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, former alcohol abuse, no drugs Past Medical History: Findings Objective Active Medications: Acetaminophen (Tylenol Supp*) 650 mg KS Q4H PRN PRN Reason: FEVER/HEADACHE Last Admin: 04/30/18 01:04 Dose: 650 mg Albuterol/Ipratropium (Duoneb (Albuterol 2.5 Mg/Ipratropium 0.5 Mg)) 1 neb INH Q6H PRN PRN Reason: SOB/WHEEZING Aspirin (Asa Supp*) 300 mg KS DAILY [facility] Last Admin: 05/09/18 09:17 Dose: 300 mg Clonidine HCl (Obiuqvfw-Vqy-3 0.3 Mg Patch*) 0.3 mg TRANSDERM Q7D [facility] Last Admin: 05/07/18 19:43 Dose: 0.3 mg Digoxin (Digoxin Iv*) 0.125 mg IV SLOW PU DAILY [facility] Last Admin: 05/09/18 08:45 Dose: 0.125 mg Enalaprilat (Vasotec Iv*) 0.625 mg IV 0130,0730,1330,1930 [facility] Last Admin: 05/09/18 12:42 Dose: 0.625 mg Enoxaparin Sodium (Lovenox(*)) 70 mg SUBCUT Q12H [facility] Last Admin: 05/09/18 12:44 Dose: 70 mg Furosemide (Lasix Iv*) 20 mg IV DAILY [facility] Last Admin: 05/09/18 08:44 Dose: 20 mg Heparin Sodium (Porcine) (Heparin Flush Picc/Ml/Cvc(*)) 1 - 3 ml FLUSH 0600, 1800 [facility]; Protocol Last Admin: 05/09/18 05:46 Dose: Not Given Hydralazine HCl (Apresoline Iv*) 10 mg IV SLOW PU Q6H PRN PRN Reason: SYSTOLIC BP GREATER THAN: Last Admin: 05/03/18 01:47 Dose: 10 mg Ampicillin Sodium 2 gm/ Sodium (Chloride) 100 mls @ 200 mls/hr IVPB Q4H [facility] Last Admin: 05/09/18 13:35 Dose: 200 mls/hr Ceftriaxone Sodium 1 gm/ (Sodium Chloride) 50 mls @ 200 mls/hr IVPB Q12H [facility] Last Admin: 05/09/18 04:39 Dose: 200 mls/hr Dextrose 500 ml/ Amino Acids 850 ml/ Sterile Water 150 ml/Fat Emulsion Intravenous 250 ml/ Sodium Chloride 100 meq/Potassium Chloride 80 meq/Potassium Phosphate 15 mmole/Calcium Gluconate 15 meq/Magnesium Sulfate 10 meq/ Multivitamins 10 ml/ Trace Metals 1 ml/ Nutrition ( Parenteral) 1,865.721 mls @ 77.738 mls/hr [facility] 1700 [facility]; Protocol Last Admin: 05/08/18 16:47 Dose: 77.738 mls/hr Lorazepam (Ativan Inj*) 1 mg IV PUSH BEDTIME PRN PRN Reason: AGITATION Last Admin: 05/08/18 20:28 Dose: 1 mg Metoprolol Tartrate (Lopressor Iv*) 5 mg IV Q6H [facility] Last Admin: 05/09/18 10:30 Dose: 5 mg Morphine Sulfate (Morphine Vial*) 3 mg IV Q3H PRN PRN Reason: PAIN - MODERATE Last Admin: 05/07/18 04:36 Dose: 3 mg Pharmacy Profile Note (Scopolamine Patch Remove*) 1 note PATCH OFF .AFTER 72 HOURS [facility] Scopolamine (Transderm-Scop 1.5 Mg Patch*) 1 patch TRANSDERM Q72H [facility] Last Admin: 05/07/18 00:38 Dose: 1 patch Vital Signs - 8 hr 05/09/18 05/09/18 11:52 15:40 Temperature 98.4 F Pulse Rate 101 Respiratory 20 Rate Blood Pressure 150/72 158/60 (mmHg) O2 Sat by Pulse 98 Oximetry Oxygen Devices in Use Now: None Appearance: Awake, confused, disoriented. on restraints secondary to agitations episodic Eyes: No Scleral Icterus Ears/Nose/Mouth/Throat: NL Teeth, Lips, Gums, Mucous Membranes Moist Respiratory: Symmetrical Chest Expansion and Respiratory Effort, Clear to Auscultation Cardiovascular: NL Sounds; No Murmurs; No JVD, No Edema, - - left ACW device. no erythema Abdominal: NL Sounds; No Tenderness; No Distention Extremities: No Edema Neurological: - - confused, disoriented - Nutrition: Malnutrition Diagnosis/Plan Malnutrition Assessment by Registered Dietitian: Malnutrition Assessment Clinical Characteristics Acute,Moderate Malnutrition Assessment: - po intake < 75% EEE x > 7 days Criteria - mild temporal muscle wasting Malnutrition Assessment: 1. attempts to place NGT for feeding (all Interventions unsuccessful) 2. PICC placement 05/04/18 3. plan to begin TPN 05/05 or 05/06 if pt not adequate alert for safe po intake - TPN base A suggested Malnutrition Assessment: Goals 1. adequate nutrition provision (via PO or enteral or parenteral nutrition) to meet pt's est need and support stable wt, hydration, and replete lean body mass 2. achieve and maintain serum electrolytes within acceptable ranges 3. maintain glycemic control within critical care parameters; w/possible start of TPN 4. maintain intact skin integrity without evidence of new breakdown Result Diagrams: 05/07/18 04:30 05/09/18 07:20 Additional Lab and Data: Laboratory Tests 04/29/18 04/29/18 04/29/18 17:42 17:50 17:50 ESR INR (Anticoag Therapy) 1.16 H APTT 28.5 ABG pH 7.47 H ABG pCO2 30 L ABG pO2 391 H ABG HCO3 24.2 Lactic Acid Calcium 9.2 Total Bilirubin 1.50 H Troponin I 0.06 H* C-Reactive Protein 26.73 H B-Natriuretic Peptide Total Protein 6.8 Urine Ketones Digoxin 1.0 Valproic Acid 44.0 L Influenza A (Rapid) Influenza B (Rapid) 04/29/18 04/29/18 04/29/18 18:21 19:18 19:31 ESR INR (Anticoag Therapy) APTT ABG pH ABG pCO2 ABG pO2 ABG HCO3 Lactic Acid 1.3 Calcium Total Bilirubin Troponin I C-Reactive Protein B-Natriuretic Peptide 1254 H Total Protein Urine Ketones Trace A Digoxin Valproic Acid Influenza A (Rapid) Influenza B (Rapid) 04/29/18 04/29/18 19:46 20:11 ESR 17 INR (Anticoag Therapy) APTT ABG pH ABG pCO2 ABG pO2 ABG HCO3 Lactic Acid Calcium Total Bilirubin Troponin I C-Reactive Protein B-Natriuretic Peptide Total Protein Urine Ketones Digoxin Valproic Acid Influenza A (Rapid) Negative Influenza B (Rapid) Negative Microbiology and Other Data: Microbiology 04/29/18 21:55 Nasal Screen MRSA (PCR) - Final Nasal Mrsa Not Detected 04/29/18 19:18 Influenza Types A,B Antigen - Final Nasal Specimen received for Influenza A/B Molecular testing Diagnostic Imaging: CXR: perihilar increase density, no infiltrates, no pneumothorax EKG Data: atrial fibrillation, rapid ventricular response, diffuse T-wave inversions, and <1mm diffuse ST depressons Assess/Plan/Problems-Billing Assessment: This is a 72 year old male admitted to [facility] [place] worsening agitation and confusion , bacteremia now on antibiotics with a prolonged ICU stay and persistent AMS. Mr. Hinkle is a 72 year old gentleman with a history of Alzheimer's dementia, A.fib with VT, AICD in place, COPD on O2, colon cancer, PE, AAA repair admitted for AMS: His history and presentation is most consistent with an acute delirium on top of underlying Alzheimer's dementia. He has a number of reasons for delirium including infection, prolonged hospitalization, medications, active restraints, sundowning --Infection: ID is following, on IV antibiotics, Rocephin can lower seizure threshold although my suspicion for seizures is low. Will check EEG. 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 LP is low yield for now but if he spikes fevers or his mental status declines, I would consider LP --Medications: Ativan, MS, Scopolamine, Clonidine can all contribute to his AMS. The the extent possible, attempt to minimize these medications. Use atypical antipsychotics sparingly as needed. --History of CAD: He has a number of stroke risk factors. An acute or subacute stroke could contribute to AMS in an elderly man with dementia. CT Head --Restraints: Minimize restraints as much as possible. In summary, in the current setting, with an active delirium and ongoing acute medical issues, any attempt at long-term prognosis regarding his cognitive function is difficult at best. Resolution of his ongoing medical issues, stepping down his level of care to help maintain a regular sleep wake cycle and normalize his environment, weaning of all medicines that can contribute to delirium, removing restraints as soon as possible will all help to improve his delirium so that a better picture of his cognitive status can be obtained. Typically, this is done in an outpatient setting, once the patient has recuperated and a baseline has been established in order to give the patient the best advantage with regards to memory testing. With that said, it is common for patients with dementia to suffer significant and permanent cognitive decline after an acute illness with a prolonged hospitalization such as this, although more formal memory testing will need to be done to assess the amount of cognitive decline. I recommend checking a Head CT and EEG to rule out any underlying acute stroke and/or underlying seizure activity. Assuming those show no acute issue, I will sign off with the expectation that once the patient' s delirium has improved and a baseline has been reached, we can then plan for further cognitive testing. Do not hesitate to contact neurology with any new or worsening issues or change in his status. Thank you for the opportunity to participate in his care. - Patient Problems (1) Delirium Current Visit: Yes Status: Acute Code(s): R41.0 - DISORIENTATION, UNSPECIFIED SNOMED Code(s): 8986140 Comment: - Available records noted reviewed - Neurology/palliative care input appreciated - I agree it is related to his acute illness, sepsis, polypharmacy and being in a strange environement - I will d/c Morphine as he has not required it all day - in am will try if we can have a sitter to ensure safety, and if we can will discontinue his restraints - Will keep him on ativan for now as it is ordered prn (2) Alzheimer disease Current Visit: Yes Status: Chronic Code(s): G30.9 - ALZHEIMER'S DISEASE, UNSPECIFIED; F02.80 - DEMENTIA IN OTH DISEASES CLASSD ELSWHR W/O BEHAVRL DISTURB SNOMED Code(s): 99831691 Comment: - Available records noted reviewed - Neurology/palliative care input appreciated - I agree it is related to his acute illness, sepsis, polypharmacy and being in a strange environement - I will d/c Morphine as he has not required it all day - in am will try if we can have a sitter to ensure safety, and if we can will discontinue his restraints - Will keep him on ativan for now as it is ordered prn (3) Atrial fibrillation with rapid ventricular response Current Visit: Yes Status: Resolved Priority: Medium Code(s): I48.91 - UNSPECIFIED ATRIAL FIBRILLATION SNOMED Code(s): 650229737811968 Comment: - Rate controlled. - Secondary to his CHF and polypharmacy - Continue digoxin IV 125 mcg daily - Continue lopressor 5 mg IV q6hrs - AICD in place (it was triggered on 05/08/18) (4) Ventricular tachycardia (paroxysmal) Current Visit: Yes Status: Acute Priority: High Code(s): I47.2 - VENTRICULAR TACHYCARDIA SNOMED Code(s): 68991918 Comment: - His AICD fired on 05/08/18 - Secondary to his CHF and polypharmacy - Continue digoxin IV 125 mcg daily - Continue lopressor 5 mg IV q6hrs - AICD in place (it was triggered on 05/08/18) (5) Ventricular tachycardia Current Visit: Yes Status: Acute Code(s): I47.2 - VENTRICULAR TACHYCARDIA SNOMED Code(s): 68775193 Comment: - Secondary to his CHF and polypharmacy - Continue digoxin IV 125 mcg daily - Continue lopressor 5 mg IV q6hrs - AICD in place (it was triggered on 05/08/18) (6) AICD (automatic cardioverter/defibrillator) present Current Visit: Yes Status: Acute Code(s): Z95.810 - PRESENCE OF AUTOMATIC ( IMPLANTABLE) CARDIAC DEFIBRILLATOR SNOMED Code(s): 140041099 Comment: - Continue digoxin IV 125 mcg daily - Continue lopressor 5 mg IV q6hrs - AICD in place (it was triggered on 05/08/18) (7) History of pulmonary embolism Current Visit: Yes Status: Acute Code(s): Z86.711 - PERSONAL HISTORY OF PULMONARY EMBOLISM SNOMED Code(s): 240663122 Comment: - History of PE, As per available records his PE was sometimes in 2017 diagnosed at [facility]??? - Now on lovenox 70 mg SQ q12. Once safe to take po will resume PO anticoagulations (8) COPD exacerbation Current Visit: Yes Status: Resolved Code(s): J44.1 - CHRONIC OBSTRUCTIVE PULMONARY DISEASE W (ACUTE) EXACERBATION SNOMED Code(s): 900841642 Comment: - Stable, not in exacerbation at this time - Continue Duoneb prn (9) Sepsis Current Visit: Yes Status: Acute Priority: High Comment: - secondary to enteroccous bactermia 04/29/17 repeat BC 05/01/17 reveals no growth - ID input appreciated. - continue Ampicilliin 2 gm IV Q 4hrs Day # - continue Rocephin 2 gm IV Q121 hrs Day # - His sputum cultures shows polymicrobes, CXR negative. I believe his sputum cultures are simply colonizations. Will not treat (10) Nutrition disorder Current Visit: Yes Status: Acute Code(s): E63.9 - NUTRITIONAL DEFICIENCY, UNSPECIFIED SNOMED Code(s): 9828312 Comment: - Unable to take by mouth - Speech pathology did not clear him for oral intake today - Will continue TPN and reassess in am (11) Hypertension Current Visit: Yes Status: Acute Code(s): I10 - ESSENTIAL (PRIMARY) HYPERTENSION SNOMED Code(s): 63997437 Comment: - On clonidine patch 0.3 mg weekly - On vasotec 1.25 mg IV q6hrs - Lopressor 5 mg IV q 6hrs - Hydralazine 10 mg IV q6hrs (12) DVT prophylaxis Current Visit: Yes Status: Acute Priority: Low Code(s): RWK7030 - SNOMED Code(s): 392309749 Comment: Off eliquis, on lovenox full dose treatmenet for his history of PE Status and Disposition: ICU monitoring due to high risk of arrhythmia and decompensation of CHF, patient is full code per /HCP.
[2018-05-09] MEDS: TPN* 24 HR with Dextrose 50% Water* 500 ML, Amino Acid Infusion 10%* 850 ML, Sterile Wa... CENTR SCH ×12 (16:49)
[2018-05-09] MEDS: LORazepam INJ* 2 MG/ML 1 ML VIAL IV PUSH PRN (21:59)
--- NOTE | 2018-05-09 22:36 | EEG ---
ELECTROENCEPHALOGRAPHY: DATE OF STUDY: 05/09/18 LOCATION: He is an inpatient in room 448. REFERRING PHYSICIAN: Dr. Rowland. CLINICAL PROBLEM: History of dementia and combativeness. The patient has had waxing and waning mental status for about 5 days. MEDICATIONS: Include: 1. Clonidine. 2. Ceftriaxone. 3. Ampicillin. 4. Metoprolol. 5. Morphine. 6. Lorazepam. 7. Furosemide. 8. Digoxin. REPORT: This 16-channel EEG is remarkable for background rhythms consisting of abundant beta rhythms. There are superimposed theta and some delta activity seen centrally and bitemporally. There is no discernible alpha rhythm. The patient is described as babbling with garbled speech. Activation procedures are not attempted. There are no clinical events. There are no focal, lateralized, or epileptiform abnormalities. CLINICAL IMPRESSION: Abnormal EEG with disorganization and slowing of background rhythms. There are no focal or epileptiform abnormalities. This tracing is compatible with diffuse cerebral dysfunction. [id number]/[facility] #: [id number] MTDD
[2018-05-10] MEDS ORDERED: Scopolamine PATCH Remove* 1 NOTE MISC PATCH OFF SCH (01:00)
[2018-05-10] MEDS: Enalaprilat IV* 1.25 MG/ML 2 ML VIAL (2.5 MG) IV SCH ×4 (01:03→19:22)
[2018-05-10] MEDS: Scopolamine 1.5 mg* PATCH TRANSDERM SCH (01:03)
[2018-05-10] MEDS: Enoxaparin(*) 80 MG/0.8 ML SYR SUBCUT SCH ×2 (01:07→13:04)
[2018-05-10] MEDS: Ampicillin ADVAN(*) 2 GM in NS 0.9% 100 ML* 100 ML IVPB SCH ×6 (01:07→21:06)
[2018-05-10] MEDS: Metoprolol Tartrate IV* 1 MG/ML 5 ML VIAL IV SCH ×5 (05:15→21:07)
[2018-05-10] MEDS: cefTRIAXone(*) 1 GM in NS 0.9% 50 ML* 50 ML IVPB SCH ×2 (05:16→15:55)
[2018-05-10 06:45] LABS: ABS Basophils 0.2 10^3/ul (0-0.2); ABS Eosinophils 0.3 10^3/ul (0-0.6); ABS Lymphocytes 0.8 10^3/ul (1.0-4.8); ABS Monocytes 0.6 10^3/ul (0-0.8); ABS Neutrophils 5.6 10^3/ul (1.5-7.7); ABS Nucleated RBC 0 10^3/ul; Eosinophil % 3.8 %; Hematocrit 36 % (42-52); Hemoglobin 12.2 g/dl (14.0-18.0); Lymphocyte % 11.1 %; Mean Corpuscular HGB Conc 34 g/dl (31-36); Mean Corpuscular Hemoglobin 29 pg (27-31); Mean Corpuscular Volume 86 fL (80-94); Mean Platelet Volume 8.9 fL (7.4-10.4); Nucleated Red Blood Cells % 0.1; Platelet Count 190 10^3/ul (150-450); Red Blood Count 4.21 10^6/ul (4.00-5.40); Red Cell Distribution Width 16 % (10.5-15); White Blood Count 7.5 10^3/ul (3.5-10.8)
[2018-05-10 07:05] LABS: BUN/Creatinine Ratio 30.8 (8-20); Calcium 8.8 mg/dL (8.6-10.3); EGFR African American 117.7 (>60); EGFR Non-African American 97.3 (>60); Globulin 3.1 g/dL (2-4); Indirect Bilirubin 0.5 mg/dL (0.3-1.0); Phosphorus 3.4 mg/dL (2.5-5.0); Potassium 3.9 mmol/L (3.5-5.0); Total Bilirubin 0.6 mg/dL (0.2-1.0); Total Protein 6.1 g/dL (6.4-8.9)
[2018-05-10] MEDS: Aspirin SUPP* 300 MG PR SCH (08:54)
[2018-05-10] MEDS: Digoxin IV* 0.5 MG/2 ML AMP (0.25 MG/ML) IV SLOW PU SCH (08:58)
[2018-05-10] MEDS: Furosemide IV* 10 MG/ML 2 ML VIAL (20 MG) IV SCH (08:58)
[2018-05-10] MEDS ORDERED: Magnesium Sulfate 1 GM IV* 1 GM/100 ML BAG IV ONE (12:37)
[2018-05-10] MEDS ORDERED: KCL 10 MEQ/50 ML IVPREMIX* 10 MEQ/50 ML BAG IV ONE (12:37)
[2018-05-10] MEDS: TPN* 24 HR with Dextrose 50% Water* 500 ML, Amino Acid Infusion 10%* 850 ML, Sterile Wa... CENTR SCH ×12 (17:15)
--- NOTE | 2018-05-10 18:11 | PN ---
Subjective Date of Service: 05/10/18 Interval History: Patient seen today remain, confused and disoriented. No fever or chills. 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, quit smoking 1988, former alcohol abuse, no drugs Past Medical History: Findings Objective Active Medications: Acetaminophen (Tylenol Supp*) 650 mg W[place] Q4H PRN PRN Reason: FEVER/HEADACHE Last Admin: 04/30/18 01:04 Dose: 650 mg Albuterol/Ipratropium (Duoneb (Albuterol 2.5 Mg/Ipratropium 0.5 Mg)) 1 neb INH Q6H PRN PRN Reason: SOB/WHEEZING Aspirin (Asa Supp*) 300 mg W[place] DAILY [facility] Last Admin: 05/10/18 08:54 Dose: 300 mg Clonidine HCl (Giimnykz-Ska-8 0.3 Mg Patch*) 0.3 mg TRANSDERM Q7D [facility] Last Admin: 05/07/18 19:43 Dose: 0.3 mg Digoxin (Digoxin Iv*) 0.125 mg IV SLOW PU DAILY [facility] Last Admin: 05/10/18 08:58 Dose: 0.125 mg Enalaprilat (Vasotec Iv*) 0.625 mg IV 0130,0730,1330,1930 [facility] Last Admin: 05/10/18 13:04 Dose: 0.625 mg Enoxaparin Sodium (Lovenox(*)) 70 mg SUBCUT Q12H [facility] Last Admin: 05/10/18 13:04 Dose: 70 mg Furosemide (Lasix Iv*) 20 mg IV DAILY [facility] Last Admin: 05/10/18 08:58 Dose: 20 mg Heparin Sodium (Porcine) (Heparin Flush Picc/Ml/Cvc(*)) 1 - 3 ml FLUSH 0600, 1800 [facility]; Protocol Last Admin: 05/10/18 16:42 Dose: Not Given Hydralazine HCl (Apresoline Iv*) 10 mg IV SLOW PU Q6H PRN PRN Reason: SYSTOLIC BP GREATER THAN: Last Admin: 05/03/18 01:47 Dose: 10 mg Ampicillin Sodium 2 gm/ Sodium (Chloride) 100 mls @ 200 mls/hr IVPB Q4H [facility] Last Admin: 05/10/18 17:50 Dose: 200 mls/hr Ceftriaxone Sodium 1 gm/ (Sodium Chloride) 50 mls @ 200 mls/hr IVPB Q12H [facility] Last Admin: 05/10/18 15:55 Dose: 200 mls/hr Dextrose 500 ml/ Amino Acids 850 ml/ Sterile Water 150 ml/Fat Emulsion Intravenous 250 ml/ Sodium Chloride 100 meq/Potassium Chloride 80 meq/Potassium Phosphate 15 mmole/Calcium Gluconate 15 meq/Magnesium Sulfate 10 meq/ Multivitamins 10 ml/ Trace Metals 1 ml/ Nutrition ( Parenteral) 1,865.721 mls @ 77.738 mls/hr CENTR 1700 [facility]; Protocol Last Admin: 05/10/18 17:15 Dose: 77.738 mls/hr Lorazepam (Ativan Inj*) 1 mg IV PUSH BEDTIME PRN PRN Reason: AGITATION Last Admin: 05/09/18 21:59 Dose: 1 mg Metoprolol Tartrate (Lopressor Iv*) 5 mg IV Q4H [facility] Last Admin: 05/10/18 17:15 Dose: 5 mg Morphine Sulfate (Morphine Vial*) 3 mg IV Q3H PRN PRN Reason: PAIN - MODERATE Last Admin: 05/07/18 04:36 Dose: 3 mg Pharmacy Profile Note (Scopolamine Patch Remove*) 1 note PATCH OFF .AFTER 72 HOURS [facility] Scopolamine (Transderm-Scop 1.5 Mg Patch*) 1 patch TRANSDERM Q72H [facility] Last Admin: 05/10/18 01:03 Dose: 1 patch Vital Signs - 8 hr 05/10/18 05/10/18 05/10/18 11:34 11:41 15:13 Temperature 98.4 F 97.1 F Pulse Rate 135 90 221 Respiratory 14 20 Rate Blood Pressure 142/58 97/58 (mmHg) O2 Sat by Pulse 91 97 97 Oximetry 05/10/18 15:29 Temperature Pulse Rate 88 Respiratory Rate Blood Pressure 138/82 (mmHg) O2 Sat by Pulse Oximetry Oxygen Devices in Use Now: None Appearance: awake, confused and disoriented Eyes: No Scleral Icterus, - Ears/Nose/Mouth/Throat: Clear Oropharnyx Neck: NL Appearance and Movements; NL JVP, Trachea Midline Respiratory: Symmetrical Chest Expansion and Respiratory Effort, - - transmitted upper airway breath sounds Cardiovascular: NL Sounds; No Murmurs; No JVD, No Edema Abdominal: NL Sounds; No Tenderness; No Distention Extremities: No Edema Neurological: Alert and Oriented x 3 - Nutrition: Malnutrition Diagnosis/Plan Malnutrition Assessment by Registered Dietitian: Malnutrition Assessment Clinical Characteristics Acute,Moderate Malnutrition Assessment: - po intake < 75% EEE x > 7 days Criteria - mild temporal muscle wasting Malnutrition Assessment: 1. attempts to place NGT for feeding (all Interventions unsuccessful) 2. PICC placement 05/04/18 3. plan to begin TPN 05/05 or 05/06 if pt not adequate alert for safe po intake - TPN base A suggested Malnutrition Assessment: Goals 1. adequate nutrition provision (via PO or enteral or parenteral nutrition) to meet pt's est need and support stable wt, hydration, and replete lean body mass 2. achieve and maintain serum electrolytes within acceptable ranges 3. maintain glycemic control within critical care parameters; w/possible start of TPN 4. maintain intact skin integrity without evidence of new breakdown Result Diagrams: 05/10/18 06:35 05/10/18 06:35 Additional Lab and Data: Laboratory Tests 04/29/18 04/29/18 04/29/18 17:42 17:50 17:50 ESR INR (Anticoag Therapy) 1.16 H APTT 28.5 ABG pH 7.47 H ABG pCO2 30 L ABG pO2 391 H ABG HCO3 24.2 Lactic Acid Calcium 9.2 Total Bilirubin 1.50 H Troponin I 0.06 H* C-Reactive Protein 26.73 H B-Natriuretic Peptide Total Protein 6.8 Urine Ketones Digoxin 1.0 Valproic Acid 44.0 L Influenza A (Rapid) Influenza B (Rapid) 04/29/18 04/29/18 04/29/18 18:21 19:18 19:31 ESR INR (Anticoag Therapy) APTT ABG pH ABG pCO2 ABG pO2 ABG HCO3 Lactic Acid 1.3 Calcium Total Bilirubin Troponin I C-Reactive Protein B-Natriuretic Peptide 1254 H Total Protein Urine Ketones Trace A Digoxin Valproic Acid Influenza A (Rapid) Influenza B (Rapid) 04/29/18 04/29/18 19:46 20:11 ESR 17 INR (Anticoag Therapy) APTT ABG pH ABG pCO2 ABG pO2 ABG HCO3 Lactic Acid Calcium Total Bilirubin Troponin I C-Reactive Protein B-Natriuretic Peptide Total Protein Urine Ketones Digoxin Valproic Acid Influenza A (Rapid) Negative Influenza B (Rapid) Negative Microbiology and Other Data: Microbiology 04/29/18 21:55 Nasal Screen MRSA (PCR) - Final Nasal Mrsa Not Detected 04/29/18 19:18 Influenza Types A,B Antigen - Final Nasal Specimen received for Influenza A/B Molecular testing Diagnostic Imaging: CXR: perihilar increase density, no infiltrates, no pneumothorax EKG Data: atrial fibrillation, rapid ventricular response, diffuse T-wave inversions, and <1mm diffuse ST depressons Assess/Plan/Problems-Billing Assessment: This is a 72 year old [place] [facility] [place] agitation and confusion , bacteremia now on antibiotics with a prolonged ICU stay and persistent AMS. - Patient Problems (1) Delirium Current Visit: Yes Status: Acute Code(s): R41.0 - DISORIENTATION, UNSPECIFIED SNOMED Code(s): 3095816 Comment: - Available records noted reviewed - Neurology/palliative care input appreciated - I agree it is related to his acute illness, sepsis, polypharmacy and being in a strange environement - I will d/c Morphine as he has not required it all day - in am will try if we can have a sitter to ensure safety, he is not on restraints. - Will keep him on ativan for now as it is ordered prn. (2) Alzheimer disease Current Visit: Yes Status: Chronic Code(s): G30.9 - ALZHEIMER'S DISEASE, UNSPECIFIED; F02.80 - DEMENTIA IN OTH DISEASES CLASSD ELSWHR W/O BEHAVRL DISTURB SNOMED Code(s): 56772515 Comment: - Available records noted reviewed - Neurology/palliative care input appreciated - I agree it is related to his acute illness, sepsis, polypharmacy and being in a strange environement - I will d/c Morphine as he has not required it all day - Will keep him on ativan for now as it is ordered prn (3) Atrial fibrillation with rapid ventricular response Current Visit: Yes Status: Resolved Priority: Medium Code(s): I48.91 - UNSPECIFIED ATRIAL FIBRILLATION SNOMED Code(s): 234725861144351 Comment: - Rate controlled. - Secondary to his CHF and polypharmacy - Continue digoxin IV 125 mcg daily - Continue lopressor 5 mg IV but will increase to q4hrs, given his increase PVC and short run of VT - AICD in place (it was triggered on 05/08/18) (4) Ventricular tachycardia (paroxysmal) Current Visit: Yes Status: Acute Priority: High Code(s): I47.2 - VENTRICULAR TACHYCARDIA SNOMED Code(s): 64623605 Comment: - His AICD fired on 05/08/18 - Secondary to his CHF and polypharmacy - Continue digoxin IV 125 mcg daily - Continue lopressor 5 mg but will increase to q4hrs, given his increase PVC and short run of VT - AICD in place (it was triggered on 05/08/18) (5) Ventricular tachycardia Current Visit: Yes Status: Acute Code(s): I47.2 - VENTRICULAR TACHYCARDIA SNOMED Code(s): 10496723 Comment: - Secondary to his CHF and polypharmacy - Continue digoxin IV 125 mcg daily - Continue lopressor 5 mg but will increase to q4hrs, given his increase PVC and short run of VT - AICD in place (it was triggered on 05/08/18) (6) AICD (automatic cardioverter/defibrillator) present Current Visit: Yes Status: Acute Code(s): Z95.810 - PRESENCE OF AUTOMATIC ( IMPLANTABLE) CARDIAC DEFIBRILLATOR SNOMED Code(s): 129063367 Comment: - Continue digoxin IV 125 mcg daily - Continue lopressor 5 mg but will increase to q4hrs, given his increase PVC and short run of VT - AICD in place (it was triggered on 05/08/18) (7) History of pulmonary embolism Current Visit: Yes Status: Acute Code(s): Z86.711 - PERSONAL HISTORY OF PULMONARY EMBOLISM SNOMED Code(s): 012542828 Comment: - History of PE, As per available records his PE was sometimes in 2017 diagnosed at [facility]??? - Now on lovenox 70 mg SQ q12. Once safe to take po will resume PO anticoagulations (8) COPD exacerbation Current Visit: Yes Status: Resolved Code(s): J44.1 - CHRONIC OBSTRUCTIVE PULMONARY DISEASE W (ACUTE) EXACERBATION SNOMED Code(s): 558442364 Comment: - Stable, not in exacerbation at this time - Continue Duoneb prn (9) Sepsis Current Visit: Yes Status: Acute Priority: High Comment: - secondary to enteroccous bactermia 04/29/17 repeat BC 05/01/17 reveals no growth - ID input appreciated. - continue Ampicillin 2 gm IV Q 4hrs Day # - continue Rocephin 2 gm IV Q121 hrs Day # - His sputum cultures shows polymicrobes, CXR negative. I believe his sputum cultures are simply colonizations. Will not treat (10) Nutrition disorder Current Visit: Yes Status: Acute Code(s): E63.9 - NUTRITIONAL DEFICIENCY, UNSPECIFIED SNOMED Code(s): 0079528 Comment: - sppech did clear to start puree diet and nectar thick liquid - Will continue TPN and reassess in am (11) Hypertension Current Visit: Yes Status: Acute Code(s): I10 - ESSENTIAL (PRIMARY) HYPERTENSION SNOMED Code(s): 27063069 Comment: - On clonidine patch 0.3 mg weekly - On vasotec 1.25 mg IV q6hrs - Continue lopressor 5 mg but will increase to q4hrs, given his increase PVC and short run of VT - Hydralazine 10 mg IV q6hrs (12) DVT prophylaxis Current Visit: Yes Status: Acute Priority: Low Code(s): OEO5440 - SNOMED Code(s): 248201578 Comment: Off eliquis, on lovenox full dose treatmenet for his history of PE Status and Disposition: ICU monitoring due to high risk of arrhythmia and decompensation of CHF, patient is full code per /HCP.
[2018-05-11] MEDS: Enoxaparin(*) 80 MG/0.8 ML SYR SUBCUT SCH ×2 (00:54→13:08)
[2018-05-11] MEDS: Metoprolol Tartrate IV* 1 MG/ML 5 ML VIAL IV SCH ×6 (00:55→21:32)
[2018-05-11] MEDS: Enalaprilat IV* 1.25 MG/ML 2 ML VIAL (2.5 MG) IV SCH ×4 (00:55→19:37)
[2018-05-11] MEDS: Ampicillin ADVAN(*) 2 GM in NS 0.9% 100 ML* 100 ML IVPB SCH ×6 (01:56→21:32)
[2018-05-11] MEDS: cefTRIAXone(*) 1 GM in NS 0.9% 50 ML* 50 ML IVPB SCH ×2 (04:30→17:31)
[2018-05-11 04:50] LABS: ABS Basophils 0.1 10^3/ul (0-0.2); ABS Eosinophils 0.3 10^3/ul (0-0.6); ABS Lymphocytes 0.8 10^3/ul (1.0-4.8); ABS Monocytes 0.6 10^3/ul (0-0.8); ABS Neutrophils 6.7 10^3/ul (1.5-7.7); ABS Nucleated RBC 0 10^3/ul; Eosinophil % 3.4 %; Hematocrit 37 % (42-52); Hemoglobin 12.4 g/dl (14.0-18.0); Mean Corpuscular HGB Conc 34 g/dl (31-36); Mean Corpuscular Hemoglobin 32 pg (27-31); Mean Corpuscular Volume 94 fL (80-94); Mean Platelet Volume 9.5 fL (7.4-10.4); Nucleated Red Blood Cells % 0; Platelet Count 207 10^3/ul (150-450); Red Cell Distribution Width 17 % (10.5-15); White Blood Count 8.4 10^3/ul (3.5-10.8)
[2018-05-11 05:06] LABS: CO2 Carbon Dioxide 19 mmol/L (22-32); Calcium 9.9 mg/dL (8.6-10.3); Chloride 107 mmol/L (101-111); EGFR African American 93.8 (>60); EGFR Non-African American 77.5 (>60); Phosphorus 6.9 mg/dL (2.5-5.0); Sodium 121 mmol/L (135-145)
[2018-05-11 05:38] LABS: BUN/Creatinine Ratio 24.2 (8-20); Blood Urea Nitrogen 23 mg/dL (6-24)
[2018-05-11 05:56] LABS: Magnesium 2.2 mg/dL (1.9-2.7)
[2018-05-11] MEDS: Digoxin IV* 0.5 MG/2 ML AMP (0.25 MG/ML) IV SLOW PU SCH (08:30)
[2018-05-11] MEDS: Furosemide IV* 10 MG/ML 2 ML VIAL (20 MG) IV SCH (08:34)
--- NOTE | 2018-05-11 08:52 | PN ---
Progress Note - Progress Note Date of Service: 05/11/18 SOAP: Subjective: CC: bacteremia HPI: 72 year old man with dementia admitted with septic encephalopathy and bacteremia. He cannot provide history or ROS. No diarrhea per RN. Eating a little when fed by aide. Objective: Vital Signs Temp 36.6 C 05/11/18 07:52 Pulse 90 05/11/18 08:30 Resp 20 05/11/18 07:52 BP 123/85 05/11/18 07:52 Pulse Ox 97 05/11/18 07:52 Intake & Output 05/10/18 05/11/18 05/11/18 18:59 06:59 18:59 Intake Total 1698 1168 Output Total 2200 1000 Balance -502 168 Weight 161 lb 14.4 oz Intake: IV Fluids 85 398 Ampicillin 40 343 KCl 15 Magnesium 20 Rocephin 10 55 IVPB 440 Ampicillin 216 KCl 58 Magnesium 108 Rocephin 58 TPN/PPN 813 770 Oral 360 0 Output: Urine 0 Cristina 2200 1000 Other: Estimated Stool Amount Small Gen:awake, not in distress Neuro: tracks, does not interact HEENT: no thrush Heart:RRR no murmur Lungs:CTA BL Abd:+BS NTND soft Skin: no rash Laboratory Results - last 24 hr 05/10/18 05/10/18 05/10/18 11:36 15:59 19:26 WBC RBC Hgb Hct MCV MCH MCHC RDW Plt Count MPV Neut % (Auto) Lymph % (Auto) Hyde % (Auto) Eos % (Auto) Baso % (Auto) Absolute Neuts (auto) Absolute Lymphs (auto) Absolute Monos (auto) Absolute Eos (auto) Absolute Basos (auto) Absolute Nucleated RBC Nucleated RBC % Sodium Potassium Chloride Carbon Dioxide Anion Gap BUN Creatinine Est GFR ( Amer) Est GFR (Non-Af Amer) BUN/Creatinine Ratio Glucose POC Glucose (mg/dL) 138 H 131 H 137 H Calcium Phosphorus Magnesium 05/10/18 05/11/18 05/11/18 23:55 03:59 04:40 WBC RBC Hgb Hct MCV MCH MCHC RDW Plt Count MPV Neut % (Auto) Lymph % (Auto) Hyde % (Auto) Eos % (Auto) Baso % (Auto) Absolute Neuts (auto) Absolute Lymphs (auto) Absolute Monos (auto) Absolute Eos (auto) Absolute Basos (auto) Absolute Nucleated RBC Nucleated RBC % Sodium 121 L D Potassium TNP Chloride 107 Carbon Dioxide 19 L Anion Gap Not Reportable BUN 23 Creatinine 0.95 Est GFR ( Amer) 93.8 Est GFR (Non-Af Amer) 77.5 BUN/Creatinine Ratio 24.2 H Glucose TNP POC Glucose (mg/dL) 121 H 118 H Calcium 9.9 Phosphorus 6.9 H Magnesium TNP 05/11/18 05/11/18 05/11/18 04:40 05:35 07:58 WBC 8.4 RBC 3.90 L Hgb 12.4 L Hct 37 L MCV 94 MCH 32 H MCHC 34 RDW 17 H Plt Count 207 MPV 9.5 Neut % (Auto) 79.8 Lymph % (Auto) 9.0 Hyde % (Auto) 6.6 Eos % (Auto) 3.4 Baso % (Auto) 1.2 Absolute Neuts (auto) 6.7 Absolute Lymphs (auto) 0.8 L Absolute Monos (auto) 0.6 Absolute Eos (auto) 0.3 Absolute Basos (auto) 0.1 Absolute Nucleated RBC 0 Nucleated RBC % 0 Sodium Potassium 4.0 Chloride Carbon Dioxide Anion Gap BUN Creatinine Est GFR ( Amer) Est GFR (Non-Af Amer) BUN/Creatinine Ratio Glucose 116 H POC Glucose (mg/dL) 103 H Calcium Phosphorus Magnesium 2.2 Assessment: 1. sepsis and encephalopathy, present on admission, resolving 2. 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 dementia Plan: 1. continue ampicillin 2 gm IV Q4hrs, ceftriaxone 1 gm Q12hrs; day . Weekly cbc, cmp, crp
[2018-05-11] MEDS: Aspirin SUPP* 300 MG PR SCH (10:37)
[2018-05-11 13:18] LABS: BUN/Creatinine Ratio 29.7 (8-20); Calcium 9.1 mg/dL (8.6-10.3); EGFR African American 98.5 (>60); EGFR Non-African American 81.4 (>60); Magnesium 2.2 mg/dL (1.9-2.7); Phosphorus 4.2 mg/dL (2.5-5.0)
--- NOTE | 2018-05-11 17:50 | PN ---
Subjective Date of Service: 05/11/18 Interval History: Patient seen, I did witness speech pathologist in the room at the same time feeding the patient. He did very good with his current diet nectar thick liquid and puree diet. No events. 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, former alcohol abuse, no drugs Past Medical History: Findings Objective Active Medications: Acetaminophen (Tylenol Supp*) 650 mg [place] Q4H PRN PRN Reason: FEVER/HEADACHE Last Admin: 04/30/18 01:04 Dose: 650 mg Albuterol/Ipratropium (Duoneb (Albuterol 2.5 Mg/Ipratropium 0.5 Mg)) 1 neb INH Q6H PRN PRN Reason: SOB/WHEEZING Aspirin (Asa Supp*) 300 mg [place] DAILY [facility] Last Admin: 05/11/18 10:37 Dose: 300 mg Clonidine HCl (Solazxxo-Fhr-6 0.3 Mg Patch*) 0.3 mg TRANSDERM Q7D [facility] Last Admin: 05/07/18 19:43 Dose: 0.3 mg Digoxin (Digoxin Iv*) 0.125 mg IV SLOW PU DAILY [facility] Last Admin: 05/11/18 08:30 Dose: 0.125 mg Enalaprilat (Vasotec Iv*) 0.625 mg IV 0130,0730,1330,1930 [facility] Last Admin: 05/11/18 13:05 Dose: 0.625 mg Enoxaparin Sodium (Lovenox(*)) 70 mg SUBCUT Q12H [facility] Last Admin: 05/11/18 13:08 Dose: 70 mg Furosemide (Lasix Iv*) 20 mg IV DAILY [facility] Last Admin: 05/11/18 08:34 Dose: 20 mg Heparin Sodium (Porcine) (Heparin Flush Picc/Ml/Cvc(*)) 1 - 3 ml FLUSH 0600, 1800 [facility]; Protocol Last Admin: 05/11/18 05:07 Dose: Not Given Hydralazine HCl (Apresoline Iv*) 10 mg IV SLOW PU Q6H PRN PRN Reason: SYSTOLIC BP GREATER THAN: Last Admin: 05/03/18 01:47 Dose: 10 mg Ampicillin Sodium 2 gm/ Sodium (Chloride) 100 mls @ 200 mls/hr IVPB Q4H [facility] Last Admin: 05/11/18 14:24 Dose: 200 mls/hr Ceftriaxone Sodium 1 gm/ (Sodium Chloride) 50 mls @ 200 mls/hr IVPB Q12H [facility] Last Admin: 05/11/18 04:30 Dose: 200 mls/hr Dextrose 500 ml/ Amino Acids 850 ml/ Sterile Water 150 ml/Fat Emulsion Intravenous 250 ml/ Sodium Chloride 100 meq/Potassium Chloride 80 meq/Potassium Phosphate 15 mmole/Calcium Gluconate 15 meq/Magnesium Sulfate 10 meq/ Multivitamins 10 ml/ Trace Metals 1 ml/ Nutrition ( Parenteral) 1,865.721 mls @ 77.738 mls/hr CENTR 1700 [facility]; Protocol Last Admin: 05/10/18 17:15 Dose: 77.738 mls/hr Lorazepam (Ativan Inj*) 1 mg IV PUSH BEDTIME PRN PRN Reason: AGITATION Last Admin: 05/09/18 21:59 Dose: 1 mg Metoprolol Tartrate (Lopressor Iv*) 5 mg IV Q4H [facility] Last Admin: 05/11/18 13:07 Dose: 5 mg Morphine Sulfate (Morphine Vial*) 3 mg IV Q3H PRN PRN Reason: PAIN - MODERATE Last Admin: 05/07/18 04:36 Dose: 3 mg Pharmacy Profile Note (Scopolamine Patch Remove*) 1 note PATCH OFF .AFTER 72 HOURS [facility] Scopolamine (Transderm-Scop 1.5 Mg Patch*) 1 patch TRANSDERM Q72H [facility] Last Admin: 05/10/18 01:03 Dose: 1 patch Vital Signs - 8 hr 05/11/18 05/11/18 05/11/18 11:12 11:17 15:33 Temperature 98.0 F 97.6 F Pulse Rate 101 93 Respiratory 22 16 Rate Blood Pressure 156/46 133/72 (mmHg) O2 Sat by Pulse 100 99 Oximetry Oxygen Devices in Use Now: None Appearance: Awake, no distress Eyes: No Scleral Icterus Ears/Nose/Mouth/Throat: NL Teeth, Lips, Gums, Clear Oropharnyx Neck: NL Appearance and Movements; NL JVP, Trachea Midline Respiratory: Symmetrical Chest Expansion and Respiratory Effort, Clear to Auscultation Extremities: No Edema - Nutrition: Malnutrition Diagnosis/Plan Malnutrition Assessment by Registered Dietitian: Malnutrition Assessment Clinical Characteristics Acute,Moderate Malnutrition Assessment: - po intake < 75% EEE x > 7 days Criteria - mild temporal muscle wasting Malnutrition Assessment: 1. attempts to place NGT for feeding (all Interventions unsuccessful) 2. PICC placement 05/04/18 3. plan to begin TPN 05/05 or 05/06 if pt not adequate alert for safe po intake - TPN base A suggested Malnutrition Assessment: Goals 1. adequate nutrition provision (via PO or enteral or parenteral nutrition) to meet pt's est need and support stable wt, hydration, and replete lean body mass 2. achieve and maintain serum electrolytes within acceptable ranges 3. maintain glycemic control within critical care parameters; w/possible start of TPN 4. maintain intact skin integrity without evidence of new breakdown Result Diagrams: 05/11/18 04:40 05/11/18 12:30 Additional Lab and Data: Laboratory Tests 04/29/18 04/29/18 04/29/18 17:42 17:50 17:50 ESR INR (Anticoag Therapy) 1.16 H APTT 28.5 ABG pH 7.47 H ABG pCO2 30 L ABG pO2 391 H ABG HCO3 24.2 Lactic Acid Calcium 9.2 Total Bilirubin 1.50 H Troponin I 0.06 H* C-Reactive Protein 26.73 H B-Natriuretic Peptide Total Protein 6.8 Urine Ketones Digoxin 1.0 Valproic Acid 44.0 L Influenza A (Rapid) Influenza B (Rapid) 04/29/18 04/29/18 04/29/18 18:21 19:18 19:31 ESR INR (Anticoag Therapy) APTT ABG pH ABG pCO2 ABG pO2 ABG HCO3 Lactic Acid 1.3 Calcium Total Bilirubin Troponin I C-Reactive Protein B-Natriuretic Peptide 1254 H Total Protein Urine Ketones Trace A Digoxin Valproic Acid Influenza A (Rapid) Influenza B (Rapid) 04/29/18 04/29/18 19:46 20:11 ESR 17 INR (Anticoag Therapy) APTT ABG pH ABG pCO2 ABG pO2 ABG HCO3 Lactic Acid Calcium Total Bilirubin Troponin I C-Reactive Protein B-Natriuretic Peptide Total Protein Urine Ketones Digoxin Valproic Acid Influenza A (Rapid) Negative Influenza B (Rapid) Negative Microbiology and Other Data: Microbiology 04/29/18 21:55 Nasal Screen MRSA (PCR) - Final Nasal Mrsa Not Detected 04/29/18 19:18 Influenza Types A,B Antigen - Final Nasal Specimen received for Influenza A/B Molecular testing Diagnostic Imaging: CXR: perihilar increase density, no infiltrates, no pneumothorax EKG Data: atrial fibrillation, rapid ventricular response, diffuse T-wave inversions, and <1mm diffuse ST depressons Assess/Plan/Problems-Billing Assessment: This is a 72 year old male admitted to [facility] for worsening agitation and confusion , bacteremia now on antibiotics with a prolonged ICU stay and persistent AMS. - Patient Problems (1) Nutrition disorder Current Visit: Yes Status: Acute Code(s): E63.9 - NUTRITIONAL DEFICIENCY, UNSPECIFIED SNOMED Code(s): 6350264 Comment: - [facility] did clear to start puree diet and nectar thick liquid - Will continue TPN and reassess in am - He did well when the speech pathologist did feed him. Will need dedicated one on one for diet and meals. (2) Delirium Current Visit: Yes Status: Acute Code(s): R41.0 - DISORIENTATION, UNSPECIFIED SNOMED Code(s): 7299760 Comment: - Available records noted reviewed - Neurology/palliative care input appreciated - I agree it is related to his acute illness, sepsis, polypharmacy and being in a strange environement - I will d/c Morphine as he has not required it all day - in am will try if we can have a sitter to ensure safety, he is not on restraints. - Will keep him on ativan for now as it is ordered prn. (3) Alzheimer disease Current Visit: Yes Status: Chronic Code(s): G30.9 - ALZHEIMER'S DISEASE, UNSPECIFIED; F02.80 - DEMENTIA IN OTH DISEASES CLASSD ELSWHR W/O BEHAVRL DISTURB SNOMED Code(s): 56779498 Comment: - Available records noted reviewed - Neurology/palliative care input appreciated - I agree it is related to his acute illness, sepsis, polypharmacy and being in a strange environement - I will d/c Morphine as he has not required it all day - Will keep him on ativan for now as it is ordered prn (4) Atrial fibrillation with rapid ventricular response Current Visit: Yes Status: Resolved Priority: Medium Code(s): I48.91 - UNSPECIFIED ATRIAL FIBRILLATION SNOMED Code(s): 676578410375775 Comment: - Rate controlled. - Secondary to his CHF and polypharmacy - Continue digoxin IV 125 mcg daily - Continue lopressor 5 mg IV but will increase to q4hrs, given his increase PVC and short run of VT - AICD in place (it was triggered on 05/08/18) (5) Ventricular tachycardia (paroxysmal) Current Visit: Yes Status: Acute Priority: High Code(s): I47.2 - VENTRICULAR TACHYCARDIA SNOMED Code(s): 65328485 Comment: - His AICD fired on 05/08/18 - Secondary to his CHF and polypharmacy - Continue digoxin IV 125 mcg daily - Continue lopressor 5 mg but will increase to q4hrs, given his increase PVC and short run of VT - AICD in place (it was triggered on 05/08/18) (6) Ventricular tachycardia Current Visit: Yes Status: Acute Code(s): I47.2 - VENTRICULAR TACHYCARDIA SNOMED Code(s): 67981186 Comment: - Secondary to his CHF and polypharmacy - Continue digoxin IV 125 mcg daily - Continue lopressor 5 mg but will increase to q4hrs, given his increase PVC and short run of VT - AICD in place (it was triggered on 05/08/18) (7) AICD (automatic cardioverter/defibrillator) present Current Visit: Yes Status: Acute Code(s): Z95.810 - PRESENCE OF AUTOMATIC ( IMPLANTABLE) CARDIAC DEFIBRILLATOR SNOMED Code(s): 243188092 Comment: - Continue digoxin IV 125 mcg daily - Continue lopressor 5 mg but will increase to q4hrs, given his increase PVC and short run of VT - AICD in place (it was triggered on 05/08/18) (8) History of pulmonary embolism Current Visit: Yes Status: Acute Code(s): Z86.711 - PERSONAL HISTORY OF PULMONARY EMBOLISM SNOMED Code(s): 727866374 Comment: - History of PE, As per available records his PE was sometimes in 2017 diagnosed at [place]??? - Now on lovenox 70 mg SQ q12. 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 - continue Ampicillin 2 gm IV Q 4hrs Day # - continue Rocephin 2 gm IV Q121 hrs Day # - His sputum cultures shows polymicrobes, CXR negative. I believe his sputum cultures are simply colonizations. Will not treat (11) Hypertension Current Visit: Yes Status: Acute Code(s): I10 - ESSENTIAL (PRIMARY) HYPERTENSION SNOMED Code(s): 99986104 Comment: - On clonidine patch 0.3 mg weekly - On vasotec 1.25 mg IV q6hrs - Continue lopressor 5 mg but will increase to q4hrs, given his increase PVC and short run of VT - Hydralazine 10 mg IV q6hrs (12) DVT prophylaxis Current Visit: Yes Status: Acute Priority: Low Code(s): VBH4880 - SNOMED Code(s): 435086902 Comment: Off eliquis, on lovenox full dose treatmenet for his history of PE Status and Disposition: ICU monitoring due to high risk of arrhythmia and decompensation of CHF, patient is full code per /HCP.
[2018-05-11] MEDS: TPN* 24 HR with Dextrose 50% Water* 500 ML, Amino Acid Infusion 10%* 850 ML, Sterile Wa... CENTR SCH ×12 (18:23)
[2018-05-12] MEDS: Enoxaparin(*) 80 MG/0.8 ML SYR SUBCUT SCH ×2 (00:48→12:42)
[2018-05-12] MEDS: Enalaprilat IV* 1.25 MG/ML 2 ML VIAL (2.5 MG) IV SCH ×4 (00:49→20:00)
[2018-05-12] MEDS: Metoprolol Tartrate IV* 1 MG/ML 5 ML VIAL IV SCH ×6 (00:49→20:11)
[2018-05-12] MEDS: Ampicillin ADVAN(*) 2 GM in NS 0.9% 100 ML* 100 ML IVPB SCH ×7 (02:48→21:30)
[2018-05-12] MEDS: cefTRIAXone(*) 1 GM in NS 0.9% 50 ML* 50 ML IVPB SCH ×2 (05:00→17:02)
[2018-05-12 05:05] LABS: BUN/Creatinine Ratio 30.8 (8-20); C Reactive Protein 11.88 mg/L (<8.01); Calcium 9.2 mg/dL (8.6-10.3); EGFR African American 98.5 (>60); EGFR Non-African American 81.4 (>60); Magnesium 2.2 mg/dL (1.9-2.7); Phosphorus 3.6 mg/dL (2.5-5.0)
[2018-05-12] MEDS: Aspirin SUPP* 300 MG PR SCH (08:07)
[2018-05-12] MEDS: Digoxin IV* 0.5 MG/2 ML AMP (0.25 MG/ML) IV SLOW PU SCH (08:15)
[2018-05-12] MEDS: Furosemide IV* 10 MG/ML 2 ML VIAL (20 MG) IV SCH (08:15)
[2018-05-12] MEDS: Morphine VIAL* 4 MG/ML VIAL (1 ml vial) IV PRN ×2 (14:36→16:56)
[2018-05-12] MEDS: TPN* 24 HR with Dextrose 50% Water* 500 ML, Amino Acid Infusion 10%* 850 ML, Sterile Wa... CENTR SCH ×12 (16:58)
--- NOTE | 2018-05-12 19:50 | PN ---
Subjective Date of Service: 05/12/18 Interval History: Patient seen asleep resting. His dinner tray noted in the room at bedside. 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, former alcohol abuse, no drugs Past Medical History: Findings Objective Active Medications: Acetaminophen (Tylenol Supp*) 650 mg [place] Q4H PRN PRN Reason: FEVER/HEADACHE Last Admin: 04/30/18 01:04 Dose: 650 mg Albuterol/Ipratropium (Duoneb (Albuterol 2.5 Mg/Ipratropium 0.5 Mg)) 1 neb INH Q6H PRN PRN Reason: SOB/WHEEZING Aspirin (Asa Supp*) 300 mg [place] DAILY [facility] Last Admin: 05/12/18 08:07 Dose: 300 mg Clonidine HCl ([place]-Aba-9 0.3 Mg Patch*) 0.3 mg TRANSDERM Q7D [facility] Last Admin: 05/07/18 19:43 Dose: 0.3 mg Digoxin (Digoxin Iv*) 0.125 mg IV SLOW PU DAILY [facility] Last Admin: 05/12/18 08:15 Dose: 0.125 mg Enalaprilat (Vasotec Iv*) 0.625 mg IV 0130,0730,1330,1930 [facility] Last Admin: 05/12/18 14:38 Dose: 0.625 mg Enoxaparin Sodium (Lovenox(*)) 70 mg SUBCUT Q12H [facility] Last Admin: 05/12/18 12:42 Dose: 70 mg Furosemide (Lasix Iv*) 20 mg IV DAILY [facility] Last Admin: 05/12/18 08:15 Dose: 20 mg Heparin Sodium (Porcine) (Heparin Flush Picc/Ml/Cvc(*)) 1 - 3 ml FLUSH 0600, 1800 [facility]; Protocol Last Admin: 05/12/18 18:05 Dose: Not Given Hydralazine HCl (Apresoline Iv*) 10 mg IV SLOW PU Q6H PRN PRN Reason: SYSTOLIC BP GREATER THAN: Last Admin: 05/03/18 01:47 Dose: 10 mg Ampicillin Sodium 2 gm/ Sodium (Chloride) 100 mls @ 200 mls/hr IVPB Q4H [facility] Last Admin: 05/12/18 18:05 Dose: 200 mls/hr Ceftriaxone Sodium 1 gm/ (Sodium Chloride) 50 mls @ 200 mls/hr IVPB Q12H [facility] Last Admin: 05/12/18 17:02 Dose: 200 mls/hr Dextrose 500 ml/ Amino Acids 850 ml/ Sterile Water 150 ml/Fat Emulsion Intravenous 250 ml/ Sodium Chloride 100 meq/Potassium Chloride 80 meq/Potassium Phosphate 15 mmole/Calcium Gluconate 15 meq/Magnesium Sulfate 10 meq/ Multivitamins 10 ml/ Trace Metals 1 ml/ Nutrition ( Parenteral) 1,865.721 mls @ 77.738 mls/hr CENTR 1700 [facility]; Protocol Last Admin: 05/12/18 16:58 Dose: 77.738 mls/hr Lorazepam (Ativan Inj*) 1 mg IV PUSH BEDTIME PRN PRN Reason: AGITATION Last Admin: 05/09/18 21:59 Dose: 1 mg Metoprolol Tartrate (Lopressor Iv*) 5 mg IV Q4H [facility] Last Admin: 05/12/18 16:57 Dose: 5 mg Morphine Sulfate (Morphine Vial*) 2 mg IV Q2H PRN PRN Reason: PAIN Last Admin: 05/12/18 16:56 Dose: 2 mg Pharmacy Profile Note (Scopolamine Patch Remove*) 1 note PATCH OFF .AFTER 72 HOURS [facility] Scopolamine (Transderm-Scop 1.5 Mg Patch*) 1 patch TRANSDERM Q72H [facility] Last Admin: 05/10/18 01:03 Dose: 1 patch Vital Signs - 8 hr 05/12/18 05/12/18 05/12/18 14:36 15:09 15:53 Temperature 98.1 F Pulse Rate 91 Respiratory 22 18 18 Rate O2 Sat by Pulse 100 Oximetry 05/12/18 05/12/18 16:56 18:14 Temperature Pulse Rate Respiratory 24 22 Rate O2 Sat by Pulse Oximetry Oxygen Devices in Use Now: None Appearance: no apparent distress. in bed resting Eyes: No Scleral Icterus, PERRLA Ears/Nose/Mouth/Throat: NL Teeth, Lips, Gums, Mucous Membranes Moist Neck: NL Appearance and Movements; NL JVP, Trachea Midline Respiratory: Symmetrical Chest Expansion and Respiratory Effort Cardiovascular: NL Sounds; No Murmurs; No JVD - Nutrition: Malnutrition Diagnosis/Plan Malnutrition Assessment by Registered Dietitian: Malnutrition Assessment Clinical Characteristics Acute,Moderate Malnutrition Assessment: - po intake < 75% EEE x > 7 days Criteria - mild temporal muscle wasting Malnutrition Assessment: 1. attempts to place NGT for feeding (all Interventions unsuccessful) 2. PICC placement 05/04/18 3. plan to begin TPN 05/05 or 05/06 if pt not adequate alert for safe po intake - TPN base A suggested Malnutrition Assessment: Goals 1. adequate nutrition provision (via PO or enteral or parenteral nutrition) to meet pt's est need and support stable wt, hydration, and replete lean body mass 2. achieve and maintain serum electrolytes within acceptable ranges 3. maintain glycemic control within critical care parameters; w/possible start of TPN 4. maintain intact skin integrity without evidence of new breakdown Result Diagrams: 05/11/18 04:40 05/12/18 04:45 Additional Lab and Data: Laboratory Tests 04/29/18 04/29/18 04/29/18 17:42 17:50 17:50 ESR INR (Anticoag Therapy) 1.16 H APTT 28.5 ABG pH 7.47 H ABG pCO2 30 L ABG pO2 391 H ABG HCO3 24.2 Lactic Acid Calcium 9.2 Total Bilirubin 1.50 H Troponin I 0.06 H* C-Reactive Protein 26.73 H B-Natriuretic Peptide Total Protein 6.8 Urine Ketones Digoxin 1.0 Valproic Acid 44.0 L Influenza A (Rapid) Influenza B (Rapid) 04/29/18 04/29/18 04/29/18 18:21 19:18 19:31 ESR INR (Anticoag Therapy) APTT ABG pH ABG pCO2 ABG pO2 ABG HCO3 Lactic Acid 1.3 Calcium Total Bilirubin Troponin I C-Reactive Protein B-Natriuretic Peptide 1254 H Total Protein Urine Ketones Trace A Digoxin Valproic Acid Influenza A (Rapid) Influenza B (Rapid) 04/29/18 04/29/18 19:46 20:11 ESR 17 INR (Anticoag Therapy) APTT ABG pH ABG pCO2 ABG pO2 ABG HCO3 Lactic Acid Calcium Total Bilirubin Troponin I C-Reactive Protein B-Natriuretic Peptide Total Protein Urine Ketones Digoxin Valproic Acid Influenza A (Rapid) Negative Influenza B (Rapid) Negative Microbiology and Other Data: Microbiology 04/29/18 21:55 Nasal Screen MRSA (PCR) - Final Nasal Mrsa Not Detected 04/29/18 19:18 Influenza Types A,B Antigen - Final Nasal Specimen received for Influenza A/B Molecular testing Diagnostic Imaging: CXR: perihilar increase density, no infiltrates, no pneumothorax EKG Data: atrial fibrillation, rapid ventricular response, diffuse T-wave inversions, and <1mm diffuse ST depressons Assess/Plan/Problems-Billing Assessment: This is a 72 year old male admitted [place] [facility] [place] worsening agitation and confusion , bacteremia now on antibiotics with a prolonged ICU stay and persistent AMS. - Patient Problems (1) Nutrition disorder Current Visit: Yes Status: Acute Code(s): E63.9 - NUTRITIONAL DEFICIENCY, UNSPECIFIED SNOMED Code(s): 3217206 Comment: - speech did clear to start puree diet and nectar thick liquid - Will continue TPN and reassess in am - He did well when the speech pathologist did feed him. Will need dedicated one on one for diet and meals. - Unfortunately he was seen this evening, his dinner tray in the room at bedside. I did asked nurse staff to assist with feed as he is not able to feed himself. (2) Delirium Current Visit: Yes Status: Acute Code(s): R41.0 - DISORIENTATION, UNSPECIFIED SNOMED Code(s): 4336909 Comment: - Available records noted reviewed - Neurology/palliative care input appreciated - I agree it is related to his acute illness, sepsis, polypharmacy and being in a strange environement - I will d/c Morphine as he has not required it all day - in am will try if we can have a sitter to ensure safety, he is not on restraints. - Will keep him on ativan for now as it is ordered prn. (3) Alzheimer disease Current Visit: Yes Status: Chronic Code(s): G30.9 - ALZHEIMER'S DISEASE, UNSPECIFIED; F02.80 - DEMENTIA IN OTH DISEASES CLASSD ELSWHR W/O BEHAVRL DISTURB SNOMED Code(s): 97741476 Comment: - Available records noted reviewed - Neurology/palliative care input appreciated - I agree it is related to his acute illness, sepsis, polypharmacy and being in a strange environement - I will d/c Morphine as he has not required it all day - Will keep him on ativan for now as it is ordered prn (4) Atrial fibrillation with rapid ventricular response Current Visit: Yes Status: Resolved Priority: Medium Code(s): I48.91 - UNSPECIFIED ATRIAL FIBRILLATION SNOMED Code(s): 615561288142423 Comment: - Rate controlled. - Secondary to his CHF and polypharmacy - Continue digoxin IV 125 mcg daily - Continue lopressor 5 mg IV but will increase to q4hrs, given his increase PVC and short run of VT - AICD in place (it was triggered on 05/08/18) (5) Ventricular tachycardia (paroxysmal) Current Visit: Yes Status: Acute Priority: High Code(s): I47.2 - VENTRICULAR TACHYCARDIA SNOMED Code(s): 48695533 Comment: - His AICD fired on 05/08/18 - Secondary to his CHF and polypharmacy - Continue digoxin IV 125 mcg daily - Continue lopressor 5 mg but will increase to q4hrs, given his increase PVC and short run of VT - AICD in place (it was triggered on 05/08/18) (6) Ventricular tachycardia Current Visit: Yes Status: Acute Code(s): I47.2 - VENTRICULAR TACHYCARDIA SNOMED Code(s): 58335634 Comment: - Secondary to his CHF and polypharmacy - Continue digoxin IV 125 mcg daily - Continue lopressor 5 mg but will increase to q4hrs, given his increase PVC and short run of VT - AICD in place (it was triggered on 05/08/18) (7) AICD (automatic cardioverter/defibrillator) present Current Visit: Yes Status: Acute Code(s): Z95.810 - PRESENCE OF AUTOMATIC ( IMPLANTABLE) CARDIAC DEFIBRILLATOR SNOMED Code(s): 040515141 Comment: - Continue digoxin IV 125 mcg daily - Continue lopressor 5 mg but will increase to q4hrs, given his increase PVC and short run of VT - AICD in place (it was triggered on 05/08/18) (8) History of pulmonary embolism Current Visit: Yes Status: Acute Code(s): Z86.711 - PERSONAL HISTORY OF PULMONARY EMBOLISM SNOMED Code(s): 922040727 Comment: - History of PE, As per available records his PE was sometimes in 2017 diagnosed at [place]??? - Now on lovenox 70 mg SQ q12. 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 - continue Ampicillin 2 gm IV Q 4hrs Day # - continue Rocephin 2 gm IV Q121 hrs Day # - His sputum cultures shows polymicrobes, CXR negative. I believe his sputum cultures are simply colonizations. Will not treat (11) Hypertension Current Visit: Yes Status: Acute Code(s): I10 - ESSENTIAL (PRIMARY) HYPERTENSION SNOMED Code(s): 97194727 Comment: - On clonidine patch 0.3 mg weekly - On vasotec 1.25 mg IV q6hrs - Continue lopressor 5 mg but will increase to q4hrs, given his increase PVC and short run of VT - Hydralazine 10 mg IV q6hrs (12) DVT prophylaxis Current Visit: Yes Status: Acute Priority: Low Code(s): [id number] - SNOMED Code(s): 161148343 Comment: Off eliquis, on lovenox full dose treatmenet for his history of PE Status and Disposition: ICU monitoring due to high risk of arrhythmia and decompensation of CHF, patient is full code per /HCP.
[2018-05-13] MEDS: LORazepam INJ* 2 MG/ML 1 ML VIAL IV PUSH PRN ×2 (00:27→20:06)
[2018-05-13] MEDS: Metoprolol Tartrate IV* 1 MG/ML 5 ML VIAL IV SCH ×6 (00:38→20:50)
[2018-05-13] MEDS: Enalaprilat IV* 1.25 MG/ML 2 ML VIAL (2.5 MG) IV SCH ×4 (00:39→20:06)
[2018-05-13] MEDS: Scopolamine 1.5 mg* PATCH TRANSDERM SCH (00:39)
[2018-05-13] MEDS: Enoxaparin(*) 80 MG/0.8 ML SYR SUBCUT SCH ×2 (00:40→12:29)
[2018-05-13] MEDS: Ampicillin ADVAN(*) 2 GM in NS 0.9% 100 ML* 100 ML IVPB SCH ×6 (02:46→20:50)
[2018-05-13] MEDS: cefTRIAXone(*) 1 GM in NS 0.9% 50 ML* 50 ML IVPB SCH ×2 (04:20→17:05)
[2018-05-13] MEDS: Furosemide IV* 10 MG/ML 2 ML VIAL (20 MG) IV SCH (08:50)
[2018-05-13] MEDS: Aspirin SUPP* 300 MG PR SCH (08:51)
[2018-05-13] MEDS: Digoxin IV* 0.5 MG/2 ML AMP (0.25 MG/ML) IV SLOW PU SCH (08:51)
[2018-05-13] MEDS: Acetaminophen SUPP* 650 MG SUPP PR PRN (09:14)
[2018-05-13 10:37] LABS: BUN/Creatinine Ratio 31.9 (8-20); Calcium 9.2 mg/dL (8.6-10.3); EGFR African American 94.9 (>60); EGFR Non-African American 78.4 (>60); Potassium 3.9 mmol/L (3.5-5.0)
[2018-05-13] MEDS: TPN* 24 HR with Dextrose 50% Water* 500 ML, Amino Acid Infusion 10%* 850 ML, Sterile Wa... CENTR SCH ×12 (17:04)
--- NOTE | 2018-05-13 18:44 | PN ---
Subjective Date of Service: 05/13/18 Interval History: Patient seems more awake today. He was actually trying to get out of the bed. He was witnessed to do well with breakfast, he was able to take little more than 50%. than later on mid day he was refusing to participate for feeding. Patient had clearly demonstrated his ability to take orally when is willing to participate and refused when he wants. but as per staff he was able to take by mouth without any difficulty. Will wait for full assessment of speech pathologist in am. I think his TPN can be stopped and can be placed on oral feed as tolerated and as per his willingness to participate. 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, quit smoking 1988, former alcohol abuse, no drugs Past Medical History: Findings Objective Active Medications: Acetaminophen (Tylenol Supp*) 650 mg NM Q4H PRN PRN Reason: FEVER/HEADACHE Last Admin: 05/13/18 09:14 Dose: 650 mg Albuterol/Ipratropium (Duoneb (Albuterol 2.5 Mg/Ipratropium 0.5 Mg)) 1 neb INH Q6H PRN PRN Reason: SOB/WHEEZING Aspirin (Asa Supp*) 300 mg NM DAILY [facility] Last Admin: 05/13/18 08:51 Dose: 300 mg Clonidine HCl (Iakoktxw-Dfl-1 0.3 Mg Patch*) 0.3 mg TRANSDERM Q7D [facility] Last Admin: 05/07/18 19:43 Dose: 0.3 mg Digoxin (Digoxin Iv*) 0.125 mg IV SLOW PU DAILY [facility] Last Admin: 05/13/18 08:51 Dose: 0.125 mg Enalaprilat (Vasotec Iv*) 0.625 mg IV 0130,0730,1330,1930 [facility] Last Admin: 05/13/18 12:30 Dose: 0.625 mg Enoxaparin Sodium (Lovenox(*)) 70 mg SUBCUT Q12H [facility] Last Admin: 05/13/18 12:29 Dose: 70 mg Furosemide (Lasix Iv*) 20 mg IV DAILY [facility] Last Admin: 05/13/18 08:50 Dose: 20 mg Heparin Sodium (Porcine) (Heparin Flush Picc/Ml/Cvc(*)) 1 - 3 ml FLUSH 0600, 1800 [facility]; Protocol Last Admin: 05/13/18 18:31 Dose: 1 ml Hydralazine HCl (Apresoline Iv*) 10 mg IV SLOW PU Q6H PRN PRN Reason: SYSTOLIC BP GREATER THAN: Last Admin: 05/03/18 01:47 Dose: 10 mg Ampicillin Sodium 2 gm/ Sodium (Chloride) 100 mls @ 200 mls/hr IVPB Q4H [facility] Last Admin: 05/13/18 17:39 Dose: 200 mls/hr Ceftriaxone Sodium 1 gm/ (Sodium Chloride) 50 mls @ 200 mls/hr IVPB Q12H [facility] Last Admin: 05/13/18 17:05 Dose: 200 mls/hr Dextrose 500 ml/ Amino Acids 850 ml/ Sterile Water 150 ml/Fat Emulsion Intravenous 250 ml/ Sodium Chloride 100 meq/Potassium Chloride 80 meq/Potassium Phosphate 15 mmole/Calcium Gluconate 15 meq/Magnesium Sulfate 10 meq/ Multivitamins 10 ml/ Trace Metals 1 ml/ Nutrition ( Parenteral) 1,865.721 mls @ 77.738 mls/hr CENTR 1700 [facility]; Protocol Last Admin: 05/13/18 17:04 Dose: 77.738 mls/hr Lorazepam (Ativan Inj*) 1 mg IV PUSH BEDTIME PRN PRN Reason: AGITATION Last Admin: 05/13/18 00:27 Dose: 1 mg Metoprolol Tartrate (Lopressor Iv*) 5 mg IV Q4H [facility] Last Admin: 05/13/18 17:05 Dose: 5 mg Pharmacy Profile Note (Scopolamine Patch Remove*) 1 note PATCH OFF .AFTER 72 HOURS [facility] Scopolamine (Transderm-Scop 1.5 Mg Patch*) 1 patch TRANSDERM Q72H [facility] Last Admin: 05/13/18 00:39 Dose: 1 patch Vital Signs - 8 hr 05/13/18 05/13/18 05/13/18 11:42 15:59 16:36 Temperature 98.1 F 98.1 F Pulse Rate 98 Respiratory 20 26 Rate Blood Pressure 132/35 82/41 110/64 (mmHg) O2 Sat by Pulse 98 Oximetry Oxygen Devices in Use Now: None Appearance: Awake, no distress Eyes: No Scleral Icterus Ears/Nose/Mouth/Throat: Mucous Membranes Moist, - - atphous ulcer roof of his mouth Neck: Trachea Midline Respiratory: Symmetrical Chest Expansion and Respiratory Effort Cardiovascular: NL Sounds; No Murmurs; No JVD - Nutrition: Malnutrition Diagnosis/Plan Malnutrition Assessment by Registered Dietitian: Malnutrition Assessment Clinical Characteristics Acute,Moderate Malnutrition Assessment: - po intake < 75% EEE x > 7 days Criteria - mild temporal muscle wasting Malnutrition Assessment: 1. attempts to place NGT for feeding (all Interventions unsuccessful) 2. PICC placement 05/04/18 3. plan to begin TPN 05/05 or 05/06 if pt not adequate alert for safe po intake - TPN base A suggested Malnutrition Assessment: Goals 1. adequate nutrition provision (via PO or enteral or parenteral nutrition) to meet pt's est need and support stable wt, hydration, and replete lean body mass 2. achieve and maintain serum electrolytes within acceptable ranges 3. maintain glycemic control within critical care parameters; w/possible start of TPN 4. maintain intact skin integrity without evidence of new breakdown Result Diagrams: 05/11/18 04:40 05/13/18 10:11 Additional Lab and Data: Laboratory Tests 04/29/18 04/29/18 04/29/18 17:42 17:50 17:50 ESR INR (Anticoag Therapy) 1.16 H APTT 28.5 ABG pH 7.47 H ABG pCO2 30 L ABG pO2 391 H ABG HCO3 24.2 Lactic Acid Calcium 9.2 Total Bilirubin 1.50 H Troponin I 0.06 H* C-Reactive Protein 26.73 H B-Natriuretic Peptide Total Protein 6.8 Urine Ketones Digoxin 1.0 Valproic Acid 44.0 L Influenza A (Rapid) Influenza B (Rapid) 04/29/18 04/29/18 04/29/18 18:21 19:18 19:31 ESR INR (Anticoag Therapy) APTT ABG pH ABG pCO2 ABG pO2 ABG HCO3 Lactic Acid 1.3 Calcium Total Bilirubin Troponin I C-Reactive Protein B-Natriuretic Peptide 1254 H Total Protein Urine Ketones Trace A Digoxin Valproic Acid Influenza A (Rapid) Influenza B (Rapid) 04/29/18 04/29/18 19:46 20:11 ESR 17 INR (Anticoag Therapy) APTT ABG pH ABG pCO2 ABG pO2 ABG HCO3 Lactic Acid Calcium Total Bilirubin Troponin I C-Reactive Protein B-Natriuretic Peptide Total Protein Urine Ketones Digoxin Valproic Acid Influenza A (Rapid) Negative Influenza B (Rapid) Negative Microbiology and Other Data: Microbiology 04/29/18 21:55 Nasal Screen MRSA (PCR) - Final Nasal Mrsa Not Detected 04/29/18 19:18 Influenza Types A,B Antigen - Final Nasal Specimen received for Influenza A/B Molecular testing Diagnostic Imaging: CXR: perihilar increase density, no infiltrates, no pneumothorax EKG Data: atrial fibrillation, rapid ventricular response, diffuse T-wave inversions, and <1mm diffuse ST depressons Assess/Plan/Problems-Billing Assessment: This is a 72 year old male admitted to [facility] for worsening agitation and confusion , bacteremia now on antibiotics with a prolonged ICU stay and persistent AMS. - Patient Problems (1) Nutrition disorder Current Visit: Yes Status: Acute Code(s): E63.9 - NUTRITIONAL DEFICIENCY, UNSPECIFIED SNOMED Code(s): 6464309 Comment: - speech did clear to start puree diet and nectar thick liquid - Will continue TPN for today. He is able to take po (Puree and nectar thick) however it is whether or not he is willing to participate. He does have small atphous ulcer in the room of his mouth which can be probitive to take by mouth but he did pass the swallow evaluation and able to take his diet well. he needs to be willing to take food by mouth - He did well when the speech pathologist did feed him. (2) Delirium Current Visit: Yes Status: Acute Code(s): R41.0 - DISORIENTATION, UNSPECIFIED SNOMED Code(s): 9639364 Comment: - Available records noted reviewed - Neurology/palliative care input appreciated - I agree it is related to his acute illness, sepsis, polypharmacy and being in a strange environement - off Morphine as he has not required it all day pat 24+ hours - Will keep him on ativan for now as it is ordered prn. (3) Alzheimer disease Current Visit: Yes Status: Chronic Code(s): G30.9 - ALZHEIMER'S DISEASE, UNSPECIFIED; F02.80 - DEMENTIA IN OTH DISEASES CLASSD ELSWHR W/O BEHAVRL DISTURB SNOMED Code(s): 31593727 Comment: - Available records noted reviewed - Neurology/palliative care input appreciated - I agree it is related to his acute illness, sepsis, polypharmacy and being in a strange environement - I will d/c Morphine as he has not required it all day - Will keep him on ativan for now as it is ordered prn (4) Atrial fibrillation with rapid ventricular response Current Visit: Yes Status: Resolved Priority: Medium Code(s): I48.91 - UNSPECIFIED ATRIAL FIBRILLATION SNOMED Code(s): 131123932111335 Comment: - Rate controlled. - Secondary to his CHF and polypharmacy - Continue digoxin IV 125 mcg daily - Continue lopressor 5 mg IV but will increase to q4hrs, given his increase PVC and short run of VT - AICD in place (it was triggered on 05/08/18) (5) Ventricular tachycardia (paroxysmal) Current Visit: Yes Status: Acute Priority: High Code(s): I47.2 - VENTRICULAR TACHYCARDIA SNOMED Code(s): 35977570 Comment: - His AICD fired on 05/08/18 - Secondary to his CHF and polypharmacy - Continue digoxin IV 125 mcg daily - Continue lopressor 5 mg but will increase to q4hrs, given his increase PVC and short run of VT - AICD in place (it was triggered on 05/08/18) (6) Ventricular tachycardia Current Visit: Yes Status: Acute Code(s): I47.2 - VENTRICULAR TACHYCARDIA SNOMED Code(s): 75428045 Comment: - Secondary to his CHF and polypharmacy - Continue digoxin IV 125 mcg daily - Continue lopressor 5 mg but will increase to q4hrs, given his increase PVC and short run of VT - AICD in place (it was triggered on 05/08/18) (7) AICD (automatic cardioverter/defibrillator) present Current Visit: Yes Status: Acute Code(s): Z95.810 - PRESENCE OF AUTOMATIC ( IMPLANTABLE) CARDIAC DEFIBRILLATOR SNOMED Code(s): 367314215 Comment: - Continue digoxin IV 125 mcg daily - Continue lopressor 5 mg but will increase to q4hrs, given his increase PVC and short run of VT - AICD in place (it was triggered on 05/08/18) (8) History of pulmonary embolism Current Visit: Yes Status: Acute Code(s): Z86.711 - PERSONAL HISTORY OF PULMONARY EMBOLISM SNOMED Code(s): 863930980 Comment: - History of PE, As per available records his PE was sometimes in 2017 diagnosed at [place] - Now on lovenox 70 mg SQ q12. Once safe to take po will resume PO anticoagulations (9) COPD exacerbation Current Visit: Yes Status: Resolved Code(s): J44.1 - CHRONIC OBSTRUCTIVE PULMONARY DISEASE W (ACUTE) EXACERBATION SNOMED Code(s): 944278166 Comment: - Stable, not in exacerbation at this time - Continue Duoneb prn (10) Sepsis Current Visit: Yes Status: Acute Priority: High Comment: - secondary to enteroccous bactermia 04/29/17 repeat BC 05/01/17 reveals no growth - ID input appreciated. - continue Ampicillin 2 gm IV Q 4hrs Day # - continue Rocephin 2 gm IV Q121 hrs Day # - His sputum cultures shows polymicrobes, CXR negative. I believe his sputum cultures are simply colonizations. Will not treat (11) Hypertension Current Visit: Yes Status: Acute Code(s): I10 - ESSENTIAL (PRIMARY) HYPERTENSION SNOMED Code(s): 64151749 Comment: - On clonidine patch 0.3 mg weekly - On vasotec 1.25 mg IV q6hrs - Continue lopressor 5 mg but will increase to q4hrs, given his increase PVC and short run of VT - Hydralazine 10 mg IV q6hrs (12) DVT prophylaxis Current Visit: Yes Status: Acute Priority: Low Code(s): BBH6879 - SNOMED Code(s): 708119203 Comment: Off eliquis, on lovenox full dose treatmenet for his history of PE Status and Disposition: ICU monitoring due to high risk of arrhythmia and decompensation of CHF, patient is full code per /HCP.
[2018-05-14] MEDS: Metoprolol Tartrate IV* 1 MG/ML 5 ML VIAL IV SCH ×4 (01:06→13:32)
[2018-05-14] MEDS: Enoxaparin(*) 80 MG/0.8 ML SYR SUBCUT SCH ×2 (01:06→13:32)
[2018-05-14] MEDS: Enalaprilat IV* 1.25 MG/ML 2 ML VIAL (2.5 MG) IV SCH ×4 (01:07→20:32)
[2018-05-14] MEDS: Ampicillin ADVAN(*) 2 GM in NS 0.9% 100 ML* 100 ML IVPB SCH ×6 (01:07→20:33)
[2018-05-14] MEDS: cefTRIAXone(*) 1 GM in NS 0.9% 50 ML* 50 ML IVPB SCH ×2 (04:33→17:19)
[2018-05-14 07:28] LABS: Calcium 9.2 mg/dL (8.6-10.3); EGFR African American 99.8 (>60); EGFR Non-African American 82.5 (>60); Magnesium 2.1 mg/dL (1.9-2.7); Phosphorus 3.6 mg/dL (2.5-5.0); Potassium 3.7 mmol/L (3.5-5.0)
[2018-05-14] MEDS: Furosemide IV* 10 MG/ML 2 ML VIAL (20 MG) IV SCH (09:20)
[2018-05-14] MEDS: Aspirin SUPP* 300 MG PR SCH (09:21)
[2018-05-14] MEDS: Acetaminophen SUPP* 650 MG SUPP PR PRN (09:21)
[2018-05-14] MEDS: Digoxin IV* 0.5 MG/2 ML AMP (0.25 MG/ML) IV SLOW PU SCH (09:21)
--- NOTE | 2018-05-14 09:57 | PN ---
Progress Note - Progress Note Date of Service: 05/14/18 SOAP: Subjective: CC: bacteremia HPI: 72 year old man with dementia admitted with septic encephalopathy and bacteremia. He cannot provide history or ROS. Formed stools per RN. Eating a little when fed by aide. Objective: Vital Signs Temp 36.9 C 05/14/18 07:24 Pulse 92 05/14/18 09:21 Resp 18 05/14/18 07:24 BP 131/106 05/14/18 09:19 Pulse Ox 99 05/14/18 07:24 Intake & Output 05/13/18 05/14/18 05/14/18 18:59 06:59 18:59 Intake Total 340 2455 Output Total 900 1775 Balance -560 680 Weight 155 lb 9.6 oz Intake: IV Fluids 10 793 ABX - AMPICILLIN 10 303 Ampicillin 353 Rocephin 52 normal saline 85 IVPB 200 ABX - AMPICILLIN 200 TPN/PPN 1662 Oral 130 0 Output: Cristina 900 1775 Other: # Bowel Movements 0 Gen:awake, not in distress Neuro: tracks, does not interact, does not respond to questions HEENT: no thrush Heart:RRR no murmur Lungs:CTA BL Abd:+BS NTND soft Skin: no rash Laboratory Results - last 24 hr 05/13/18 05/13/18 05/13/18 10:11 11:09 16:24 Sodium 145 Potassium 3.9 Chloride 115 H Carbon Dioxide 25 Anion Gap 5 BUN 30 H Creatinine 0.94 Est GFR ( Amer) 94.9 Est GFR (Non-Af Amer) 78.4 BUN/Creatinine Ratio 31.9 H Glucose 136 H POC Glucose (mg/dL) 130 H 132 H Calcium 9.2 Phosphorus Magnesium 05/13/18 05/14/18 05/14/18 20:13 01:14 04:38 Sodium Potassium Chloride Carbon Dioxide Anion Gap BUN Creatinine Est GFR ( Amer) Est GFR (Non-Af Amer) BUN/Creatinine Ratio Glucose POC Glucose (mg/dL) 122 H 123 H 123 H Calcium Phosphorus Magnesium 05/14/18 05/14/18 05:52 07:34 Sodium 148 H Potassium 3.7 Chloride 116 H Carbon Dioxide 24 Anion Gap 8 BUN 27 H Creatinine 0.90 Est GFR ( Amer) 99.8 Est GFR (Non-Af Amer) 82.5 BUN/Creatinine Ratio 30.0 H Glucose 115 H POC Glucose (mg/dL) 132 H Calcium 9.2 Phosphorus 3.6 Magnesium 2.1 Assessment: 1. 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 dementia Plan: 1. continue ampicillin 2 gm IV Q4hrs, ceftriaxone 1 gm Q12hrs; day . 2. TPN to stop today 3. PT eval pending
--- NOTE | 2018-05-14 16:24 | PN ---
Subjective Date of Service: 05/14/18 Interval History: Mr. Mcgrath is not able to answer any questions. Nursing reports that he is eating more today. Continues to have periods of agitation and restlessness and that he may be experiencing pain during those times. This afternoon, he reportedly had an episode of clarity where he was able to answer questions appropriately. His requested PT nestor as she would like him to go to [place] for rehab. Family History: Unchanged from Admission Social History: Unchanged from Admission Past Medical History: Unchanged from Admission Objective Active Medications: Acetaminophen (Tylenol Supp*) 650 mg MT Q4H PRN FEVER/HEADACHE Albuterol/Ipratropium (Duoneb (Albuterol 2.5 Mg/Ipratropium 0.5 Mg)) 1 neb INH Q6H PRN SOB/WHEEZING Aspirin (Asa Supp*) 300 mg MT DAILY [facility] Clonidine HCl (Pdjxkjwk-Zry-3 0.3 Mg Patch*) 0.3 mg TRANSDERM Q7D [facility] Digoxin (Digoxin Iv*) 0.125 mg IV SLOW PU DAILY [facility] Enalaprilat (Vasotec Iv*) 0.625 mg IV 0130,0730,1330,1930 [facility] Enoxaparin Sodium (Lovenox(*)) 70 mg SUBCUT Q12H [facility] Furosemide (Lasix Iv*) 20 mg IV DAILY [facility] Heparin Sodium (Porcine) (Heparin Flush Picc/Ml/Cvc(*)) 1 - 3 ml FLUSH 0600, 1800 [facility]; Protocol Hydralazine HCl (Apresoline Iv*) 10 mg IV SLOW PU Q6H PRN SYSTOLIC BP Ampicillin Sodium 2 gm/ Sodium (Chloride) 100 mls @ 200 mls/hr IVPB Q4H [facility] Ceftriaxone Sodium 1 gm/ (Sodium Chloride) 50 mls @ 200 mls/hr IVPB Q12H [facility] Lorazepam (Ativan Inj*) 1 mg IV PUSH BEDTIME PRN AGITATION Metoprolol Tartrate (Lopressor Iv*) 5 mg IV Q4H [facility] Pharmacy Profile Note (Scopolamine Patch Remove*) 1 note PATCH OFF .AFTER 72 HOURS [facility] Scopolamine (Transderm-Scop 1.5 Mg Patch*) 1 patch TRANSDERM Q72H [facility] Vital Signs - 8 hr 05/14/18 05/14/18 05/14/18 09:19 09:21 11:49 Temperature 98.3 F Pulse Rate 92 82 Respiratory 28 Rate Blood Pressure 131/106 129/70 (mmHg) O2 Sat by Pulse 100 Oximetry 05/14/18 15:40 Temperature 97.6 F Pulse Rate 100 Respiratory 16 Rate Blood Pressure 126/95 (mmHg) O2 Sat by Pulse 97 Oximetry Oxygen Devices in Use Now: None Appearance: Elderly male laying in bed in NAD Eyes: No Scleral Icterus Ears/Nose/Mouth/Throat: Mucous Membranes Moist Neck: NL Appearance and Movements; NL JVP, Trachea Midline Respiratory: Symmetrical Chest Expansion and Respiratory Effort, Clear to Auscultation Cardiovascular: NL Sounds; No Murmurs; No JVD, RRR Abdominal: NL Sounds; No Tenderness; No Distention Extremities: No Edema Neurological: - - Arouses to voice Lines/Tubes/Other Access: Clean, Dry and Intact PICC Line Nutrition: Taking PO's, TPN - Nutrition: Malnutrition Diagnosis/Plan Malnutrition Assessment by Registered Dietitian: Malnutrition Assessment Clinical Characteristics Acute,Moderate Malnutrition Assessment: - po intake < 75% EEE x > 7 days Criteria - mild temporal muscle wasting Malnutrition Assessment: 1. attempts to place NGT for feeding (all Interventions unsuccessful) 2. PICC placement 05/04/18 3. plan to begin TPN 05/05 or 05/06 if pt not adequate alert for safe po intake - TPN base A suggested Malnutrition Assessment: Goals 1. adequate nutrition provision (via PO or enteral or parenteral nutrition) to meet pt's est need and support stable wt, hydration, and replete lean body mass 2. achieve and maintain serum electrolytes within acceptable ranges 3. maintain glycemic control within critical care parameters; w/possible start of TPN 4. maintain intact skin integrity without evidence of new breakdown Result Diagrams: 05/15/18 05:42 05/15/18 06:40 Assess/Plan/Problems-Billing Assessment: Mr. Hinkle is a 72 year old male admitted to [facility] for worsening agitation and confusion, bacteremia now on antibiotics with a prolonged ICU stay, persistent AMS, and multiple complications. - Patient Problems (1) Bacteremia Code(s): R78.81 - BACTEREMIA Comment: - BC on admission grew Enterococcus faecalis, 4/4 bottles; repeat BC negative - Source is unclear - Appreciate ID consult - Continue ampicillin and ceftriaxone per ID (day ) (2) Delirium Code(s): R41.0 - DISORIENTATION, UNSPECIFIED Comment: - Secondary to sepsis, prolonged hospitalization, baseline dementia - Geodon and Haldol d/c'd on 05/07 d/t QTc prolongation - Appreciate Neurology consult; saw on 05/[address] and EEG - CT brain unremarkable for acute findings; EEG showed findings consistent with diffuse cerebral dysfunction - Continue lorazepam (3) Malnutrition of moderate degree Code(s): E44.0 - MODERATE PROTEIN-CALORIE MALNUTRITION Comment: - See Smoke Control Supervisor assessment - Speech therapy following - D/c TPN today as his PO intake has improved significantly (4) Sepsis Comment: - Present on admission, now resolved - Secondary to Enteroccous bactermia 04/29; repeat BC 05/01 negative - Sputum cultures shows polymicrobes, but CXR negative; suspect this represents colonization - Plan as above (5) Hypertension Code(s): I10 - ESSENTIAL (PRIMARY) HYPERTENSION Comment: - Normotensive, SBP 110-130s - D/c clonidine patch - Resume metoprolol (home dose), Vasotec IV, hydralazine PRN (6) Acute on chronic systolic CHF (congestive heart failure) Code(s): I50.23 - ACUTE ON CHRONIC SYSTOLIC (CONGESTIVE) HEART FAILURE Comment : - Now resolved after diuresis - BNP was >1300 and pulmonary edema noted on CxR - Echo on 04/29 showed EF 40-45%, mild LV hypokinesis - Continue furosemide and metoprolol (home doses), digoxin IV (7) Acute hypoxemic respiratory failure Code(s): J96.01 - ACUTE RESPIRATORY FAILURE WITH HYPOXIA Comment: - Secondary to CHF exacerbation, now resolved - Required BiPAP on admission (8) Atrial fibrillation with rapid ventricular response Code(s): I48.91 - UNSPECIFIED ATRIAL FIBRILLATION Comment: - Now rate controlled - Continue metoprolol, digoxin, Lovenox (9) Ventricular tachycardia (paroxysmal) Code(s): I47.2 - VENTRICULAR TACHYCARDIA Comment: - AICD fired on 05/08 - Secondary to CHF and polypharmacy - Continue digoxin IV and metoprolol (10) AICD (automatic cardioverter/defibrillator) present Code(s): Z95.810 - PRESENCE OF AUTOMATIC (IMPLANTABLE) CARDIAC DEFIBRILLATOR Comment: - Fired on 05/08/18, run of VT and Torsades de pointes were noted on tele (11) History of pulmonary embolism Code(s): Z86.711 - PERSONAL HISTORY OF PULMONARY EMBOLISM Comment: - As per available records his PE was sometime in 12/2017 at [place] - Now on lovenox 70 mg SQ q12; once PO intake is consistent, will resume Eliquis (12) Alzheimer disease Code(s): G30.9 - ALZHEIMER'S DISEASE, UNSPECIFIED; F02.80 - DEMENTIA IN OTH DISEASES CLASSD ELSWHR W/O BEHAVRL DISTURB Comment: - Resume Aricept (13) COPD (chronic obstructive pulmonary disease) Code(s): J44.9 - CHRONIC OBSTRUCTIVE PULMONARY DISEASE, UNSPECIFIED Comment: - Stable, not in exacerbation - Continue nebs (14) DVT prophylaxis Comment: - Lovenox; will resume Eliquis when he is tolerating PO meds (15) DNR (do not resuscitate) Comment: Status and Disposition: Inpatient for IV antibiotics, delirium, and malnutrition requiring IV medications. Anticipate d/c to SNF when medically stable. Attending: Waldo Kwok
[2018-05-14] MEDS ORDERED: Acetaminophen ADULT LIQ* 650 MG/20.3 ML UDC PO PRN (17:01)
[2018-05-14] MEDS: LORazepam INJ* 2 MG/ML 1 ML VIAL IV PUSH PRN (20:33)
[2018-05-14] MEDS: Metoprolol Tartrate TAB* 100 MG TAB PO SCH (20:33)
[2018-05-15] MEDS: Enoxaparin(*) 80 MG/0.8 ML SYR SUBCUT SCH ×2 (01:33→13:02)
[2018-05-15] MEDS: Ampicillin ADVAN(*) 2 GM in NS 0.9% 100 ML* 100 ML IVPB SCH ×6 (01:34→21:29)
[2018-05-15] MEDS: Enalaprilat IV* 1.25 MG/ML 2 ML VIAL (2.5 MG) IV SCH ×3 (01:36→13:43)
[2018-05-15] MEDS: HYDROcodone/ACET. 7.5/325 LIQ* 15 ML UDC PO PRN (01:57)
[2018-05-15] MEDS: cefTRIAXone(*) 1 GM in NS 0.9% 50 ML* 50 ML IVPB SCH ×2 (04:59→17:06)
[2018-05-15] MEDS ORDERED: LORazepam INJ* 2 MG/ML 1 ML VIAL IV PUSH ONE ×2 (05:07→19:58)
[2018-05-15 05:47] LABS: ABS Basophils 0.2 10^3/ul (0-0.2); ABS Eosinophils 0.2 10^3/ul (0-0.6); ABS Lymphocytes 0.8 10^3/ul (1.0-4.8); ABS Monocytes 0.4 10^3/ul (0-0.8); ABS Neutrophils 4.7 10^3/ul (1.5-7.7); ABS Nucleated RBC 0 10^3/ul; Eosinophil % 2.7 %; Hematocrit 31 % (42-52); Hemoglobin 10.4 g/dl (14.0-18.0); Lymphocyte % 12.1 %; Mean Corpuscular HGB Conc 34 g/dl (31-36); Mean Corpuscular Hemoglobin 30 pg (27-31); Mean Corpuscular Volume 88 fL (80-94); Mean Platelet Volume 8.4 fL (7.4-10.4); Nucleated Red Blood Cells % 0; Platelet Count 200 10^3/ul (150-450); Red Blood Count 3.48 10^6/ul (4.00-5.40); Red Cell Distribution Width 17 % (10.5-15); White Blood Count 6.3 10^3/ul (3.5-10.8)
[2018-05-15 06:03] LABS: BUN/Creatinine Ratio 24.4 (8-20); EGFR African American 105.2 (>60); EGFR Non-African American 86.9 (>60)
[2018-05-15 06:26] LABS: Potassium 2.6 mmol/L (3.5-5.0)
[2018-05-15 07:09] LABS: BUN/Creatinine Ratio 28.6 (8-20); Calcium 8.3 mg/dL (8.6-10.3); EGFR African American 98.5 (>60); EGFR Non-African American 81.4 (>60); Potassium 3.3 mmol/L (3.5-5.0)
[2018-05-15] MEDS: Aspirin TAB* 325 MG PO SCH (08:28)
[2018-05-15] MEDS: KCL 20 MEQ/100 ML IVPREMIX* 20 MEQ/100 ML BAG IV SCH ×2 (08:28→11:50)
[2018-05-15] MEDS: Donepezil TAB* 5 MG PO SCH (10:41)
[2018-05-15] MEDS: Metoprolol Tartrate TAB* 100 MG TAB PO SCH ×2 (10:41→21:20)
[2018-05-15] MEDS: Furosemide TAB* 20 MG PO SCH (10:42)
[2018-05-15] MEDS: Digoxin IV* 0.5 MG/2 ML AMP (0.25 MG/ML) IV SLOW PU SCH (10:50)
[2018-05-15] MEDS: LORazepam INJ* 2 MG/ML 1 ML VIAL IV PUSH PRN (13:40)
--- NOTE | 2018-05-15 15:43 | PN ---
Subjective Date of Service: 05/15/18 Interval History: Mr. Hinkle is tired this morning and not able to answer most questions. He does admit to being hungry. Nursing reports he has been urinating well since Cristina was removed. He has been taking his PO medications and eating, though is not always particularly cooperative. Family History: Unchanged from Admission Social History: Unchanged from Admission Past Medical History: Unchanged from Admission Objective Active Medications: Acetaminophen (Tylenol Adult Liq*) 650 mg PO Q6H PRN FEVER/PAIN Hydrocodone Bitart/Acetaminophen (Nortab 7.5/325 Liq*) 5 ml PO Q6H PRN PAIN Albuterol/Ipratropium (Duoneb (Albuterol 2.5 Mg/Ipratropium 0.5 Mg)) 1 neb INH Q6H PRN SOB/WHEEZING Apixaban (Eliquis*) 5 mg PO BID [facility] Aspirin (Aspirin Tab*) 325 mg PO DAILY [facility] Digoxin (Lanoxin Tab*) 0.125 mg PO 1700 [facility] Donepezil HCl (Aricept Tab*) 10 mg PO DAILY [facility] Furosemide (Lasix Tab*) 40 mg PO DAILY [facility] Heparin Sodium (Porcine) (Heparin Flush Picc/Ml/Cvc(*)) 1 - 3 ml FLUSH 0600, 1800 [facility]; Protocol Hydralazine HCl (Apresoline Iv*) 10 mg IV SLOW PU Q6H PRN SYSTOLIC BP Ampicillin Sodium 2 gm/ Sodium (Chloride) 100 mls @ 200 mls/hr IVPB Q4H [facility] Ceftriaxone Sodium 1 gm/ (Sodium Chloride) 50 mls @ 200 mls/hr IVPB Q12H [facility] Lisinopril (Prinivil Tab*) 5 mg PO DAILY [facility] Lorazepam (Ativan Inj*) 1 mg IV PUSH BEDTIME PRN AGITATION Metoprolol Tartrate (Lopressor Tab*) 100 mg PO BID [facility] Pharmacy Profile Note (Scopolamine Patch Remove*) 1 note PATCH OFF .AFTER 72 HOURS [facility] Scopolamine (Transderm-Scop 1.5 Mg Patch*) 1 patch TRANSDERM Q72H [facility] Vital Signs - 8 hr 05/15/18 05/15/18 05/15/18 08:00 10:50 12:06 Temperature 98.6 F Pulse Rate 97 117 Respiratory 19 20 Rate Blood Pressure 115/95 (mmHg) O2 Sat by Pulse 98 Oximetry 05/15/18 05/15/18 13:00 13:40 Temperature 98.0 F Pulse Rate 68 Respiratory 18 19 Rate Blood Pressure 143/107 (mmHg) O2 Sat by Pulse 78 Oximetry Oxygen Devices in Use Now: None Appearance: Elderly male sitting in bed in NAD Eyes: No Scleral Icterus Ears/Nose/Mouth/Throat: Mucous Membranes Moist Neck: NL Appearance and Movements; NL JVP, Trachea Midline Respiratory: Symmetrical Chest Expansion and Respiratory Effort, Clear to Auscultation Cardiovascular: NL Sounds; No Murmurs; No JVD, RRR Abdominal: NL Sounds; No Tenderness; No Distention Extremities: No Edema Neurological: - - Oriented to self Lines/Tubes/Other Access: Clean, Dry and Intact Peripheral IV Nutrition: Taking PO's - Nutrition: Malnutrition Diagnosis/Plan Malnutrition Assessment by Registered Dietitian: Malnutrition Assessment Clinical Characteristics Acute,Moderate Malnutrition Assessment: - po intake < 75% EEE x > 7 days Criteria - mild temporal muscle wasting Malnutrition Assessment: 1. attempts to place NGT for feeding (all Interventions unsuccessful) 2. PICC placement 05/04/18 3. plan to begin TPN 05/05 or 05/06 if pt not adequate alert for safe po intake - TPN base A suggested Malnutrition Assessment: Goals 1. adequate nutrition provision (via PO or enteral or parenteral nutrition) to meet pt's est need and support stable wt, hydration, and replete lean body mass 2. achieve and maintain serum electrolytes within acceptable ranges 3. maintain glycemic control within critical care parameters; w/possible start of TPN 4. maintain intact skin integrity without evidence of new breakdown Result Diagrams: 05/15/18 05:42 05/15/18 15:30 Assess/Plan/Problems-Billing Assessment: Mr. Hinkle is a 72 year old male admitted to [facility] [place] [place] for worsening agitation and confusion, bacteremia now on antibiotics with a prolonged ICU stay, persistent AMS, and multiple complications. - Patient Problems (1) Bacteremia Code(s): R78.81 - BACTEREMIA Comment: - BC on admission grew Enterococcus faecalis, 4/4 bottles; repeat BC negative - Source is unclear - Appreciate ID consult - Continue ampicillin and ceftriaxone per ID (day ); per ID, he may be switched from ampicillin to vanco 1gm BID if necessary for SNF placement (2) Delirium Code(s): R41.0 - DISORIENTATION, UNSPECIFIED Comment: - Secondary to sepsis, prolonged hospitalization, baseline dementia - Geodon and Haldol d/c'd on 05/07 d/t QTc prolongation - Appreciate Neurology consult; saw on 05/[address] and EEG - CT brain unremarkable for acute findings; EEG showed findings consistent with diffuse cerebral dysfunction - Continue lorazepam (3) Malnutrition of moderate degree Code(s): E44.0 - MODERATE PROTEIN-CALORIE MALNUTRITION Comment: - See Sales Account Executive assessment - Speech therapy following - TPN stopped yesterday and tolerating PO intake well; all medications changed to PO (4) Sepsis Comment: - Present on admission, now resolved - Secondary to Enteroccous bactermia 04/29; repeat BC 05/01 negative - Sputum cultures shows polymicrobes, but CXR negative; suspect this represents colonization - Plan as above (5) Hypertension Code(s): I10 - ESSENTIAL (PRIMARY) HYPERTENSION Comment: - Normotensive, SBP 110-150s - D/c clonidine patch - Continue metoprolol (home dose), hydralazine PRN (6) Acute on chronic systolic CHF (congestive heart failure) Code(s): I50.23 - ACUTE ON CHRONIC SYSTOLIC (CONGESTIVE) HEART FAILURE Comment : - Now resolved after diuresis - BNP was >1300 and pulmonary edema noted on CxR - Echo on 04/29 showed EF 40-45%, mild LV hypokinesis - Continue furosemide and metoprolol; change digoxin back to PO (7) Acute hypoxemic respiratory failure Code(s): J96.01 - ACUTE RESPIRATORY FAILURE WITH HYPOXIA Comment: - Secondary to CHF exacerbation, now resolved - Required BiPAP on admission (8) Atrial fibrillation with rapid ventricular response Code(s): I48.91 - UNSPECIFIED ATRIAL FIBRILLATION Comment: - Now mostly rate controlled; some tachycardia when agitated - Continue metoprolol, digoxin; resume Eliquis and sotalol (decrease dose) (9) Ventricular tachycardia (paroxysmal) Code(s): I47.2 - VENTRICULAR TACHYCARDIA Comment: - AICD fired on 05/08 - Secondary to CHF and polypharmacy - Continue digoxin and metoprolol (10) Elevated troponin Code(s): R74.8 - ABNORMAL LEVELS OF OTHER SERUM ENZYMES Comment: - Peaked at 0.16; no EKG changes - Case was previously discussed with Cardiology who felt as though this was demand ischemia and there was no concern for cardiac event - Remains asymptomatic (11) AICD (automatic cardioverter/defibrillator) present Code(s): Z95.810 - PRESENCE OF AUTOMATIC (IMPLANTABLE) CARDIAC DEFIBRILLATOR Comment: - Fired on 05/08/18, run of VT and Torsades de pointes were noted on tele (12) History of pulmonary embolism Code(s): Z86.711 - PERSONAL HISTORY OF PULMONARY EMBOLISM Comment: - As per available records his PE was sometime in 12/2017 at [place] - Deanne Reddy (13) Alzheimer disease Code(s): G30.9 - ALZHEIMER'S DISEASE, UNSPECIFIED; F02.80 - DEMENTIA IN OTH DISEASES CLASSD ELSWHR W/O BEHAVRL DISTURB Comment: - Continue Aricept (14) COPD (chronic obstructive pulmonary disease) Code(s): J44.9 - CHRONIC OBSTRUCTIVE PULMONARY DISEASE, UNSPECIFIED Comment: - Stable, not in exacerbation - Continue nebs (15) DVT prophylaxis Comment: - Britneyqucristina (16) DNR (do not resuscitate) Comment: Status and Disposition: Inpatient for IV antibiotics, delirium, and malnutrition requiring close monitoring. Anticipate d/c to SNF when medically stable. Attending: Waldo Kwok
[2018-05-15 16:03] LABS: BUN/Creatinine Ratio 24.3 (8-20); Calcium 9.3 mg/dL (8.6-10.3); EGFR African American 81.7 (>60); EGFR Non-African American 67.6 (>60); Potassium 3.9 mmol/L (3.5-5.0)
[2018-05-15] MEDS ORDERED: Sotalol TAB* 80 MG PO SCH (21:00)
[2018-05-15] MEDS: Sotalol TAB* 80 MG PO SCH (21:25)
[2018-05-15] MEDS: Apixaban* 5 MG TAB PO SCH (23:19)
[2018-05-16] MEDS: Scopolamine 1.5 mg* PATCH TRANSDERM SCH (01:56)
[2018-05-16] MEDS: Ampicillin ADVAN(*) 2 GM in NS 0.9% 100 ML* 100 ML IVPB SCH ×6 (01:58→21:34)
[2018-05-16] MEDS: cefTRIAXone(*) 1 GM in NS 0.9% 50 ML* 50 ML IVPB SCH ×2 (04:57→16:28)
[2018-05-16 06:34] LABS: ABS Basophils 0.2 10^3/ul (0-0.2); ABS Eosinophils 0.2 10^3/ul (0-0.6); ABS Lymphocytes 0.8 10^3/ul (1.0-4.8); ABS Monocytes 0.5 10^3/ul (0-0.8); ABS Neutrophils 5.7 10^3/ul (1.5-7.7); ABS Nucleated RBC 0 10^3/ul; Hematocrit 40 % (42-52); Hemoglobin 13.2 g/dl (14.0-18.0); Lymphocyte % 11.2 %; Mean Corpuscular HGB Conc 33 g/dl (31-36); Mean Corpuscular Hemoglobin 29 pg (27-31); Mean Corpuscular Volume 88 fL (80-94); Mean Platelet Volume 9.8 fL (7.4-10.4); Nucleated Red Blood Cells % 0.1; Platelet Count 255 10^3/ul (150-450); Red Blood Count 4.52 10^6/ul (4.00-5.40); Red Cell Distribution Width 17 % (10.5-15); White Blood Count 7.4 10^3/ul (3.5-10.8)
[2018-05-16 06:46] LABS: BUN/Creatinine Ratio 23.2 (8-20); Calcium 9.1 mg/dL (8.6-10.3); EGFR African American 93.8 (>60); EGFR Non-African American 77.5 (>60); Potassium 3.8 mmol/L (3.5-5.0)
[2018-05-16] MEDS: Digoxin TAB* 0.125 MG PO SCH (09:29)
[2018-05-16] MEDS: Aspirin TAB* 325 MG PO SCH (09:29)
[2018-05-16] MEDS: Sotalol TAB* 80 MG PO SCH ×2 (09:29→21:41)
[2018-05-16] MEDS: Metoprolol Tartrate TAB* 100 MG TAB PO SCH ×2 (09:30→21:32)
[2018-05-16] MEDS: Donepezil TAB* 5 MG PO SCH (09:30)
[2018-05-16] MEDS: Lisinopril TAB* 5 MG PO SCH (09:30)
[2018-05-16] MEDS: Furosemide TAB* 20 MG PO SCH (09:54)
[2018-05-16 10:30] LABS: Urine Appearance Cloudy; Urine Bilirubin Negative (Negative); Urine Blood Negative (Negative); Urine Color Yellow; Urine Glucose Negative (Negative); Urine Ketones Negative (Negative); Urine Nitrite Negative (Negative); Urine Protein Negative (Negative); Urine Specific Gravity 1.027 (1.010-1.030); Urine Urobilinogen Negative (Negative)
[2018-05-16] MEDS: Apixaban* 5 MG TAB PO SCH ×2 (11:24→21:32)
--- NOTE | 2018-05-16 12:47 | PN ---
Subjective Date of Service: 05/16/18 Interval History: Mr. Hinkle is tired this morning and not able to provide much information. He does seem to know he is in the hospital. He offers no complaints and denies CP or SOB. Nursing reports that he has been taking PO medications, though he is not always willing to eat when presented with food. Family History: Unchanged from Admission Social History: Unchanged from Admission Past Medical History: Unchanged from Admission Objective Active Medications: Acetaminophen (Tylenol Adult Liq*) 650 mg PO Q6H PRN FEVER/PAIN Hydrocodone Bitart/Acetaminophen (Nortab 7.5/325 Liq*) 5 ml PO Q6H PRN Albuterol/Ipratropium (Duoneb (Albuterol 2.5 Mg/Ipratropium 0.5 Mg)) 1 neb INH Q6H PRN SOB/WHEEZING Apixaban (Eliquis*) 5 mg PO Q12H [facility] Aspirin (Aspirin Tab*) 325 mg PO DAILY [facility] Digoxin (Lanoxin Tab*) 0.125 mg PO DAILY [facility] Donepezil HCl (Aricept Tab*) 10 mg PO DAILY [facility] Furosemide (Lasix Tab*) 40 mg PO DAILY [facility] Heparin Sodium (Porcine) (Heparin Flush Picc/Ml/Cvc(*)) 1 - 3 ml FLUSH 0600, 1800 [facility]; Protocol Hydralazine HCl (Apresoline Iv*) 10 mg IV SLOW PU Q6H PRN SYSTOLIC BP Ampicillin Sodium 2 gm/ Sodium (Chloride) 100 mls @ 200 mls/hr IVPB Q4H [facility] Ceftriaxone Sodium 1 gm/ (Sodium Chloride) 50 mls @ 200 mls/hr IVPB Q12H [facility] Lisinopril (Prinivil Tab*) 5 mg PO DAILY [facility] Lorazepam (Ativan Inj*) 1 mg IV PUSH BEDTIME PRN AGITATION Metoprolol Tartrate (Lopressor Tab*) 100 mg PO BID [facility] Pharmacy Profile Note (Scopolamine Patch Remove*) 1 note PATCH OFF .AFTER 72 HOURS [facility] Potassium Chloride (Klor Con Er Tab*) 10 meq PO DAILY [facility] Scopolamine (Transderm-Scop 1.5 Mg Patch*) 1 patch TRANSDERM Q72H [facility] Sotalol HCl (Betapace Tab*) 80 mg PO BID [facility] Vital Signs - 8 hr 05/16/18 05/16/18 05/16/18 07:15 07:55 08:12 Temperature 97.5 F Pulse Rate 102 Respiratory 18 18 Rate Blood Pressure 129/75 (mmHg) O2 Sat by Pulse 84 98 Oximetry 05/16/18 09:29 Temperature Pulse Rate 90 Respiratory Rate Blood Pressure (mmHg) O2 Sat by Pulse Oximetry Oxygen Devices in Use Now: None Appearance: Elderly male laying in bed in NAD Eyes: No Scleral Icterus Ears/Nose/Mouth/Throat: Mucous Membranes Moist Neck: NL Appearance and Movements; NL JVP, Trachea Midline Respiratory: Symmetrical Chest Expansion and Respiratory Effort, Clear to Auscultation Cardiovascular: NL Sounds; No Murmurs; No JVD, RRR Abdominal: NL Sounds; No Tenderness; No Distention Extremities: No Edema Neurological: - - Oriented to self and place Lines/Tubes/Other Access: Clean, Dry and Intact Peripheral IV Nutrition: Taking PO's - Nutrition: Malnutrition Diagnosis/Plan Malnutrition Assessment by Registered Dietitian: Malnutrition Assessment Clinical Characteristics Acute,Moderate Malnutrition Assessment: - po intake < 75% EEE x > 7 days Criteria - mild temporal muscle wasting Malnutrition Assessment: 1. attempts to place NGT for feeding (all Interventions unsuccessful) 2. PICC placement 05/04/18 3. plan to begin TPN 05/05 or 05/06 if pt not adequate alert for safe po intake - TPN base A suggested Malnutrition Assessment: Goals 1. adequate nutrition provision (via PO or enteral or parenteral nutrition) to meet pt's est need and support stable wt, hydration, and replete lean body mass 2. achieve and maintain serum electrolytes within acceptable ranges 3. maintain glycemic control within critical care parameters; w/possible start of TPN 4. maintain intact skin integrity without evidence of new breakdown Result Diagrams: 05/16/18 05:50 05/16/18 05:50 Assess/Plan/Problems-Billing Assessment: Mr. Hnikle is a 72 year old male admitted to [facility] [place] for worsening agitation and confusion, bacteremia now on antibiotics with a prolonged ICU stay, persistent AMS, and multiple complications including afib with RVR and bacteremia. - Patient Problems (1) Bacteremia Code(s): R78.81 - BACTEREMIA Comment: - BC on admission grew Enterococcus faecalis, 4/4 bottles; repeat BC negative - Source is unclear - Appreciate ID consult; recommends 6 weeks IV abx - Continue ampicillin and ceftriaxone per ID (day ); per ID, he may be switched from ampicillin to vanco 1gm BID if necessary for SNF placement (2) Delirium Code(s): R41.0 - DISORIENTATION, UNSPECIFIED Comment: - Seems to be improving with moments of clarity - Secondary to sepsis, prolonged hospitalization, baseline dementia - Geodon and Haldol d/c'd on 05/07 d/t QTc prolongation - Appreciate Neurology consult; saw on 05/[address] and EEG - CT brain unremarkable for acute findings; EEG showed findings consistent with diffuse cerebral dysfunction - Continue lorazepam (3) Malnutrition of moderate degree Code(s): E44.0 - MODERATE PROTEIN-CALORIE MALNUTRITION Comment: - See Annealing Torch Operator assessment - Speech therapy following - TPN stopped 05/14 and tolerating PO intake well; all medications changed to PO (4) Sepsis Comment: - Present on admission, now resolved - Secondary to Enteroccous bactermia 04/29; repeat BC 05/01 negative - Sputum cultures shows polymicrobes, but CXR negative; suspect this represents colonization - Plan as above (5) Hypertension Code(s): I10 - ESSENTIAL (PRIMARY) HYPERTENSION Comment: - Normotensive, SBP 120-150s - Continue metoprolol, lisinopril, hydralazine PRN (6) Acute on chronic systolic CHF (congestive heart failure) Code(s): I50.23 - ACUTE ON CHRONIC SYSTOLIC (CONGESTIVE) HEART FAILURE Comment : - Now resolved after significant diuresis - BNP was >1300 and pulmonary edema noted on CxR - Echo on 04/29 showed EF 40-45%, mild LV hypokinesis - Continue furosemide, metoprolol, digoxin; resume home dose of potassium (7) Acute hypoxemic respiratory failure Code(s): J96.01 - ACUTE RESPIRATORY FAILURE WITH HYPOXIA Comment: - Secondary to CHF exacerbation, now resolved - Required BiPAP on admission (8) Atrial fibrillation with rapid ventricular response Code(s): I48.91 - UNSPECIFIED ATRIAL FIBRILLATION Comment: - Now mostly rate controlled; some tachycardia when agitated - Continue metoprolol, digoxin, Eliquis, and sotalol (will increase back to home dosing) (9) Ventricular tachycardia (paroxysmal) Code(s): I47.2 - VENTRICULAR TACHYCARDIA Comment: - AICD fired on 05/08 - Secondary to CHF and polypharmacy - Continue digoxin, metoprolol, sotalol (10) Elevated troponin Code(s): R74.8 - ABNORMAL LEVELS OF OTHER SERUM ENZYMES Comment: - Peaked at 0.16; no EKG changes - Case was previously discussed with Cardiology who felt as though this was demand ischemia and there was no concern for cardiac event - Remains asymptomatic (11) AICD (automatic cardioverter/defibrillator) present Code(s): Z95.810 - PRESENCE OF AUTOMATIC (IMPLANTABLE) CARDIAC DEFIBRILLATOR Comment: - Fired on 05/08/18, run of VT and Torsades de pointes were noted on tele (12) History of pulmonary embolism Code(s): Z86.711 - PERSONAL HISTORY OF PULMONARY EMBOLISM Comment: - As per available records his PE was in 12/2017 at [place] - Continue Eliquis (13) Alzheimer disease Code(s): G30.9 - ALZHEIMER'S DISEASE, UNSPECIFIED; F02.80 - DEMENTIA IN OTH DISEASES CLASSD ELSWHR W/O BEHAVRL DISTURB Comment: - Continue Aricept (14) COPD (chronic obstructive pulmonary disease) Code(s): J44.9 - CHRONIC OBSTRUCTIVE PULMONARY DISEASE, UNSPECIFIED Comment: - Stable, not in exacerbation - Continue nebs (15) DVT prophylaxis Comment: - Eliquis (16) DNR (do not resuscitate) Comment: Status and Disposition: Inpatient for IV antibiotics, delirium, and malnutrition requiring close monitoring. Anticipate d/c to SNF when medically stable. Attending: Sendy Hill
[2018-05-16] MEDS ORDERED: Tamsulosin CAP* 0.4 MG PO SCH (21:00)
[2018-05-16] MEDS: LORazepam INJ* 2 MG/ML 1 ML VIAL IV PUSH PRN (21:29)
[2018-05-16 22:00] LABS: ABS Basophils 0.2 10^3/ul (0-0.2); ABS Eosinophils 0.2 10^3/ul (0-0.6); ABS Lymphocytes 0.8 10^3/ul (1.0-4.8); ABS Monocytes 0.6 10^3/ul (0-0.8); ABS Neutrophils 6.9 10^3/ul (1.5-7.7); ABS Nucleated RBC 0 10^3/ul; Eosinophil % 2.4 %; Hematocrit 40 % (42-52); Hemoglobin 13.2 g/dl (14.0-18.0); Lymphocyte % 9.4 %; Mean Corpuscular HGB Conc 33 g/dl (31-36); Mean Corpuscular Hemoglobin 29 pg (27-31); Mean Corpuscular Volume 87 fL (80-94); Mean Platelet Volume 9.2 fL (7.4-10.4); Nucleated Red Blood Cells % 0; Platelet Count 281 10^3/ul (150-450); Red Blood Count 4.53 10^6/ul (4.00-5.40); Red Cell Distribution Width 16 % (10.5-15); White Blood Count 8.7 10^3/ul (3.5-10.8)
[2018-05-16 22:16] LABS: BUN/Creatinine Ratio 22.8 (8-20); Calcium 8.9 mg/dL (8.6-10.3); EGFR African American 87.4 (>60); EGFR Non-African American 72.2 (>60); Potassium 3.5 mmol/L (3.5-5.0)
[2018-05-17] MEDS: Ampicillin ADVAN(*) 2 GM in NS 0.9% 100 ML* 100 ML IVPB SCH ×4 (03:07→18:06)
[2018-05-17] MEDS: cefTRIAXone(*) 1 GM in NS 0.9% 50 ML* 50 ML IVPB SCH ×2 (04:14→16:38)
[2018-05-17 05:39] LABS: BUN/Creatinine Ratio 21.8 (8-20); Calcium 8.9 mg/dL (8.6-10.3); EGFR African American 87.4 (>60); EGFR Non-African American 72.2 (>60); Potassium 3.4 mmol/L (3.5-5.0)
--- NOTE | 2018-05-17 08:19 | PN ---
Progress Note - Progress Note Date of Service: 05/17/18 SOAP: Subjective: CC: bacteremia HPI: 72 year old man with dementia admitted with septic encephalopathy and bacteremia. He cannot provide history or ROS. No rash or diarrhea. Objective: Vital Signs Temp 36.2 C 05/17/18 07:38 Pulse 84 05/17/18 07:38 Resp 16 05/17/18 07:38 BP 129/82 05/17/18 07:38 Pulse Ox 100 05/17/18 07:38 Intake & Output 05/16/18 05/17/18 05/17/18 18:59 06:59 18:59 Intake Total 1150 1069 Output Total 300 Balance 850 1069 Weight 158 lb 14.4 oz Intake: IV Fluids 390 ABX - AMPICILLIN 260 Rocephin 130 IVPB 679 ABX - AMPICILLIN 621 Rocephin 58 Oral 1150 0 Output: Urine 100 Cristina 100 Liquid Stool 100 Other: Estimated Void Small # Bowel Movements 1 Estimated Stool Amount Large Small Gen:awake, not in distress Neuro: tracks, does not interact, does not respond to questions HEENT: no thrush Heart:RRR no murmur Lungs:CTA BL Abd:+BS NTND soft Skin: no rash Laboratory Results - last 24 hr 05/16/18 05/16/18 05/16/18 09:50 21:50 21:50 WBC 8.7 RBC 4.53 Hgb 13.2 L Hct 40 L MCV 87 MCH 29 MCHC 33 RDW 16 H Plt Count 281 MPV 9.2 Neut % (Auto) 79.6 Lymph % (Auto) 9.4 [place] % (Auto) 6.3 Eos % (Auto) 2.4 Baso % (Auto) 2.3 Absolute Neuts (auto) 6.9 Absolute Lymphs (auto) 0.8 L Absolute Monos (auto) 0.6 Absolute Eos (auto) 0.2 Absolute Basos (auto) 0.2 Absolute Nucleated RBC 0 Nucleated RBC % 0 Sodium 147 H Potassium 3.5 Chloride 115 H Carbon Dioxide 27 Anion Gap 5 BUN 23 Creatinine 1.01 Est GFR ( Amer) 87.4 Est GFR (Non-Af Amer) 72.2 BUN/Creatinine Ratio 22.8 H Glucose 116 H Calcium 8.9 Magnesium 2.0 Urine Color Yellow Urine Appearance Cloudy Urine pH 5.0 Ur Specific [place] 1.027 Urine Protein Negative Urine Ketones Negative Urine Blood Negative Urine Nitrate Negative Urine Bilirubin Negative Urine Urobilinogen Negative Ur Leukocyte Esterase Negative Urine Glucose Negative 05/17/18 05:00 WBC RBC Hgb Hct MCV MCH MCHC RDW Plt Count MPV Neut % (Auto) Lymph % (Auto) [place] % (Auto) Eos % (Auto) Baso % (Auto) Absolute Neuts (auto) Absolute Lymphs (auto) Absolute Monos (auto) Absolute Eos (auto) Absolute Basos (auto) Absolute Nucleated RBC Nucleated RBC % Sodium 150 H Potassium 3.4 L Chloride 118 H Carbon Dioxide 24 Anion Gap 8 BUN 22 Creatinine 1.01 Est GFR ( Amer) 87.4 Est GFR (Non-Af Amer) 72.2 BUN/Creatinine Ratio 21.8 H Glucose 110 H Calcium 8.9 Magnesium Urine Color Urine Appearance Urine pH Ur Specific [place] Urine Protein Urine Ketones Urine Blood Urine Nitrate Urine Bilirubin Urine Urobilinogen Ur Leukocyte Esterase Urine Glucose Assessment: 1. 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 dementia 3. Low PO intake Plan: 1. continue ampicillin 2 gm IV Q4hrs, ceftriaxone 1 gm Q12hrs; day , will change amp to Q6hrs, dosed for GFR.
[2018-05-17] MEDS ORDERED: Potassium Chlor TAB* 10 MEQ TAB.ER PO SCH (09:00)
[2018-05-17] MEDS: Aspirin TAB* 325 MG PO SCH (10:26)
[2018-05-17] MEDS: Lisinopril TAB* 5 MG PO SCH (10:26)
[2018-05-17] MEDS: Potassium Chloride LIQUID* 20 MEQ PACKET PO SCH (10:26)
[2018-05-17] MEDS: Sotalol TAB* 80 MG PO SCH ×2 (10:27→21:26)
[2018-05-17] MEDS: Metoprolol Tartrate TAB* 100 MG TAB PO SCH ×2 (10:27→21:26)
[2018-05-17] MEDS: Apixaban* 5 MG TAB PO SCH ×2 (10:27→21:26)
[2018-05-17] MEDS: Donepezil TAB* 5 MG PO SCH (10:27)
[2018-05-17] MEDS: Furosemide TAB* 20 MG PO SCH (10:29)
[2018-05-17] MEDS: Digoxin TAB* 0.125 MG PO SCH (10:30)
[2018-05-17] MEDS: HYDROcodone/ACET. 7.5/325 LIQ* 15 ML UDC PO PRN ×2 (10:50→17:38)
--- NOTE | 2018-05-17 10:56 | PN ---
Subjective Date of Service: 05/17/18 Interval History: Patient lying in bed and he is awake and alert, but not answering questions. He does interact with assessment as he is pushing this writers hands away. Per EDWIGE Dye patient is more agitated today. In addition she reports he ate 75% of breakfast. Received several calls from RN stating patient is more agitated as evidence by attempting to get out of bed and remove devices. Family History: Unchanged from Admission Social History: Unchanged from Admission Past Medical History: Unchanged from Admission Objective Active Medications: Acetaminophen (Tylenol Adult Liq*) 650 mg PO Q6H PRN PRN Reason: FEVER/PAIN Hydrocodone Bitart/Acetaminophen (Nortab 7.5/325 Liq*) 5 ml PO Q6H PRN PRN Reason: PAIN Last Admin: 05/17/18 10:50 Dose: 5 ml Albuterol/Ipratropium (Duoneb (Albuterol 2.5 Mg/Ipratropium 0.5 Mg)) 1 neb INH Q6H PRN PRN Reason: SOB/WHEEZING Apixaban (Eliquis*) 5 mg PO Q12H [facility] Last Admin: 05/17/18 10:27 Dose: 5 mg Aspirin (Aspirin Tab*) 325 mg PO DAILY [facility] Last Admin: 05/17/18 10:26 Dose: 325 mg Digoxin (Lanoxin Tab*) 0.125 mg PO DAILY [facility] Last Admin: 05/17/18 10:30 Dose: 0.125 mg Donepezil HCl (Aricept Tab*) 10 mg PO DAILY [facility] Last Admin: 05/17/18 10:27 Dose: 10 mg Furosemide (Lasix Tab*) 40 mg PO DAILY [facility] Last Admin: 05/17/18 10:29 Dose: 40 mg Heparin Sodium (Porcine) (Heparin Flush Picc/Ml/Cvc(*)) 1 - 3 ml FLUSH 0600, 1800 [facility]; Protocol Last Admin: 05/17/18 05:17 Dose: 1 ml Hydralazine HCl (Apresoline Iv*) 10 mg IV SLOW PU Q6H PRN PRN Reason: SYSTOLIC BP GREATER THAN: Last Admin: 05/03/18 01:47 Dose: 10 mg Ceftriaxone Sodium 1 gm/ (Sodium Chloride) 50 mls @ 200 mls/hr IVPB Q12H [facility] Last Admin: 05/17/18 04:14 Dose: 200 mls/hr Ampicillin Sodium 2 gm/ Sodium (Chloride) 100 mls @ 200 mls/hr IVPB Q6H [facility] Dextrose/Sodium Chloride (D5w 1/2 Ns 1000 Ml Bag*) 1,000 mls @ 75 mls/hr IV PER RATE [facility] Stop: 05/18/18 00:19 Last Admin: 05/17/18 10:50 Dose: 75 mls/hr Lisinopril (Prinivil Tab*) 5 mg PO DAILY [facility] Last Admin: 05/17/18 10:26 Dose: 5 mg Lorazepam (Ativan Inj*) 1 mg IV PUSH BEDTIME PRN PRN Reason: AGITATION Last Admin: 05/16/18 21:29 Dose: 1 mg Metoprolol Tartrate (Lopressor Tab*) 100 mg PO BID [facility] Last Admin: 05/17/18 10:27 Dose: 100 mg Pharmacy Profile Note (Scopolamine Patch Remove*) 1 note PATCH OFF .AFTER 72 HOURS [facility] Potassium Chloride (Klor-Con Liquid*) 20 meq PO DAILY [facility] Last Admin: 05/17/18 10:26 Dose: 20 meq Scopolamine (Transderm-Scop 1.5 Mg Patch*) 1 patch TRANSDERM Q72H [facility] Last Admin: 05/16/18 01:56 Dose: 1 patch Sotalol HCl (Betapace Tab*) 120 mg PO BID [facility] Last Admin: 05/17/18 10:27 Dose: 120 mg Vital Signs - 8 hr 05/17/18 05/17/18 05/17/18 04:30 07:38 10:30 Temperature 97.7 F 97.1 F Pulse Rate 82 84 100 Respiratory 18 16 Rate Blood Pressure 147/80 129/82 (mmHg) O2 Sat by Pulse 96 100 Oximetry 05/17/18 10:50 Temperature Pulse Rate Respiratory 22 Rate Blood Pressure (mmHg) O2 Sat by Pulse Oximetry Oxygen Devices in Use Now: None Appearance: NAD Eyes: No Scleral Icterus Ears/Nose/Mouth/Throat: Clear Oropharnyx, Mucous Membranes Moist Neck: NL Appearance and Movements; NL JVP Respiratory: Symmetrical Chest Expansion and Respiratory Effort, Clear to Auscultation Cardiovascular: NL Sounds; No Murmurs; No JVD, RRR, No Edema Abdominal: NL Sounds; No Tenderness; No Distention Lymphatic: No Cervical Adenopathy Extremities: No Edema Neurological: - - Awake and alert. Limited neuro assessment as he does not answer questions or follow commands Nutrition: - - Decrease PO intake per nursing - Nutrition: Malnutrition Diagnosis/Plan Malnutrition Assessment by Registered Dietitian: Malnutrition Assessment Clinical Characteristics Acute,Moderate Malnutrition Assessment: - po intake < 75% EEE x > 7 days Criteria - mild temporal muscle wasting Malnutrition Assessment: 1. attempts to place NGT for feeding (all Interventions unsuccessful) 2. PICC placement 05/04/18 3. plan to begin TPN 05/05 or 05/06 if pt not adequate alert for safe po intake - TPN base A suggested Malnutrition Assessment: Goals 1. adequate nutrition provision (via PO or enteral or parenteral nutrition) to meet pt's est need and support stable wt, hydration, and replete lean body mass 2. achieve and maintain serum electrolytes within acceptable ranges 3. maintain glycemic control within critical care parameters; w/possible start of TPN 4. maintain intact skin integrity without evidence of new breakdown Result Diagrams: 05/16/18 21:50 05/17/18 16:15 Additional Lab and Data: Laboratory Results - last 24 hr 05/16/18 05/16/18 05/17/18 21:50 21:50 05:00 WBC 8.7 RBC 4.53 Hgb 13.2 L Hct 40 L MCV 87 MCH 29 MCHC 33 RDW 16 H Plt Count 281 MPV 9.2 Neut % (Auto) 79.6 Lymph % (Auto) 9.4 Summers % (Auto) 6.3 Eos % (Auto) 2.4 Baso % (Auto) 2.3 Absolute Neuts (auto) 6.9 Absolute Lymphs (auto) 0.8 L Absolute Monos (auto) 0.6 Absolute Eos (auto) 0.2 Absolute Basos (auto) 0.2 Absolute Nucleated RBC 0 Nucleated RBC % 0 Sodium 147 H 150 H Potassium 3.5 3.4 L Chloride 115 H 118 H Carbon Dioxide 27 24 Anion Gap 5 8 BUN 23 22 Creatinine 1.01 1.01 Est GFR ( Amer) 87.4 87.4 Est GFR (Non-Af Amer) 72.2 72.2 BUN/Creatinine Ratio 22.8 H 21.8 H Glucose 116 H 110 H Calcium 8.9 8.9 Magnesium 2.0 Microbiology and Other Data: Microbiology 05/01/18 09:51 Blood Venous Aerobic Blood Culture - Final No Growth Day 5 05/01/18 09:51 Blood Venous Anaerobic Blood Culture - Final No Growth Day 5 05/02/18 11:09 Sputum Expectorated Gram Stain - Final 05/02/18 11:09 Sputum Expectorated Sputum Culture - Final Pseudomonas Aeruginosa Klebsiella Oxytoca YEAST 04/29/18 19:15 Blood Venous Aerobic Blood Culture - Final Enterococcus Faecalis 04/29/18 19:15 Blood Venous Anaerobic Blood Culture - Final Enterococcus Faecalis 04/29/18 18:21 Blood Venous Aerobic Blood Culture - Final Enterococcus Faecalis 04/29/18 18:21 Blood Venous Anaerobic Blood Culture - Final Enterococcus Faecalis 04/30/18 10:10 Nasal Nasal Screen MRSA (PCR) - Final Mrsa Not Detected 04/30/18 08:52 Urine Streptococcus pneumoniae Ag Screen - Final Negative S. pneumo Antigen 04/29/18 21:55 Nasal Nasal Screen MRSA (PCR) - Final Mrsa Not Detected 04/29/18 19:18 Nasal Influenza Types A,B Antigen - Final Specimen received for Influenza A/B Molecular testing Diagnostic Imaging: . EKG Data: . Assess/Plan/Problems-Billing Assessment: Mr. Hinkle is a 72 year old [place] [facility] [place] agitation and confusion, bacteremia now on antibiotics with a prolonged ICU stay, persistent AMS, and multiple complications including afib with RVR and bacteremia. - Patient Problems (1) Acute hypoxemic respiratory failure Comment: - Secondary to CHF exacerbation, now resolved - Required BiPAP on admission (2) Acute on chronic systolic CHF (congestive heart failure) Comment: - Now resolved after significant diuresis - BNP was >1300 and pulmonary edema noted on CxR - Echo on 04/29 showed EF 40-45%, mild LV hypokinesis - Continue furosemide, metoprolol, digoxin - Home dose of potassium resumed, but then increased due to hypokalemia. - Cont to monitor electrolytes (3) Bacteremia Comment: - BC on admission grew Enterococcus faecalis, 4/4 bottles; repeat BC negative - Source is unclear, suspected ICD - Appreciate ID consult; recommends 6 weeks IV abx - Continue ampicillin and ceftriaxone per ID (day ); per ID, he may be switched from ampicillin to vanco 1gm BID if necessary for SNF placement - Amp changed to Q 6hrs by Dr Watkins due to GFR (4) Delirium Comment: - Per nursing seems more agitated today. Did have one or two episodes of clarity yesterday per nursing - Secondary to sepsis, prolonged hospitalization, baseline dementia - Geodon and Haldol d/c'd on 05/07 d/t QTc prolongation - Appreciate Neurology consult; saw on 05/[address] and EEG - CT brain unremarkable for acute findings; EEG showed findings consistent with diffuse cerebral dysfunction - Lorazepam changed from 1 mg PRN at bedtime to 0.5 mg Q6hrs PRN agitation. In addition, we have added Risperadol 0.5 mg at bedtime (5) Elevated troponin Code(s): R74.8 - ABNORMAL LEVELS OF OTHER SERUM ENZYMES SNOMED Code(s): 703259501 Comment: - Peaked at 0.16; no EKG changes - Case was previously discussed with Cardiology who felt as though this was demand ischemia and there was no concern for cardiac event - Remains asymptomatic (6) Hypertension Comment: - Normotensive, SBP 120-150s - Continue metoprolol, lisinopril, hydralazine PRN (7) Malnutrition of moderate degree Comment: - See Rn Endocrinology assessment - Speech therapy following - TPN stopped 05/14 - Taking PO food and pills. Per nursing patient ate about 75% of breakfast this morning. - There is ongoing concern due to decrease in intake - Cont to monitor (8) Sepsis Comment: - Present on admission, now resolved - Secondary to Enteroccous bactermia 04/29; repeat BC 05/01 negative - Sputum cultures shows polymicrobes, but CXR negative; suspect this represents colonization - Plan as above (9) Ventricular tachycardia (paroxysmal) Comment: - AICD fired on 05/08 - Secondary to CHF and polypharmacy - Continue digoxin, metoprolol, sotalol (10) Atrial fibrillation with rapid ventricular response Comment: - Now mostly rate controlled - Continue metoprolol, digoxin, Eliquis, and sotalol (11) Electrolyte abnormality Comment: - Hypernatermia at 150 today. I suspected this is due to low oral free water intake. I have ordered d51/2NS @ 75ml/hr and recheck at 1600 today - Potassium is low at 3.4, patient was previoius taking home dose of 10 meq but this has been increased to 20 judith. - Mag 2.0 - Cont to monitor (12) DNR (do not resuscitate) Comment: Status and Disposition: Inpatient for IV antibiotics, delirium, and malnutrition requiring close monitoring. Anticipate d/c to SNF when medically stable. Attending: Namita Rivero
[2018-05-17] MEDS ORDERED: D5W 1/2 NS 1000 ML BAG* 1,000 ML IV SCH (11:00)
[2018-05-17 16:02] LABS: Anion Gap 6 mmol/L (2-11); BUN/Creatinine Ratio 16.3 (8-20); Blood Urea Nitrogen 16 mg/dL (6-24); CO2 Carbon Dioxide 24 mmol/L (22-32); Calcium 7.4 mg/dL (8.6-10.3); Chloride 110 mmol/L (101-111); EGFR African American 90.5 (>60); EGFR Non-African American 74.8 (>60); Potassium 3.2 mmol/L (3.5-5.0); Sodium 140 mmol/L (135-145)
[2018-05-17] MEDS: LORazepam INJ* 2 MG/ML 1 ML VIAL IV PUSH SCH (16:38)
[2018-05-17 16:47] LABS: BUN/Creatinine Ratio 17.6 (8-20); Calcium 8.7 mg/dL (8.6-10.3); EGFR African American 86.4 (>60); EGFR Non-African American 71.4 (>60); Potassium 3.5 mmol/L (3.5-5.0)
[2018-05-18] MEDS: HYDROcodone/ACET. 7.5/325 LIQ* 15 ML UDC PO PRN ×2 (00:05→12:58)
[2018-05-18] MEDS: LORazepam INJ* 2 MG/ML 1 ML VIAL IV PUSH SCH ×2 (00:06→05:32)
[2018-05-18] MEDS: Ampicillin ADVAN(*) 2 GM in NS 0.9% 100 ML* 100 ML IVPB SCH ×5 (00:08→23:58)
[2018-05-18] MEDS: cefTRIAXone(*) 1 GM in NS 0.9% 50 ML* 50 ML IVPB SCH ×2 (05:00→16:45)
[2018-05-18 07:37] LABS: BUN/Creatinine Ratio 14.1 (8-20); Calcium 8.3 mg/dL (8.6-10.3); EGFR African American 97.3 (>60); EGFR Non-African American 80.4 (>60); Potassium 3.2 mmol/L (3.5-5.0)
[2018-05-18] MEDS ORDERED: KCL 10 MEQ/50 ML IVPREMIX* 10 MEQ/50 ML BAG IV ONE (08:09)
[2018-05-18 08:27] LABS: Magnesium 1.9 mg/dL (1.9-2.7)
[2018-05-18] MEDS: Furosemide TAB* 20 MG PO SCH (09:04)
[2018-05-18] MEDS: Aspirin TAB* 325 MG PO SCH (09:05)
[2018-05-18] MEDS: Metoprolol Tartrate TAB* 100 MG TAB PO SCH ×2 (09:06→21:32)
[2018-05-18] MEDS: Donepezil TAB* 5 MG PO SCH (09:08)
[2018-05-18] MEDS: Digoxin TAB* 0.125 MG PO SCH (09:08)
[2018-05-18] MEDS: Potassium Chloride LIQUID* 20 MEQ PACKET PO SCH (09:09)
[2018-05-18] MEDS: Lisinopril TAB* 5 MG PO SCH (09:11)
[2018-05-18] MEDS: Sotalol TAB* 80 MG PO SCH ×2 (09:12→21:32)
[2018-05-18] MEDS: LORazepam INJ* 2 MG/ML 1 ML VIAL IV PUSH PRN (12:09)
[2018-05-18] MEDS: Apixaban* 5 MG TAB PO SCH ×2 (12:09→22:34)
--- NOTE | 2018-05-18 15:50 | PN ---
Subjective Date of Service: 05/18/18 Interval History: Resting in bed on assessment. Opens eyes to voice and responds min to questions but unintelligible. Per nurse patient will have moments of clarity where he makes needs knows ei stating he has to urinate and in addition was aware he was in [place]. ROS limited, but does not appear to be in pain or any distress. Family History: Unchanged from Admission Social History: Unchanged from Admission Past Medical History: Unchanged from Admission Objective Active Medications: Acetaminophen (Tylenol Adult Liq*) 650 mg PO Q6H PRN PRN Reason: FEVER/PAIN Hydrocodone Bitart/Acetaminophen (Nortab 7.5/325 Liq*) 5 ml PO Q6H PRN PRN Reason: PAIN Last Admin: 05/18/18 12:58 Dose: 5 ml Albuterol/Ipratropium (Duoneb (Albuterol 2.5 Mg/Ipratropium 0.5 Mg)) 1 neb INH Q6H PRN PRN Reason: SOB/WHEEZING Apixaban (Eliquis*) 5 mg PO Q12H [facility] Last Admin: 05/18/18 12:09 Dose: 5 mg Aspirin (Aspirin Tab*) 325 mg PO DAILY [facility] Last Admin: 05/18/18 09:05 Dose: 325 mg Digoxin (Lanoxin Tab*) 0.125 mg PO DAILY [facility] Last Admin: 05/18/18 09:08 Dose: 0.125 mg Donepezil HCl (Aricept Tab*) 10 mg PO DAILY [facility] Last Admin: 05/18/18 09:08 Dose: 10 mg Furosemide (Lasix Tab*) 40 mg PO DAILY [facility] Last Admin: 05/18/18 09:04 Dose: 40 mg Heparin Sodium (Porcine) (Heparin Flush Picc/Ml/Cvc(*)) 1 - 3 ml FLUSH 0600, 1800 [facility]; Protocol Last Admin: 05/18/18 05:40 Dose: Not Given Hydralazine HCl (Apresoline Iv*) 10 mg IV SLOW PU Q6H PRN PRN Reason: SYSTOLIC BP GREATER THAN: Last Admin: 05/03/18 01:47 Dose: 10 mg Ceftriaxone Sodium 1 gm/ (Sodium Chloride) 50 mls @ 200 mls/hr IVPB Q12H [facility] Last Admin: 05/18/18 05:00 Dose: 200 mls/hr Ampicillin Sodium 2 gm/ Sodium (Chloride) 100 mls @ 200 mls/hr IVPB Q6H [facility] Last Admin: 05/18/18 12:11 Dose: 200 mls/hr Lisinopril (Prinivil Tab*) 5 mg PO DAILY [facility] Last Admin: 05/18/18 09:11 Dose: 5 mg Lorazepam (Ativan Inj*) 0.5 mg IV PUSH Q6HR PRN PRN Reason: AGITATION Last Admin: 05/18/18 12:09 Dose: 0.5 mg Metoprolol Tartrate (Lopressor Tab*) 100 mg PO BID [facility] Last Admin: 05/18/18 09:06 Dose: 100 mg Pharmacy Profile Note (Scopolamine Patch Remove*) 1 note PATCH OFF .AFTER 72 HOURS [facility] Potassium Chloride (Klor-Con Liquid*) 20 meq PO DAILY [facility] Last Admin: 05/18/18 09:09 Dose: 20 meq Risperidone (Risperdal) 0.5 mg PO BEDTIME [facility] Last Admin: 05/17/18 21:26 Dose: 0.5 mg Scopolamine (Transderm-Scop 1.5 Mg Patch*) 1 patch TRANSDERM Q72H [facility] Last Admin: 05/16/18 01:56 Dose: 1 patch Sotalol HCl (Betapace Tab*) 120 mg PO BID [facility] Last Admin: 05/18/18 09:12 Dose: 120 mg Vital Signs - 8 hr 05/18/18 05/18/18 05/18/18 08:00 09:08 11:06 Temperature 96.7 F 97.6 F Pulse Rate 80 80 80 Respiratory 16 20 Rate Blood Pressure 105/72 111/73 (mmHg) O2 Sat by Pulse 100 Oximetry 05/18/18 05/18/18 05/18/18 12:09 12:58 13:09 Temperature Pulse Rate Respiratory 24 24 22 Rate Blood Pressure (mmHg) O2 Sat by Pulse Oximetry Oxygen Devices in Use Now: None Appearance: NAD, Comfortable Eyes: No Scleral Icterus Ears/Nose/Mouth/Throat: Clear Oropharnyx, Mucous Membranes Moist Neck: NL Appearance and Movements; NL JVP Respiratory: Symmetrical Chest Expansion and Respiratory Effort, Clear to Auscultation Cardiovascular: NL Sounds; No Murmurs; No JVD, RRR, No Edema Abdominal: NL Sounds; No Tenderness; No Distention Lymphatic: No Cervical Adenopathy Extremities: No Edema Skin: No Nodules or Sclerosis Neurological: - - Awake to voice. Nutrition: Taking PO's, - - Will assistance Result Diagrams: 05/16/18 21:50 05/18/18 06:50 Additional Lab and Data: Laboratory Results - last 24 hr 05/17/18 05/17/18 05/18/18 15:23 16:15 06:50 Sodium 140 D 147 H 147 H Potassium 3.2 L 3.5 3.2 L Chloride 110 115 H 115 H Carbon Dioxide 24 26 26 Anion Gap 6 6 6 BUN 16 18 13 Creatinine 0.98 1.02 0.92 Est GFR ( Amer) 90.5 86.4 97.3 Est GFR (Non-Af Amer) 74.8 71.4 80.4 BUN/Creatinine Ratio 16.3 17.6 14.1 Glucose TNP 125 H 92 Calcium 7.4 L 8.7 8.3 L Magnesium 1.9 Microbiology and Other Data: Microbiology 05/01/18 09:51 Blood Venous Aerobic Blood Culture - Final No Growth Day 5 05/01/18 09:51 Blood Venous Anaerobic Blood Culture - Final No Growth Day 5 05/02/18 11:09 Sputum Expectorated Gram Stain - Final 05/02/18 11:09 Sputum Expectorated Sputum Culture - Final Pseudomonas Aeruginosa Klebsiella Oxytoca YEAST 04/29/18 19:15 Blood Venous Aerobic Blood Culture - Final Enterococcus Faecalis 04/29/18 19:15 Blood Venous Anaerobic Blood Culture - Final Enterococcus Faecalis 04/29/18 18:21 Blood Venous Aerobic Blood Culture - Final Enterococcus Faecalis 04/29/18 18:21 Blood Venous Anaerobic Blood Culture - Final Enterococcus Faecalis 04/30/18 10:10 Nasal Nasal Screen MRSA (PCR) - Final Mrsa Not Detected 04/30/18 08:52 Urine Streptococcus pneumoniae Ag Screen - Final Negative S. pneumo Antigen 04/29/18 21:55 Nasal Nasal Screen MRSA (PCR) - Final Mrsa Not Detected 04/29/18 19:18 Nasal Influenza Types A,B Antigen - Final Specimen received for Influenza A/B Molecular testing Diagnostic Imaging: . EKG Data: . Assess/Plan/Problems-Billing Assessment: Mr. Hinkle is a 72 year old male admitted to [facility] [place] for worsening agitation and confusion, bacteremia now on antibiotics with a prolonged ICU stay, persistent AMS, and multiple complications including afib with RVR and bacteremia. - Patient Problems (1) Bacteremia Comment: - BC on admission grew Enterococcus faecalis, 4/4 bottles; repeat BC negative - Source is unclear, suspected ICD - Appreciate ID consult; recommends 6 weeks IV abx - Continue ampicillin and ceftriaxone per ID (day ); per ID, he may be switched from ampicillin to vanco 1gm BID if necessary for SNF placement - Amp changed to Q 6hrs by Dr Watkins due to GFR (2) Acute hypoxemic respiratory failure Comment: - Secondary to CHF exacerbation, now resolved - Required BiPAP on admission (3) Acute on chronic systolic CHF (congestive heart failure) Comment: - Now resolved after significant diuresis - BNP was >1300 and pulmonary edema noted on CxR - Echo on 04/29 showed EF 40-45%, mild LV hypokinesis - Continue furosemide, metoprolol, digoxin - Home dose of potassium resumed, but then increased due to hypokalemia. (4) Delirium Comment: - Secondary to sepsis, prolonged hospitalization, baseline dementia - Geobecky and Cornelius d/c'd on 05/07 d/t QTc prolongation - Appreciate Neurology consult; saw on 05/[address] and EEG - CT brain unremarkable for acute findings; EEG showed findings consistent with diffuse cerebral dysfunction - Lorazepam changed from 1 mg PRN at bedtime to 0.5 mg Q6hrs PRN agitation. - In addition, we have added Risperadol 0.5 mg at bedtime which patient tolerated well last evening (5) Elevated troponin Code(s): R74.8 - ABNORMAL LEVELS OF OTHER SERUM ENZYMES SNOMED Code(s): 455172860 Comment: - Peaked at 0.16; no EKG changes - Case was previously discussed with Cardiology who felt as though this was demand ischemia and there was no concern for cardiac event - Remains asymptomatic (6) Hypertension Comment: - Normotensive, SBP 120-150s - Continue metoprolol, lisinopril, hydralazine PRN (7) Malnutrition of moderate degree Comment: - See [employer] Assistant assessment - Speech therapy following - TPN stopped 05/14 - Taking PO food and pills. Per nursing patient ate about 75% of breakfast this morning. - There is ongoing concern due to decrease in intake as patient will eat a large portion of one meal and then refuse to eat other meals - Cont to monitor (8) Sepsis Comment: - Present on admission, now resolved - Secondary to Enteroccous bactermia 04/29; repeat BC 05/01 negative - Sputum cultures shows polymicrobes, but CXR negative; suspect this represents colonization - Plan as above (9) Ventricular tachycardia (paroxysmal) Comment: - AICD fired on 05/08 - Secondary to CHF and polypharmacy - Continue digoxin, metoprolol, sotalol (10) Atrial fibrillation with rapid ventricular response Comment: - Now mostly rate controlled - Continue metoprolol, digoxin, Eliquis, and sotalol (11) Electrolyte abnormality Comment: - Responded well to d51/2NS as Na now 147 was 150 yesterday. Will provide addition 500 mls today and recheck tomorrow. - Potassium is low at 3.2, patient was previoius taking home dose of 10 meq but was increased to 20 judith yesterday. Provided with run of 10 meq K+ today recheck tomorrow - Mag 1.9. Will replace - Cont to monitor (12) DNR (do not resuscitate) Comment: Status and Disposition: Inpatient for IV antibiotics, delirium, and malnutrition requiring close monitoring. Anticipate d/c to SNF when medically stable. Attending: Namita Rivero
[2018-05-18] MEDS ORDERED: D5W 1/2 NS 1000 ML BAG* 500 ML IV SCH (16:00)
[2018-05-18] MEDS ORDERED: Alteplase (CATHFLO)* 2 MG VIAL IV ONE (17:30)
[2018-05-19] MEDS: Scopolamine 1.5 mg* PATCH TRANSDERM SCH (00:52)
[2018-05-19] MEDS: LORazepam INJ* 2 MG/ML 1 ML VIAL IV PUSH PRN ×3 (01:37→21:02)
[2018-05-19 04:32] LABS: ABS Basophils 0 10^3/ul (0-0.2); ABS Eosinophils 0.1 10^3/ul (0-0.6); ABS Lymphocytes 0.8 10^3/ul (1.0-4.8); ABS Monocytes 0.4 10^3/ul (0-0.8); ABS Neutrophils 4.7 10^3/ul (1.5-7.7); ABS Nucleated RBC 0 10^3/ul; Eosinophil % 1.9 %; Hematocrit 38 % (42-52); Lymphocyte % 13.5 %; Mean Corpuscular HGB Conc 34 g/dl (31-36); Mean Corpuscular Hemoglobin 29 pg (27-31); Mean Corpuscular Volume 86 fL (80-94); Nucleated Red Blood Cells % 0; Platelet Count 229 10^3/ul (150-450); Red Blood Count 4.42 10^6/ul (4.00-5.40); Red Cell Distribution Width 16 % (10.5-15); White Blood Count 6.2 10^3/ul (3.5-10.8)
[2018-05-19] MEDS: cefTRIAXone(*) 1 GM in NS 0.9% 50 ML* 50 ML IVPB SCH ×2 (04:46→15:41)
[2018-05-19 04:47] LABS: BUN/Creatinine Ratio 14.1 (8-20); Calcium 8.8 mg/dL (8.6-10.3); EGFR African American 89.4 (>60); EGFR Non-African American 73.9 (>60); Potassium 3.3 mmol/L (3.5-5.0)
[2018-05-19] MEDS: Morphine VIAL* 4 MG/ML VIAL (1 ml vial) IV PRN (05:15)
[2018-05-19] MEDS: Ampicillin ADVAN(*) 2 GM in NS 0.9% 100 ML* 100 ML IVPB SCH ×4 (07:07→23:54)
[2018-05-19] MEDS ORDERED: D5W 1/2 NS 40 Meq KCL 1000 ML* 1,000 ML IV SCH (08:00)
[2018-05-19] MEDS: Digoxin TAB* 0.125 MG PO SCH (09:33)
[2018-05-19] MEDS: Aspirin TAB* 325 MG PO SCH (09:33)
[2018-05-19] MEDS: Metoprolol Tartrate TAB* 100 MG TAB PO SCH ×2 (09:33→21:25)
[2018-05-19] MEDS: Sotalol TAB* 80 MG PO SCH ×2 (09:34→21:29)
[2018-05-19] MEDS: Donepezil TAB* 5 MG PO SCH (09:34)
[2018-05-19] MEDS: Furosemide TAB* 20 MG PO SCH (09:34)
[2018-05-19] MEDS: Lisinopril TAB* 5 MG PO SCH (09:34)
[2018-05-19] MEDS: Potassium Chloride LIQUID* 20 MEQ PACKET PO SCH (09:42)
[2018-05-19] MEDS ORDERED: Potassium Chloride LIQUID* 20 MEQ PACKET PO ONE (10:15)
[2018-05-19] MEDS: HYDROcodone/ACET. 7.5/325 LIQ* 15 ML UDC PO PRN ×2 (11:54→20:58)
[2018-05-19] MEDS: Apixaban* 5 MG TAB PO SCH ×2 (12:55→21:22)
--- NOTE | 2018-05-19 15:07 | PN ---
Subjective Date of Service: 05/19/18 Interval History: Patient is mumbling incoherently and occasionally able to formulate words but not able to coherently answer questions. Family History: Unchanged from Admission Social History: Unchanged from Admission Past Medical History: Unchanged from Admission Objective Active Medications: Acetaminophen (Tylenol Adult Liq*) 650 mg PO Q6H PRN PRN Reason: FEVER/PAIN Hydrocodone Bitart/Acetaminophen (Nortab 7.5/325 Liq*) 5 ml PO Q6H PRN PRN Reason: PAIN Last Admin: 05/19/18 11:54 Dose: 5 ml Albuterol/Ipratropium (Duoneb (Albuterol 2.5 Mg/Ipratropium 0.5 Mg)) 1 neb INH Q6H PRN PRN Reason: SOB/WHEEZING Apixaban (Eliquis*) 5 mg PO Q12H [facility] Last Admin: 05/19/18 12:55 Dose: 5 mg Aspirin (Aspirin Tab*) 325 mg PO DAILY [facility] Last Admin: 05/19/18 09:33 Dose: 325 mg Digoxin (Lanoxin Tab*) 0.125 mg PO DAILY [facility] Last Admin: 05/19/18 09:33 Dose: 0.125 mg Donepezil HCl (Aricept Tab*) 10 mg PO DAILY [facility] Last Admin: 05/19/18 09:34 Dose: 10 mg Furosemide (Lasix Tab*) 40 mg PO DAILY [facility] Last Admin: 05/19/18 09:34 Dose: 40 mg Heparin Sodium (Porcine) (Heparin Flush Picc/Ml/Cvc(*)) 1 - 3 ml FLUSH 0600, 1800 [facility]; Protocol Last Admin: 05/19/18 07:11 Dose: Not Given Hydralazine HCl (Apresoline Iv*) 10 mg IV SLOW PU Q6H PRN PRN Reason: SYSTOLIC BP GREATER THAN: Last Admin: 05/03/18 01:47 Dose: 10 mg Ceftriaxone Sodium 1 gm/ (Sodium Chloride) 50 mls @ 200 mls/hr IVPB Q12H [facility] Last Admin: 05/19/18 04:46 Dose: 200 mls/hr Ampicillin Sodium 2 gm/ Sodium (Chloride) 100 mls @ 200 mls/hr IVPB Q6H [facility] Last Admin: 05/19/18 11:54 Dose: 200 mls/hr Potassium Chloride/Dextrose (D5w 1/2 Ns 40 Meq Kcl 1000 Ml*) 1,000 mls @ 75 mls /hr IV PER RATE [facility] Last Admin: 05/19/18 09:29 Dose: 75 mls/hr Lisinopril (Prinivil Tab*) 5 mg PO DAILY [facility] Last Admin: 05/19/18 09:34 Dose: 5 mg Lorazepam (Ativan Inj*) 0.5 mg IV PUSH Q6HR PRN PRN Reason: AGITATION Last Admin: 05/19/18 12:13 Dose: 0.5 mg Metoprolol Tartrate (Lopressor Tab*) 100 mg PO BID [facility] Last Admin: 05/19/18 09:33 Dose: 100 mg Morphine Sulfate (Morphine Vial*) 1 mg IV Q8H PRN PRN Reason: PAIN Last Admin: 05/19/18 05:15 Dose: 1 mg Pharmacy Profile Note (Scopolamine Patch Remove*) 1 note PATCH OFF .AFTER 72 HOURS [facility] Potassium Chloride (Klor-Con Liquid*) 20 meq PO DAILY [facility] Last Admin: 05/19/18 09:42 Dose: 20 meq Risperidone (Risperdal) 0.5 mg PO BEDTIME [facility] Last Admin: 05/18/18 21:01 Dose: Not Given Scopolamine (Transderm-Scop 1.5 Mg Patch*) 1 patch TRANSDERM Q72H [facility] Last Admin: 05/19/18 00:52 Dose: 1 patch Sotalol HCl (Betapace Tab*) 120 mg PO BID [facility] Last Admin: 05/19/18 09:34 Dose: 120 mg Vital Signs - 8 hr 05/19/18 05/19/18 05/19/18 07:12 07:28 08:00 Temperature 97.2 F Pulse Rate 80 Respiratory 20 16 16 Rate Blood Pressure 132/85 (mmHg) O2 Sat by Pulse 100 Oximetry 05/19/18 05/19/18 05/19/18 09:33 11:14 11:18 Temperature 97.5 F Pulse Rate 90 83 Respiratory 18 Rate Blood Pressure 108/82 118/82 (mmHg) O2 Sat by Pulse 100 Oximetry 05/19/18 05/19/18 11:54 12:13 Temperature Pulse Rate Respiratory 18 18 Rate Blood Pressure (mmHg) O2 Sat by Pulse Oximetry Oxygen Devices in Use Now: None Appearance: Patient is a 72yo male who appears stated age and is sitting in the bed in NAD. Eyes: No Scleral Icterus, PERRLA Ears/Nose/Mouth/Throat: NL Teeth, Lips, Gums, Clear Oropharnyx, Mucous Membranes Moist Neck: NL Appearance and Movements; NL JVP, Trachea Midline Respiratory: Symmetrical Chest Expansion and Respiratory Effort, Clear to Auscultation Cardiovascular: NL Sounds; No Murmurs; No JVD, RRR, No Edema Abdominal: NL Sounds; No Tenderness; No Distention, No Hepatosplenomegaly Lymphatic: No Cervical Adenopathy Extremities: No Edema, No Clubbing, Cyanosis Skin: No Rash or Ulcers, No Nodules or Sclerosis Neurological: - - CN II-XII intact. - Nutrition: Malnutrition Diagnosis/Plan Malnutrition Assessment by Registered Dietitian: Malnutrition Assessment Clinical Characteristics Acute,Moderate Malnutrition Assessment: - po intake < 75% EEE x > 7 days Criteria - mild temporal muscle wasting Malnutrition Assessment: 1. attempts to place NGT for feeding (all Interventions unsuccessful) 2. PICC placement 05/04/18 3. plan to begin TPN 05/05 or 05/06 if pt not adequate alert for safe po intake - TPN base A suggested Malnutrition Assessment: Goals 1. adequate nutrition provision (via PO or enteral or parenteral nutrition) to meet pt's est need and support stable wt, hydration, and replete lean body mass 2. achieve and maintain serum electrolytes within acceptable ranges 3. maintain glycemic control within critical care parameters; w/possible start of TPN 4. maintain intact skin integrity without evidence of new breakdown Result Diagrams: 05/19/18 04:20 05/19/18 04:20 Additional Lab and Data: Laboratory Results - last 24 hr 05/17/18 05/17/18 05/18/18 15:23 16:15 06:50 Sodium 140 D 147 H 147 H Potassium 3.2 L 3.5 3.2 L Chloride 110 115 H 115 H Carbon Dioxide 24 26 26 Anion Gap 6 6 6 BUN 16 18 13 Creatinine 0.98 1.02 0.92 Est GFR ( Amer) 90.5 86.4 97.3 Est GFR (Non-Af Amer) 74.8 71.4 80.4 BUN/Creatinine Ratio 16.3 17.6 14.1 Glucose TNP 125 H 92 Calcium 7.4 L 8.7 8.3 L Magnesium 1.9 Microbiology and Other Data: Microbiology 05/01/18 09:51 Blood Venous Aerobic Blood Culture - Final No Growth Day 5 05/01/18 09:51 Blood Venous Anaerobic Blood Culture - Final No Growth Day 5 05/02/18 11:09 Sputum Expectorated Gram Stain - Final 05/02/18 11:09 Sputum Expectorated Sputum Culture - Final Pseudomonas Aeruginosa Klebsiella Oxytoca YEAST 04/29/18 19:15 Blood Venous Aerobic Blood Culture - Final Enterococcus Faecalis 04/29/18 19:15 Blood Venous Anaerobic Blood Culture - Final Enterococcus Faecalis 04/29/18 18:21 Blood Venous Aerobic Blood Culture - Final Enterococcus Faecalis 04/29/18 18:21 Blood Venous Anaerobic Blood Culture - Final Enterococcus Faecalis 04/30/18 10:10 Nasal Nasal Screen MRSA (PCR) - Final Mrsa Not Detected 04/30/18 08:52 Urine Streptococcus pneumoniae Ag Screen - Final Negative S. pneumo Antigen 04/29/18 21:55 Nasal Nasal Screen MRSA (PCR) - Final Mrsa Not Detected 04/29/18 19:18 Nasal Influenza Types A,B Antigen - Final Specimen received for Influenza A/B Molecular testing Diagnostic Imaging: . EKG Data: . Assess/Plan/Problems-Billing Assessment: Mr. Hinkle is a 72 year old male admitted to [facility] for worsening agitation and confusion, bacteremia now on antibiotics with a prolonged ICU stay, persistent AMS, and multiple complications including afib with RVR and bacteremia who is improving slowly. - Patient Problems (1) Bacteremia Current Visit: Yes Status: Acute Code(s): R78.81 - BACTEREMIA SNOMED Code( s): 7531574 Comment: - BC on admission grew Enterococcus faecalis, 4/4 bottles; repeat BC negative - Source is unclear, suspected ICD infection - Appreciate ID consult; recommends 6 weeks IV abx and then possible suppressive IV PO antibiotics - Continue ampicillin and ceftriaxone per ID (day ); per ID, he may be switched from ampicillin to vanco 1gm BID if necessary for SNF placement - Amp changed to Q 6hrs by Dr Watkins due to GFR (2) Sepsis Current Visit: Yes Status: Acute Priority: High Comment: - Present on admission, now resolved - Secondary to Enteroccous bactermia 04/29; repeat BC 05/01 negative - Sputum cultures shows polymicrobes, but CXR negative; suspect this represents colonization - Plan as above (3) Delirium Current Visit: Yes Status: Acute Code(s): R41.0 - DISORIENTATION, UNSPECIFIED SNOMED Code(s): 9934533 Comment: - Secondary to sepsis, prolonged hospitalization, baseline dementia - Geodon and Haldol d/c'd on 05/07 d/t QTc prolongation - Appreciate Neurology consult; saw on 05/[address] and EEG - CT brain unremarkable for acute findings; EEG showed findings consistent with diffuse cerebral dysfunction - Lorazepam changed from 1 mg PRN at bedtime to 0.5 mg Q6hrs PRN agitation. - In addition, we have added Risperadol 0.5 mg at bedtime which patient tolerated well - Monitor QTc on Risperdal and optimize Electrolytes PRN. (4) Acute on chronic systolic CHF (congestive heart failure) Current Visit: Yes Status: Acute Code(s): I50.23 - ACUTE ON CHRONIC SYSTOLIC (CONGESTIVE) HEART FAILURE SNOMED Code(s): 786604254 Comment: - Now resolved after significant diuresis - BNP was >1300 and pulmonary edema noted on CxR - Echo on 04/29 showed EF 40-45%, mild LV hypokinesis - Decrease Furosemide due to apparent hypoveolemia - Continue metoprolol, digoxin. Level .7, monitor closely with hypokalemia. - Continue KCl 20meq daily. (5) COPD (chronic obstructive pulmonary disease) Current Visit: Yes Status: Acute Code(s): J44.9 - CHRONIC OBSTRUCTIVE PULMONARY DISEASE, UNSPECIFIED SNOMED Code(s): 56534000 Comment: - Stable, not in exacerbation - Continue nebs (6) AICD (automatic cardioverter/defibrillator) present Current Visit: Yes Status: Acute Code(s): Z95.810 - PRESENCE OF AUTOMATIC ( IMPLANTABLE) CARDIAC DEFIBRILLATOR SNOMED Code(s): 592534841 Comment: - Fired on 05/08/18, run of VT and Torsades de pointes were noted on tele - Monitor QTc while on Risperdal and Sotalol with hyperkalemia (7) Electrolyte abnormality Current Visit: Yes Status: Acute Code(s): E87.8 - OTH DISORDERS OF ELECTROLYTE AND FLUID BALANCE, NEC SNOMED Code(s): 785692054 Comment: - Hypernatremia Responded well to d51/2NS as Na now 147. Will provide addition 500 mls - Hypokalemia at 3.3, Decrease Lasix, increase supplementation, Give IV supplementation - Mag 2.0. Will replace PRN - Cont to monitor (8) Hypertension Current Visit: Yes Status: Acute Code(s): I10 - ESSENTIAL (PRIMARY) HYPERTENSION SNOMED Code(s): 95473425 Comment: - Normotensive, SBP 120-150s - Continue metoprolol, lisinopril, hydralazine PRN (9) Malnutrition of moderate degree Current Visit: Yes Status: Acute Code(s): E44.0 - MODERATE PROTEIN-CALORIE MALNUTRITION SNOMED Code(s): 015848085 Comment: - See Finishing Trimmer assessment - Speech therapy following - TPN stopped 05/14 - Taking PO food and pills. Intermittent PO intake. - Encourage, reorient frequently, and feed PRN. - There is ongoing concern due to decrease in intake as patient will eat a large portion of one meal and then refuse to eat other meals - Cont to monitor (10) Alzheimer disease Current Visit: Yes Status: Chronic Code(s): G30.9 - ALZHEIMER'S DISEASE, UNSPECIFIED; F02.80 - DEMENTIA IN OTH DISEASES CLASSD ELSWHR W/O BEHAVRL DISTURB SNOMED Code(s): 29812237 Comment: - Continue Aricept - Advanced and worsened by delirium. (11) Atrial fibrillation with rapid ventricular response Current Visit: Yes Status: Resolved Priority: Medium Code(s): I48.91 - UNSPECIFIED ATRIAL FIBRILLATION SNOMED Code(s): 544382465050674 Comment: - Rate controlled and paced. - Continue metoprolol, digoxin, Eliquis, and sotalol (12) DNR (do not resuscitate) Current Visit: Yes Status: Acute Comment: (13) DVT prophylaxis Current Visit: Yes Status: Acute Priority: Low Code(s): ZYN4751 - SNOMED Code(s): 221640152 Comment: - Eliquis Status and Disposition: Inpatient for IV antibiotics, delirium, and malnutrition requiring close monitoring. Anticipate d/c to SNF when medically stable.
[2018-05-19] MEDS: KCL 20 MEQ/100 ML IVPREMIX* 20 MEQ/100 ML BAG IV SCH ×2 (16:28→21:04)
[2018-05-20] MEDS: cefTRIAXone(*) 1 GM in NS 0.9% 50 ML* 50 ML IVPB SCH ×2 (05:10→16:08)
[2018-05-20] MEDS: Ampicillin ADVAN(*) 2 GM in NS 0.9% 100 ML* 100 ML IVPB SCH ×3 (05:56→17:12)
[2018-05-20 06:11] LABS: BUN/Creatinine Ratio 15.9 (8-20); Calcium 8.7 mg/dL (8.6-10.3); EGFR African American 102.4 (>60); EGFR Non-African American 84.7 (>60); Potassium 3.6 mmol/L (3.5-5.0)
[2018-05-20] MEDS ORDERED: Potassium Chloride LIQUID* 20 MEQ PACKET PO ONE (07:10)
[2018-05-20] MEDS ORDERED: KCL 20 MEQ/100 ML IVPREMIX* 20 MEQ/100 ML BAG IV ONE (07:30)
[2018-05-20] MEDS: Furosemide TAB* 20 MG PO SCH (09:17)
[2018-05-20] MEDS: Aspirin TAB* 325 MG PO SCH (09:17)
[2018-05-20] MEDS: Lisinopril TAB* 5 MG PO SCH (09:24)
[2018-05-20] MEDS: Donepezil TAB* 5 MG PO SCH (09:25)
[2018-05-20] MEDS: Apixaban* 5 MG TAB PO SCH ×2 (09:27→22:16)
[2018-05-20] MEDS: Metoprolol Tartrate TAB* 100 MG TAB PO SCH ×2 (09:28→22:20)
[2018-05-20] MEDS: Digoxin TAB* 0.125 MG PO SCH (09:31)
[2018-05-20] MEDS: Sotalol TAB* 80 MG PO SCH ×2 (09:34→22:21)
[2018-05-20] MEDS: LORazepam INJ* 2 MG/ML 1 ML VIAL IV PUSH PRN ×2 (12:09→18:31)
[2018-05-20] MEDS: Morphine VIAL* 4 MG/ML VIAL (1 ml vial) IV PRN ×2 (12:33→18:29)
[2018-05-20] MEDS: Potassium Chloride LIQUID* 20 MEQ PACKET PO SCH (13:48)
--- NOTE | 2018-05-20 16:09 | PN ---
Subjective Date of Service: 05/20/18 Interval History: Patient more alert and able to answer several questions this AM. Patient denied CP, F/C, N/V. Patient endorsed pain diffusely. Family History: Unchanged from Admission Social History: Unchanged from Admission Past Medical History: Unchanged from Admission Objective Active Medications: Acetaminophen (Tylenol Adult Liq*) 650 mg PO Q6H PRN PRN Reason: FEVER/PAIN Hydrocodone Bitart/Acetaminophen (Nortab 7.5/325 Liq*) 5 ml PO Q6H PRN PRN Reason: PAIN Last Admin: 05/19/18 20:58 Dose: 5 ml Albuterol/Ipratropium (Duoneb (Albuterol 2.5 Mg/Ipratropium 0.5 Mg)) 1 neb INH Q6H PRN PRN Reason: SOB/WHEEZING Apixaban (Eliquis*) 5 mg PO Q12H [facility] Last Admin: 05/20/18 09:27 Dose: 5 mg Aspirin (Aspirin Tab*) 325 mg PO DAILY [facility] Last Admin: 05/20/18 09:17 Dose: 325 mg Digoxin (Lanoxin Tab*) 0.125 mg PO DAILY [facility] Last Admin: 05/20/18 09:31 Dose: 0.125 mg Donepezil HCl (Aricept Tab*) 10 mg PO DAILY [facility] Last Admin: 05/20/18 09:25 Dose: 10 mg Furosemide (Lasix Tab*) 20 mg PO DAILY [facility] Last Admin: 05/20/18 09:17 Dose: 20 mg Heparin Sodium (Porcine) (Heparin Flush Picc/Ml/Cvc(*)) 1 - 3 ml FLUSH 0600, 1800 [facility]; Protocol Last Admin: 05/20/18 05:05 Dose: 1 ml Hydralazine HCl (Apresoline Iv*) 10 mg IV SLOW PU Q6H PRN PRN Reason: SYSTOLIC BP GREATER THAN: Last Admin: 05/03/18 01:47 Dose: 10 mg Ceftriaxone Sodium 1 gm/ (Sodium Chloride) 50 mls @ 200 mls/hr IVPB Q12H [facility] Last Admin: 05/20/18 05:10 Dose: 200 mls/hr Ampicillin Sodium 2 gm/ Sodium (Chloride) 100 mls @ 200 mls/hr IVPB Q6H [facility] Last Admin: 05/20/18 13:50 Dose: 200 mls/hr Potassium Chloride/Dextrose (D5w 1/2 Ns 40 Meq Kcl 1000 Ml*) 1,000 mls @ 75 mls /hr IV PER RATE [facility] Last Admin: 05/19/18 09:29 Dose: 75 mls/hr Lisinopril (Prinivil Tab*) 5 mg PO DAILY [facility] Last Admin: 05/20/18 09:24 Dose: 5 mg Lorazepam (Ativan Inj*) 0.5 mg IV PUSH Q4HR PRN PRN Reason: AGITATION Metoprolol Tartrate (Lopressor Tab*) 100 mg PO BID [facility] Last Admin: 05/20/18 09:28 Dose: 100 mg Morphine Sulfate (Morphine Vial*) 1 mg IV Q4H PRN PRN Reason: PAIN Pharmacy Profile Note (Scopolamine Patch Remove*) 1 note PATCH OFF .AFTER 72 HOURS [facility] Potassium Chloride (Klor-Con Liquid*) 20 meq PO DAILY [facility] Last Admin: 05/20/18 13:48 Dose: Not Given Risperidone (Risperdal) 0.5 mg PO BEDTIME [facility] Last Admin: 05/19/18 21:28 Dose: 0.5 mg Scopolamine (Transderm-Scop 1.5 Mg Patch*) 1 patch TRANSDERM Q72H [facility] Last Admin: 05/19/18 00:52 Dose: 1 patch Sotalol HCl (Betapace Tab*) 120 mg PO BID [facility] Last Admin: 05/20/18 09:34 Dose: 120 mg Vital Signs - 8 hr 05/20/18 05/20/18 05/20/18 08:00 09:31 10:59 Temperature 97.5 F Pulse Rate 88 76 Respiratory 18 20 Rate Blood Pressure 136/100 (mmHg) O2 Sat by Pulse 81 Oximetry 05/20/18 05/20/18 05/20/18 11:06 12:09 12:33 Temperature Pulse Rate Respiratory 20 22 Rate Blood Pressure 142/90 (mmHg) O2 Sat by Pulse Oximetry 05/20/18 15:20 Temperature Pulse Rate Respiratory 20 Rate Blood Pressure (mmHg) O2 Sat by Pulse Oximetry Oxygen Devices in Use Now: None Appearance: Patient is a 72yo male who appears stated age and is sitting in the bed in [facility]. Eyes: No Scleral Icterus, PERRLA Ears/Nose/Mouth/Throat: NL Teeth, Lips, Gums, Clear Oropharnyx, Mucous Membranes Moist Neck: NL Appearance and Movements; NL JVP, Trachea Midline Respiratory: Symmetrical Chest Expansion and Respiratory Effort, Clear to Auscultation Cardiovascular: NL Sounds; No Murmurs; No JVD, RRR, No Edema, - - Scars consistent with ICD and Pacemaker placement. Abdominal: NL Sounds; No Tenderness; No Distention, No Hepatosplenomegaly Lymphatic: No Cervical Adenopathy Extremities: No Edema, No Clubbing, Cyanosis Skin: No Rash or Ulcers, No Nodules or Sclerosis Neurological: - - Alert, oriented only to self. - Nutrition: Malnutrition Diagnosis/Plan Malnutrition Assessment by Registered Dietitian: Malnutrition Assessment Clinical Characteristics Acute,Moderate Malnutrition Assessment: - po intake < 75% EEE x > 7 days Criteria - mild temporal muscle wasting Malnutrition Assessment: 1. attempts to place NGT for feeding (all Interventions unsuccessful) 2. PICC placement 05/04/18 3. plan to begin TPN 05/05 or 05/06 if pt not adequate alert for safe po intake - TPN base A suggested Malnutrition Assessment: Goals 1. adequate nutrition provision (via PO or enteral or parenteral nutrition) to meet pt's est need and support stable wt, hydration, and replete lean body mass 2. achieve and maintain serum electrolytes within acceptable ranges 3. maintain glycemic control within critical care parameters; w/possible start of TPN 4. maintain intact skin integrity without evidence of new breakdown Result Diagrams: 05/19/18 04:20 05/20/18 05:00 Additional Lab and Data: Laboratory Results - last 24 hr 05/17/18 05/17/18 05/18/18 15:23 16:15 06:50 Sodium 140 D 147 H 147 H Potassium 3.2 L 3.5 3.2 L Chloride 110 115 H 115 H Carbon Dioxide 24 26 26 Anion Gap 6 6 6 BUN 16 18 13 Creatinine 0.98 1.02 0.92 Est GFR ( Amer) 90.5 86.4 97.3 Est GFR (Non-Af Amer) 74.8 71.4 80.4 BUN/Creatinine Ratio 16.3 17.6 14.1 Glucose TNP 125 H 92 Calcium 7.4 L 8.7 8.3 L Magnesium 1.9 Microbiology and Other Data: Microbiology 05/01/18 09:51 Blood Venous Aerobic Blood Culture - Final No Growth Day 5 05/01/18 09:51 Blood Venous Anaerobic Blood Culture - Final No Growth Day 5 05/02/18 11:09 Sputum Expectorated Gram Stain - Final 05/02/18 11:09 Sputum Expectorated Sputum Culture - Final Pseudomonas Aeruginosa Klebsiella Oxytoca YEAST 04/29/18 19:15 Blood Venous Aerobic Blood Culture - Final Enterococcus Faecalis 04/29/18 19:15 Blood Venous Anaerobic Blood Culture - Final Enterococcus Faecalis 04/29/18 18:21 Blood Venous Aerobic Blood Culture - Final Enterococcus Faecalis 04/29/18 18:21 Blood Venous Anaerobic Blood Culture - Final Enterococcus Faecalis 04/30/18 10:10 Nasal Nasal Screen MRSA (PCR) - Final Mrsa Not Detected 04/30/18 08:52 Urine Streptococcus pneumoniae Ag Screen - Final Negative S. pneumo Antigen 04/29/18 21:55 Nasal Nasal Screen MRSA (PCR) - Final Mrsa Not Detected 04/29/18 19:18 Nasal Influenza Types A,B Antigen - Final Specimen received for Influenza A/B Molecular testing Diagnostic Imaging: . EKG Data: . Assess/Plan/Problems-Billing Assessment: Mr. Hinkle is a 72 year old male admitted to [facility] for worsening agitation and confusion, bacteremia now on antibiotics with a prolonged ICU stay, persistent AMS, and multiple complications including afib with RVR and bacteremia who is improving slowly. - Patient Problems (1) Bacteremia Current Visit: Yes Status: Acute Code(s): R78.81 - BACTEREMIA SNOMED Code( s): 4811587 Comment: - BC on admission grew Enterococcus faecalis, 4/4 bottles; repeat BC negative - Source is unclear, suspected ICD infection - Appreciate ID consult; recommends 6 weeks IV abx and then possible suppressive IV PO antibiotics - Continue ampicillin and ceftriaxone per ID (day ); per ID, he may be switched from ampicillin to vanco 1gm BID if necessary for SNF placement - Amp changed to Q 6hrs by Dr Watkins due to GFR (2) Sepsis Current Visit: Yes Status: Acute Priority: High Comment: - Present on admission, now resolved - Secondary to Enteroccous bactermia 04/29; repeat BC 05/01 negative - Sputum cultures shows polymicrobes, but CXR negative; suspect this represents colonization - Plan as above (3) Delirium Current Visit: Yes Status: Acute Code(s): R41.0 - DISORIENTATION, UNSPECIFIED SNOMED Code(s): 7324016 Comment: - Secondary to sepsis, prolonged hospitalization, baseline dementia - Geodon and Haldol d/c'd on 05/07 d/t QTc prolongation - Appreciate Neurology consult; saw on 05/[address] and EEG - CT brain unremarkable for acute findings; EEG showed findings consistent with diffuse cerebral dysfunction - Lorazepam changed from 1 mg PRN at bedtime to 0.5 mg Q4hrs PRN agitation. - In addition, we have added Risperadol 0.5 mg at bedtime which patient tolerated well, QT prolonged, if able to be decreased with electrolyte replacement, may be able to increase risperdal. - Monitor QTc on Risperdal and optimize Electrolytes PRN. (4) Acute on chronic systolic CHF (congestive heart failure) Current Visit: Yes Status: Acute Code(s): I50.23 - ACUTE ON CHRONIC SYSTOLIC (CONGESTIVE) HEART FAILURE SNOMED Code(s): 597970234 Comment: - Now resolved after significant diuresis - BNP was >1300 and pulmonary edema noted on CxR - Echo on 04/29 showed EF 40-45%, mild LV hypokinesis - Decrease Furosemide due to apparent hypoveolemia - Continue metoprolol, digoxin. Level .7, monitor closely with hypokalemia. - Increase to 40meq daily. (5) COPD (chronic obstructive pulmonary disease) Current Visit: Yes Status: Acute Code(s): J44.9 - CHRONIC OBSTRUCTIVE PULMONARY DISEASE, UNSPECIFIED SNOMED Code(s): 06855266 Comment: - Stable, not in exacerbation - Continue nebs (6) AICD (automatic cardioverter/defibrillator) present Current Visit: Yes Status: Acute Code(s): Z95.810 - PRESENCE OF AUTOMATIC ( IMPLANTABLE) CARDIAC DEFIBRILLATOR SNOMED Code(s): 074369465 Comment: - Fired on 05/08/18, run of VT and Torsades de pointes were noted on tele - Monitor QTc while on Risperdal and Sotalol with hypokalemia (7) Electrolyte abnormality Current Visit: Yes Status: Acute Code(s): E87.8 - OTH DISORDERS OF ELECTROLYTE AND FLUID BALANCE, NEC SNOMED Code(s): 885705855 Comment: - Hypernatremia now at 147, monitor with increasing oral intake. - Hypokalemia at 3.6, Decrease Lasix, increase supplementation, Give IV supplementation PRN - Mag 2.0. Will replace PRN - Cont to monitor (8) Hypertension Current Visit: Yes Status: Acute Code(s): I10 - ESSENTIAL (PRIMARY) HYPERTENSION SNOMED Code(s): 27351189 Comment: - Normotensive, SBP 120-150s - Continue metoprolol, lisinopril, hydralazine PRN (9) Malnutrition of moderate degree Current Visit: Yes Status: Acute Code(s): E44.0 - MODERATE PROTEIN-CALORIE MALNUTRITION SNOMED Code(s): 712450752 Comment: - See Resource Conservationist assessment - Speech therapy following - TPN stopped 05/14 - Taking PO food and pills. Intermittent PO intake. - Encourage, reorient frequently, and feed PRN. - Increasing oral intake - Cont to monitor (10) Alzheimer disease Current Visit: Yes Status: Chronic Code(s): G30.9 - ALZHEIMER'S DISEASE, UNSPECIFIED; F02.80 - DEMENTIA IN OTH DISEASES CLASSD ELSWHR W/O BEHAVRL DISTURB SNOMED Code(s): 05234192 Comment: - Continue Aricept - Advanced and worsened by delirium. (11) Atrial fibrillation with rapid ventricular response Current Visit: Yes Status: Resolved Priority: Medium Code(s): I48.91 - UNSPECIFIED ATRIAL FIBRILLATION SNOMED Code(s): 345128973042446 Comment: - Rate controlled and paced. - Continue metoprolol, digoxin, Eliquis, and sotalol (12) DNR (do not resuscitate) Current Visit: Yes Status: Acute Comment: (13) DVT prophylaxis Current Visit: Yes Status: Acute Priority: Low Code(s): KBB9219 - SNOMED Code(s): 974750579 Comment: - Eliquis Status and Disposition: Inpatient for IV antibiotics, delirium, and malnutrition requiring close monitoring. Anticipate d/c to SNF when medically stable.
[2018-05-21] MEDS: Ampicillin ADVAN(*) 2 GM in NS 0.9% 100 ML* 100 ML IVPB SCH ×4 (00:45→18:02)
[2018-05-21] MEDS: LORazepam INJ* 2 MG/ML 1 ML VIAL IV PUSH PRN ×2 (01:57→06:21)
[2018-05-21] MEDS: Morphine VIAL* 4 MG/ML VIAL (1 ml vial) IV PRN ×2 (01:59→06:21)
[2018-05-21] MEDS: cefTRIAXone(*) 1 GM in NS 0.9% 50 ML* 50 ML IVPB SCH ×2 (06:12→17:11)
[2018-05-21] MEDS ORDERED: Naloxone* 0.4 MG/ML 1 ML VIAL IV PUSH ONE ×3 (06:56→07:47)
[2018-05-21] MEDS ORDERED: Naloxone* 0.4 MG/ML 1 ML VIAL ONE (07:02)
[2018-05-21 07:05] LABS: BUN/Creatinine Ratio 12.9 (8-20); Calcium 9.1 mg/dL (8.6-10.3); EGFR African American 96.1 (>60); EGFR Non-African American 79.4 (>60); Potassium 3.6 mmol/L (3.5-5.0)
[2018-05-21] MEDS ORDERED: D5W 1/2 NS 40 Meq KCL 1000 ML* 1,000 ML IV SCH (07:27)
[2018-05-21] MEDS: Aspirin TAB* 325 MG PO SCH (11:37)
[2018-05-21] MEDS: Digoxin TAB* 0.125 MG PO SCH (11:37)
[2018-05-21] MEDS: Donepezil TAB* 5 MG PO SCH (11:37)
[2018-05-21] MEDS: Potassium Chloride LIQUID* 20 MEQ PACKET PO SCH (11:38)
[2018-05-21] MEDS: Apixaban* 5 MG TAB PO SCH ×2 (11:38→22:28)
[2018-05-21] MEDS: Metoprolol Tartrate TAB* 100 MG TAB PO SCH ×2 (11:38→22:32)
[2018-05-21] MEDS: Sotalol TAB* 80 MG PO SCH ×2 (11:38→22:31)
[2018-05-21] MEDS: Furosemide TAB* 20 MG PO SCH (11:38)
[2018-05-21] MEDS: Lisinopril TAB* 5 MG PO SCH (11:38)
[2018-05-21] MEDS: LORazepam INJ* 2 MG/ML 1 ML VIAL IV PUSH SCH ×3 (12:00→18:12)
--- NOTE | 2018-05-21 16:13 | PN ---
Subjective Date of Service: 05/21/18 Interval History: Patient this AM only barely arousable with periods of apnea. Mentation improved and breathing normalized with Narcan Administration. Patient in AM unable to participate at all in exam or interview. However, later in day when family present, patient was alert and moderately communicative. Patient at that time denies CP, SOB, F/C, Pain, Dizziness. Family still interested in pursing medical treatment for infection. Family History: Unchanged from Admission Social History: Unchanged from Admission Past Medical History: Unchanged from Admission Objective Active Medications: Acetaminophen (Tylenol Adult Liq*) 650 mg PO Q6H PRN PRN Reason: FEVER/PAIN Hydrocodone Bitart/Acetaminophen (Nortab 7.5/325 Liq*) 5 ml PO Q6H PRN PRN Reason: PAIN Last Admin: 05/19/18 20:58 Dose: 5 ml Albuterol/Ipratropium (Duoneb (Albuterol 2.5 Mg/Ipratropium 0.5 Mg)) 1 neb INH Q6H PRN PRN Reason: SOB/WHEEZING Apixaban (Eliquis*) 5 mg PO Q12H [facility] Last Admin: 05/21/18 11:38 Dose: Not Given Aspirin (Aspirin Tab*) 325 mg PO DAILY [facility] Last Admin: 05/21/18 11:37 Dose: Not Given Digoxin (Lanoxin Tab*) 0.125 mg PO DAILY [facility] Last Admin: 05/21/18 11:37 Dose: Not Given Donepezil HCl (Aricept Tab*) 10 mg PO DAILY [facility] Last Admin: 05/21/18 11:37 Dose: Not Given Furosemide (Lasix Tab*) 20 mg PO DAILY [facility] Last Admin: 05/21/18 11:38 Dose: Not Given Heparin Sodium (Porcine) (Heparin Flush Picc/Ml/Cvc(*)) 1 - 3 ml FLUSH 0600, 1800 [facility]; Protocol Last Admin: 05/21/18 08:23 Dose: 1 ml Hydralazine HCl (Apresoline Iv*) 10 mg IV SLOW PU Q6H PRN PRN Reason: SYSTOLIC BP GREATER THAN: Last Admin: 05/03/18 01:47 Dose: 10 mg Ceftriaxone Sodium 1 gm/ (Sodium Chloride) 50 mls @ 200 mls/hr IVPB Q12H [facility] Last Admin: 05/21/18 06:12 Dose: 200 mls/hr Ampicillin Sodium 2 gm/ Sodium (Chloride) 100 mls @ 200 mls/hr IVPB Q6H [facility] Last Admin: 05/21/18 12:02 Dose: 200 mls/hr Potassium Chloride/Dextrose (D5w 1/2 Ns 40 Meq Kcl 1000 Ml*) 1,000 mls @ 100 mls/hr IV PER RATE [facility] Last Admin: 05/21/18 08:25 Dose: 100 mls/hr Lisinopril (Prinivil Tab*) 5 mg PO DAILY [facility] Last Admin: 05/21/18 11:38 Dose: Not Given Lorazepam (Ativan Inj*) 0.5 mg IV PUSH Q6HR [facility] Last Admin: 05/21/18 12:00 Dose: Not Given Metoprolol Tartrate (Lopressor Tab*) 100 mg PO BID [facility] Last Admin: 05/21/18 11:38 Dose: Not Given Potassium Chloride (Klor-Con Liquid*) 40 meq PO DAILY [facility] Last Admin: 05/21/18 11:38 Dose: Not Given Risperidone (Risperdal) 0.5 mg PO BEDTIME [facility] Last Admin: 05/20/18 22:18 Dose: 0.5 mg Sotalol HCl (Betapace Tab*) 60 mg PO BID [facility] Vital Signs - 8 hr 05/21/18 05/21/18 05/21/18 08:35 08:37 12:19 Temperature 97.2 F Pulse Rate Respiratory 24 24 20 Rate Blood Pressure 108/75 (mmHg) O2 Sat by Pulse 100 Oximetry 05/21/18 12:42 Temperature Pulse Rate 80 Respiratory Rate Blood Pressure (mmHg) O2 Sat by Pulse Oximetry Oxygen Devices in Use Now: None Appearance: Patient is a 72yo male who appears stated age and is sitting in the bed in [facility]. Eyes: No Scleral Icterus, PERRLA Ears/Nose/Mouth/Throat: NL Teeth, Lips, Gums, Clear Oropharnyx, - - Mucus Membranes Dry Neck: NL Appearance and Movements; NL JVP, Trachea Midline Respiratory: Symmetrical Chest Expansion and Respiratory Effort, Clear to Auscultation Cardiovascular: NL Sounds; No Murmurs; No JVD, RRR, No Edema Abdominal: NL Sounds; No Tenderness; No Distention, No Hepatosplenomegaly Lymphatic: No Cervical Adenopathy Extremities: No Edema, No Clubbing, Cyanosis Skin: No Rash or Ulcers, No Nodules or Sclerosis Neurological: - - Unable to participate in Exam. - Nutrition: Malnutrition Diagnosis/Plan Malnutrition Assessment by Registered Dietitian: Malnutrition Assessment Clinical Characteristics Acute,Moderate Malnutrition Assessment: - po intake < 75% EEE x > 7 days Criteria - mild temporal muscle wasting Malnutrition Assessment: 1. attempts to place NGT for feeding (all Interventions unsuccessful) 2. PICC placement 05/04/18 3. plan to begin TPN 05/05 or 05/06 if pt not adequate alert for safe po intake - TPN base A suggested Malnutrition Assessment: Goals 1. adequate nutrition provision (via PO or enteral or parenteral nutrition) to meet pt's est need and support stable wt, hydration, and replete lean body mass 2. achieve and maintain serum electrolytes within acceptable ranges 3. maintain glycemic control within critical care parameters; w/possible start of TPN 4. maintain intact skin integrity without evidence of new breakdown Result Diagrams: 05/19/18 04:20 05/21/18 06:05 Additional Lab and Data: Laboratory Results - last 24 hr 05/17/18 05/17/18 05/18/18 15:23 16:15 06:50 Sodium 140 D 147 H 147 H Potassium 3.2 L 3.5 3.2 L Chloride 110 115 H 115 H Carbon Dioxide 24 26 26 Anion Gap 6 6 6 BUN 16 18 13 Creatinine 0.98 1.02 0.92 Est GFR ( Amer) 90.5 86.4 97.3 Est GFR (Non-Af Amer) 74.8 71.4 80.4 BUN/Creatinine Ratio 16.3 17.6 14.1 Glucose TNP 125 H 92 Calcium 7.4 L 8.7 8.3 L Magnesium 1.9 Microbiology and Other Data: Microbiology 05/01/18 09:51 Blood Venous Aerobic Blood Culture - Final No Growth Day 5 05/01/18 09:51 Blood Venous Anaerobic Blood Culture - Final No Growth Day 05/02/18 11:09 Sputum Expectorated Gram Stain - Final 05/02/18 11:09 Sputum Expectorated Sputum Culture - Final Pseudomonas Aeruginosa Klebsiella Oxytoca YEAST 04/29/18 19:15 Blood Venous Aerobic Blood Culture - Final Enterococcus Faecalis 04/29/18 19:15 Blood Venous Anaerobic Blood Culture - Final Enterococcus Faecalis 04/29/18 18:21 Blood Venous Aerobic Blood Culture - Final Enterococcus Faecalis 04/29/18 18:21 Blood Venous Anaerobic Blood Culture - Final Enterococcus Faecalis 04/30/18 10:10 Nasal Nasal Screen MRSA (PCR) - Final Mrsa Not Detected 04/30/18 08:52 Urine Streptococcus pneumoniae Ag Screen - Final Negative S. pneumo Antigen 04/29/18 21:55 Nasal Nasal Screen MRSA (PCR) - Final Mrsa Not Detected 04/29/18 19:18 Nasal Influenza Types A,B Antigen - Final Specimen received for Influenza A/B Molecular testing Diagnostic Imaging: . EKG Data: . Assess/Plan/Problems-Billing Assessment: Mr. Hinkle is a 72 year old male admitted to [facility] for worsening agitation and confusion, bacteremia now on antibiotics with a prolonged ICU stay, persistent AMS, and multiple complications including afib with RVR and bacteremia who is improving slowly. - Patient Problems (1) Bacteremia Current Visit: Yes Status: Acute Code(s): R78.81 - BACTEREMIA SNOMED Code( s): 1771243 Comment: - BC on admission grew Enterococcus faecalis, 4/4 bottles; repeat BC negative - Source is unclear, suspected ICD infection - Appreciate ID consult; recommends 6 weeks IV abx and then possible suppressive IV PO antibiotics - Continue ampicillin and ceftriaxone per ID (day ); per ID, he may be switched from ampicillin to vanco 1gm BID if necessary for SNF placement - Amp changed to Q 6hrs by Dr Watkins due to GFR (2) Sepsis Current Visit: Yes Status: Acute Priority: High Comment: - Present on admission, now resolved - Secondary to Enteroccous bactermia 04/29; repeat BC 05/01 negative - Sputum cultures shows polymicrobes, but CXR negative; suspect this represents colonization - Plan as above (3) Delirium Current Visit: Yes Status: Acute Code(s): R41.0 - DISORIENTATION, UNSPECIFIED SNOMED Code(s): 1903414 Comment: - Secondary to sepsis, prolonged hospitalization, baseline dementia - Geodon and Haldol d/c'd on 05/07 d/t QTc prolongation - Appreciate Neurology consult; saw on 05/[address] and EEG - CT brain unremarkable for acute findings; EEG showed findings consistent with diffuse cerebral dysfunction - Lorazepam changed from 1 mg PRN at bedtime to 0.5 mg Q6hrs PRN agitation. - In addition, we have added Risperadol 0.5 mg at bedtime which patient tolerated well, QT prolonged, if able to be decreased with electrolyte replacement, may be able to increase risperdal. - Monitor QTc on Risperdal and optimize Electrolytes PRN. - Discussed with family visiting as frequently as possible as he is much more oriented in their presence and they will try to visit as often as possible (4) Acute on chronic systolic CHF (congestive heart failure) Current Visit: Yes Status: Acute Code(s): I50.23 - ACUTE ON CHRONIC SYSTOLIC (CONGESTIVE) HEART FAILURE SNOMED Code(s): 786586792 Comment: - Now resolved after significant diuresis - BNP was >1300 and pulmonary edema noted on CxR - Echo on 04/29 showed EF 40-45%, mild LV hypokinesis - Discontinue Furosemide while giving fluids. - Monitor fluid status closely for overload. - Continue metoprolol, digoxin. Level .7, monitor closely with hypokalemia. - Increase potassium to 40meq daily. (5) COPD (chronic obstructive pulmonary disease) Current Visit: Yes Status: Acute Code(s): J44.9 - CHRONIC OBSTRUCTIVE PULMONARY DISEASE, UNSPECIFIED SNOMED Code(s): 13271929 Comment: - Stable, not in exacerbation - Continue nebs (6) AICD (automatic cardioverter/defibrillator) present Current Visit: Yes Status: Acute Code(s): Z95.810 - PRESENCE OF AUTOMATIC ( IMPLANTABLE) CARDIAC DEFIBRILLATOR SNOMED Code(s): 518888968 Comment: - Fired on 05/08/18, run of VT and Torsades de pointes were noted on tele - Monitor QTc while on Risperdal and Sotalol with hypokalemia - 7 beats of monomorphic, regular VT on 05/21. Continue to optimize Electrolytes and decrease Sotalol due to Proarrythmia. (7) Electrolyte abnormality Current Visit: Yes Status: Acute Code(s): E87.8 - OTH DISORDERS OF ELECTROLYTE AND FLUID BALANCE, NEC SNOMED Code(s): 912617971 Comment: - Hypernatremia now at 149, monitor with increasing oral intake. - Hypokalemia at 3.6, Stop Lasix, increase supplementation, Give IV supplementation PRN - Mag 2.0. Will replace PRN - Cont to monitor (8) Hypertension Current Visit: Yes Status: Acute Code(s): I10 - ESSENTIAL (PRIMARY) HYPERTENSION SNOMED Code(s): 83798738 Comment: - Normotensive, SBP 120-150s - Continue metoprolol, lisinopril, hydralazine PRN (9) Malnutrition of moderate degree Current Visit: Yes Status: Acute Code(s): E44.0 - MODERATE PROTEIN-CALORIE MALNUTRITION SNOMED Code(s): 685187242 Comment: - See Systems Accountant assessment - Speech therapy following - TPN stopped 05/14 - Taking PO food and pills. Intermittent PO intake. - Encourage, reorient frequently, and feed PRN. - Increasing oral intake - Cont to monitor (10) Alzheimer disease Current Visit: Yes Status: Chronic Code(s): G30.9 - ALZHEIMER'S DISEASE, UNSPECIFIED; F02.80 - DEMENTIA IN OTH DISEASES CLASSD ELSWHR W/O BEHAVRL DISTURB SNOMED Code(s): 05377627 Comment: - Continue Aricept - Advanced and worsened by delirium. (11) Atrial fibrillation with rapid ventricular response Current Visit: Yes Status: Resolved Priority: Medium Code(s): I48.91 - UNSPECIFIED ATRIAL FIBRILLATION SNOMED Code(s): 547350610521639 Comment: - Rate controlled and paced. - Continue metoprolol, digoxin, Eliquis, and sotalol (12) DNR (do not resuscitate) Current Visit: Yes Status: Acute Comment: (13) DVT prophylaxis Current Visit: Yes Status: Acute Priority: Low Code(s): HIW2151 - SNOMED Code(s): 720009071 Comment: - Eliquis Status and Disposition: Inpatient for IV antibiotics, delirium, and malnutrition requiring close monitoring. Anticipate d/c to SNF when medically stable.
[2018-05-21] MEDS ORDERED: Sotalol TAB* 80 MG PO SCH (21:00)
[2018-05-22] MEDS: LORazepam INJ* 2 MG/ML 1 ML VIAL IV PUSH SCH ×2 (00:47→06:08)
[2018-05-22] MEDS: Ampicillin ADVAN(*) 2 GM in NS 0.9% 100 ML* 100 ML IVPB SCH ×5 (00:52→23:23)
[2018-05-22] MEDS: cefTRIAXone(*) 1 GM in NS 0.9% 50 ML* 50 ML IVPB SCH ×2 (05:33→16:37)
[2018-05-22 06:43] LABS: ABS Basophils 0 10^3/ul (0-0.2); ABS Eosinophils 0.1 10^3/ul (0-0.6); ABS Lymphocytes 0.8 10^3/ul (1.0-4.8); ABS Monocytes 0.4 10^3/ul (0-0.8); ABS Neutrophils 4.6 10^3/ul (1.5-7.7); ABS Nucleated RBC 0 10^3/ul; Eosinophil % 1.5 %; Hematocrit 38 % (42-52); Hemoglobin 13.1 g/dl (14.0-18.0); Lymphocyte % 13.8 %; Mean Corpuscular HGB Conc 34 g/dl (31-36); Mean Corpuscular Hemoglobin 30 pg (27-31); Mean Corpuscular Volume 86 fL (80-94); Mean Platelet Volume 9.1 fL (7.4-10.4); Nucleated Red Blood Cells % 0.1; Platelet Count 182 10^3/ul (150-450); Red Blood Count 4.44 10^6/ul (4.00-5.40); Red Cell Distribution Width 17 % (10.5-15); White Blood Count 5.9 10^3/ul (3.5-10.8)
[2018-05-22 07:05] LABS: Albumin 3.3 g/dL (3.2-5.2); Albumin/Globulin Ratio 1.2 (1-3); BUN/Creatinine Ratio 13.5 (8-20); Calcium 8.8 mg/dL (8.6-10.3); EGFR African American 101.1 (>60); EGFR Non-African American 83.6 (>60); Globulin 2.8 g/dL (2-4); Potassium 3.4 mmol/L (3.5-5.0); Total Bilirubin 0.7 mg/dL (0.2-1.0); Total Protein 6.1 g/dL (6.4-8.9)
[2018-05-22] MEDS: Digoxin TAB* 0.125 MG PO SCH (09:09)
[2018-05-22] MEDS: Donepezil TAB* 5 MG PO SCH (09:09)
[2018-05-22] MEDS: Aspirin TAB* 325 MG PO SCH (09:10)
[2018-05-22] MEDS: Potassium Chloride LIQUID* 20 MEQ PACKET PO SCH (09:10)
[2018-05-22] MEDS: Metoprolol Tartrate TAB* 100 MG TAB PO SCH ×2 (09:10→21:17)
[2018-05-22] MEDS: Lisinopril TAB* 5 MG PO SCH (09:10)
[2018-05-22] MEDS: Sotalol TAB* 80 MG PO SCH ×2 (09:10→21:17)
[2018-05-22] MEDS: Apixaban* 5 MG TAB PO SCH ×2 (09:10→22:45)
--- NOTE | 2018-05-22 13:49 | PN ---
Subjective Date of Service: 05/22/18 Interval History: Patient seen and evaluated at bedside. He is found to be sitting up in a chair. Noted to have advance confusion, dementia at his baseline. Unable to answer questions or follow commands. Per nursing staff no concerns at this time. Reports patient is not taking in a lot a PO and has to be fed all his meals. Family History: Unchanged from Admission Social History: Unchanged from Admission Past Medical History: Unchanged from Admission Objective Active Medications: Acetaminophen (Tylenol Adult Liq*) 650 mg PO Q6H PRN PRN Reason: FEVER/PAIN Hydrocodone Bitart/Acetaminophen (Nortab 7.5/325 Liq*) 5 ml PO Q6H PRN PRN Reason: PAIN Last Admin: 05/19/18 20:58 Dose: 5 ml Albuterol/Ipratropium (Duoneb (Albuterol 2.5 Mg/Ipratropium 0.5 Mg)) 1 neb INH Q6H PRN PRN Reason: SOB/WHEEZING Apixaban (Eliquis*) 5 mg PO Q12H [facility] Last Admin: 05/22/18 09:10 Dose: 5 mg Aspirin (Aspirin Tab*) 325 mg PO DAILY [facility] Last Admin: 05/22/18 09:10 Dose: 325 mg Digoxin (Lanoxin Tab*) 0.125 mg PO DAILY [facility] Last Admin: 05/22/18 09:09 Dose: 0.125 mg Donepezil HCl (Aricept Tab*) 10 mg PO DAILY [facility] Last Admin: 05/22/18 09:09 Dose: 10 mg Heparin Sodium (Porcine) (Heparin Flush Picc/Ml/Cvc(*)) 1 - 3 ml FLUSH 0600, 1800 [facility]; Protocol Last Admin: 05/22/18 06:14 Dose: 1 ml Hydralazine HCl (Apresoline Iv*) 10 mg IV SLOW PU Q6H PRN PRN Reason: SYSTOLIC BP GREATER THAN: Last Admin: 05/03/18 01:47 Dose: 10 mg Ceftriaxone Sodium 1 gm/ (Sodium Chloride) 50 mls @ 200 mls/hr IVPB Q12H [facility] Last Admin: 05/22/18 05:33 Dose: 200 mls/hr Ampicillin Sodium 2 gm/ Sodium (Chloride) 100 mls @ 200 mls/hr IVPB Q6H [facility] Last Admin: 05/22/18 12:06 Dose: 200 mls/hr Potassium Chloride/Dextrose (D5w 1/2 Ns 40 Meq Kcl 1000 Ml*) 1,000 mls @ 100 mls/hr IV PER RATE [facility] Last Admin: 05/21/18 08:25 Dose: 100 mls/hr Lisinopril (Prinivil Tab*) 5 mg PO DAILY [facility] Last Admin: 05/22/18 09:10 Dose: 5 mg Lorazepam (Ativan Tab(*)) 0.25 mg PO Q6H PRN PRN Reason: ANXIETY Metoprolol Tartrate (Lopressor Tab*) 100 mg PO BID [facility] Last Admin: 05/22/18 09:10 Dose: 100 mg Potassium Chloride (Klor-Con Liquid*) 40 meq PO DAILY [facility] Last Admin: 05/22/18 09:10 Dose: 40 meq Risperidone (Risperdal) 0.5 mg PO BEDTIME [facility] Last Admin: 05/21/18 22:28 Dose: 0.5 mg Sotalol HCl (Betapace Tab*) 80 mg PO BID [facility] Last Admin: 05/22/18 09:10 Dose: 80 mg Vital Signs - 8 hr 05/22/18 05/22/18 05/22/18 06:08 07:55 08:09 Temperature 98.9 F Pulse Rate 81 Respiratory 20 20 16 Rate Blood Pressure 120/83 (mmHg) O2 Sat by Pulse 100 Oximetry 05/22/18 05/22/18 05/22/18 09:03 09:09 11:42 Temperature 97.8 F Pulse Rate 84 83 Respiratory 16 20 Rate Blood Pressure 113/66 (mmHg) O2 Sat by Pulse 96 Oximetry Oxygen Devices in Use Now: None Appearance: chronically ill elderly male sitting up in a bed confused, alert Eyes: No Scleral Icterus, PERRLA Ears/Nose/Mouth/Throat: NL Teeth, Lips, Gums, Mucous Membranes Moist Neck: NL Appearance and Movements; NL JVP Respiratory: Symmetrical Chest Expansion and Respiratory Effort, Clear to Auscultation Cardiovascular: NL Sounds; No Murmurs; No JVD, RRR, No Edema Abdominal: NL Sounds; No Tenderness; No Distention Extremities: No Edema, No Clubbing, Cyanosis Neurological: Alert and Oriented x 3, NL Muscle Strength and Tone Lines/Tubes/Other Access: Clean, Dry and Intact Peripheral IV Nutrition: Taking PO's - Nutrition: Malnutrition Diagnosis/Plan Malnutrition Assessment by Registered Dietitian: Malnutrition Assessment Clinical Characteristics Acute,Moderate Malnutrition Assessment: - po intake < 75% EEE x > 7 days Criteria - mild temporal muscle wasting Malnutrition Assessment: 1. attempts to place NGT for feeding (all Interventions unsuccessful) 2. PICC placement 05/04/18 3. plan to begin TPN 05/05 or 05/06 if pt not adequate alert for safe po intake - TPN base A suggested Malnutrition Assessment: Goals 1. adequate nutrition provision (via PO or enteral or parenteral nutrition) to meet pt's est need and support stable wt, hydration, and replete lean body mass 2. achieve and maintain serum electrolytes within acceptable ranges 3. maintain glycemic control within critical care parameters; w/possible start of TPN 4. maintain intact skin integrity without evidence of new breakdown Result Diagrams: 05/22/18 06:12 05/22/18 06:12 Additional Lab and Data: Laboratory Results - last 24 hr 05/17/18 05/17/18 05/18/18 15:23 16:15 06:50 Sodium 140 D 147 H 147 H Potassium 3.2 L 3.5 3.2 L Chloride 110 115 H 115 H Carbon Dioxide 24 26 26 Anion Gap 6 6 6 BUN 16 18 13 Creatinine 0.98 1.02 0.92 Est GFR ( Amer) 90.5 86.4 97.3 Est GFR (Non-Af Amer) 74.8 71.4 80.4 BUN/Creatinine Ratio 16.3 17.6 14.1 Glucose TNP 125 H 92 Calcium 7.4 L 8.7 8.3 L Magnesium 1.9 Microbiology and Other Data: Microbiology 05/01/18 09:51 Blood Venous Aerobic Blood Culture - Final No Growth Day 5 05/01/18 09:51 Blood Venous Anaerobic Blood Culture - Final No Growth Day 5 05/02/18 11:09 Sputum Expectorated Gram Stain - Final 05/02/18 11:09 Sputum Expectorated Sputum Culture - Final Pseudomonas Aeruginosa Klebsiella Oxytoca YEAST 04/29/18 19:15 Blood Venous Aerobic Blood Culture - Final Enterococcus Faecalis 04/29/18 19:15 Blood Venous Anaerobic Blood Culture - Final Enterococcus Faecalis 04/29/18 18:21 Blood Venous Aerobic Blood Culture - Final Enterococcus Faecalis 04/29/18 18:21 Blood Venous Anaerobic Blood Culture - Final Enterococcus Faecalis 04/30/18 10:10 Nasal Nasal Screen MRSA (PCR) - Final Mrsa Not Detected 04/30/18 08:52 Urine Streptococcus pneumoniae Ag Screen - Final Negative S. pneumo Antigen 04/29/18 21:55 Nasal Nasal Screen MRSA (PCR) - Final Mrsa Not Detected 04/29/18 19:18 Nasal Influenza Types A,B Antigen - Final Specimen received for Influenza A/B Molecular testing Diagnostic Imaging: . EKG Data: . Assess/Plan/Problems-Billing Assessment: Mr. Hinkle is a 72 year old male admitted to [facility] for worsening agitation and confusion, bacteremia now on antibiotics with a prolonged ICU stay, persistent AMS, and multiple complications including afib with RVR and bacteremia who is improving slowly. - Patient Problems (1) Bacteremia Comment: - resolved - BC on admission grew Enterococcus faecalis, 4/4 bottles; repeat BC negative - Source is unclear, suspected ICD pacer infection - Appreciate ID consult; recommends 6 weeks IV abx and then possible suppressive IV PO antibiotics - Continue ampicillin and ceftriaxone per ID (day ); per ID, he may be switched from ampicillin to vanco 1gm BID if necessary for SNF placement - Amp changed to Q 6hrs by Dr Watkins due to GFR (2) Sepsis Comment: - Present on admission, now resolved - Secondary to Enteroccous bacteremia 04/29; repeat BC 05/01 negative - Sputum cultures shows polymicrobes, but CXR negative; suspect this represents colonization - Plan as above (3) Hypernatremia Comment: - Thought to be secondary to poor po intake. Improving with IVFs. (4) Malnutrition of moderate degree Comment: - See Train Electronic Technician assessment - Speech therapy following - TPN stopped 05/14 - Taking PO food and pills. Intermittent PO intake. - Encourage, reorient frequently, and feed PRN. - Increasing oral intake - Cont to monitor (5) AICD (automatic cardioverter/defibrillator) present Comment: - Fired on 05/08/18, run of VT and Torsades de pointes were noted on tele - Monitor QTc while on Risperdal and Sotalol with hypokalemia - 7 beats of monomorphic, regular VT on 05/21. Continue to optimize Electrolytes and decrease Sotalol due to Proarrythmia. (6) Acute on chronic systolic CHF (congestive heart failure) Comment: - Appears stable today - significant diuresis in prior days - BNP was >1300 and pulmonary edema noted on CxR - Echo on 04/29 showed EF 40-45%, mild LV hypokinesis - Discontinue Furosemide while giving fluids. - Monitor fluid status closely for overload. - Continue metoprolol, digoxin. Level .7, monitor closely with hypokalemia. - Increase potassium to 40meq daily. (7) COPD (chronic obstructive pulmonary disease) Status: Chronic Comment: - Stable, not in exacerbation - Continue nebs (8) Delirium Comment: - Secondary to sepsis, prolonged hospitalization, baseline advanced dementia - Geodon and Haldol d/c'd on 05/07 d/t QTc prolongation - Appreciate Neurology consult; saw on 05/[address] and EEG - CT brain unremarkable for acute findings; EEG showed findings consistent with diffuse cerebral dysfunction - Lorazepam changed from 1 mg PRN at bedtime to 0.5 mg Q6hrs PRN agitation. - In addition, we have added Risperadol 0.5 mg at bedtime which patient tolerated well, QT prolonged, if able to be decreased with electrolyte replacement, may be able to increase risperdal. - Monitor QTc on Risperdal and optimize Electrolytes PRN. (9) Electrolyte abnormality Comment: - Hypernatremia now at 147, monitor with increasing oral intake. - Hypokalemia at 3.4, supplementation given - Mag 2.0. Will replace PRN - Cont to monitor (10) Hypertension Comment: - Normotensive, SBP 120-150s - Continue metoprolol, lisinopril, hydralazine PRN (11) Alzheimer disease Comment: - Continue Aricept - Advanced and worsened by delirium. (12) Atrial fibrillation with rapid ventricular response Comment: - Rate controlled and paced. - Continue metoprolol, digoxin, Eliquis, and sotalol (13) DVT prophylaxis Comment: - Eliquis (14) DNR (do not resuscitate) Comment: Status and Disposition: Inpatient for IV antibiotics, delirium, and malnutrition requiring close monitoring. Anticipate d/c to SNF when medically stable. Plan per family and hospice physician is to try rehab for a month, if he fails the plan will be for hospice.
[2018-05-22] MEDS: LORazepam TAB(*) 0.5 MG PO PRN ×2 (14:38→22:45)
[2018-05-23] MEDS: cefTRIAXone(*) 1 GM in NS 0.9% 50 ML* 50 ML IVPB SCH (04:13)
[2018-05-23 04:51] LABS: Hematocrit 39 % (42-52); Hemoglobin 12.9 g/dl (14.0-18.0); Mean Corpuscular HGB Conc 34 g/dl (31-36); Mean Corpuscular Hemoglobin 29 pg (27-31); Mean Corpuscular Volume 88 fL (80-94); Mean Platelet Volume 8.9 fL (7.4-10.4); Platelet Count 169 10^3/ul (150-450); Red Blood Count 4.41 10^6/ul (4.00-5.40); Red Cell Distribution Width 17 % (10.5-15); White Blood Count 5.7 10^3/ul (3.5-10.8)
[2018-05-23 04:57] LABS: ABS Basophils 0.1 10^3/ul (0-0.2); ABS Eosinophils 0.1 10^3/ul (0-0.6); ABS Lymphocytes 0.8 10^3/ul (1.0-4.8); ABS Monocytes 0.4 10^3/ul (0-0.8); ABS Neutrophils 4.2 10^3/ul (1.5-7.7); ABS Nucleated RBC 0 10^3/ul; Eosinophil % 1.6 %; Lymphocyte % 14.3 %; Nucleated Red Blood Cells % 0.1
[2018-05-23 05:07] LABS: BUN/Creatinine Ratio 12.4 (8-20); Calcium 8.8 mg/dL (8.6-10.3); EGFR African American 101.1 (>60); EGFR Non-African American 83.6 (>60); Potassium 3.6 mmol/L (3.5-5.0)
[2018-05-23] MEDS: Ampicillin ADVAN(*) 2 GM in NS 0.9% 100 ML* 100 ML IVPB SCH ×2 (05:14→11:59)
[2018-05-23] MEDS: Aspirin TAB* 325 MG PO SCH (09:25)
[2018-05-23] MEDS: Potassium Chloride LIQUID* 20 MEQ PACKET PO SCH (09:25)
[2018-05-23] MEDS: Digoxin TAB* 0.125 MG PO SCH (09:25)
[2018-05-23] MEDS: Lisinopril TAB* 5 MG PO SCH (09:25)
[2018-05-23] MEDS: Sotalol TAB* 80 MG PO SCH (09:25)
[2018-05-23] MEDS: Donepezil TAB* 5 MG PO SCH (09:26)
[2018-05-23] MEDS: Metoprolol Tartrate TAB* 100 MG TAB PO SCH (09:26)
[2018-05-23] MEDS: Apixaban* 5 MG TAB PO SCH (11:44)
--- NOTE | 2018-05-23 12:57 | PN ---
Subjective Date of Service: 05/23/18 Interval History: patient alert, confused. Unable to hold a conversation. Spoke to over phone at length - she understands he is not taking a lot of PO and is at high risk of dehydration and currently even with IVF his sodium is 147-149. She understands he may or may not be successful due to his advanced dementia. Family History: Unchanged from Admission Social History: Unchanged from Admission Past Medical History: Unchanged from Admission Objective Active Medications: Acetaminophen (Tylenol Adult Liq*) 650 mg PO Q6H PRN PRN Reason: FEVER/PAIN Hydrocodone Bitart/Acetaminophen (Nortab 7.5/325 Liq*) 5 ml PO Q6H PRN PRN Reason: PAIN Last Admin: 05/19/18 20:58 Dose: 5 ml Albuterol/Ipratropium (Duoneb (Albuterol 2.5 Mg/Ipratropium 0.5 Mg)) 1 neb INH Q6H PRN PRN Reason: SOB/WHEEZING Apixaban (Eliquis*) 5 mg PO Q12H [facility] Last Admin: 05/23/18 11:44 Dose: 5 mg Aspirin (Aspirin Tab*) 325 mg PO DAILY [facility] Last Admin: 05/23/18 09:25 Dose: 325 mg Digoxin (Lanoxin Tab*) 0.125 mg PO DAILY [facility] Last Admin: 05/23/18 09:25 Dose: 0.125 mg Donepezil HCl (Aricept Tab*) 10 mg PO DAILY [facility] Last Admin: 05/23/18 09:26 Dose: 10 mg Heparin Sodium (Porcine) (Heparin Flush Picc/Ml/Cvc(*)) 1 - 3 ml FLUSH 0600, 1800 [facility]; Protocol Last Admin: 05/23/18 05:54 Dose: 1 ml Hydralazine HCl (Apresoline Iv*) 10 mg IV SLOW PU Q6H PRN PRN Reason: SYSTOLIC BP GREATER THAN: Last Admin: 05/03/18 01:47 Dose: 10 mg Ceftriaxone Sodium 1 gm/ (Sodium Chloride) 50 mls @ 200 mls/hr IVPB Q12H [facility] Last Admin: 05/23/18 04:13 Dose: 200 mls/hr Ampicillin Sodium 2 gm/ Sodium (Chloride) 100 mls @ 200 mls/hr IVPB Q6H [facility] Last Admin: 05/23/18 11:59 Dose: 200 mls/hr Lisinopril (Prinivil Tab*) 5 mg PO DAILY [facility] Last Admin: 05/23/18 09:25 Dose: 5 mg Lorazepam (Ativan Tab(*)) 0.25 mg PO Q6H PRN PRN Reason: ANXIETY Last Admin: 05/22/18 22:45 Dose: 0.25 mg Metoprolol Tartrate (Lopressor Tab*) 100 mg PO BID [facility] Last Admin: 05/23/18 09:26 Dose: 100 mg Potassium Chloride (Klor-Con Liquid*) 40 meq PO DAILY [facility] Last Admin: 05/23/18 09:25 Dose: 40 meq Risperidone (Risperdal) 0.5 mg PO BEDTIME [facility] Last Admin: 05/22/18 21:17 Dose: 0.5 mg Sotalol HCl (Betapace Tab*) 80 mg PO BID [facility] Last Admin: 05/23/18 09:25 Dose: 80 mg Vital Signs - 8 hr 05/23/18 05/23/18 05/23/18 07:49 07:55 07:56 Temperature 97.6 F Pulse Rate Respiratory 18 20 Rate Blood Pressure 140/80 (mmHg) 05/23/18 05/23/18 05/23/18 07:59 08:13 09:25 Temperature Pulse Rate 84 72 Respiratory 17 Rate Blood Pressure (mmHg) Oxygen Devices in Use Now: None Appearance: alert, confused, doesnt follow commands, Appears comfortable Eyes: No Scleral Icterus, PERRLA Ears/Nose/Mouth/Throat: Mucous Membranes Moist Neck: NL Appearance and Movements; NL JVP Respiratory: Symmetrical Chest Expansion and Respiratory Effort, Clear to Auscultation Cardiovascular: NL Sounds; No Murmurs; No JVD, RRR, No Edema Abdominal: NL Sounds; No Tenderness; No Distention Extremities: No Edema, No Clubbing, Cyanosis Neurological: - - alert Lines/Tubes/Other Access: Clean, Dry and Intact Peripheral IV Nutrition: Taking PO's - Nutrition: Malnutrition Diagnosis/Plan Malnutrition Assessment by Registered Dietitian: Malnutrition Assessment Clinical Characteristics Acute,Moderate Malnutrition Assessment: - po intake < 75% EEE x > 7 days Criteria - mild temporal muscle wasting Malnutrition Assessment: 1. attempts to place NGT for feeding (all Interventions unsuccessful) 2. PICC placement 05/04/18 3. plan to begin TPN 05/05 or 05/06 if pt not adequate alert for safe po intake - TPN base A suggested Malnutrition Assessment: Goals 1. adequate nutrition provision (via PO or enteral or parenteral nutrition) to meet pt's est need and support stable wt, hydration, and replete lean body mass 2. achieve and maintain serum electrolytes within acceptable ranges 3. maintain glycemic control within critical care parameters; w/possible start of TPN 4. maintain intact skin integrity without evidence of new breakdown Result Diagrams: 05/23/18 04:45 05/23/18 04:45 Additional Lab and Data: Laboratory Results - last 24 hr 05/17/18 05/17/18 05/18/18 15:23 16:15 06:50 Sodium 140 D 147 H 147 H Potassium 3.2 L 3.5 3.2 L Chloride 110 115 H 115 H Carbon Dioxide 24 26 26 Anion Gap 6 6 6 BUN 16 18 13 Creatinine 0.98 1.02 0.92 Est GFR ( Amer) 90.5 86.4 97.3 Est GFR (Non-Af Amer) 74.8 71.4 80.4 BUN/Creatinine Ratio 16.3 17.6 14.1 Glucose TNP 125 H 92 Calcium 7.4 L 8.7 8.3 L Magnesium 1.9 Microbiology and Other Data: Microbiology 05/01/18 09:51 Blood Venous Aerobic Blood Culture - Final No Growth Day 5 05/01/18 09:51 Blood Venous Anaerobic Blood Culture - Final No Growth Day 5 05/02/18 11:09 Sputum Expectorated Gram Stain - Final 05/02/18 11:09 Sputum Expectorated Sputum Culture - Final Pseudomonas Aeruginosa Klebsiella Oxytoca YEAST 04/29/18 19:15 Blood Venous Aerobic Blood Culture - Final Enterococcus Faecalis 04/29/18 19:15 Blood Venous Anaerobic Blood Culture - Final Enterococcus Faecalis 04/29/18 18:21 Blood Venous Aerobic Blood Culture - Final Enterococcus Faecalis 04/29/18 18:21 Blood Venous Anaerobic Blood Culture - Final Enterococcus Faecalis 04/30/18 10:10 Nasal Nasal Screen MRSA (PCR) - Final Mrsa Not Detected 04/30/18 08:52 Urine Streptococcus pneumoniae Ag Screen - Final Negative S. pneumo Antigen 04/29/18 21:55 Nasal Nasal Screen MRSA (PCR) - Final Mrsa Not Detected 04/29/18 19:18 Nasal Influenza Types A,B Antigen - Final Specimen received for Influenza A/B Molecular testing Diagnostic Imaging: . EKG Data: . Assess/Plan/Problems-Billing Assessment: Mr. Hinkle is a 72 year old male admitted to [facility] for worsening agitation and confusion, bacteremia now on antibiotics with a prolonged ICU stay, persistent AMS, and multiple complications including afib with RVR and bacteremia who is improving slowly. - Patient Problems (1) Bacteremia Comment: - resolved - BC on admission grew Enterococcus faecalis, 4/4 bottles; repeat BC negative - Source is unclear, suspected ICD pacer infection - Appreciate ID consult; recommends 6 weeks IV abx and then possible suppressive IV PO antibiotics - Continue ampicillin and ceftriaxone per ID (day ); per ID, he may be switched from ampicillin to vanco 1gm BID - to be continued for 2 weeks per ID - weekly labs - crp, CBC, CMP (2) Sepsis Comment: - Present on admission, now resolved - Secondary to Enteroccous bacteremia 04/29; repeat BC 05/01 negative - Sputum cultures shows polymicrobes, but CXR negative; suspect this represents colonization - Plan as above (3) Hypernatremia Comment: - Thought to be secondary to poor po intake. Improving with IVFs then DC'd IVFs yesterday and sodium creeping back up. Concern is pt has very poor poo intake. Discussed this with his who understands he may not be able to keep up on his oral hydration d/t his dementia. Discussed with attending who agrees ok for DC to penitentiary/rehab with encouragment of fluid intake by staff (4) Malnutrition of moderate degree Comment: - See Interpretive Naturalist assessment - Speech therapy following - TPN stopped 05/14 - Taking PO food and pills. Intermittent PO intake, mostly poor po intake. - Encourage, reorient frequently, and feed PRN. - Cont to monitor (5) AICD (automatic cardioverter/defibrillator) present Comment: - Fired on 05/08/18, run of VT and Torsades de pointes were noted on tele - Monitor QTc while on Risperdal and Sotalol with hypokalemia - 7 beats of monomorphic, regular VT on 05/21. Continue to optimize Electrolytes and decrease Sotalol due to Proarrythmia. Check BMP in 1 week. (6) Acute on chronic systolic CHF (congestive heart failure) Comment: - Appears stable today - significant diuresis in prior days - BNP was >1300 and pulmonary edema noted on CxR - Echo on 04/29 showed EF 40-45%, mild LV hypokinesis - Discontinue Furosemide while giving fluids. - Monitor fluid status closely for overload. - Continue metoprolol, digoxin. Level .7, monitor closely with hypokalemia. - Increase potassium to 40meq daily. (7) COPD (chronic obstructive pulmonary disease) Status: Chronic Comment: - Stable, not in exacerbation - Continue nebs (8) Delirium Comment: - Secondary to sepsis, prolonged hospitalization, baseline advanced dementia - Geodon and Haldol d/c'd on 05/07 d/t QTc prolongation - Appreciate Neurology consult; saw on 05/[address] and EEG - CT brain unremarkable for acute findings; EEG showed findings consistent with diffuse cerebral dysfunction - Lorazepam changed from 1 mg PRN at bedtime to 0.5 mg Q6hrs PRN agitation. - In addition, we have added Risperadol 0.5 mg at bedtime which patient tolerated well, QT prolonged, if able to be decreased with electrolyte replacement, may be able to increase risperdal. - Monitor QTc on Risperdal and optimize Electrolytes PRN. (9) Electrolyte abnormality Comment: - Hypokalemia at 3.4, supplementation given (10) Hypertension Comment: - Normotensive, SBP 120-150s - Continue metoprolol, lisinopril, (11) Alzheimer disease Comment: - Advanced dementia - Continue Aricept (12) Atrial fibrillation with rapid ventricular response Comment: - Rate controlled and paced. - Continue metoprolol, digoxin, Eliquis, and sotalol (13) DVT prophylaxis Comment: - Eliquis (14) DNR (do not resuscitate) Comment: Status and Disposition: Inpatient for IV antibiotics, delirium, and malnutrition requiring close monitoring. Pt stable for DC to [facility]. Plan per family and hospice physician is to try rehab for a month, if he fails the plan will be for hospice.
[2018-05-23 14:01] VITALS: BP 132/66
[2018-05-23] MEDS: LORazepam TAB(*) 0.5 MG PO PRN (14:18)
--- NOTE | 2018-05-23 19:03 | DS ---
DISCHARGE SUMMARY: DATE OF ADMISSION: 04/29/2018 DATE OF DISCHARGE: 05/23/2018 PROVIDER: Sarah Ramos NP ATTENDING PHYSICIAN: Dr. Hill * (report dictated by Sarah Ramos NP) PRIMARY CARE PROVIDER: Dr. Moran GOLD BLOWER: Dr. Patterson CARDIOLOGY: Dr. Katie Egan INFECTIOUS DISEASE: Dr. Mathis HOSPICE PHYSICIAN: Dr. Keila Ashley CONSULTING PHYSICIAN: Dr. Zaire Rowland DISCHARGE DIAGNOSES: 1. Acute encephalopathy secondary to sepsis, secondary to Enterococcus bacteremia, thought to be secondary to infected pacemaker, possible infectious endocarditis or cardiac device infection. 2. Alzheimer's disease. 3. Atrial fibrillation with rapid ventricular response. 4. Ventricular tachycardia with ICD placement. 5. Acute on chronic congestive heart failure. 6. Acute hypoxic respiratory failure. 7. Hypernatremia. SECONDARY DIAGNOSES: 1. Chronic obstructive pulmonary disease. 2. Abdominal aortic aneurysm repair. 3. Coronary artery disease. HISTORY OF PRESENT ILLNESS AND HOSPITAL COURSE: Please see History and Physical by Dr. Waldo Kwok for full admission details. In summary, this is a 74-year-old male with advanced Alzheimer's disease who became progressively agitated while at home with his . He admitted he had pain but could not localize it. She had concern for infection due to his seeming to have altered mental status and increased confusion, and was brought to the Emergency Department for further evaluation. EMS reported an episode of VT while being transferred to the Emergency Department. He was treated with amiodarone ( despite patient's allergy) however this was found to be sinus tachycardia on further evaluation. Patient was admitted to the Intensive Care Unit for sepsis and was initially treated empirically with vanco and Zosyn. He was seen by the [facility], Dr. Patricia Goodwin. Further workup revealed Enterococcus bacteremia. He was also on admission found to have acute hypoxic respiratory failure which he responded well to BiPAP. Initially his BNP was elevated and he was thought to have possible acute on chronic congestive heart failure. He initially had atrial fibrillation with rapid ventricular response and was continued on his oral metoprolol and sotalol, and was already anticoagulated with Eliquis. With treatment of the sepsis the patient did stabilize in the ICU. Patient's influenza PCR was negative. A chest x-ray showed no acute findings. CT of the abdomen and pelvis was fairly unremarkable. Gallbladder ultrasound was normal. The patient was changed to ampicillin after the Enterococcus susceptibility data came back. Followup blood cultures were sent and were negative after 24 hours. He was seen in consultation by Infectious Disease physician Dr. Mathis who suspected possible infective endocarditis and/or cardiac device infection. Patient was continued on ampicillin. Patient was found to have Pseudomonas and Klebsiella in sputum culture without evidence of pneumonia. ID thought likely was colonization. Patient did have a prolonged ICU admission with treatment of the bacteremia, agitation and was on a Precedex drip. He was transferred to the floor on . On 05/08/18 the patient was seen by Neurology for evaluation of altered mental status which was thought to be most consistent with acute delirium, on top of underlying Alzheimer's dementia most likely secondary to infection, prolonged hospitalization, medications and sundowning. They did not feel that the patient required a lumbar puncture and had low suspicion for ENVIRONMENTAL MANAGEMENT SPECIALIST infection. The patient did have several days of TPN which was ultimately discontinued. Patient did have a hypernatremia with sodium as high as 166, most likely thought to be secondary to dehydration and poor oral intake. Patient has improved throughout hospitalization, but continues to have a sodium level between 147 and 149. I did discuss this with my attending physician, Dr. Hill, who does not think the patient needs to be continued to be hospitalized just for his chronic elevated sodium. The concern with the patient is that due to his advanced dementia and his poor p.o. intake that most likely he will have this chronic elevation of his sodium and may fail outpatient rehab/PT. He has gotten better through his hospitalization and per his , his health care proxy, the plan will be to see if the patient continues to improve for physical therapy and rehab, and get back to his baseline to be able to return to home. If the patient fails this, the plan will be for hospice. Hospice physician, Dr. Ashley, did evaluate the patient and spent extensive time talking to the and agrees with the plan at this time, to trial the patient with current medications and therapy, and if he were to fail the plan will be for hospice services at that time. Please note once the patient was discharged to the medical floor he did stabilize. He was followed by Infectious Disease who recommended on discharge he be sent to the nursing facility on vancomycin 1 gram every 12 hours for another 2 weeks. I did discuss with the today at discharge that I do have concern over the patient's poor p.o. intake, however she continues to hope that he will continue to improve; however, the patient does not drink or eat on his own and needs full assistance, and will need nursing staff to encourage p.o. fluids. She agrees with discharge to [facility] today at this time and if he fails will consider Hospice. Please note his AICD defibrillator did fire on 05/08/18 with a run of VT and possible torsades, as well as a monomorphic VT on 05/21/18 in the setting of hypokalemia. His electrolytes have been replenished. He has been continued on his sotalol and metoprolol. Please check a BMP in 1 week to monitor his electrolytes. In regards to his acute on chronic systolic heart failure, he did have significant diuresis in prior days. There was a question of an elevated BNP and pulmonary edema on chest x-ray, and he was given lots of fluids on admission; however, his Lasix is being held at this time due to the thought that he is more mildly dehydrated at this time in the setting of poor p.o. intake. His lungs are clear. He does appear to be fluid overloaded. Will continue metoprolol and digoxin at this time, and potassium replacement. Please monitor his weight daily and Lasix may need to be reintroduced. His echo on 04/29/18 showed an EF to 45% with mild LV hypokinesis. Again, I have concern for the patient's advanced dementia that appears to be fairly end stage and very poor p.o. intake, that he may fail rehab; however, it has been decided to give the patient a trial. This has been discussed with the patient's at length and she states understanding. The patient is stable for discharge to [facility] today. DISCHARGE MEDICATIONS: 1. Acetaminophen liquid 650 mg p.o. every 6 hours p.r.n. 2. Lisinopril 5 mg p.o. daily. 3. Potassium chloride 40 mEq p.o. daily. 4. Risperidone 0.5 mg p.o. at bedtime. 5. Flomax 0.4 mg p.o. at bedtime. 6. Vitamin E 400 units p.o. daily. 7. Sotalol 120 mg p.o. b.i.d. 8. Xopenex 1 puff INH every 4 hours p.r.n. 9. Melatonin 3 mg p.o. at bedtime. 10. Metoprolol tartrate 150 mg p.o. b.i.d. 11. Multivitamin with minerals 1 cap p.o. daily. 12. Vitamin D3 1000 units p.o. daily. 13. Aricept 10 mg p.o. daily. 14. Aspirin 325 mg p.o. daily. 15. Zyrtec 10 mg p.o. daily. 16. Tylenol 650 mg p.o. daily p.r.n. 17. Digoxin 125 micrograms p.o. daily. 18. Eliquis 5 mg p.o. b.i.d. 19. Brovana 15 micrograms p.o. daily. 20. Divalproex sodium 250 mg p.o. b.i.d. MEDICATIONS ON HOLD: 1. Budesonide 0.5 mg p.o. daily. 2. Lasix 40 mg p.o. daily. NEW MEDICATION: Vancomycin 1000 mg IV every 12 hours x14 days. DISCHARGE PLANNIN. Stable to discharge to [facility]. 2. Followup CBC, CMP and CRP weekly while on antibiotics. 3. Encourage p.o. fluids. 4. Followup with Dr. Mathis, Infectious Disease. 5. Patient should followup with his Food And Nutrition Supervisor as stated above. TIME SPENT: Approximately 75 minutes was spent on this discharge. SARAH RAMOS, NOEL [id number]/[facility] #: [id number] JACIEL
[2018-05-23] MEDS ORDERED: Vancomycin(*) 1,000 MG in NS 0.9% 250 ML* 250 ML IVPB SCH (21:00)
[2018-05-24] MEDS ORDERED: Magnesium Oxide TAB* 400 MG PO SCH (09:00)
== END 2018-05-23 16:08 | DRG 871 ==
LOC: ED 17:24 → ICU 19:56 → MEDTELE 05-08 20:08
PROVIDERS: ADMIT Internal Medicine; ATTEND Internal Medicine
PROC: 5A09357 Assistance with Respiratory Ventilation, Less than 24 Consecutive Hours, Continuous Positive Airway Pressure (ICD-10-PCS; 2018-04-29)
PROC: 4A00X4Z Measurement of Central Nervous Electrical Activity, External Approach (ICD-10-PCS; principal; 2018-05-09)
DX: A41.81 Sepsis due to Enterococcus (principal); G93.41 Metabolic encephalopathy; J96.01 Acute respiratory failure with hypoxia; I33.0 Acute and subacute infective endocarditis; R40.2122 Coma scale, eyes open, to pain, at arrival to emergency department; R40.2222 Coma scale, best verbal response, incomprehensible words, at arrival to emergency department; I50.23 Acute on chronic systolic (congestive) heart failure; I21.A1 Myocardial infarction type 2; T82.7XXA Infection and inflammatory reaction due to other cardiac and vascular devices, implants and grafts, initial encounter; E87.0 Hyperosmolality and hypernatremia; I47.2 Ventricular tachycardia; E44.0 Moderate protein-calorie malnutrition; Y71.0 Diagnostic and monitoring cardiovascular devices associated with adverse incidents; G30.9 Alzheimer's disease, unspecified; F02.80 Dementia in other diseases classified elsewhere, unspecified severity, without behavioral disturbance, psychotic disturbance, mood disturbance, and anxiety; J44.9 Chronic obstructive pulmonary disease, unspecified; I25.10 Atherosclerotic heart disease of native coronary artery without angina pectoris; I48.91 Unspecified atrial fibrillation; Y92.009 Unspecified place in unspecified non-institutional (private) residence as the place of occurrence of the external cause; Z83.3 Family history of diabetes mellitus; Z82.49 Family history of ischemic heart disease and other diseases of the circulatory system; Z80.8 Family history of malignant neoplasm of other organs or systems; Z81.8 Family history of other mental and behavioral disorders; Z87.891 Personal history of nicotine dependence; Z86.711 Personal history of pulmonary embolism; Z95.810 Presence of automatic (implantable) cardiac defibrillator; Z85.038 Personal history of other malignant neoplasm of large intestine; Z86.74 Personal history of sudden cardiac arrest; Z87.440 Personal history of urinary (tract) infections; Z88.8 Allergy status to other drugs, medicaments and biological substances; R40.2352 Coma scale, best motor response, localizes pain, at arrival to emergency department; Z66 Do not resuscitate; Z68.20 Body mass index [BMI] 20.0-20.9, adult
CPT/HCPCS: 36415; 70450; 71045; 74176; 76705; 80048; 80053; 80061; 80076; 80162; 80164; 81003; 82140; 82550; 82607; 82746; 82803; 82947; 83605; 83735; 83880; 84100; 84134; 84443; 84478; 84484; 85014; 85018; 85025; 85027; 85060; 85610; 85652; 85730; 86140; 86141; 87040; 87070; 87077; 87186; 87205; 87641; 87899; 93005; 93306; 93970; 95816; 99285; A9270-GY; C1751; G8978-GP-CM; G8979-GP-CL; J0360; J0696; J1160; J1630; J1650; J1940; J2060; J2270; J2310; J2543; J2997; J3370; J3475; J3480; J3486; J3490